=== PATIENT | male | born 1965 | race Hispanic/Latino ===

== ENCOUNTER 2023-06-24 08:46 | Emergency (ER) | payer SELFPAY ==
--- OUTSIDE RECORDS SUMMARY | 2023-06-24 08:59 | XMS REPORT | Continuity of Care Document ---
Author Name Unknown Address [address] [facility] [address] [place] [address] [facility] thconnect Address [address] [facility] [address] [place] [address] Care Team Providers Care Tissue Coordinator Name Role Phone ROMEDEANDRE Primary Care Physician Unavailab SAMUEL Singh Attending Clinician Unavailable Samuel Donato MD Attending Clinician [phone] Vanesa MOY Attending Clinician Unavailable Vanesa Thornton Attending Clinician [phone] JEZ LINN Attending Clinician Unavailable Jez Linn PA-C Attending Clinician Payers Payer Name Policy Type Policy Number Effective Date Expirati on Date Source MEDICAID [place] PENDING PENDING 2023 00:00:00 Allergies, Adverse Reactions, Alerts Allergy Name Allergy Type Status Severity Reaction(s) Onset Date Inactive Date Treating Clinician Comments Source NO KNOWN ALLERGIE S Drug Class Active [facility] Social History Social Habit Start Date Stop Date Quantity Comments Source Sexual orientation U [facility] Sex Assigned At 1965 00:00:00 1965 00:00:00 [facility] Smoking Status Start Date Stop Date Source Tobacco smoking consumption unknown [facility] Medications Ordered Medication Name Filled Medication Name Start Date Stop Date Current Medication? Ordering Clinician Indication Dosage Frequency Signature (SIG) Comments Components Source pantoprazol e (PROTONIX) 40 mg EC tablet 06-03 00:00: 00 Yes [id number] 40mg Take 1 tablet by mouth daily. [facility] pantoprazol e 40 mg EC tablet 0 224 00:00: 00 06-20 04:59 :00 Yes [id number] 40mg Take 1 tablet by mouth daily for [address] [facility] pantoprazol e 40 mg EC tablet 224 00:00: 00 06-20 04:59 :00 Yes [id number] 40mg Take 1 tablet by mouth daily for [address] [facility] pantoprazol e 40 mg EC tablet 24 00:00: 00 06-20 04:59 :00 Yes [id number] 40mg Take 1 tablet by mouth daily for [address] [facility] amlodipine 10 mg tablet 2021-0 18 00:00: 00 No 1mg metformin 500 mg tablet 0 18 00:00: 00 No 1mg atorvastati n 10 mg tablet 2021-0 18 00:00: 00 No 1mg Dose Unknown 2021-0 18 00:00: 00 No Dose Unknown 2021-0 18 00:00: 00 No Dose Unknown 2021-0 18 00:00: 00 No Dose Unknown 2021-0 18 00:00: 00 No Dose Unknown 2021-0 18 00:00: 00 No amlodipine 10 mg tablet 2021-0 18 00:00: 00 No 1mg metformin 500 mg tablet 2021-0 18 00:00: 00 No 1mg atorvastati n 10 mg tablet 2021-0 18 00:00: 00 No 1mg Dose Unknown 2021-0 18 00:00: 00 No Dose Unknown 2021-0 18 00:00: 00 No Dose Unknown 2021-0 18 00:00: 00 No Dose Unknown 2021-0 18 00:00: 00 No Dose Unknown 2021-0 18 00:00: 00 No lisinopril 2.5 mg tablet 2021-0 2-23 00:00: 00 No 1mg lisinopril 2.5 mg tablet 2021-0 2-23 00:00: 00 No 1mg Dose Unknown 04-19 00:00: 00 No amlodipine 10 mg tablet 2020-03 00:00: 00 No 1mg metformin 500 mg tablet 2020-03 00:00: 00 No 1mg atorvastati n 10 mg tablet 2020-03 00:00: 00 No 1mg hydrochloro thiazide 12.5 mg tablet 2020-03 00:00: 00 No 1mg amlodipine 10 mg tablet 2020-03 00:00: 00 No 1mg metformin 500 mg tablet 2020-03 00:00: 00 No 1mg atorvastati n 10 mg tablet 2020-03 00:00: 00 No 1mg metformin 500 mg tablet 11-20 00:00: 00 No 1mg metformin 500 mg tablet 11-20 00:00: 00 No 1mg terbinafine HCl 250 mg tablet 07-30 00:00: 00 No 1mg Dose Unknown 07-30 00:00: 00 No hydrochloro thiazide 12.5 mg tablet 07-30 00:00: 00 No 1mg amlodipine 10 mg tablet 07-30 00:00: 00 No 1mg metformin 500 mg tablet 07-30 00:00: 00 No 1mg atorvastati n 10 mg tablet 07-30 00:00: 00 No 1mg terbinafine HCl 250 mg tablet 07-30 00:00: 00 No 1mg lisinopril 2.5 mg tablet 07-30 00:00: 00 No 1mg hydrochloro thiazide 12.5 mg tablet 5 00:00: 00 No 1mg amlodipine 10 mg tablet 07-30 00:00: 00 No 1mg metformin 500 mg tablet 5 00:00: 00 No 1mg atorvastati n 10 mg tablet 5-05 00:00: 00 No 1mg rosuvastati n 20 mg tablet 2- 00:00: 00 No 1mg Dose Unknown 2-08 00:00: 00 No rosuvastati n 20 mg tablet 2-08 00:00: 00 No 1mg lisinopril 2.5 mg tablet 0 2-08 00:00: 00 No 1mg metformin 500 mg tablet 2-03 00:00: 00 No 1mg Dose Unknown 2-03 00:00: 00 No amlodipine 10 mg tablet 2- 00:00: 00 No 1mg metformin 500 mg tablet 2- 00:00: 00 No 1mg hydrochloro thiazide 12.5 mg tablet 2- 00:00: 00 No 1mg amlodipine 10 mg tablet 2 00:00: 00 No 1mg amlodipine 10 mg tablet 0 12-23 00:00: 00 No 1mg Dose Unknown 12-23 00:00: 00 No metformin 500 mg tablet 12-23 00:00: 00 No 1mg amlodipine 10 mg tablet 0 12-23 00:00: 00 No 1mg hydrochloro thiazide 12.5 mg tablet 0 12-23 00:00: 00 No 1mg metformin 500 mg tablet 0 12-23 00:00: 00 No 1mg amlodipine 10 mg tablet 0 09-11 00:00: 00 No 1mg hydrochloro thiazide 12.5 mg tablet 0 09-11 00:00: 00 No 1mg metformin 500 mg tablet 0 09-11 00:00: 00 No 1mg loratadine 10 mg tablet 0 09-11 00:00: 00 No 1mg amlodipine 10 mg tablet 0 09-11 00:00: 00 No 1mg hydrochloro thiazide 12.5 mg tablet 0 09-11 00:00: 00 No 1mg metformin 500 mg tablet 0 09-11 00:00: 00 No 1mg loratadine 10 mg tablet 0 09-11 00:00: 00 No 1mg amlodipine 10 mg tablet 0 07-12 00:00: 00 No 1mg hydrochloro thiazide 12.5 mg tablet 0 07-12 00:00: 00 No 1mg amlodipine 10 mg tablet 0 07-12 00:00: 00 No 1mg hydrochloro thiazide 12.5 mg tablet 2020-0 4-17 00:00: 00 No 1mg amlodipine 10 mg tablet 0 4- 00:00: 00 No 1mg hydrochloro thiazide 12.5 mg tablet 0 4- 00:00: 00 No 1mg amlodipine 10 mg tablet 0 4 00:00: 00 No 1mg hydrochloro thiazide 12.5 mg tablet 0 4 00:00: 00 No 1mg metformin 500 mg tablet 0 3-06 00:00: 00 No 1mg metformin 500 mg tablet 0 3 00:00: 00 No 1mg amlodipine 10 mg tablet 0 3-05 00:00: 00 No 1mg amlodipine 10 mg tablet 0 3-05 00:00: 00 No 1mg hydrochloro thiazide 12.5 mg tablet 0 3-05 00:00: 00 No 1mg hydrochloro thiazide 12.5 mg tablet 0 3-05 00:00: 00 No 1mg lisinopril 20 mg-hydrochl orothiazide 12.5 mg tablet 2018-03 2-02 00:00: 00 No 1mg lisinopril 20 mg-hydrochl orothiazide 12.5 mg tablet 2018-03 2-02 00:00: 00 No 1mg lisinopril 20 mg-hydrochl orothiazide 12.5 mg tablet 0 8-20 00:00: 00 No 1mg lisinopril 20 mg-hydrochl orothiazide 12.5 mg tablet 0 8-20 00:00: 00 No 1mg lisinopril 40 mg tablet 0 2-05 00:00: 00 No 1mg hydrochloro thiazide 12.5 mg tablet 0 2-05 00:00: 00 No 1mg lisinopril 40 mg tablet 0 2-05 00:00: 00 No 1mg hydrochloro thiazide 12.5 mg tablet 0 2-05 00:00: 00 No 1mg lisinopril 20 mg-hydrochl orothiazide 12.5 mg tablet 0 8-07 00:00: 00 No 1mg lisinopril 20 mg-hydrochl orothiazide 12.5 mg tablet 0 8-07 00:00: 00 No 1mg benzonatate 100 mg capsule 0 3-29 00:00: 00 No 1mg promethazin e-DM 6.25 mg-15 mg/5 mL syrup 06-23 00:00: 00 No 5mg/5 mL benzonatate 100 mg capsule 06-23 00:00: 00 No 1mg promethazin e-DM 6.25 mg-15 mg/5 mL syrup 06-23 00:00: 00 No 5mg/5 mL lisinopril 20 mg-hydrochl orothiazide 12.5 mg tablet 04-18 00:00: 00 No 1mg lisinopril 20 mg-hydrochl orothiazide 12.5 mg tablet 04-18 00:00: 00 No 1mg lisinopril 20 mg-hydrochl orothiazide 12.5 mg tablet 1 00:00: 00 No 1mg lisinopril 20 mg-hydrochl orothiazide 12.5 mg tablet 04-07 00:00: 00 No 1mg lisinopril 20 mg-hydrochl orothiazide 12.5 mg tablet 09-08 00:00: 00 No 1mg lisinopril 20 mg-hydrochl orothiazide 12.5 mg tablet 09-08 00:00: 00 No 1mg lisinopril 20 mg-hydrochl orothiazide 12.5 mg tablet 06-18 00:00: 00 No 1mg lisinopril 20 mg-hydrochl orothiazide 12.5 mg tablet 06-18 00:00: 00 No 1mg metformin 500 mg tablet 04-29 00:00: 00 No 1mg metformin 500 mg tablet 04-29 00:00: 00 No 1mg lisinopril 20 mg-hydrochl orothiazide 12.5 mg tablet 04-28 00:00: 00 No 1mg metformin 500 mg tablet 04-28 00:00: 00 No 1mg lisinopril 20 mg-hydrochl orothiazide 12.5 mg tablet 04-28 00:00: 00 No 1mg metformin 500 mg tablet 04-28 00:00: 00 No 1mg lisinopril 20 mg-hydrochl orothiazide 12.5 mg tablet 04-28 00:00: 00 No 1mg metformin 500 mg tablet 04-28 00:00: 00 No 1mg lisinopril 20 mg-hydrochl orothiazide 12.5 mg tablet 04-28 00:00: 00 No 1mg metformin 500 mg tablet 04-28 00:00: 00 No 1mg Ciprodex 0.3 %-0.1 % ear drops,suspe nsion 12-01 00:00: 00 No 4% Ciprodex 0.3 %-0.1 % ear drops,suspe nsion 12-01 00:00: 00 No 4% metformin 500 mg tablet 2014-03 00:00: 00 No 1mg lisinopril 20 mg-hydrochl orothiazide 12.5 mg tablet 2014-03 00:00: 00 No 1mg metformin 500 mg tablet 2014-03 00:00: 00 No 1mg lisinopril 20 mg-hydrochl orothiazide 12.5 mg tablet 2014-03 00:00: 00 No 1mg metformin 500 mg tablet 09-18 00:00: 00 No 1mg lisinopril 20 mg-hydrochl orothiazide 12.5 mg tablet 09-18 00:00: 00 No 1mg metformin 500 mg tablet 09-18 00:00: 00 No 1mg lisinopril 20 mg-hydrochl orothiazide 12.5 mg tablet 09-18 00:00: 00 No 1mg lisinopril 20 mg-hydrochl orothiazide 12.5 mg tablet 08-06 00:00: 00 No 2mg metformin 500 mg tablet 08-06 00:00: 00 No 1mg lisinopril 20 mg-hydrochl orothiazide 12.5 mg tablet 08-06 00:00: 00 No 2mg metformin 500 mg tablet 08-06 00:00: 00 No 1mg lisinopril 20 mg-hydrochl orothiazide 12.5 mg tablet 05-07 00:00: 00 No 2mg lisinopril 20 mg-hydrochl orothiazide 12.5 mg tablet 05-07 00:00: 00 No 2mg metformin 500 mg tablet 05-07 00:00: 00 No 1mg metformin 500 mg tablet 05-07 00:00: 00 No 1mg lisinopril 20 mg-hydrochl orothiazide 12.5 mg tablet 05-07 00:00: 00 No 2mg lisinopril 20 mg-hydrochl orothiazide 12.5 mg tablet 05-07 00:00: 00 No 2mg metformin 500 mg tablet 05-07 00:00: 00 No 1mg metformin 500 mg tablet 05-07 00:00: 00 No 1mg Immunizations Ordered Immunization Name Filled Immunization Name Date Status Comments Source TD, NOS Unknown Completed [facility] SARS-COV-2 COVID-19 PFIZER VACCINE Unknown Completed [facility] SARS-COV-2 COVID-19 PFIZER VACCINE Unknown Completed [facility] TD, NOS Unknown Completed [facility] SARS-COV-2 COVID-19 PFIZER VACCINE Unknown Completed [facility] SARS-COV-2 COVID-19 PFIZER VACCINE Unknown Completed [facility] TD, NOS Unknown Completed [facility] SARS-COV-2 COVID-19 PFIZER VACCINE Unknown Completed [facility] SARS-COV-2 COVID-19 PFIZER VACCINE Unknown Completed [facility] Vital Signs Vital Name Observation Time Observation Value Comments S ource Systolic blood pressure 2023-06-04 07:24:00 157 mm[Hg] [facility] Diastolic blood pressure 2023-06-04 07:24:00 82 mm[Hg] [facility] Heart rate 2023-06-04 07:24:00 72 /min [facility] Body temperature 2023-06-04 07:24:00 36.89 Sherri [facility] Respiratory rate 2023-06-04 07:24:00 18 /min [facility] Oxygen saturation in Arterial blood by Pulse oximetry 2023-06-04 07:24:00 97 /min [facility] Body height 2023-06-04 04:37:00 167.6 cm [facility] Body weight 2023-06-04 04:37:00 73.074 kg [facility] BMI 2023-06-04 04:37:00 26.00 kg/m2 [facility] Systolic blood pressure 2023-05-31 23:23:00 190 mm[Hg] [facility] Diastolic blood pressure 2023-05-31 23:23:00 100 mm[Hg] [facility] Heart rate 2023-05-31 23:23:00 86 /min [facility] Body temperature 2023-05-31 23:23:00 36.61 Sherri [facility] Respiratory rate 2023-05-31 23:23:00 19 /min [facility] Body height 2023-05-31 23:23:00 167.6 cm [facility] Body weight 2023-05-31 23:23:00 69.854 kg [facility] BMI 2023-05-31 23:23:00 24.86 kg/m2 [facility] Oxygen saturation in Arterial blood by Pulse oximetry 2023-05-31 23:23:00 100 /min [facility] Systolic blood pressure 2023-05-21 16:35:00 175 mm[Hg] [facility] Diastolic blood pressure 2023-05-21 16:35:00 81 mm[Hg] [facility] Heart rate 2023-05-21 16:35:00 85 /min [facility] Body temperature 2023-05-21 16:35:00 36.61 Sherri [facility] Respiratory rate 2023-05-21 16:35:00 16 /min [facility] Body height 2023-05-21 16:35:00 167.6 cm [facility] Body weight 2023-05-21 16:35:00 70.761 kg [facility] BMI 2023-05-21 16:35:00 25.18 kg/m2 [facility] Oxygen saturation in Arterial blood by Pulse oximetry 2023-05-21 16:35:00 97 /min [facility] BP Systolic 2022-02-09 08:24:00 151 mm[Hg] BP Diastolic 2022-02-09 08:24:00 67 mm[Hg] Weight Measured 2022-02-09 08:24:00 153.40 pounds Height Measured 2022-02-09 08:24:00 65.00 inches Body Temperature 2022-02-09 08:24:00 97.50 degrees Heart Rate 2022-02-09 08:24:00 57.00 /min Respiratory Rate 2022-02-09 08:24:00 BP Systolic 2021-11-12 08:04:00 160 mm[Hg] BP Diastolic 2021-11-12 08:04:00 87 mm[Hg] Weight Measured 2021-11-12 08:04:00 153.40 pounds Height Measured 2021-11-12 08:04:00 65.00 inches Body Temperature 2021-11-12 08:04:00 97.50 degrees Heart Rate 2021-11-12 08:04:00 66.00 /min Respiratory Rate 2021-11-12 08:04:00 BP Systolic 2021-08-12 13:19:00 120 mm[Hg] BP Diastolic 2021-08-12 13:19:00 66 mm[Hg] Weight Measured 2021-08-12 13:19:00 152.40 pounds Height Measured 2021-08-12 13:19:00 65.00 inches Body Temperature 2021-08-12 13:19:00 98.00 degrees Heart Rate 2021-08-12 13:19:00 69.00 /min Respiratory Rate 2021-08-12 13:19:00 16.00 /min BP Systolic 2021-02-17 08:44:00 154 mm[Hg] BP Diastolic 2021-02-17 08:44:00 74 mm[Hg] Weight Measured 2021-02-17 08:44:00 150.80 pounds Height Measured 2021-02-17 08:44:00 65.00 inches Body Temperature 2021-02-17 08:44:00 97.60 degrees Heart Rate 2021-02-17 08:44:00 71.00 /min Respiratory Rate 2021-02-17 08:44:00 BP Systolic 2020-07-30 08:52:00 165 mm[Hg] BP Diastolic 2020-07-30 08:52:00 86 mm[Hg] Weight Measured 2020-07-30 08:52:00 154.60 pounds Height Measured 2020-07-30 08:52:00 65.00 inches Body Temperature 2020-07-30 08:52:00 97.80 degrees Heart Rate 2020-07-30 08:52:00 82.00 /min Respiratory Rate 2020-07-30 08:52:00 20.00 /min BP Systolic 2020-04-30 15:06:00 151 mm[Hg] BP Diastolic 2020-04-30 15:06:00 75 mm[Hg] Weight Measured 2020-04-30 15:06:00 159.00 pounds Height Measured 2020-04-30 15:06:00 65.00 inches Body Temperature 2020-04-30 15:06:00 97.90 degrees Heart Rate 2020-04-30 15:06:00 77.00 /min Respiratory Rate 2020-04-30 15:06:00 18.00 /min BP Systolic 2020-04-30 14:41:00 151 mm[Hg] BP Diastolic 2020-04-30 14:41:00 75 mm[Hg] Weight Measured 2020-04-30 14:41:00 159.00 pounds Height Measured 2020-04-30 14:41:00 65.00 inches Body Temperature 2020-04-30 14:41:00 97.90 degrees Heart Rate 2020-04-30 14:41:00 77.00 /min Respiratory Rate 2020-04-30 14:41:00 18.00 /min BP Systolic 2019-12-24 15:04:00 178 mm[Hg] BP Diastolic 2019-12-24 15:04:00 95 mm[Hg] Weight Measured 2019-12-24 15:04:00 154.20 pounds Height Measured 2019-12-24 15:04:00 65.00 inches Body Temperature 2019-12-24 15:04:00 98.10 degrees Heart Rate 2019-12-24 15:04:00 88.00 /min Respiratory Rate 2019-12-24 15:04:00 17.00 /min BP Systolic 2019-09-12 08:32:00 158 mm[Hg] BP Diastolic 2019-09-12 08:32:00 83 mm[Hg] Weight Measured 2019-09-12 08:32:00 151.40 pounds Height Measured 2019-09-12 08:32:00 65.00 inches Body Temperature 2019-09-12 08:32:00 98.40 degrees Heart Rate 2019-09-12 08:32:00 77.00 /min Respiratory Rate 2019-09-12 08:32:00 BP Systolic 2019-07-13 08:23:00 175 mm[Hg] BP Diastolic 2019-07-13 08:23:00 83 mm[Hg] Weight Measured 2019-07-13 08:23:00 154.00 pounds Height Measured 2019-07-13 08:23:00 65.00 inches Body Temperature 2019-07-13 08:23:00 97.70 degrees Heart Rate 2019-07-13 08:23:00 71.00 /min Respiratory Rate 2019-07-13 08:23:00 16.00 /min Procedures Procedure Date / Time Performed Performing Clinician Source ETHANOL 2023-06-04 05:13:00 Samuel Donato [facility] URINE DRUG (IMMUNOASSAY) - COMPREHENSIVE DRUG SCREEN 2023-06-04 05:13:00 Samuel Donato [facility] CBC WITH DIFF 2023-06-04 05:13:00 Samuel Donato [facility] COMP. METABOLIC PANEL (91220) 2023-06-04 05:13:00 Samuel Donato [facility] CONSENT/REFUSAL FOR DIAGNOSIS AND TREATMENT 2023-06-04 04:27:24 Doctor Unassigned, [place] [facility] ASSIGNMENT OF BENEFITS 2023-06-01 00:26:23 Docto r Unassigned, [place] [facility] CONSENT/REFUSAL FOR DIAGNOSIS AND TREATMENT 2023-05-31 23:10:49 Doctor Unassigned, [place] [facility] ASSIGNMENT OF BENEFITS 2023-05-21 17:01:51 Docto r Unassigned, [place] [facility] CONSENT/REFUSAL FOR DIAGNOSIS AND TREATMENT 2023-05-21 16:29:51 Doctor Unassigned, [place] [facility] [address] Ecg Routine Ecg W/least 12 Lds W/i r 2016-04-28 00:00:00 Plan of Care Planned Activity Planned Date Details Comments Source Goal Plan of Care Note [code = 83481-7] Goal Plan of Care Note [code = 90620-3] Goal Plan of Care Note [code = 27177-8] Goal Plan of Care Note [code = 98700-5] Goal Plan of Care Note [code = 69301-2] Goal Plan of Care Note [code = 92711-3] Goal Plan of Care Note [code = 72239-2] Goal Plan of Care Note [code = 67886-8] Goal Plan of Care Note [code = 67000-6] Goal Plan of Care Note [code = 12535-8] Goal Plan of Care Note [code = 52235-3] Goal Plan of Care Note [code = 85050-3] Goal Plan of Care Note [code = 67628-8] Goal Plan of Care Note [code = 62872-6] Goal Plan of Care Note [code = 62393-2] Goal Plan of Care Note [code = 79897-4] Goal Plan of Care Note [code = 29356-4] Goal Plan of Care Note [code = 44977-9] Goal Plan of Care Note [code = 52239-1] Goal Plan of Care Note [code = 36873-4] Goal Plan of Care Note [code = 27921-6] Goal Plan of Care Note [code = 89941-2] Goal Plan of Care Note [code = 73381-6] Goal Plan of Care Note [code = 51395-8] Goal Plan of Care Note [code = 12945-8] Goal Plan of Care Note [code = 53310-7] Goal Plan of Care Note [code = 08837-2] Goal Plan of Care Note [code = 08509-1] Goal Plan of Care Note [code = 86483-1] Goal Plan of Care Note [code = 36185-6] Goal Plan of Care Note [code = 62495-8] Goal Plan of Care Note [code = 62612-8] Goal Plan of Care Note [code = 55366-4] Goal Plan of Care Note [code = 25220-7] Goal Plan of Care Note [code = 28174-3] Goal Plan of Care Note [code = 32627-7] Goal Plan of Care Note [code = 54642-4] Goal Plan of Care Note [code = 40249-6] Goal Plan of Care Note [code = 99729-0] Goal Plan of Care Note [code = 48112-0] Goal Plan of Care Note [code = 61585-5] Goal Plan of Care Note [code = 19485-2] Goal Plan of Care Note [code = 57996-0] Goal Plan of Care Note [code = 61167-3] Encounters Start Date/Time End Date/Time Encounter Type Admission Type Attending [facility] Care Department Encounter ID Source 2023-06-14 16:16:59 2023-06-14 16:16:59 Outpatient [facility] [id number] Eyad Conrad 2023-06-09 10:33:48 2023-06-09 10:33:48 Outpatient [facility] [id number] Eyad Boss [place] 2023-06-07 08:58:09 2023-06-07 08:58:09 Outpatient [facility] [id number] Eyad Conrad 2023-06-03 22:44:00 2023-06-04 01:31:00 Emergency X SAMUEL DONATO [facility] [id number] [facility] 2023-06-03 22:44:00 2023-06-04 01:31:00 Emergency Samuel Donato [facility] [id number] [id number] [facility] 2023-05-31 17:24:00 2023-05-31 19:34:00 Emergency X Vanesa MOY [facility] [id number] [facility] 2023-05-31 17:24:00 2023-05-31 19:34:00 Emergency Vanesa Moy [facility] [id number] [id number] [facility] 2023-05-26 08:34:48 2023-05-26 08:34:48 Outpatient [facility] [id number] Eyad Conrad 2023-05-21 10:37:00 2023-05-21 11:12:00 Emergency X JEZ LINN [facility] ERT [id number] [facility] 2023-05-21 10:37:00 2023-05-21 11:12:00 Emergency Jez Linn [facility] [id number] [id number] 4.2.7.2.[id number] [facility] 2023-05-16 08:24:25 2023-05-16 08:24:25 Outpatient [facility] [id number] Eyad Boss [place] 2023-05-10 13:40:06 2023-05-10 13:40:06 Outpatient [facility] [id number] Eyad Boss [place] 2023-05-05 08:27:35 2023-05-05 08:27:35 Outpatient [facility] [id number] Eyad Boss [place] 2023-05-04 08:10:10 2023-05-04 08:10:10 Outpatient [facility] [id number] Eyad Boss [place] 2023-04-27 09:55:09 2023-04-27 09:55:09 Outpatient SFA [facility] [id number] Eyad Boss [place] 2023-04-19 14:10:10 2023-04-19 14:10:10 Outpatient SFA SFA [id number] Eyad Boss [place] 2022-12-13 08:54:24 2022-12-13 08:54:24 Outpatient SFA [facility] [id number] Eyad Boss [place] 2022-12-10 11:54:29 2022-12-10 11:54:29 Outpatient SFA SFA [id number] Eyad Boss [place] 2022-12-01 08:12:56 2022-12-01 08:12:56 Outpatient SFA SFA [id number] Eyad Boss [place] 2022-09-17 09:25:24 2022-09-17 09:25:24 Outpatient SFA [facility] [id number] Eyad Boss [place] 2022-06-10 09:17:18 2022-06-10 09:17:18 Outpatient SFA SFA [id number] Eyad Boss [place] 2022-02-16 08:35:46 2022-02-16 08:35:46 Outpatient SFA SFA [id number] Eyad Conrad 2022-02-12 10:32:05 2022-02-12 10:32:05 Outpatient [facility] [id number] Eyad Conrad 2022-02-09 08:23:36 2022-02-09 08:23:36 Outpatient SFA [facility] [id number] Eyad Conrad 2022-02-09 00:00:00 2022-02-09 00:00:00 Outpatient Visit [id number] 2021-11-12 00:00:00 2021-11-12 00:00:00 Outpatient Visit [id number] Results Test Description Test Time Test Comments Results Resul t Comments Source Ethanol 2023-06-04 06:06:20 ALCOHOL<10mg/dL0 06/04/2023 12:[facility] [id number] Toxic>100 Depression of [employer]>[address] [facility] with [id number] 05:41:45* Test Item Value Reference Range Interpretation Comme nts WBC (test code = 6690-2) 8.21 4.20-10.70 RBC (test code = 789-8) 4.39 4.26-5.52 HGB (test code = 718-7) 12.6 g/dL 12.2-16.4 HCT (test code = 4544-3) 37.3 % 38.4-49.3 L MCV (test code = 787-2) 85.0 fL 81.7-95.6 MCH (test code = 785-6) 28.7 pg 26.1-32.7 MCHC (test code = 786-4) 33.8 g/dL 31.2-35.0 RDW-SD (test code = 73481-4) 42.0 fL 38.5-51.6 RDW-CV (test code = 788-0) 13.3 % 12.1-15.4 PLT (test code = 777-3) 272 150-328 MPV (test code = 38174-0) 11.2 fL 9.8-13.0 NRBC/100 WBC (test code = 7941058000) 0.0 0.0-10.0 NRBC x10^3 (test code = 4351209193) See_Comment [Automated messa ge] The system which generated this result transmitted reference range: 10*3/?L. The reference range was not used to interpret this result as normal/abnormal. GRAN MAT (NEUT) % (test code = 770-8) 46.2 % IMM GRAN % (test code = [id number]) 0.20 % LYMPH % (test code = 736-9) 34.3 % MONO % (test code = 5905-5) 7.2 % EOS % (test code = 713-8) 10.6 % BASO % (test code = 706-2) 1.5 % GRAN MAT x10^3(ANC) (test code = [id number]) 3.79 10*3/uL 1.99-6.95 IMM GRAN x10^3 (test code = [id number]) 0.00-0.06 LYMPH x10^3 (test code = 731-0) 2.82 10*3/uL 1.09-3.23 MONO x10^3 (test code = 742-7) 0.59 10*3/uL 0.36-1.02 EOS x10^3 (test code = 711-2) 0.87 10*3/uL 0.06-0.53 H BASO x10^3 (test code = 704-7) 0.12 10*3/uL 0.01-0.09 H Lab Interpretation (test code = 17469-0) Abnormal [facility] W/AUTO DIFF WITH [id number] 14:03:44* Test Item Value Reference Range Interpretation Comme nts WBC (test code = 1001) 7.9 K/UL 3.5-11.0 RBC (test code = 1002) 4.63 M/UL 4.50-6.10 HEMOGLOBIN (test code = 1003) 13.1 G/DL 13.5-17.0 L HEMATOCRIT (test code = 1004) 39.7 % 40.0-51.0 L MCV (test code = 1005) 85.7 fL 80.0-99.0 MCH (test code = 1006) 28.3 PG 25.0-33.0 MCHC (test code = 1007) 33.0 G/DL 31.0-36.0 RDW (test code = 1038) 13.4 % 11.5-15.0 NEUTROPHILS (test code = 1008) 55.5 % LYMPHOCYTES (test code = 1010) 22.7 % MONOCYTES (test code = 1011) 5.9 % EOSINOPHILS (test code = 1012) 14.5 % BASOPHILS (test code = 1013) 1.3 % IMMATURE GRANULOCYTES (test code = 1036) 0.1 % NUCLEATED RBCS (test code = 1065) 0.0 /100 WBC'S See_Comment [Automated message] The system which generated this result transmitted reference range: 0.0. The reference range was not used to interpret this result as normal/abnormal. PLATELET COUNT (test code = 1015) 274 K/UL 130-400 ABSOLUTE NEUTROPHILS (test code = 1066) 4.36 K/UL 1.50-7.50 ABSOLUTE LYMPHOCYTES (test code = 1067) 1.78 K/UL 1.00-4.00 ABSOLUTE MONOCYTES (test code = 1068) 0.46 K/UL 0.20-1.00 ABSOLUTE EOSINOPHILS (test code = 1040) 1.14 K/UL 0.00-0.50 H ABSOLUTE BASOPHILS (test code = 1069) 0.10 K/UL 0.00-0.20 ABS IMMATURE GRANULOCYTES (test code = 1020) 0.01 K/UL 0.00-0.10 ABS NUCLEATED RBCS (test code = 63606) 0.00 K/UL 0.00-0.11 UNLESS OTHER RAMOS INDICATED, ALL TESTING PERFORMED AT [facility] [address] [place] [id number] [employer]: SIVA MCCRARY M.D. CLIA NUMBER [id number] [facility] [place]. [id number] VITAMIN [id number] 05:26:13* Test Item Value Reference Range Interpretation Comme nts VITAMIN B-12 (test code = 2840) 511 PG/ML 200-950 UNLESS OTHERWISE INDICATED, ALL TESTING PERFORMED AT [facility] [address] [place] [address] [employer] D[employer]: SIVA MCCRARY M.D. CLIA NUMBER [id number] [facility] [place]. [id number] LIPID [id number] 04:46:42* Test Item Value Reference Range Interpretation Comme nts CHOLESTEROL (test code = 2210) 151 MG/DL <200 TRIGLYCERIDES (test code = 2232) 69 MG/DL <150 HDL CHOLESTEROL (test code = 2220) 52 MG/DL >39 CALC LDL CHOL (test code = 2237) 84 MG/DL <100 NOTE: CALCULATED LDL IS BASED ON MAMADOU-RAMOS METHOD WHICHINCLUDES ADJUSTABLE TRIGLYCERIDE:VLDL CHOLESTEROL RATIO.THIS FACTOR VARIES BY MEASURED TRIGLYCERIDE AND NON-HDLCHOLESTEROL CONCENTRATIONS WITH INCREASED CALCULATED LDL SEENIN HIGHER TRIGLYCERIDE OR LOWER NON-HDL SPECIMENS. FOR MOREINFORMATION, SEE CLIENT ANNOUNCEMENT AT [email or web address] /CalcLDL-C RISK RATIO LDL/HDL (test code = 2238) 1.62 RATIO <3.55 COMPREHENSIVE METABOLIC [id number] 04:46:42* Test Item Value Reference Range Interpretation Comme nts GLUCOSE (test code = 2217) 136 MG/DL 70-99 H BUN (test code = 220) 12 MG/DL 6-20 CREATININE (test code = 2214) 0.85 MG/DL 0.80-1.40 eGFR (2020 CKD-EPI) (test code = 94942) 100 ML/MIN/1.73 >60 CALC BUN/CREAT (test code = 2235) 14 RATIO 6-28 SODIUM (test code = 223) 137 MEQ/L 133-146 POTASSIUM (test code = 2228) 4.3 MEQ/L 3.5-5.4 CHLORIDE (test code = 2215) 102 MEQ/L 95-107 CARBON DIOXIDE (test code = 2206) 23 MEQ/L 19-31 CALCIUM (test code = 2209) 9.2 MG/DL 8.5-10.5 PROTEIN, TOTAL (test code = 2228) 7.6 G/DL 6.1-8.3 ALBUMIN (test code = 2200) 4.6 G/DL 3.5-5.2 CALC GLOBULIN (test code = 2240) 3.0 G/DL 1.9-3.7 CALC A/G RATIO (test code = 2234) 1.5 RATIO 1.0-2.6 BILIRUBIN, TOTAL (test code = 2207) 0.4 MG/DL <=1.2 ALKALINE PHOSPHATASE (test code = 2204) 74 U/L 40-123 AST (test code = 2218) 16 U/L 9-50 ALT (test code = 2219) 15 U/L 5-50 HEMOGLOBIN [id number] 02:47:17* Test Item Value Reference Range Interpretation Comme [facility] HEMOGLOBIN A1c (test code = 05541) 6.8 % 4.2-5.6 H [employer] GUIDELINES FOR HGB A1C: PREDIABETES/INCREASED RISK . . . . . . . 5.7-6.4% DIAGNOSIS OF DIABETES . . . . . . . . . >=6.5% WITH CONFIRMATION OR APPROPRIATE SYMPTOMS NOTE: ASSAY MAY BE AFFECTED BY HEMOGLOBINOPATHIES (SICKLE CELL ANEMIA, S-C DISEASE, OTHERS) OR ARTIFICIALLY LOWERED BY DECREASED RED CELL SURVIVAL (HEMOLYTIC ANEMIAS, BLOOD LOSS, ETC.). CONSIDER ALTERNATE TESTING OR LABORATORY CONSULTATION. HERPES SIMPLEX AB, [id number] 13:50:57* Test Item Value Reference Range Interpretation Comme [facility] HERPES SIMPLEX AB, IgM (test code = 05907) 0.34 INDEX SEE BELOW INTERPRETATION U NITS RANGE ----- ----- NEGATIVE INDEX <=0.89 EQUIVOCAL INDEX 0.90-1.09 POSITIVE INDEX >=1.10 HERPES SIMPLEX 1/2 AB, IgG [id number] 06:48:26* Test Item Value Reference Range Interpretation Comme [facility] HERPES SIMPLEX 1 AB, IgG (test code = 81828) 101.000 INDEX SEE BELOW H INTERPRETATION U NITS RANGE ----- ----- NON-REACTIVE INDEX <1.000 REACTIVE INDEX >=1.000 HERPES SIMPLEX 2 AB, IgG (test code = 03356) 0.074 INDEX SEE BELOW INTERPRETATION U NITS RANGE ----- ----- NON-REACTIVE INDEX <1.000 REACTIVE INDEX >=1.000 UNLESS OTHERWISE INDICATED, ALL TESTING PERFORMED AT [facility] [address] [place] [address] [employer] DIVER: SIVA MCCRARY M.D. CLIA NUMBER [id number] [place]. [id number] PSA, [id number] 09:46:33* Test Item Value Reference Range Interpretation Comme nts PSA, TOTAL (test code = 2606) 1.54 NG/ML See_Comment NOTE: Methodolog y is Dorita Ella Electrochemiluminescence Immunoassay traceable to WHO reference standard 96/760. UNLESS OTHERWISE INDICATED, ALL TESTING PERFORMED AT [facility] [address] [place] [address] [employer] DIVER: Luis BENÍTEZIA NUMBER [id number] [place]. [id number] [Automated message] The system which generated this result transmitted reference range: <=4.00. The reference range was not used to interpret this result as normal/abnormal. COMPREHENSIVE METABOLIC [id number] 06:14:06* Test Item Value Reference Range Interpretation Comme nts GLUCOSE (test code = 2217) 127 MG/DL 70-99 H BUN (test code = 2207) 22 MG/DL 6-20 H CREATININE (test code = 2214) 1.12 MG/DL 0.80-1.40 eGFR (2020 CKD-EPI) (test code = 13694) 76 ML/MIN/1.73 >60 CALC BUN/CREAT (test code = 223) 20 RATIO 6-28 SODIUM (test code = 223) 141 MEQ/L 133-146 POTASSIUM (test code = 2228) 4.8 MEQ/L 3.5-5.4 CHLORIDE (test code = 2215) 104 MEQ/L 95-107 CARBON DIOXIDE (test code = 2206) 26 MEQ/L 19-31 CALCIUM (test code = 2209) 10.1 MG/DL 8.5-10.5 PROTEIN, TOTAL (test code = 222) 8.0 G/DL 6.1-8.3 ALBUMIN (test code = 220) 4.8 G/DL 3.5-5.2 CALC GLOBULIN (test code = 2240) 3.2 G/DL 1.9-3.7 CALC A/G RATIO (test code = 2234) 1.5 RATIO 1.0-2.6 BILIRUBIN, TOTAL (test code = 2207) 0.5 MG/DL See_Comment [Automated me ssage] The system which generated this result transmitted reference range: <=1.2. The reference range was not used to interpret this result as normal/abnormal. ALKALINE PHOSPHATASE (test code = 2204) 74 U/L 40-123 AST (test code = 2218) 17 U/L 9-50 ALT (test code = 2219) 22 U/L 5-50 LIPID [id number] 06:14:06* Test Item Value Reference Range Interpretation Comme nts CHOLESTEROL (test code = 2210) 176 MG/DL <200 TRIGLYCERIDES (test code = 2232) 79 MG/DL <150 HDL CHOLESTEROL (test code = 0) 61 MG/DL >39 CALC LDL CHOL (test code = 2237) 98 MG/DL <100 NOTE: CALCULATED LDL IS BASED ON MAMADOU-RAMOS METHOD WHICHINCLUDES ADJUSTABLE TRIGLYCERIDE:VLDL CHOLESTEROL RATIO.THIS FACTOR VARIES BY MEASURED TRIGLYCERIDE AND NON-HDLCHOLESTEROL CONCENTRATIONS WITH INCREASED CALCULATED LDL SEENIN HIGHER TRIGLYCERIDE OR LOWER NON-HDL SPECIMENS. FOR MOREINFORMATION, SEE CLIENT ANNOUNCEMENT AT [email or web address] /CalcLDL-C RISK RATIO LDL/HDL (test code = 2238) 1.61 RATIO <3.55 HEMOGLOBIN [id number] 02:39:27* Test Item Value Reference Range Interpretation Comme nts HEMOGLOBIN A1c (test code = 20213) 6.2 % 4.2-5.6 H [employer]ATION GUIDELINES FOR HGB A1C: PREDIABETES/INCREASED RISK . . . . . . . 5.7-6.4% DIAGNOSIS OF DIABETES . . . . . . . . . >=6.5% WITH CONFIRMATION OR APPROPRIATE SYMPTOMS NOTE: ASSAY MAY BE AFFECTED BY HEMOGLOBINOPATHIES (SICKLE CELL ANEMIA, S-C DISEASE, OTHERS) OR ARTIFICIALLY LOWERED BY DECREASED RED CELL SURVIVAL (HEMOLYTIC ANEMIAS, BLOOD LOSS, ETC.). CONSIDER ALTERNATE TESTING OR LABORATORY CONSULTATION. COMPREHENSIVE METABOLIC [id number] 05:48:28* Test Item Value Reference Range Interpretation Comme nts GLUCOSE (test code = 2217) 120 MG/DL 70-99 H BUN (test code = 220) 18 MG/DL 6-20 CREATININE (test code = 2213) 0.94 MG/DL 0.80-1.40 eGFR (2020 CKD-EPI) (test code = ) 94 ML/MIN/1.73 >60 CALC BUN/CREAT (test code = 2234) 19 RATIO 6-28 SODIUM (test code = 2230) 138 MEQ/L 133-146 POTASSIUM (test code = 2227) 4.8 MEQ/L 3.5-5.4 CHLORIDE (test code = 2214) 102 MEQ/L 95-107 CARBON DIOXIDE (test code = 2205) 22 MEQ/L 19-31 CALCIUM (test code = 2208) 9.3 MG/DL 8.5-10.5 PROTEIN, TOTAL (test code = 2228) 7.7 G/DL 6.1-8.3 ALBUMIN (test code = 2200) 4.6 G/DL 3.5-5.2 CALC GLOBULIN (test code = 2239) 3.1 G/DL 1.9-3.7 CALC A/G RATIO (test code = 2233) 1.5 RATIO 1.0-2.6 BILIRUBIN, TOTAL (test code = 2206) 0.2 MG/DL See_Comment [Automated me ssage] The system which generated this result transmitted reference range: <=1.2. The reference range was not used to interpret this result as normal/abnormal. ALKALINE PHOSPHATASE (test code = 2203) 64 U/L 40-123 AST (test code = 2217) 18 U/L 9-50 ALT (test code = 2218) 19 U/L 5-50 LIPID [id number] 05:48:28* Test Item Value Reference Range Interpretation Comme nts CHOLESTEROL (test code = 221) 169 MG/DL <200 TRIGLYCERIDES (test code = 2232) 56 MG/DL <150 HDL CHOLESTEROL (test code = 222) 53 MG/DL >39 CALC LDL CHOL (test code = 2236) 102 MG/DL <100 H NOTE: CALCULATED LDL IS BASED ON MAMADOU-RAMOS METHOD WHICHINCLUDES ADJUSTABLE TRIGLYCERIDE:VLDL CHOLESTEROL RATIO.THIS FACTOR VARIES BY MEASURED TRIGLYCERIDE AND NON-HDLCHOLESTEROL CONCENTRATIONS WITH INCREASED CALCULATED LDL SEENIN HIGHER TRIGLYCERIDE OR LOWER NON-HDL SPECIMENS. FOR MOREINFORMATION, SEE CLIENT ANNOUNCEMENT AT [email or web address] /CalcLDL-C RISK RATIO LDL/HDL (test code = 2238) 1.92 RATIO <3.55 HEMOGLOBIN [id number] 04:51:08* Test Item Value Reference Range Interpretation Comme nts HEMOGLOBIN A1c (test code = 08493) 6.5 % 4.2-5.6 H [employer]ATION GUIDELINES FOR HGB A1C: PREDIABETES/INCREASED RISK . . . . . . . 5.7-6.4% DIAGNOSIS OF DIABETES . . . . . . . . . >=6.5% WITH CONFIRMATION OR APPROPRIATE SYMPTOMS NOTE: ASSAY MAY BE AFFECTED BY HEMOGLOBINOPATHIES (SICKLE CELL ANEMIA, S-C DISEASE, OTHERS) OR ARTIFICIALLY LOWERED BY DECREASED RED CELL SURVIVAL (HEMOLYTIC ANEMIAS, BLOOD LOSS, ETC.). CONSIDER ALTERNATE TESTING OR LABORATORY CONSULTATION. [facility] has important pathology staff changes effective 05/26/2022. New pathology staff will provide uninterrupted, excellent patient care and clinical consultation. See URL: [email or web address]. UNLESS OTHERWISE INDICATED, ALL TESTING PERFORMED AT [facility] [address] [place] [address] [employer] DIVER: SIVA MCCRARY M.D. CLIA NUMBER [id number] [place]. [id number] HEMOGLOBIN [id number] 03:54:42* Test Item Value Reference Range Interpretation Comme [facility] HEMOGLOBIN A1c (test code = 65404) 6.5 % 4.2-5.6 H [employer]IATION GUIDELINES FOR HGB A1C: PREDIABETES/INCREASED RISK . . . . . . . 5.7-6.4% DIAGNOSIS OF DIABETES . . . . . . . . . >=6.5% WITH CONFIRMATION OR APPROPRIATE SYMPTOMS NOTE: ASSAY MAY BE AFFECTED BY HEMOGLOBINOPATHIES (SICKLE CELL ANEMIA, S-C DISEASE, OTHERS) OR ARTIFICIALLY LOWERED BY DECREASED RED CELL SURVIVAL (HEMOLYTIC ANEMIAS, BLOOD LOSS, ETC.). CONSIDER ALTERNATE TESTING OR LABORATORY CONSULTATION. UNLESS OTHERWISE INDICATED, ALL TESTING PERFORMED [facility] [address] [place] [address] [employer] DIVER: DENY MCKEON M.D. CLIA NUMBER [id number] [place]. [id number] COMPREHENSIVE METABOLIC [id number] 03:41:22* Test Item Value Reference Range Interpretation Comme nts GLUCOSE (test code = 2216) 109 MG/DL 70-99 H BUN (test code = 2207) 20 MG/DL 6-20 CREATININE (test code = 2213) 1.15 MG/DL 0.80-1.40 eGFR (2020 CKD-EPI) (test code = ) 74 ML/MIN/1.73 >60 CALC BUN/CREAT (test code = 2234) 17 RATIO 6-28 SODIUM (test code = 2230) 143 MEQ/L 133-146 POTASSIUM (test code = 2227) 4.2 MEQ/L 3.5-5.4 CHLORIDE (test code = 2214) 103 MEQ/L 95-107 CARBON DIOXIDE (test code = 2205) 27 MEQ/L 19-31 CALCIUM (test code = 2208) 9.7 MG/DL 8.5-10.5 PROTEIN, TOTAL (test code = 2228) 8.0 G/DL 6.1-8.3 ALBUMIN (test code = 2200) 4.7 G/DL 3.5-5.2 CALC GLOBULIN (test code = 2239) 3.3 G/DL 1.9-3.7 CALC A/G RATIO (test code = 2233) 1.4 RATIO 1.0-2.6 BILIRUBIN, TOTAL (test code = 2206) 0.3 MG/DL See_Comment [Automated me ssage] The system which generated this result transmitted reference range: <=1.2. The reference range was not used to interpret this result as normal/abnormal. ALKALINE PHOSPHATASE (test code = 2203) 87 U/L 40-123 AST (test code = 2217) 15 U/L 9-50 ALT (test code = 2218) 24 U/L 5-50 LIPID [id number] 03:41:22* Test Item Value Reference Range Interpretation Comme nts CHOLESTEROL (test code = 2209) 135 MG/DL <200 TRIGLYCERIDES (test code = 2231) 55 MG/DL <150 HDL CHOLESTEROL (test code = 2219) 53 MG/DL >39 CALC LDL CHOL (test code = 2236) 68 MG/DL <100 NOTE: CALCULATED LDL IS BASED ON MAMADOU-RAMOS METHOD WHICHINCLUDES ADJUSTABLE TRIGLYCERIDE:VLDL CHOLESTEROL RATIO.THIS FACTOR VARIES BY MEASURED TRIGLYCERIDE AND NON-HDLCHOLESTEROL CONCENTRATIONS WITH INCREASED CALCULATED LDL SEENIN HIGHER TRIGLYCERIDE OR LOWER NON-HDL SPECIMENS. FOR MOREINFORMATION, SEE CLIENT ANNOUNCEMENT AT [email or web address] /[email or web address] RISK RATIO LDL/HDL (test code = 2238) 1.28 RATIO <3.55 LIPID [id number] 00:00:00* Test Item Value Reference Range Interpretation Comme nts CHOLESTEROL (test code = 2210) 135 MG/DL TRIGLYCERIDES (test code = 2232) 55 MG/DL HDL CHOLESTEROL (test code = 2220) 53 MG/DL CALC LDL CHOL (test code = 2237) 68 MG/DL RISK RATIO LDL/HDL (test cod e = 2238) 1.28 RATIO LIPID [id number] 00:00:00* Test Item Value Reference Range Interpretation Comme nts CHOLESTEROL (test code = 2210) 135 MG/DL TRIGLYCERIDES (test code = 2232) 55 MG/DL HDL CHOLESTEROL (test code = 2220) 53 MG/DL CALC LDL CHOL (test code = 2237) 68 MG/DL RISK RATIO LDL/HDL (test cod e = 2238) 1.28 RATIO HEMOGLOBIN [id number] 00:00:00* Test Item Value Reference Range Interpretation Comme nts HEMOGLOBIN A1c (test code = 88397) 6.5 % HEMOGLOBIN [id number] 00:00:00* Test Item Value Reference Range Interpretation Comme nts HEMOGLOBIN A1c (test code = 59595) 6.5 % HEMOGLOBIN [id number] 00:00:00* Test Item Value Reference Range Interpretation Comme nts HEMOGLOBIN A1c (test code = 39632) 6.5 % COMPREHENSIVE METABOLIC [id number] 00:00:00* Test Item Value Reference Range Interpretation Comme nts GLUCOSE (test code = 2217) 109 MG/DL BUN (test code = 2208) 20 MG/DL CREATININE (test code = 2214) 1.15 MG/DL eGFR (2020 CKD-EPI) (test co de = 86141) 74 ML/MIN/1.73 CALC BUN/CREAT (test code = 2235) 17 RATIO SODIUM (test code = 2231) 143 MEQ/L POTASSIUM (test code = 2228) 4.2 MEQ/L CHLORIDE (test code = 2215) 103 MEQ/L CARBON DIOXIDE (test code = 2206) 27 MEQ/L CALCIUM (test code = 2209) 9.7 MG/DL PROTEIN, TOTAL (test code = 2229) 8.0 G/DL ALBUMIN (test code = 2201) 4.7 G/DL CALC GLOBULIN (test code = 2240) 3.3 G/DL CALC A/G RATIO (test code = 2234) 1.4 RATIO BILIRUBIN, TOTAL (test code = 2207) 0.3 MG/DL ALKALINE PHOSPHATASE (test code = 2204) 87 U/L AST (test code = 2218) 15 U/L ALT (test code = 2219) 24 U/L COMPREHENSIVE METABOLIC [id number] 00:00:00* Test Item Value Reference Range Interpretation Comme nts GLUCOSE (test code = 2217) 109 MG/DL BUN (test code = 2208) 20 MG/DL CREATININE (test code = 2214) 1.15 MG/DL eGFR (2020 CKD-EPI) (test co de = 28401) 74 ML/MIN/1.73 CALC BUN/CREAT (test code = 2235) 17 RATIO SODIUM (test code = 2231) 143 MEQ/L POTASSIUM (test code = 2228) 4.2 MEQ/L CHLORIDE (test code = 2215) 103 MEQ/L CARBON DIOXIDE (test code = 2206) 27 MEQ/L CALCIUM (test code = 2209) 9.7 MG/DL PROTEIN, TOTAL (test code = 2229) 8.0 G/DL ALBUMIN (test code = 2201) 4.7 G/DL CALC GLOBULIN (test code = 2240) 3.3 G/DL CALC A/G RATIO (test code = 2234) 1.4 RATIO BILIRUBIN, TOTAL (test code = 2207) 0.3 MG/DL ALKALINE PHOSPHATASE (test code = 2204) 87 U/L AST (test code = 2218) 15 U/L ALT (test code = 2219) 24 U/L LIPID [id number] 00:00:00* Test Item Value Reference Range Interpretation Comme nts CHOLESTEROL (test code = 2210) 135 MG/DL TRIGLYCERIDES (test code = 2232) 55 MG/DL HDL CHOLESTEROL (test code = 2220) 53 MG/DL CALC LDL CHOL (test code = 2237) 68 MG/DL RISK RATIO LDL/HDL (test cod e = 2238) 1.28 RATIO LIPID [id number] 00:00:00* Test Item Value Reference Range Interpretation Comme nts CHOLESTEROL (test code = 2210) 135 MG/DL TRIGLYCERIDES (test code = 2232) 55 MG/DL HDL CHOLESTEROL (test code = 2220) 53 MG/DL CALC LDL CHOL (test code = 2237) 68 MG/DL RISK RATIO LDL/HDL (test cod e = 2238) 1.28 RATIO HEMOGLOBIN [id number] 00:00:00* Test Item Value Reference Range Interpretation Comme nts HEMOGLOBIN A1c (test code = 29921) 6.5 % HEMOGLOBIN [id number] 00:00:00* Test Item Value Reference Range Interpretation Comme nts HEMOGLOBIN A1c (test code = 66010) 6.5 % HEMOGLOBIN [id number] 00:00:00* Test Item Value Reference Range Interpretation Comme nts HEMOGLOBIN A1c (test code = 11894) 6.5 % COMPREHENSIVE METABOLIC [id number] 00:00:00* Test Item Value Reference Range Interpretation Comme nts GLUCOSE (test code = 2216) 109 MG/DL BUN (test code = 2208) 20 MG/DL CREATININE (test code = 2214) 1.15 MG/DL eGFR (2020 CKD-EPI) (test co de = 80866) 74 ML/MIN/1.73 CALC BUN/CREAT (test code = 2235) 17 RATIO SODIUM (test code = 2231) 143 MEQ/L POTASSIUM (test code = 2228) 4.2 MEQ/L CHLORIDE (test code = 2215) 103 MEQ/L CARBON DIOXIDE (test code = 2206) 27 MEQ/L CALCIUM (test code = 2209) 9.7 MG/DL PROTEIN, TOTAL (test code = 2229) 8.0 G/DL ALBUMIN (test code = 2201) 4.7 G/DL CALC GLOBULIN (test code = 2240) 3.3 G/DL CALC A/G RATIO (test code = 2234) 1.4 RATIO BILIRUBIN, TOTAL (test code = 2207) 0.3 MG/DL ALKALINE PHOSPHATASE (test code = 2204) 87 U/L AST (test code = 2218) 15 U/L ALT (test code = 2219) 24 U/L COMPREHENSIVE METABOLIC [id number] 00:00:00* Test Item Value Reference Range Interpretation Comme nts GLUCOSE (test code = 2217) 109 MG/DL BUN (test code = 2208) 20 MG/DL CREATININE (test code = 2214) 1.15 MG/DL eGFR (2020 CKD-EPI) (test co de = 79780) 74 ML/MIN/1.73 CALC BUN/CREAT (test code = 2235) 17 RATIO SODIUM (test code = 2231) 143 MEQ/L POTASSIUM (test code = 2228) 4.2 MEQ/L CHLORIDE (test code = 2215) 103 MEQ/L CARBON DIOXIDE (test code = 2206) 27 MEQ/L CALCIUM (test code = 2209) 9.7 MG/DL PROTEIN, TOTAL (test code = 2229) 8.0 G/DL ALBUMIN (test code = 2201) 4.7 G/DL CALC GLOBULIN (test code = 2240) 3.3 G/DL CALC A/G RATIO (test code = 2234) 1.4 RATIO BILIRUBIN, TOTAL (test code = 2207) 0.3 MG/DL ALKALINE PHOSPHATASE (test code = 2204) 87 U/L AST (test code = 2218) 15 U/L ALT (test code = 2219) 24 U/L LIPID [id number] 00:00:00* Test Item Value Reference Range Interpretation Comme nts CHOLESTEROL (test code = 2210) 207 MG/DL TRIGLYCERIDES (test code = 2232) 59 MG/DL HDL CHOLESTEROL (test code = 2220) 70 MG/DL CALC LDL CHOL (test code = 2237) 122 MG/DL RISK RATIO LDL/HDL (test cod e = 2238) 1.74 RATIO LIPID [id number] 00:00:00* Test Item Value Reference Range Interpretation Comme nts CHOLESTEROL (test code = 2210) 207 MG/DL TRIGLYCERIDES (test code = 2232) 59 MG/DL HDL CHOLESTEROL (test code = 2220) 70 MG/DL CALC LDL CHOL (test code = 2237) 122 MG/DL RISK RATIO LDL/HDL (test cod e = 2238) 1.74 RATIO HEMOGLOBIN A1c [ADDED]2021-02-18 00:00:00* Test Item Value Reference Range Interpretation Comme nts HEMOGLOBIN A1c (test code = 32033) 6.2 % HEMOGLOBIN A1c [ADDED]2021-02-18 00:00:00* Test Item Value Reference Range Interpretation Comme nts HEMOGLOBIN A1c (test code = 05403) 6.2 % HEMOGLOBIN A1c [ADDED]2021-02-18 00:00:00* Test Item Value Reference Range Interpretation Comme nts HEMOGLOBIN A1c (test code = 56805) 6.2 % COMPREHENSIVE METABOLIC [id number] 00:00:00* Test Item Value Reference Range Interpretation Comme nts GLUCOSE (test code = 2217) 121 MG/DL BUN (test code = 2208) 12 MG/DL CREATININE (test code = 2214) 1.05 MG/DL eGFR AMER. (test cod e = 00380) 91 ML/MIN/1.73 eGFR NON- AMER. (test code = 00719) 78 ML/MIN/1.73 CALC BUN/CREAT (test code = 2235) 11 RATIO SODIUM (test code = 2231) 142 MEQ/L POTASSIUM (test code = 2228) 4.2 MEQ/L CHLORIDE (test code = 2215) 102 MEQ/L CARBON DIOXIDE (test code = 2206) 27 MEQ/L CALCIUM (test code = 2209) 9.6 MG/DL PROTEIN, TOTAL (test code = 2229) 8.3 G/DL ALBUMIN (test code = 2201) 4.6 G/DL CALC GLOBULIN (test code = 2240) 3.7 G/DL CALC A/G RATIO (test code = 2234) 1.2 RATIO BILIRUBIN, TOTAL (test code = 2207) 0.4 MG/DL ALKALINE PHOSPHATASE (test code = 2204) 92 U/L AST (test code = 2218) 18 U/L ALT (test code = 2219) 23 U/L COMPREHENSIVE METABOLIC [id number] 00:00:00* Test Item Value Reference Range Interpretation Comme nts GLUCOSE (test code = 2217) 121 MG/DL BUN (test code = 2208) 12 MG/DL CREATININE (test code = 2214) 1.05 MG/DL eGFR AMER. (test cod e = 01403) 91 ML/MIN/1.73 eGFR NON- AMER. (test code = 00549) 78 ML/MIN/1.73 CALC BUN/CREAT (test code = 2235) 11 RATIO SODIUM (test code = 2231) 142 MEQ/L POTASSIUM (test code = 2228) 4.2 MEQ/L CHLORIDE (test code = 2215) 102 MEQ/L CARBON DIOXIDE (test code = 2206) 27 MEQ/L CALCIUM (test code = 2209) 9.6 MG/DL PROTEIN, TOTAL (test code = 2229) 8.3 G/DL ALBUMIN (test code = 2201) 4.6 G/DL CALC GLOBULIN (test code = 2240) 3.7 G/DL CALC A/G RATIO (test code = 2234) 1.2 RATIO BILIRUBIN, TOTAL (test code = 2207) 0.4 MG/DL ALKALINE PHOSPHATASE (test code = 2204) 92 U/L AST (test code = 2218) 18 U/L ALT (test code = 2219) 23 U/L LIPID [id number] 00:00:00* Test Item Value Reference Range Interpretation Comme nts CHOLESTEROL (test code = 2210) 207 MG/DL TRIGLYCERIDES (test code = 2232) 59 MG/DL HDL CHOLESTEROL (test code = 2220) 70 MG/DL CALC LDL CHOL (test code = 2237) 122 MG/DL RISK RATIO LDL/HDL (test cod e = 2238) 1.74 RATIO LIPID [id number] 00:00:00* Test Item Value Reference Range Interpretation Comme nts CHOLESTEROL (test code = 2210) 207 MG/DL TRIGLYCERIDES (test code = 2232) 59 MG/DL HDL CHOLESTEROL (test code = 2220) 70 MG/DL CALC LDL CHOL (test code = 2237) 122 MG/DL RISK RATIO LDL/HDL (test cod e = 2238) 1.74 RATIO HEMOGLOBIN A1c [ADDED]2021-02-18 00:00:00* Test Item Value Reference Range Interpretation Comme nts HEMOGLOBIN A1c (test code = 64851) 6.2 % HEMOGLOBIN A1c [ADDED]2021-02-18 00:00:00* Test Item Value Reference Range Interpretation Comme nts HEMOGLOBIN A1c (test code = 39466) 6.2 % HEMOGLOBIN A1c [ADDED]2021-02-18 00:00:00* Test Item Value Reference Range Interpretation Comme nts HEMOGLOBIN A1c (test code = 20763) 6.2 % COMPREHENSIVE METABOLIC [id number] 00:00:00* Test Item Value Reference Range Interpretation Comme nts GLUCOSE (test code = 7) 121 MG/DL BUN (test code = 2208) 12 MG/DL CREATININE (test code = 2214) 1.05 MG/DL eGFR AMER. (test cod e = 72645) 91 ML/MIN/1.73 eGFR NON- AMER. (test code = 16640) 78 ML/MIN/1.73 CALC BUN/CREAT (test code = 2235) 11 RATIO SODIUM (test code = 2231) 142 MEQ/L POTASSIUM (test code = 2228) 4.2 MEQ/L CHLORIDE (test code = 2215) 102 MEQ/L CARBON DIOXIDE (test code = 2206) 27 MEQ/L CALCIUM (test code = 2209) 9.6 MG/DL PROTEIN, TOTAL (test code = 2229) 8.3 G/DL ALBUMIN (test code = 2201) 4.6 G/DL CALC GLOBULIN (test code = 2240) 3.7 G/DL CALC A/G RATIO (test code = 2234) 1.2 RATIO BILIRUBIN, TOTAL (test code = 2207) 0.4 MG/DL ALKALINE PHOSPHATASE (test code = 2204) 92 U/L AST (test code = 2218) 18 U/L ALT (test code = 2219) 23 U/L COMPREHENSIVE METABOLIC [id number] 00:00:00* Test Item Value Reference Range Interpretation Comme nts GLUCOSE (test code = 2217) 121 MG/DL BUN (test code = 2208) 12 MG/DL CREATININE (test code = 2214) 1.05 MG/DL eGFR AMER. (test cod e = 52950) 91 ML/MIN/1.73 eGFR NON- AMER. (test code = 71673) 78 ML/MIN/1.73 CALC BUN/CREAT (test code = 2235) 11 RATIO SODIUM (test code = 2231) 142 MEQ/L POTASSIUM (test code = 2228) 4.2 MEQ/L CHLORIDE (test code = 2215) 102 MEQ/L CARBON DIOXIDE (test code = 2206) 27 MEQ/L CALCIUM (test code = 2209) 9.6 MG/DL PROTEIN, TOTAL (test code = 2229) 8.3 G/DL ALBUMIN (test code = 2201) 4.6 G/DL CALC GLOBULIN (test code = 2240) 3.7 G/DL CALC A/G RATIO (test code = 2234) 1.2 RATIO BILIRUBIN, TOTAL (test code = 2207) 0.4 MG/DL ALKALINE PHOSPHATASE (test code = 2204) 92 U/L AST (test code = 2218) 18 U/L ALT (test code = 2219) 23 U/L HEMOGLOBIN [id number] 00:00:00* Test Item Value Reference Range Interpretation Comme nts HEMOGLOBIN A1c (test code = 33702) 6.2 % LIPID [id number] 00:00:00* Test Item Value Reference Range Interpretation Comme nts CHOLESTEROL (test code = 2210) 139 MG/DL TRIGLYCERIDES (test code = 2232) 62 MG/DL HDL CHOLESTEROL (test code = 2220) 59 MG/DL CALC LDL CHOL (test code = 2237) 66 MG/DL RISK RATIO LDL/HDL (test cod e = 2238) 1.12 RATIO LIPID [id number] 00:00:00* Test Item Value Reference Range Interpretation Comme nts CHOLESTEROL (test code = 2210) 139 MG/DL TRIGLYCERIDES (test code = 2232) 62 MG/DL HDL CHOLESTEROL (test code = 2220) 59 MG/DL CALC LDL CHOL (test code = 2237) 66 MG/DL RISK RATIO LDL/HDL (test cod e = 2238) 1.12 RATIO COMPREHENSIVE METABOLIC [id number] 00:00:00* Test Item Value Reference Range Interpretation Comme nts GLUCOSE (test code = 2217) 115 MG/DL BUN (test code = 8) 10 MG/DL CREATININE (test code = 2214) 0.81 MG/DL eGFR AMER. (test cod e = 27314) 115 ML/MIN/1.73 eGFR NON- AMER. (test code = 02876) 99 ML/MIN/1.73 CALC BUN/CREAT (test code = 2235) 12 RATIO SODIUM (test code = 2231) 139 MEQ/L POTASSIUM (test code = 2228) 3.9 MEQ/L CHLORIDE (test code = 2215) 100 MEQ/L CARBON DIOXIDE (test code = 2206) 27 MEQ/L CALCIUM (test code = 2209) 9.3 MG/DL PROTEIN, TOTAL (test code = 2229) 7.6 G/DL ALBUMIN (test code = 2201) 4.6 G/DL CALC GLOBULIN (test code = 2240) 3.0 G/DL CALC A/G RATIO (test code = 2234) 1.5 RATIO BILIRUBIN, TOTAL (test code = 2207) 0.3 MG/DL ALKALINE PHOSPHATASE (test code = 2204) 85 U/L AST (test code = 2218) 20 U/L ALT (test code = 2219) 15 U/L COMPREHENSIVE METABOLIC [id number] 00:00:00* Test Item Value Reference Range Interpretation Comme nts GLUCOSE (test code = 2217) 115 MG/DL BUN (test code = 2208) 10 MG/DL CREATININE (test code = 2214) 0.81 MG/DL eGFR AMER. (test cod e = 37683) 115 ML/MIN/1.73 eGFR NON- AMER. (test code = 76148) 99 ML/MIN/1.73 CALC BUN/CREAT (test code = 2235) 12 RATIO SODIUM (test code = 2231) 139 MEQ/L POTASSIUM (test code = 2228) 3.9 MEQ/L CHLORIDE (test code = 2215) 100 MEQ/L CARBON DIOXIDE (test code = 2206) 27 MEQ/L CALCIUM (test code = 2209) 9.3 MG/DL PROTEIN, TOTAL (test code = 2229) 7.6 G/DL ALBUMIN (test code = 2201) 4.6 G/DL CALC GLOBULIN (test code = 2240) 3.0 G/DL CALC A/G RATIO (test code = 2234) 1.5 RATIO BILIRUBIN, TOTAL (test code = 2207) 0.3 MG/DL ALKALINE PHOSPHATASE (test code = 2204) 85 U/L AST (test code = 2218) 20 U/L ALT (test code = 2219) 15 U/L HEMOGLOBIN [id number] 00:00:00* Test Item Value Reference Range Interpretation Comme nts HEMOGLOBIN A1c (test code = 21047) 6.2 % HEMOGLOBIN [id number] 00:00:00* Test Item Value Reference Range Interpretation Comme nts HEMOGLOBIN A1c (test code = 34353) 6.2 % HEMOGLOBIN [id number] 00:00:00* Test Item Value Reference Range Interpretation Comme nts HEMOGLOBIN A1c (test code = 86058) 6.2 % LIPID [id number] 00:00:00* Test Item Value Reference Range Interpretation Comme nts CHOLESTEROL (test code = 2210) 139 MG/DL TRIGLYCERIDES (test code = 2232) 62 MG/DL HDL CHOLESTEROL (test code = 2220) 59 MG/DL CALC LDL CHOL (test code = 2237) 66 MG/DL RISK RATIO LDL/HDL (test cod e = 2238) 1.12 RATIO LIPID [id number] 00:00:00* Test Item Value Reference Range Interpretation Comme nts CHOLESTEROL (test code = 2210) 139 MG/DL TRIGLYCERIDES (test code = 2232) 62 MG/DL HDL CHOLESTEROL (test code = 2220) 59 MG/DL CALC LDL CHOL (test code = 2237) 66 MG/DL RISK RATIO LDL/HDL (test cod e = 2238) 1.12 RATIO COMPREHENSIVE METABOLIC [id number] 00:00:00* Test Item Value Reference Range Interpretation Comme nts GLUCOSE (test code = 2217) 115 MG/DL BUN (test code = 2208) 10 MG/DL CREATININE (test code = 2214) 0.81 MG/DL eGFR AMER. (test cod e = 13269) 115 ML/MIN/1.73 eGFR NON- AMER. (test code = 77648) 99 ML/MIN/1.73 CALC BUN/CREAT (test code = 2235) 12 RATIO SODIUM (test code = 2231) 139 MEQ/L POTASSIUM (test code = 2228) 3.9 MEQ/L CHLORIDE (test code = 2215) 100 MEQ/L CARBON DIOXIDE (test code = 2206) 27 MEQ/L CALCIUM (test code = 2209) 9.3 MG/DL PROTEIN, TOTAL (test code = 2229) 7.6 G/DL ALBUMIN (test code = 2201) 4.6 G/DL CALC GLOBULIN (test code = 2240) 3.0 G/DL CALC A/G RATIO (test code = 2234) 1.5 RATIO BILIRUBIN, TOTAL (test code = 2207) 0.3 MG/DL ALKALINE PHOSPHATASE (test code = 2204) 85 U/L AST (test code = 2218) 20 U/L ALT (test code = 2219) 15 U/L COMPREHENSIVE METABOLIC [id number] 00:00:00* Test Item Value Reference Range Interpretation Comme nts GLUCOSE (test code = 2217) 115 MG/DL BUN (test code = 2208) 10 MG/DL CREATININE (test code = 2214) 0.81 MG/DL eGFR AMER. (test cod e = 41360) 115 ML/MIN/1.73 eGFR NON- AMER. (test code = 98227) 99 ML/MIN/1.73 CALC BUN/CREAT (test code = 2235) 12 RATIO SODIUM (test code = 2231) 139 MEQ/L POTASSIUM (test code = 2228) 3.9 MEQ/L CHLORIDE (test code = 2215) 100 MEQ/L CARBON DIOXIDE (test code = 2206) 27 MEQ/L CALCIUM (test code = 2209) 9.3 MG/DL PROTEIN, TOTAL (test code = 2229) 7.6 G/DL ALBUMIN (test code = 2201) 4.6 G/DL CALC GLOBULIN (test code = 2240) 3.0 G/DL CALC A/G RATIO (test code = 2234) 1.5 RATIO BILIRUBIN, TOTAL (test code = 2207) 0.3 MG/DL ALKALINE PHOSPHATASE (test code = 2204) 85 U/L AST (test code = 2218) 20 U/L ALT (test code = 2219) 15 U/L HEMOGLOBIN [id number] 00:00:00* Test Item Value Reference Range Interpretation Comme nts HEMOGLOBIN A1c (test code = 47751) 6.2 % HEMOGLOBIN [id number] 00:00:00* Test Item Value Reference Range Interpretation Comme nts HEMOGLOBIN A1c (test code = 55502) 6.2 % LIPID [id number] 00:00:00* Test Item Value Reference Range Interpretation Comme nts CHOLESTEROL (test code = 2210) 181 MG/DL TRIGLYCERIDES (test code = 2232) 101 MG/DL HDL CHOLESTEROL (test code = 2220) 57 MG/DL CALC LDL CHOL (test code = 2237) 105 MG/DL RISK RATIO LDL/HDL (test cod e = 2238) 1.84 RATIO LIPID [id number] 00:00:00* Test Item Value Reference Range Interpretation Comme nts CHOLESTEROL (test code = 2210) 181 MG/DL TRIGLYCERIDES (test code = 2232) 101 MG/DL HDL CHOLESTEROL (test code = 2220) 57 MG/DL CALC LDL CHOL (test code = 2237) 105 MG/DL RISK RATIO LDL/HDL (test cod e = 2238) 1.84 RATIO COMPREHENSIVE METABOLIC [id number] 00:00:00* Test Item Value Reference Range Interpretation Comme nts GLUCOSE (test code = 2217) 132 MG/DL BUN (test code = 2208) 16 MG/DL CREATININE (test code = 2214) 1.14 MG/DL eGFR AMER. (test cod e = 44111) 83 ML/MIN/1.73 eGFR NON- AMER. (test code = 26286) 71 ML/MIN/1.73 CALC BUN/CREAT (test code = 2235) 14 RATIO SODIUM (test code = 2231) 138 MEQ/L POTASSIUM (test code = 2228) 4.0 MEQ/L CHLORIDE (test code = 2215) 100 MEQ/L CARBON DIOXIDE (test code = 2206) 27 MEQ/L CALCIUM (test code = 2209) 9.5 MG/DL PROTEIN, TOTAL (test code = 2229) 8.1 G/DL ALBUMIN (test code = 2201) 4.7 G/DL CALC GLOBULIN (test code = 2240) 3.4 G/DL CALC A/G RATIO (test code = 2234) 1.4 RATIO BILIRUBIN, TOTAL (test code = 2207) 0.2 MG/DL ALKALINE PHOSPHATASE (test code = 2204) 83 U/L AST (test code = 2218) 14 U/L ALT (test code = 2219) 13 U/L COMPREHENSIVE METABOLIC [id number] 00:00:00* Test Item Value Reference Range Interpretation Comme nts GLUCOSE (test code = 2217) 132 MG/DL BUN (test code = 2208) 16 MG/DL CREATININE (test code = 2214) 1.14 MG/DL eGFR AMER. (test cod e = 48554) 83 ML/MIN/1.73 eGFR NON- AMER. (test code = 10472) 71 ML/MIN/1.73 CALC BUN/CREAT (test code = 2235) 14 RATIO SODIUM (test code = 2231) 138 MEQ/L POTASSIUM (test code = 2228) 4.0 MEQ/L CHLORIDE (test code = 2215) 100 MEQ/L CARBON DIOXIDE (test code = 2206) 27 MEQ/L CALCIUM (test code = 2209) 9.5 MG/DL PROTEIN, TOTAL (test code = 2229) 8.1 G/DL ALBUMIN (test code = 2201) 4.7 G/DL CALC GLOBULIN (test code = 2240) 3.4 G/DL CALC A/G RATIO (test code = 2234) 1.4 RATIO BILIRUBIN, TOTAL (test code = 2207) 0.2 MG/DL ALKALINE PHOSPHATASE (test code = 2204) 83 U/L AST (test code = 2218) 14 U/L ALT (test code = 2219) 13 U/L MICROALBUMIN/CREATININE, RANDOM AND [id number] 00:00:00* Test Item Value Reference Range Interpretation Comme nts CREATININE, URINE, CONC. (te st code = 207) 217.6 MG/DL ALBUMIN, URINE, RANDOM (test code = 17322) 23.6 MG/DL CALC ALBUMIN/CREAT, RND (camron t code = 30786) 108 MG/G MICROALBUMIN/CREATININE, RANDOM AND [id number] 00:00:00* Test Item Value Reference Range Interpretation Comme nts CREATININE, URINE, CONC. (te st code = 207) 217.6 MG/DL ALBUMIN, URINE, RANDOM (test code = 58263) 23.6 MG/DL CALC ALBUMIN/CREAT, RND (camron t code = 93180) 108 MG/G HEMOGLOBIN [id number] 00:00:00* Test Item Value Reference Range Interpretation Comme nts HEMOGLOBIN A1c (test code = 66076) 7.0 % HEMOGLOBIN [id number] 00:00:00* Test Item Value Reference Range Interpretation Comme nts HEMOGLOBIN A1c (test code = 61626) 7.0 % HEMOGLOBIN [id number] 00:00:00* Test Item Value Reference Range Interpretation Comme nts HEMOGLOBIN A1c (test code = 41261) 7.0 % LIPID [id number] 00:00:00* Test Item Value Reference Range Interpretation Comme nts CHOLESTEROL (test code = 2210) 181 MG/DL TRIGLYCERIDES (test code = 2232) 101 MG/DL HDL CHOLESTEROL (test code = 2220) 57 MG/DL CALC LDL CHOL (test code = 2237) 105 MG/DL RISK RATIO LDL/HDL (test cod e = 2238) 1.84 RATIO LIPID [id number] 00:00:00* Test Item Value Reference Range Interpretation Comme nts CHOLESTEROL (test code = 2210) 181 MG/DL TRIGLYCERIDES (test code = 2232) 101 MG/DL HDL CHOLESTEROL (test code = 2220) 57 MG/DL CALC LDL CHOL (test code = 2237) 105 MG/DL RISK RATIO LDL/HDL (test cod e = 2238) 1.84 RATIO COMPREHENSIVE METABOLIC [id number] 00:00:00* Test Item Value Reference Range Interpretation Comme nts GLUCOSE (test code = 2217) 132 MG/DL BUN (test code = 2208) 16 MG/DL CREATININE (test code = 2214) 1.14 MG/DL eGFR AMER. (test cod e = 04650) 83 ML/MIN/1.73 eGFR NON- AMER. (test code = 78814) 71 ML/MIN/1.73 CALC BUN/CREAT (test code = 2235) 14 RATIO SODIUM (test code = 2231) 138 MEQ/L POTASSIUM (test code = 2228) 4.0 MEQ/L CHLORIDE (test code = 2215) 100 MEQ/L CARBON DIOXIDE (test code = 2206) 27 MEQ/L CALCIUM (test code = 2209) 9.5 MG/DL PROTEIN, TOTAL (test code = 2229) 8.1 G/DL ALBUMIN (test code = 2201) 4.7 G/DL CALC GLOBULIN (test code = 2240) 3.4 G/DL CALC A/G RATIO (test code = 2234) 1.4 RATIO BILIRUBIN, TOTAL (test code = 2207) 0.2 MG/DL ALKALINE PHOSPHATASE (test code = 2204) 83 U/L AST (test code = 2218) 14 U/L ALT (test code = 2219) 13 U/L COMPREHENSIVE METABOLIC [id number] 00:00:00* Test Item Value Reference Range Interpretation Comme nts GLUCOSE (test code = 2217) 132 MG/DL BUN (test code = 2208) 16 MG/DL CREATININE (test code = 2214) 1.14 MG/DL eGFR AMER. (test cod e = 23701) 83 ML/MIN/1.73 eGFR NON- AMER. (test code = 88434) 71 ML/MIN/1.73 CALC BUN/CREAT (test code = 2235) 14 RATIO SODIUM (test code = 2231) 138 MEQ/L POTASSIUM (test code = 2228) 4.0 MEQ/L CHLORIDE (test code = 2215) 100 MEQ/L CARBON DIOXIDE (test code = 2206) 27 MEQ/L CALCIUM (test code = 2209) 9.5 MG/DL PROTEIN, TOTAL (test code = 2229) 8.1 G/DL ALBUMIN (test code = 2201) 4.7 G/DL CALC GLOBULIN (test code = 2240) 3.4 G/DL CALC A/G RATIO (test code = 2234) 1.4 RATIO BILIRUBIN, TOTAL (test code = 2207) 0.2 MG/DL ALKALINE PHOSPHATASE (test code = 2204) 83 U/L AST (test code = 2218) 14 U/L ALT (test code = 2219) 13 U/L MICROALBUMIN/CREATININE, RANDOM AND [id number] 00:00:00* Test Item Value Reference Range Interpretation Comme nts CREATININE, URINE, CONC. (te st code = 2072) 217.6 MG/DL ALBUMIN, URINE, RANDOM (test code = 22416) 23.6 MG/DL CALC ALBUMIN/CREAT, RND (camron t code = 93827) 108 MG/G MICROALBUMIN/CREATININE, RANDOM AND [id number] 00:00:00* Test Item Value Reference Range Interpretation Comme nts CREATININE, URINE, CONC. (te st code = 207) 217.6 MG/DL ALBUMIN, URINE, RANDOM (test code = 93670) 23.6 MG/DL CALC ALBUMIN/CREAT, RND (camron t code = 37864) 108 MG/G HEMOGLOBIN [id number] 00:00:00* Test Item Value Reference Range Interpretation Comme nts HEMOGLOBIN A1c (test code = 40781) 7.0 % HEMOGLOBIN [id number] 00:00:00* Test Item Value Reference Range Interpretation Comme nts HEMOGLOBIN A1c (test code = 74703) 7.0 % HEMOGLOBIN [id number] 00:00:00* Test Item Value Reference Range Interpretation Comme nts HEMOGLOBIN A1c (test code = 89066) 7.0 % COMPREHENSIVE METABOLIC [id number] 00:00:00* Test Item Value Reference Range Interpretation Comme nts GLUCOSE (test code = 7) 133 MG/DL BUN (test code = 8) 9 MG/DL CREATININE (test code = 2214) 0.93 MG/DL eGFR AMER. (test cod e = 98422) 107 ML/MIN/1.73 eGFR NON- AMER. (test code = 83254) 92 ML/MIN/1.73 CALC BUN/CREAT (test code = 2235) 10 RATIO SODIUM (test code = 2231) 141 MEQ/L POTASSIUM (test code = 2228) 4.0 MEQ/L CHLORIDE (test code = 2215) 101 MEQ/L CARBON DIOXIDE (test code = 2206) 29 MEQ/L CALCIUM (test code = 2209) 9.5 MG/DL PROTEIN, TOTAL (test code = 2229) 7.7 G/DL ALBUMIN (test code = 2201) 4.3 G/DL CALC GLOBULIN (test code = 2240) 3.4 G/DL CALC A/G RATIO (test code = 2234) 1.3 RATIO BILIRUBIN, TOTAL (test code = 2207) 0.6 MG/DL ALKALINE PHOSPHATASE (test code = 2204) 93 U/L AST (test code = 2218) 19 U/L ALT (test code = 2219) 22 U/L LIPID [id number] 00:00:00* Test Item Value Reference Range Interpretation Comme nts CHOLESTEROL (test code = 2210) 193 MG/DL TRIGLYCERIDES (test code = 2232) 102 MG/DL HDL CHOLESTEROL (test code = 2220) 60 MG/DL CALC LDL CHOL (test code = 2237) 113 MG/DL RISK RATIO LDL/HDL (test cod e = 2238) 1.88 RATIO LIPID [id number] 00:00:00* Test Item Value Reference Range Interpretation Comme nts CHOLESTEROL (test code = 2210) 193 MG/DL TRIGLYCERIDES (test code = 2232) 102 MG/DL HDL CHOLESTEROL (test code = 2220) 60 MG/DL CALC LDL CHOL (test code = 2237) 113 MG/DL RISK RATIO LDL/HDL (test cod e = 2238) 1.88 RATIO HEMOGLOBIN [id number] 00:00:00* Test Item Value Reference Range Interpretation Comme nts HEMOGLOBIN A1c (test code = 74648) 6.3 % HEMOGLOBIN [id number] 00:00:00* Test Item Value Reference Range Interpretation Comme nts HEMOGLOBIN A1c (test code = 82902) 6.3 % HEMOGLOBIN [id number] 00:00:00* Test Item Value Reference Range Interpretation Comme nts HEMOGLOBIN A1c (test code = 47451) 6.3 % COMPREHENSIVE METABOLIC [id number] 00:00:00* Test Item Value Reference Range Interpretation Comme nts GLUCOSE (test code = 2217) 133 MG/DL BUN (test code = 2208) 9 MG/DL CREATININE (test code = 2214) 0.93 MG/DL eGFR AMER. (test cod e = 71995) 107 ML/MIN/1.73 eGFR NON- AMER. (test code = 60629) 92 ML/MIN/1.73 CALC BUN/CREAT (test code = 2235) 10 RATIO SODIUM (test code = 2231) 141 MEQ/L POTASSIUM (test code = 2228) 4.0 MEQ/L CHLORIDE (test code = 2215) 101 MEQ/L CARBON DIOXIDE (test code = 2206) 29 MEQ/L CALCIUM (test code = 2209) 9.5 MG/DL PROTEIN, TOTAL (test code = 2229) 7.7 G/DL ALBUMIN (test code = 2201) 4.3 G/DL CALC GLOBULIN (test code = 2240) 3.4 G/DL CALC A/G RATIO (test code = 2234) 1.3 RATIO BILIRUBIN, TOTAL (test code = 2207) 0.6 MG/DL ALKALINE PHOSPHATASE (test code = 2204) 93 U/L AST (test code = 2218) 19 U/L ALT (test code = 2219) 22 U/L COMPREHENSIVE METABOLIC [id number] 00:00:00* Test Item Value Reference Range Interpretation Comme nts GLUCOSE (test code = 2217) 133 MG/DL BUN (test code = 2208) 9 MG/DL CREATININE (test code = 2214) 0.93 MG/DL eGFR AMER. (test cod e = 11879) 107 ML/MIN/1.73 eGFR NON- AMER. (test code = 43604) 92 ML/MIN/1.73 CALC BUN/CREAT (test code = 2235) 10 RATIO SODIUM (test code = 2231) 141 MEQ/L POTASSIUM (test code = 2228) 4.0 MEQ/L CHLORIDE (test code = 2215) 101 MEQ/L CARBON DIOXIDE (test code = 2206) 29 MEQ/L CALCIUM (test code = 2209) 9.5 MG/DL PROTEIN, TOTAL (test code = 2229) 7.7 G/DL ALBUMIN (test code = 2201) 4.3 G/DL CALC GLOBULIN (test code = 2240) 3.4 G/DL CALC A/G RATIO (test code = 2234) 1.3 RATIO BILIRUBIN, TOTAL (test code = 2207) 0.6 MG/DL ALKALINE PHOSPHATASE (test code = 2204) 93 U/L AST (test code = 2218) 19 U/L ALT (test code = 2219) 22 U/L LIPID [id number] 00:00:00* Test Item Value Reference Range Interpretation Comme nts CHOLESTEROL (test code = 2210) 193 MG/DL TRIGLYCERIDES (test code = 2232) 102 MG/DL HDL CHOLESTEROL (test code = 2220) 60 MG/DL CALC LDL CHOL (test code = 2237) 113 MG/DL RISK RATIO LDL/HDL (test cod e = 2238) 1.88 RATIO LIPID [id number] 00:00:00* Test Item Value Reference Range Interpretation Comme nts CHOLESTEROL (test code = 2210) 193 MG/DL TRIGLYCERIDES (test code = 2232) 102 MG/DL HDL CHOLESTEROL (test code = 2220) 60 MG/DL CALC LDL CHOL (test code = 2237) 113 MG/DL RISK RATIO LDL/HDL (test cod e = 2238) 1.88 RATIO HEMOGLOBIN [id number] 00:00:00* Test Item Value Reference Range Interpretation Comme nts HEMOGLOBIN A1c (test code = 42390) 6.3 % HEMOGLOBIN [id number] 00:00:00* Test Item Value Reference Range Interpretation Comme nts HEMOGLOBIN A1c (test code = 79629) 6.3 % HEMOGLOBIN [id number] 00:00:00* Test Item Value Reference Range Interpretation Comme nts HEMOGLOBIN A1c (test code = 91035) 6.3 % COMPREHENSIVE METABOLIC [id number] 00:00:00* Test Item Value Reference Range Interpretation Comme nts GLUCOSE (test code = 2217) 133 MG/DL BUN (test code = 2208) 9 MG/DL CREATININE (test code = 2214) 0.93 MG/DL eGFR AMER. (test cod e = 43616) 107 ML/MIN/1.73 eGFR NON- AMER. (test code = 69731) 92 ML/MIN/1.73 CALC BUN/CREAT (test code = 2235) 10 RATIO SODIUM (test code = 2231) 141 MEQ/L POTASSIUM (test code = 2228) 4.0 MEQ/L CHLORIDE (test code = 2215) 101 MEQ/L CARBON DIOXIDE (test code = 2206) 29 MEQ/L CALCIUM (test code = 2209) 9.5 MG/DL PROTEIN, TOTAL (test code = 2229) 7.7 G/DL ALBUMIN (test code = 2201) 4.3 G/DL CALC GLOBULIN (test code = 2240) 3.4 G/DL CALC A/G RATIO (test code = 2234) 1.3 RATIO BILIRUBIN, TOTAL (test code = 2207) 0.6 MG/DL ALKALINE PHOSPHATASE (test code = 2204) 93 U/L AST (test code = 2218) 19 U/L ALT (test code = 2219) 22 U/L HEMOGLOBIN [id number] 00:00:00* Test Item Value Reference Range Interpretation Comme nts HEMOGLOBIN A1c (test code = 77596) 5.6 % CBC W/AUTO [id number] 00:00:00* Test Item Value Reference Range Interpretation Comme nts WBC (test code = 1001) 6.5 K/UL RBC (test code = 1002) 4.34 M/UL HEMOGLOBIN (test code = 1003) 13.2 G/DL HEMATOCRIT (test code = 1004) 36.9 % MCV (test code = 1005) 85.0 fL MCH (test code = 1006) 30.4 PG MCHC (test code = 1007) 35.8 G/DL RDW (test code = 1038) 12.9 % NEUTROPHILS (test code = 1008) 44.4 % LYMPHOCYTES (test code = 1010) 28.7 % MONOCYTES (test code = 1011) 7.3 % EOSINOPHILS (test code = 1012) 18.4 % BASOPHILS (test code = 1013) 1.2 % PLATELET COUNT (test code = 1015) 221 K/UL CBC W/AUTO [id number] 00:00:00* Test Item Value Reference Range Interpretation Comme nts WBC (test code = 1001) 6.5 K/UL RBC (test code = 1002) 4.34 M/UL HEMOGLOBIN (test code = 1003) 13.2 G/DL HEMATOCRIT (test code = 1004) 36.9 % MCV (test code = 1005) 85.0 fL MCH (test code = 1006) 30.4 PG MCHC (test code = 1007) 35.8 G/DL RDW (test code = 1038) 12.9 % NEUTROPHILS (test code = 1008) 44.4 % LYMPHOCYTES (test code = 1010) 28.7 % MONOCYTES (test code = 1011) 7.3 % EOSINOPHILS (test code = 1012) 18.4 % BASOPHILS (test code = 1013) 1.2 % PLATELET COUNT (test code = 1015) 221 K/UL CBC W/AUTO [id number] 00:00:00* Test Item Value Reference Range Interpretation Comme nts WBC (test code = 1001) 6.5 K/UL RBC (test code = 1002) 4.34 M/UL HEMOGLOBIN (test code = 1003) 13.2 G/DL HEMATOCRIT (test code = 1004) 36.9 % MCV (test code = 1005) 85.0 fL MCH (test code = 1006) 30.4 PG MCHC (test code = 1007) 35.8 G/DL RDW (test code = 1038) 12.9 % NEUTROPHILS (test code = 1008) 44.4 % LYMPHOCYTES (test code = 1010) 28.7 % MONOCYTES (test code = 1011) 7.3 % EOSINOPHILS (test code = 1012) 18.4 % BASOPHILS (test code = 1013) 1.2 % PLATELET COUNT (test code = 1015) 221 K/UL LIPID [id number] 00:00:00* Test Item Value Reference Range Interpretation Comme nts CHOLESTEROL (test code = 2210) 173 MG/DL TRIGLYCERIDES (test code = 2232) 88 MG/DL HDL CHOLESTEROL (test code = 2220) 58 MG/DL CALC LDL CHOL (test code = 2237) 97 MG/DL RISK RATIO LDL/HDL (test cod e = 2238) 1.67 RATIO LIPID [id number] 00:00:00* Test Item Value Reference Range Interpretation Comme nts CHOLESTEROL (test code = 2210) 173 MG/DL TRIGLYCERIDES (test code = 2232) 88 MG/DL HDL CHOLESTEROL (test code = 2220) 58 MG/DL CALC LDL CHOL (test code = 2237) 97 MG/DL RISK RATIO LDL/HDL (test cod e = 2238) 1.67 RATIO HEMOGLOBIN [id number] 00:00:00* Test Item Value Reference Range Interpretation Comme nts HEMOGLOBIN A1c (test code = 92662) 5.6 % HEMOGLOBIN [id number] 00:00:00* Test Item Value Reference Range Interpretation Comme nts HEMOGLOBIN A1c (test code = 03858) 5.6 % HEMOGLOBIN [id number] 00:00:00* Test Item Value Reference Range Interpretation Comme nts HEMOGLOBIN A1c (test code = 16600) 5.6 % CBC W/AUTO [id number] 00:00:00* Test Item Value Reference Range Interpretation Comme nts WBC (test code = 1001) 6.5 K/UL RBC (test code = 1002) 4.34 M/UL HEMOGLOBIN (test code = 1003) 13.2 G/DL HEMATOCRIT (test code = 1004) 36.9 % MCV (test code = 1005) 85.0 fL MCH (test code = 1006) 30.4 PG MCHC (test code = 1007) 35.8 G/DL RDW (test code = 1038) 12.9 % NEUTROPHILS (test code = 1008) 44.4 % LYMPHOCYTES (test code = 1010) 28.7 % MONOCYTES (test code = 1011) 7.3 % EOSINOPHILS (test code = 1012) 18.4 % BASOPHILS (test code = 1013) 1.2 % PLATELET COUNT (test code = 1015) 221 K/UL CBC W/AUTO [id number] 00:00:00* Test Item Value Reference Range Interpretation Comme nts WBC (test code = 1001) 6.5 K/UL RBC (test code = 1002) 4.34 M/UL HEMOGLOBIN (test code = 1003) 13.2 G/DL HEMATOCRIT (test code = 1004) 36.9 % MCV (test code = 1005) 85.0 fL MCH (test code = 1006) 30.4 PG MCHC (test code = 1007) 35.8 G/DL RDW (test code = 1038) 12.9 % NEUTROPHILS (test code = 1008) 44.4 % LYMPHOCYTES (test code = 1010) 28.7 % MONOCYTES (test code = 1011) 7.3 % EOSINOPHILS (test code = 1012) 18.4 % BASOPHILS (test code = 1013) 1.2 % PLATELET COUNT (test code = 1015) 221 K/UL CBC W/AUTO [id number] 00:00:00* Test Item Value Reference Range Interpretation Comme nts WBC (test code = 1001) 6.5 K/UL RBC (test code = 1002) 4.34 M/UL HEMOGLOBIN (test code = 1003) 13.2 G/DL HEMATOCRIT (test code = 1004) 36.9 % MCV (test code = 1005) 85.0 fL MCH (test code = 1006) 30.4 PG MCHC (test code = 1007) 35.8 G/DL RDW (test code = 1038) 12.9 % NEUTROPHILS (test code = 1008) 44.4 % LYMPHOCYTES (test code = 1010) 28.7 % MONOCYTES (test code = 1011) 7.3 % EOSINOPHILS (test code = 1012) 18.4 % BASOPHILS (test code = 1013) 1.2 % PLATELET COUNT (test code = 1015) 221 K/UL LIPID [id number] 00:00:00* Test Item Value Reference Range Interpretation Comme nts CHOLESTEROL (test code = 2210) 173 MG/DL TRIGLYCERIDES (test code = 2232) 88 MG/DL HDL CHOLESTEROL (test code = 2220) 58 MG/DL CALC LDL CHOL (test code = 2237) 97 MG/DL RISK RATIO LDL/HDL (test cod e = 2238) 1.67 RATIO LIPID [id number] 00:00:00* Test Item Value Reference Range Interpretation Comme nts CHOLESTEROL (test code = 2210) 173 MG/DL TRIGLYCERIDES (test code = 2232) 88 MG/DL HDL CHOLESTEROL (test code = 2220) 58 MG/DL CALC LDL CHOL (test code = 2237) 97 MG/DL RISK RATIO LDL/HDL (test cod e = 2238) 1.67 RATIO HEMOGLOBIN [id number] 00:00:00* Test Item Value Reference Range Interpretation Comme nts HEMOGLOBIN A1c (test code = 66093) 5.6 % HEMOGLOBIN [id number] 00:00:00* Test Item Value Reference Range Interpretation Comme nts HEMOGLOBIN A1c (test code = 26642) 5.6 % HEMOGLOBIN [id number] 00:00:00* Test Item Value Reference Range Interpretation Comme nts HEMOGLOBIN A1c (test code = 09973) 6.0 % HEMOGLOBIN [id number] 00:00:00* Test Item Value Reference Range Interpretation Comme nts HEMOGLOBIN A1c (test code = 33698) 6.0 % HEMOGLOBIN [id number] 00:00:00* Test Item Value Reference Range Interpretation Comme nts HEMOGLOBIN A1c (test code = 96519) 6.0 % HEMOGLOBIN [id number] 00:00:00* Test Item Value Reference Range Interpretation Comme nts HEMOGLOBIN A1c (test code = 87858) 6.0 % HEMOGLOBIN [id number] 00:00:00* Test Item Value Reference Range Interpretation Comme nts HEMOGLOBIN A1c (test code = 13881) 6.0 % HEMOGLOBIN [id number] 00:00:00* Test Item Value Reference Range Interpretation Comme nts HEMOGLOBIN A1c (test code = 35136) 6.0 % LIPID [id number] 00:00:00* Test Item Value Reference Range Interpretation Comme nts CHOLESTEROL (test code = 2210) 157 MG/DL TRIGLYCERIDES (test code = 2232) 44 MG/DL HDL CHOLESTEROL (test code = 2220) 55 MG/DL CALC LDL CHOL (test code = 2237) 93 MG/DL RISK RATIO LDL/HDL (test cod e = 2238) 1.69 RATIO COMPREHENSIVE METABOLIC [id number] 00:00:00* Test Item Value Reference Range Interpretation Comme nts GLUCOSE (test code = 2217) 110 MG/DL BUN (test code = 2208) 16 MG/DL CREATININE (test code = 2214) 0.89 MG/DL eGFR AMER. (test cod e = 87209) 112 ML/MIN/1.73 eGFR NON- AMER. (test code = 25626) 96 ML/MIN/1.73 CALC BUN/CREAT (test code = 2235) 18 RATIO SODIUM (test code = 2231) 142 MEQ/L POTASSIUM (test code = 2228) 5.0 MEQ/L CHLORIDE (test code = 2215) 106 MEQ/L CARBON DIOXIDE (test code = 2206) 24 MEQ/L CALCIUM (test code = 2209) 9.3 MG/DL PROTEIN, TOTAL (test code = 2229) 7.6 G/DL ALBUMIN (test code = 2201) 4.4 G/DL CALC GLOBULIN (test code = 2240) 3.2 G/DL CALC A/G RATIO (test code = 2234) 1.4 RATIO BILIRUBIN, TOTAL (test code = 2207) 0.3 MG/DL ALKALINE PHOSPHATASE (test code = 2204) 67 U/L AST (test code = 2218) 18 U/L ALT (test code = 2219) 20 U/L COMPREHENSIVE METABOLIC [id number] 00:00:00* Test Item Value Reference Range Interpretation Comme nts GLUCOSE (test code = 2217) 110 MG/DL BUN (test code = 2208) 16 MG/DL CREATININE (test code = 2214) 0.89 MG/DL eGFR AMER. (test cod e = 00722) 112 ML/MIN/1.73 eGFR NON- AMER. (test code = 89864) 96 ML/MIN/1.73 CALC BUN/CREAT (test code = 2235) 18 RATIO SODIUM (test code = 2231) 142 MEQ/L POTASSIUM (test code = 2228) 5.0 MEQ/L CHLORIDE (test code = 2215) 106 MEQ/L CARBON DIOXIDE (test code = 2206) 24 MEQ/L CALCIUM (test code = 2209) 9.3 MG/DL PROTEIN, TOTAL (test code = 2229) 7.6 G/DL ALBUMIN (test code = 2201) 4.4 G/DL CALC GLOBULIN (test code = 2240) 3.2 G/DL CALC A/G RATIO (test code = 2234) 1.4 RATIO BILIRUBIN, TOTAL (test code = 2207) 0.3 MG/DL ALKALINE PHOSPHATASE (test code = 2204) 67 U/L AST (test code = 2218) 18 U/L ALT (test code = 2219) 20 U/L LIPID [id number] 00:00:00* Test Item Value Reference Range Interpretation Comme nts CHOLESTEROL (test code = 2210) 157 MG/DL TRIGLYCERIDES (test code = 2232) 44 MG/DL HDL CHOLESTEROL (test code = 2220) 55 MG/DL CALC LDL CHOL (test code = 2237) 93 MG/DL RISK RATIO LDL/HDL (test cod e = 2238) 1.69 RATIO LIPID [id number] 00:00:00* Test Item Value Reference Range Interpretation Comme nts CHOLESTEROL (test code = 2210) 157 MG/DL TRIGLYCERIDES (test code = 2232) 44 MG/DL HDL CHOLESTEROL (test code = 2220) 55 MG/DL CALC LDL CHOL (test code = 2237) 93 MG/DL RISK RATIO LDL/HDL (test cod e = 2238) 1.69 RATIO COMPREHENSIVE METABOLIC [id number] 00:00:00* Test Item Value Reference Range Interpretation Comme nts GLUCOSE (test code = 2217) 110 MG/DL BUN (test code = 2208) 16 MG/DL CREATININE (test code = 2214) 0.89 MG/DL eGFR AMER. (test cod e = 02514) 112 ML/MIN/1.73 eGFR NON- AMER. (test code = 33800) 96 ML/MIN/1.73 CALC BUN/CREAT (test code = 2235) 18 RATIO SODIUM (test code = 2231) 142 MEQ/L POTASSIUM (test code = 2228) 5.0 MEQ/L CHLORIDE (test code = 2215) 106 MEQ/L CARBON DIOXIDE (test code = 2206) 24 MEQ/L CALCIUM (test code = 2209) 9.3 MG/DL PROTEIN, TOTAL (test code = 2229) 7.6 G/DL ALBUMIN (test code = 2201) 4.4 G/DL CALC GLOBULIN (test code = 2240) 3.2 G/DL CALC A/G RATIO (test code = 2234) 1.4 RATIO BILIRUBIN, TOTAL (test code = 2207) 0.3 MG/DL ALKALINE PHOSPHATASE (test code = 2204) 67 U/L AST (test code = 2218) 18 U/L ALT (test code = 2219) 20 U/L COMPREHENSIVE METABOLIC [id number] 00:00:00* Test Item Value Reference Range Interpretation Comme nts GLUCOSE (test code = 2217) 110 MG/DL BUN (test code = 2208) 16 MG/DL CREATININE (test code = 2214) 0.89 MG/DL eGFR AMER. (test cod e = 20092) 112 ML/MIN/1.73 eGFR NON- AMER. (test code = 17372) 96 ML/MIN/1.73 CALC BUN/CREAT (test code = 2235) 18 RATIO SODIUM (test code = 2231) 142 MEQ/L POTASSIUM (test code = 2228) 5.0 MEQ/L CHLORIDE (test code = 2215) 106 MEQ/L CARBON DIOXIDE (test code = 2206) 24 MEQ/L CALCIUM (test code = 2209) 9.3 MG/DL PROTEIN, TOTAL (test code = 2229) 7.6 G/DL ALBUMIN (test code = 2201) 4.4 G/DL CALC GLOBULIN (test code = 2240) 3.2 G/DL CALC A/G RATIO (test code = 2234) 1.4 RATIO BILIRUBIN, TOTAL (test code = 2207) 0.3 MG/DL ALKALINE PHOSPHATASE (test code = 2204) 67 U/L AST (test code = 2218) 18 U/L ALT (test code = 2219) 20 U/L LIPID [id number] 00:00:00* Test Item Value Reference Range Interpretation Comme nts CHOLESTEROL (test code = 2210) 157 MG/DL TRIGLYCERIDES (test code = 2232) 44 MG/DL HDL CHOLESTEROL (test code = 2220) 55 MG/DL CALC LDL CHOL (test code = 2237) 93 MG/DL RISK RATIO LDL/HDL (test cod e = 2238) 1.69 RATIO HIV AB/AG COMBO RFLX [id number] 00:00:00* Test Item Value Reference Range Interpretation Comme nts HIV 1/2 4TH GEN, RFLX CONF ( test code = 3514) NON-REACTIVE HEPATITIS C REFLEX [id number] 00:00:00* Test Item Value Reference Range Interpretation Comme nts HEPATITIS C ANTIBODY (test c ode = 4675) NON-REACTIVE HEPATITIS C REFLEX [id number] 00:00:00* Test Item Value Reference Range Interpretation Comme nts HEPATITIS C ANTIBODY (test c ode = 4675) NON-REACTIVE PSA, [id number] 00:00:00* Test Item Value Reference Range Interpretation Comme nts PSA, TOTAL (test code = 2606) 0.99 NG/ML PSA, [id number] 00:00:00* Test Item Value Reference Range Interpretation Comme nts PSA, TOTAL (test code = 2606) 0.99 NG/ML PSA, [id number] 00:00:00* Test Item Value Reference Range Interpretation Comme nts PSA, TOTAL (test code = 2606) 0.99 NG/ML [id number] 00:00:00* Test Item Value Reference Range Interpretation Comme nts TESTOSTERONE (test code = 2830) 444 NG/DL [id number] 00:00:00* Test Item Value Reference Range Interpretation Comme nts TESTOSTERONE (test code = 2830) 444 NG/DL HIV AB/AG COMBO RFLX [id number] 00:00:00* Test Item Value Reference Range Interpretation Comme nts HIV 1/2 4TH GEN, RFLX CONF ( test code = 3514) NON-REACTIVE HIV AB/AG COMBO RFLX [id number] 00:00:00* Test Item Value Reference Range Interpretation Comme nts HIV 1/2 4TH GEN, RFLX CONF ( test code = 3514) NON-REACTIVE HEPATITIS C REFLEX [id number] 00:00:00* Test Item Value Reference Range Interpretation Comme nts HEPATITIS C ANTIBODY (test c ode = 4675) NON-REACTIVE HEPATITIS C REFLEX [id number] 00:00:00* Test Item Value Reference Range Interpretation Comme nts HEPATITIS C ANTIBODY (test c ode = 4675) NON-REACTIVE PSA, [id number] 00:00:00* Test Item Value Reference Range Interpretation Comme nts PSA, TOTAL (test code = 2606) 0.99 NG/ML PSA, [id number] 00:00:00* Test Item Value Reference Range Interpretation Comme nts PSA, TOTAL (test code = 2606) 0.99 NG/ML PSA, [id number] 00:00:00* Test Item Value Reference Range Interpretation Comme nts PSA, TOTAL (test code = 2606) 0.99 NG/ML [id number] 00:00:00* Test Item Value Reference Range Interpretation Comme nts TESTOSTERONE (test code = 2830) 444 NG/DL [id number] 00:00:00* Test Item Value Reference Range Interpretation Comme nts TESTOSTERONE (test code = 2830) 444 NG/DL HIV AB/AG COMBO RFLX [id number] 00:00:00* Test Item Value Reference Range Interpretation Comme nts HIV 1/2 4TH GEN, RFLX CONF ( test code = 3514) NON-REACTIVE CBC W/AUTO [id number] 00:00:00* Test Item Value Reference Range Interpretation Comme nts WBC (test code = 1001) 8.8 K/UL RBC (test code = 1002) 4.09 M/UL HEMOGLOBIN (test code = 1003) 12.0 G/DL HEMATOCRIT (test code = 1004) 35.3 % MCV (test code = 1005) 86.3 fL MCH (test code = 1006) 29.3 PG MCHC (test code = 1007) 34.0 G/DL RDW (test code = 1038) 12.5 % NEUTROPHILS (test code = 1008) 51.2 % LYMPHOCYTES (test code = 1010) 28.0 % MONOCYTES (test code = 1011) 6.2 % EOSINOPHILS (test code = 1012) 13.6 % BASOPHILS (test code = 1013) 1.0 % PLATELET COUNT (test code = 1015) 241 K/UL CBC W/AUTO [id number] 00:00:00* Test Item Value Reference Range Interpretation Comme nts WBC (test code = 1001) 8.8 K/UL RBC (test code = 1002) 4.09 M/UL HEMOGLOBIN (test code = 1003) 12.0 G/DL HEMATOCRIT (test code = 1004) 35.3 % MCV (test code = 1005) 86.3 fL MCH (test code = 1006) 29.3 PG MCHC (test code = 1007) 34.0 G/DL RDW (test code = 1038) 12.5 % NEUTROPHILS (test code = 1008) 51.2 % LYMPHOCYTES (test code = 1010) 28.0 % MONOCYTES (test code = 1011) 6.2 % EOSINOPHILS (test code = 1012) 13.6 % BASOPHILS (test code = 1013) 1.0 % PLATELET COUNT (test code = 1015) 241 K/UL HEMOGLOBIN [id number] 00:00:00* Test Item Value Reference Range Interpretation Comme [facility] HEMOGLOBIN A1c (test code = 55255) 5.5 % HEMOGLOBIN [id number] 00:00:00* Test Item Value Reference Range Interpretation Comme [facility] HEMOGLOBIN A1c (test code = 10565) 5.5 % HEMOGLOBIN [id number] 00:00:00* Test Item Value Reference Range Interpretation Comme nts HEMOGLOBIN A1c (test code = 54208) 5.5 % CBC W/AUTO [id number] 00:00:00* Test Item Value Reference Range Interpretation Comme nts WBC (test code = 1001) 8.8 K/UL RBC (test code = 1002) 4.09 M/UL HEMOGLOBIN (test code = 1003) 12.0 G/DL HEMATOCRIT (test code = 1004) 35.3 % MCV (test code = 1005) 86.3 fL MCH (test code = 1006) 29.3 PG MCHC (test code = 1007) 34.0 G/DL RDW (test code = 1038) 12.5 % NEUTROPHILS (test code = 1008) 51.2 % LYMPHOCYTES (test code = 1010) 28.0 % MONOCYTES (test code = 1011) 6.2 % EOSINOPHILS (test code = 1012) 13.6 % BASOPHILS (test code = 1013) 1.0 % PLATELET COUNT (test code = 1015) 241 K/UL CBC W/AUTO [id number] 00:00:00* Test Item Value Reference Range Interpretation Comme nts WBC (test code = 1001) 8.8 K/UL RBC (test code = 1002) 4.09 M/UL HEMOGLOBIN (test code = 1003) 12.0 G/DL HEMATOCRIT (test code = 1004) 35.3 % MCV (test code = 1005) 86.3 fL MCH (test code = 1006) 29.3 PG MCHC (test code = 1007) 34.0 G/DL RDW (test code = 1038) 12.5 % NEUTROPHILS (test code = 1008) 51.2 % LYMPHOCYTES (test code = 1010) 28.0 % MONOCYTES (test code = 1011) 6.2 % EOSINOPHILS (test code = 1012) 13.6 % BASOPHILS (test code = 1013) 1.0 % PLATELET COUNT (test code = 1015) 241 K/UL CBC W/AUTO [id number] 00:00:00* Test Item Value Reference Range Interpretation Comme nts WBC (test code = 1001) 8.8 K/UL RBC (test code = 1002) 4.09 M/UL HEMOGLOBIN (test code = 1003) 12.0 G/DL HEMATOCRIT (test code = 1004) 35.3 % MCV (test code = 1005) 86.3 fL MCH (test code = 1006) 29.3 PG MCHC (test code = 1007) 34.0 G/DL RDW (test code = 1038) 12.5 % NEUTROPHILS (test code = 1008) 51.2 % LYMPHOCYTES (test code = 1010) 28.0 % MONOCYTES (test code = 1011) 6.2 % EOSINOPHILS (test code = 1012) 13.6 % BASOPHILS (test code = 1013) 1.0 % PLATELET COUNT (test code = 1015) 241 K/UL HEMOGLOBIN [id number] 00:00:00* Test Item Value Reference Range Interpretation Comme nts HEMOGLOBIN A1c (test code = 49277) 5.5 % HEMOGLOBIN [id number] 00:00:00* Test Item Value Reference Range Interpretation Comme nts HEMOGLOBIN A1c (test code = 43422) 5.5 % HEMOGLOBIN [id number] 00:00:00* Test Item Value Reference Range Interpretation Comme nts HEMOGLOBIN A1c (test code = 10530) 5.5 % CBC W/AUTO [id number] 00:00:00* Test Item Value Reference Range Interpretation Comme nts WBC (test code = 1001) 8.8 K/UL RBC (test code = 1002) 4.09 M/UL HEMOGLOBIN (test code = 1003) 12.0 G/DL HEMATOCRIT (test code = 1004) 35.3 % MCV (test code = 1005) 86.3 fL MCH (test code = 1006) 29.3 PG MCHC (test code = 1007) 34.0 G/DL RDW (test code = 1038) 12.5 % NEUTROPHILS (test code = 1008) 51.2 % LYMPHOCYTES (test code = 1010) 28.0 % MONOCYTES (test code = 1011) 6.2 % EOSINOPHILS (test code = 1012) 13.6 % BASOPHILS (test code = 1013) 1.0 % PLATELET COUNT (test code = 1015) 241 K/UL CBC W/AUTO [id number] 00:00:00* Test Item Value Reference Range Interpretation Comme nts WBC (test code = 1001) TEST NOT PERFORME D K/UL RBC (test code = 1002) TEST NOT PERFORME D M/UL HEMOGLOBIN (test code = 1003) TEST NOT PERFORMED G/DL HEMATOCRIT (test code = 1004) TEST NOT PERFORMED % MCV (test code = 1005) TEST NOT PERFORMED fL MCH (test code = 1006) TEST NOT PERFORMED PG MCHC (test code = 1007) TEST NOT PERFORM ED G/DL RDW (test code = 1038) TEST NOT PERFORMED % NEUTROPHILS (test code = 1008) TEST NOT PERFORMED % LYMPHOCYTES (test code = 1010) TEST NOT PERFORMED % MONOCYTES (test code = 1011) TEST NOT PERFORMED % EOSINOPHILS (test code = 1012) TEST NOT PERFORMED % BASOPHILS (test code = 1013) TEST NOT PERFORMED % PLATELET COUNT (test code = 1015) TEST NOT PERFORMED K/UL CBC W/AUTO [id number] 00:00:00* Test Item Value Reference Range Interpretation Comme nts WBC (test code = 1001) TEST NOT PERFORME D K/UL RBC (test code = 1002) TEST NOT PERFORME D M/UL HEMOGLOBIN (test code = 1003) TEST NOT PERFORMED G/DL HEMATOCRIT (test code = 1004) TEST NOT PERFORMED % MCV (test code = 1005) TEST NOT PERFORMED fL MCH (test code = 1006) TEST NOT PERFORMED PG MCHC (test code = 1007) TEST NOT PERFORM ED G/DL RDW (test code = 1038) TEST NOT PERFORMED % NEUTROPHILS (test code = 1008) TEST NOT PERFORMED % LYMPHOCYTES (test code = 1010) TEST NOT PERFORMED % MONOCYTES (test code = 1011) TEST NOT PERFORMED % EOSINOPHILS (test code = 1012) TEST NOT PERFORMED % BASOPHILS (test code = 1013) TEST NOT PERFORMED % PLATELET COUNT (test code = 1015) TEST NOT PERFORMED K/UL CBC W/AUTO [id number] 00:00:00* Test Item Value Reference Range Interpretation Comme nts WBC (test code = 1001) TEST NOT PERFORME D K/UL RBC (test code = 1002) TEST NOT PERFORME D M/UL HEMOGLOBIN (test code = 1003) TEST NOT PERFORMED G/DL HEMATOCRIT (test code = 1004) TEST NOT PERFORMED % MCV (test code = 1005) TEST NOT PERFORMED fL MCH (test code = 1006) TEST NOT PERFORMED PG MCHC (test code = 1007) TEST NOT PERFORM ED G/DL RDW (test code = 1038) TEST NOT PERFORMED % NEUTROPHILS (test code = 1008) TEST NOT PERFORMED % LYMPHOCYTES (test code = 1010) TEST NOT PERFORMED % MONOCYTES (test code = 1011) TEST NOT PERFORMED % EOSINOPHILS (test code = 1012) TEST NOT PERFORMED % BASOPHILS (test code = 1013) TEST NOT PERFORMED % PLATELET COUNT (test code = 1015) TEST NOT PERFORMED K/UL HEMOGLOBIN [id number] 00:00:00* Test Item Value Reference Range Interpretation Comme nts HEMOGLOBIN A1c (test code = 46424) TEST NOT PERFORMED % HEMOGLOBIN [id number] 00:00:00* Test Item Value Reference Range Interpretation Comme nts HEMOGLOBIN A1c (test code = 13250) TEST NOT PERFORMED % HEMOGLOBIN [id number] 00:00:00* Test Item Value Reference Range Interpretation Comme nts HEMOGLOBIN A1c (test code = 58229) TEST NOT PERFORMED % CBC W/AUTO [id number] 00:00:00* Test Item Value Reference Range Interpretation Comme nts WBC (test code = 1001) TEST NOT PERFORME D K/UL RBC (test code = 1002) TEST NOT PERFORME D M/UL HEMOGLOBIN (test code = 1003) TEST NOT PERFORMED G/DL HEMATOCRIT (test code = 1004) TEST NOT PERFORMED % MCV (test code = 1005) TEST NOT PERFORMED fL MCH (test code = 1006) TEST NOT PERFORMED PG MCHC (test code = 1007) TEST NOT PERFORM ED G/DL RDW (test code = 1038) TEST NOT PERFORMED % NEUTROPHILS (test code = 1008) TEST NOT PERFORMED % LYMPHOCYTES (test code = 1010) TEST NOT PERFORMED % MONOCYTES (test code = 1011) TEST NOT PERFORMED % EOSINOPHILS (test code = 1012) TEST NOT PERFORMED % BASOPHILS (test code = 1013) TEST NOT PERFORMED % PLATELET COUNT (test code = 1015) TEST NOT PERFORMED K/UL CBC W/AUTO [id number] 00:00:00* Test Item Value Reference Range Interpretation Comme nts WBC (test code = 1001) TEST NOT PERFORME D K/UL RBC (test code = 1002) TEST NOT PERFORME D M/UL HEMOGLOBIN (test code = 1003) TEST NOT PERFORMED G/DL HEMATOCRIT (test code = 1004) TEST NOT PERFORMED % MCV (test code = 1005) TEST NOT PERFORMED fL MCH (test code = 1006) TEST NOT PERFORMED PG MCHC (test code = 1007) TEST NOT PERFORM ED G/DL RDW (test code = 1038) TEST NOT PERFORMED % NEUTROPHILS (test code = 1008) TEST NOT PERFORMED % LYMPHOCYTES (test code = 1010) TEST NOT PERFORMED % MONOCYTES (test code = 1011) TEST NOT PERFORMED % EOSINOPHILS (test code = 1012) TEST NOT PERFORMED % BASOPHILS (test code = 1013) TEST NOT PERFORMED % PLATELET COUNT (test code = 1015) TEST NOT PERFORMED K/UL CBC W/AUTO [id number] 00:00:00* Test Item Value Reference Range Interpretation Comme nts WBC (test code = 1001) TEST NOT PERFORME D K/UL RBC (test code = 1002) TEST NOT PERFORME D M/UL HEMOGLOBIN (test code = 1003) TEST NOT PERFORMED G/DL HEMATOCRIT (test code = 1004) TEST NOT PERFORMED % MCV (test code = 1005) TEST NOT PERFORMED fL MCH (test code = 1006) TEST NOT PERFORMED PG MCHC (test code = 1007) TEST NOT PERFORM ED G/DL RDW (test code = 1038) TEST NOT PERFORMED % NEUTROPHILS (test code = 1008) TEST NOT PERFORMED % LYMPHOCYTES (test code = 1010) TEST NOT PERFORMED % MONOCYTES (test code = 1011) TEST NOT PERFORMED % EOSINOPHILS (test code = 1012) TEST NOT PERFORMED % BASOPHILS (test code = 1013) TEST NOT PERFORMED % PLATELET COUNT (test code = 1015) TEST NOT PERFORMED K/UL HEMOGLOBIN [id number] 00:00:00* Test Item Value Reference Range Interpretation Comme nts HEMOGLOBIN A1c (test code = 06729) TEST NOT PERFORMED % HEMOGLOBIN [id number] 00:00:00* Test Item Value Reference Range Interpretation Comme nts HEMOGLOBIN A1c (test code = 47587) TEST NOT PERFORMED % HEMOGLOBIN [id number] 00:00:00* Test Item Value Reference Range Interpretation Comme nts HEMOGLOBIN A1c (test code = 02773) TEST NOT PERFORMED % COMPREHENSIVE METABOLIC [id number] 00:00:00* Test Item Value Reference Range Interpretation Comme nts GLUCOSE (test code = 2217) 129 MG/DL BUN (test code = 2208) 21 MG/DL CREATININE (test code = 2214) 0.96 MG/DL eGFR AMER. (test cod e = 92791) 104 ML/MIN/1.73 eGFR NON- AMER. (test code = 52644) 90 ML/MIN/1.73 CALC BUN/CREAT (test code = 2235) 22 RATIO SODIUM (test code = 2231) 139 MEQ/L POTASSIUM (test code = 2228) 4.7 MEQ/L CHLORIDE (test code = 2215) 100 MEQ/L CARBON DIOXIDE (test code = 2206) 26 MEQ/L CALCIUM (test code = 2209) 9.3 MG/DL PROTEIN, TOTAL (test code = 2229) 7.6 G/DL ALBUMIN (test code = 2201) 4.6 G/DL CALC GLOBULIN (test code = 2240) 3.0 G/DL CALC A/G RATIO (test code = 2234) 1.5 RATIO BILIRUBIN, TOTAL (test code = 2207) 0.2 MG/DL ALKALINE PHOSPHATASE (test code = 2204) 67 U/L AST (test code = 2218) 21 U/L ALT (test code = 2219) 21 U/L LIPID [id number] 00:00:00* Test Item Value Reference Range Interpretation Comme nts CHOLESTEROL (test code = 2210) 158 MG/DL TRIGLYCERIDES (test code = 2232) 96 MG/DL HDL CHOLESTEROL (test code = 2220) 43 MG/DL CALC LDL CHOL (test code = 2237) 96 MG/DL RISK RATIO LDL/HDL (test cod e = 2238) 2.23 RATIO LIPID [id number] 00:00:00* Test Item Value Reference Range Interpretation Comme nts CHOLESTEROL (test code = 2210) 158 MG/DL TRIGLYCERIDES (test code = 2232) 96 MG/DL HDL CHOLESTEROL (test code = 2220) 43 MG/DL CALC LDL CHOL (test code = 2237) 96 MG/DL RISK RATIO LDL/HDL (test cod e = 2238) 2.23 RATIO [id number] 00:00:00* Test Item Value Reference Range Interpretation Comme nts TSH (test code = 2821) 1.210 UIU/ML [id number] 00:00:00* Test Item Value Reference Range Interpretation Comme nts TSH (test code = 2821) 1.210 UIU/ML [id number] 00:00:00* Test Item Value Reference Range Interpretation Comme nts TSH (test code = 2821) 1.210 UIU/ML COMPREHENSIVE METABOLIC [id number] 00:00:00* Test Item Value Reference Range Interpretation Comme nts GLUCOSE (test code = 2217) 129 MG/DL BUN (test code = 2208) 21 MG/DL CREATININE (test code = 2214) 0.96 MG/DL eGFR AMER. (test cod e = 20825) 104 ML/MIN/1.73 eGFR NON- AMER. (test code = 77581) 90 ML/MIN/1.73 CALC BUN/CREAT (test code = 2235) 22 RATIO SODIUM (test code = 2231) 139 MEQ/L POTASSIUM (test code = 2228) 4.7 MEQ/L CHLORIDE (test code = 2215) 100 MEQ/L CARBON DIOXIDE (test code = 2206) 26 MEQ/L CALCIUM (test code = 2209) 9.3 MG/DL PROTEIN, TOTAL (test code = 2229) 7.6 G/DL ALBUMIN (test code = 2201) 4.6 G/DL CALC GLOBULIN (test code = 2240) 3.0 G/DL CALC A/G RATIO (test code = 2234) 1.5 RATIO BILIRUBIN, TOTAL (test code = 2207) 0.2 MG/DL ALKALINE PHOSPHATASE (test code = 2204) 67 U/L AST (test code = 2218) 21 U/L ALT (test code = 2219) 21 U/L COMPREHENSIVE METABOLIC [id number] 00:00:00* Test Item Value Reference Range Interpretation Comme nts GLUCOSE (test code = 2217) 129 MG/DL BUN (test code = 2208) 21 MG/DL CREATININE (test code = 2214) 0.96 MG/DL eGFR AMER. (test cod e = 99989) 104 ML/MIN/1.73 eGFR NON- AMER. (test code = 84232) 90 ML/MIN/1.73 CALC BUN/CREAT (test code = 2235) 22 RATIO SODIUM (test code = 2231) 139 MEQ/L POTASSIUM (test code = 2228) 4.7 MEQ/L CHLORIDE (test code = 2215) 100 MEQ/L CARBON DIOXIDE (test code = 2206) 26 MEQ/L CALCIUM (test code = 2209) 9.3 MG/DL PROTEIN, TOTAL (test code = 2229) 7.6 G/DL ALBUMIN (test code = 2201) 4.6 G/DL CALC GLOBULIN (test code = 2240) 3.0 G/DL CALC A/G RATIO (test code = 2234) 1.5 RATIO BILIRUBIN, TOTAL (test code = 2207) 0.2 MG/DL ALKALINE PHOSPHATASE (test code = 2204) 67 U/L AST (test code = 2218) 21 U/L ALT (test code = 2219) 21 U/L LIPID [id number] 00:00:00* Test Item Value Reference Range Interpretation Comme nts CHOLESTEROL (test code = 2210) 158 MG/DL TRIGLYCERIDES (test code = 2232) 96 MG/DL HDL CHOLESTEROL (test code = 2220) 43 MG/DL CALC LDL CHOL (test code = 2237) 96 MG/DL RISK RATIO LDL/HDL (test cod e = 2238) 2.23 RATIO LIPID [id number] 00:00:00* Test Item Value Reference Range Interpretation Comme nts CHOLESTEROL (test code = 2210) 158 MG/DL TRIGLYCERIDES (test code = 2232) 96 MG/DL HDL CHOLESTEROL (test code = 2220) 43 MG/DL CALC LDL CHOL (test code = 2237) 96 MG/DL RISK RATIO LDL/HDL (test cod e = 2238) 2.23 RATIO [id number] 00:00:00* Test Item Value Reference Range Interpretation Comme nts TSH (test code = 2821) 1.210 UIU/ML [id number] 00:00:00* Test Item Value Reference Range Interpretation Comme nts TSH (test code = 2821) 1.210 UIU/ML [id number] 00:00:00* Test Item Value Reference Range Interpretation Comme nts TSH (test code = 2821) 1.210 UIU/ML COMPREHENSIVE METABOLIC [id number] 00:00:00* Test Item Value Reference Range Interpretation Comme nts GLUCOSE (test code = 2217) 129 MG/DL BUN (test code = 2208) 21 MG/DL CREATININE (test code = 2214) 0.96 MG/DL eGFR AMER. (test cod e = 31476) 104 ML/MIN/1.73 eGFR NON- AMER. (test code = 17628) 90 ML/MIN/1.73 CALC BUN/CREAT (test code = 2235) 22 RATIO SODIUM (test code = 2231) 139 MEQ/L POTASSIUM (test code = 2228) 4.7 MEQ/L CHLORIDE (test code = 2215) 100 MEQ/L CARBON DIOXIDE (test code = 2206) 26 MEQ/L CALCIUM (test code = 2209) 9.3 MG/DL PROTEIN, TOTAL (test code = 2229) 7.6 G/DL ALBUMIN (test code = 2201) 4.6 G/DL CALC GLOBULIN (test code = 2240) 3.0 G/DL CALC A/G RATIO (test code = 2234) 1.5 RATIO BILIRUBIN, TOTAL (test code = 2207) 0.2 MG/DL ALKALINE PHOSPHATASE (test code = 2204) 67 U/L AST (test code = 2218) 21 U/L ALT (test code = 2219) 21 U/L COMPREHENSIVE METABOLIC [id number] 00:00:00* Test Item Value Reference Range Interpretation Comme nts GLUCOSE (test code = 2217) 119 MG/DL BUN (test code = 2208) 42 MG/DL CREATININE (test code = 2214) 1.24 MG/DL eGFR AMER. (test cod e = 82245) 76 ML/MIN/1.73 eGFR NON- AMER. (test code = 08413) 66 ML/MIN/1.73 CALC BUN/CREAT (test code = 2235) 34 RATIO SODIUM (test code = 2231) 140 MEQ/L POTASSIUM (test code = 2228) 4.7 MEQ/L CHLORIDE (test code = 2215) 99 MEQ/L CARBON DIOXIDE (test code = 2206) 28 MEQ/L CALCIUM (test code = 2209) 9.2 MG/DL PROTEIN, TOTAL (test code = 2229) 7.5 G/DL ALBUMIN (test code = 2201) 4.3 G/DL CALC GLOBULIN (test code = 2240) 3.2 G/DL CALC A/G RATIO (test code = 2234) 1.3 RATIO BILIRUBIN, TOTAL (test code = 2207) 0.3 MG/DL ALKALINE PHOSPHATASE (test code = 2204) 78 U/L AST (test code = 2218) 22 U/L ALT (test code = 2219) 29 U/L LIPID [id number] 00:00:00* Test Item Value Reference Range Interpretation Comme nts CHOLESTEROL (test code = 2210) 186 MG/DL TRIGLYCERIDES (test code = 2232) 90 MG/DL HDL CHOLESTEROL (test code = 2220) 50 MG/DL CALC LDL CHOL (test code = 2237) 118 MG/DL RISK RATIO LDL/HDL (test cod e = 2238) 2.36 RATIO LIPID [id number] 00:00:00* Test Item Value Reference Range Interpretation Comme nts CHOLESTEROL (test code = 2210) 186 MG/DL TRIGLYCERIDES (test code = 2232) 90 MG/DL HDL CHOLESTEROL (test code = 2220) 50 MG/DL CALC LDL CHOL (test code = 2237) 118 MG/DL RISK RATIO LDL/HDL (test cod e = 2238) 2.36 RATIO COMPREHENSIVE METABOLIC [id number] 00:00:00* Test Item Value Reference Range Interpretation Comme nts GLUCOSE (test code = 2217) 119 MG/DL BUN (test code = 2208) 42 MG/DL CREATININE (test code = 2214) 1.24 MG/DL eGFR AMER. (test cod e = 33224) 76 ML/MIN/1.73 eGFR NON- AMER. (test code = 38896) 66 ML/MIN/1.73 CALC BUN/CREAT (test code = 2235) 34 RATIO SODIUM (test code = 2231) 140 MEQ/L POTASSIUM (test code = 2228) 4.7 MEQ/L CHLORIDE (test code = 2215) 99 MEQ/L CARBON DIOXIDE (test code = 2206) 28 MEQ/L CALCIUM (test code = 2209) 9.2 MG/DL PROTEIN, TOTAL (test code = 2229) 7.5 G/DL ALBUMIN (test code = 2201) 4.3 G/DL CALC GLOBULIN (test code = 2240) 3.2 G/DL CALC A/G RATIO (test code = 2234) 1.3 RATIO BILIRUBIN, TOTAL (test code = 2207) 0.3 MG/DL ALKALINE PHOSPHATASE (test code = 2204) 78 U/L AST (test code = 2218) 22 U/L ALT (test code = 2219) 29 U/L COMPREHENSIVE METABOLIC [id number] 00:00:00* Test Item Value Reference Range Interpretation Comme nts GLUCOSE (test code = 2217) 119 MG/DL BUN (test code = 2208) 42 MG/DL CREATININE (test code = 2214) 1.24 MG/DL eGFR AMER. (test cod e = 03252) 76 ML/MIN/1.73 eGFR NON- AMER. (test code = 21870) 66 ML/MIN/1.73 CALC BUN/CREAT (test code = 2235) 34 RATIO SODIUM (test code = 2231) 140 MEQ/L POTASSIUM (test code = 2228) 4.7 MEQ/L CHLORIDE (test code = 2215) 99 MEQ/L CARBON DIOXIDE (test code = 2206) 28 MEQ/L CALCIUM (test code = 2209) 9.2 MG/DL PROTEIN, TOTAL (test code = 2229) 7.5 G/DL ALBUMIN (test code = 2201) 4.3 G/DL CALC GLOBULIN (test code = 2240) 3.2 G/DL CALC A/G RATIO (test code = 2234) 1.3 RATIO BILIRUBIN, TOTAL (test code = 2207) 0.3 MG/DL ALKALINE PHOSPHATASE (test code = 2204) 78 U/L AST (test code = 2218) 22 U/L ALT (test code = 2219) 29 U/L LIPID [id number] 00:00:00* Test Item Value Reference Range Interpretation Comme nts CHOLESTEROL (test code = 2210) 186 MG/DL TRIGLYCERIDES (test code = 2232) 90 MG/DL HDL CHOLESTEROL (test code = 2220) 50 MG/DL CALC LDL CHOL (test code = 2237) 118 MG/DL RISK RATIO LDL/HDL (test cod e = 2238) 2.36 RATIO LIPID [id number] 00:00:00* Test Item Value Reference Range Interpretation Comme nts CHOLESTEROL (test code = 2210) 186 MG/DL TRIGLYCERIDES (test code = 2232) 90 MG/DL HDL CHOLESTEROL (test code = 2220) 50 MG/DL CALC LDL CHOL (test code = 2237) 118 MG/DL RISK RATIO LDL/HDL (test cod e = 2238) 2.36 RATIO COMPREHENSIVE METABOLIC [id number] 00:00:00* Test Item Value Reference Range Interpretation Comme nts GLUCOSE (test code = 2217) 119 MG/DL BUN (test code = 2208) 42 MG/DL CREATININE (test code = 2214) 1.24 MG/DL eGFR AMER. (test cod e = 66226) 76 ML/MIN/1.73 eGFR NON- AMER. (test code = 46719) 66 ML/MIN/1.73 CALC BUN/CREAT (test code = 2235) 34 RATIO SODIUM (test code = 2231) 140 MEQ/L POTASSIUM (test code = 2228) 4.7 MEQ/L CHLORIDE (test code = 2215) 99 MEQ/L CARBON DIOXIDE (test code = 2206) 28 MEQ/L CALCIUM (test code = 2209) 9.2 MG/DL PROTEIN, TOTAL (test code = 222) 7.5 G/DL ALBUMIN (test code = 220) 4.3 G/DL CALC GLOBULIN (test code = 2240) 3.2 G/DL CALC A/G RATIO (test code = 2234) 1.3 RATIO BILIRUBIN, TOTAL (test code = 2206) 0.3 MG/DL ALKALINE PHOSPHATASE (test code = 2203) 78 U/L AST (test code = 2218) 22 U/L ALT (test code = 2219) 29 U/L VITAMIN B 12 AND FOLIC [id number] 00:00:00* Test Item Value Reference Range Interpretation Comme nts VITAMIN B-12 (test code = 2840) 1049 PG/ML FOLIC ACID (test code = 2695) 7.2 UG/L [id number] 00:00:00* Test Item Value Reference Range Interpretation Comme nts FERRITIN (test code = 2074) 65 NG/ML [id number] 00:00:00* Test Item Value Reference Range Interpretation Comme nts FERRITIN (test code = 2074) 65 NG/ML IRON BINDING CAPACITY AND IRON AND % [id number] 00:00:00* Test Item Value Reference Range Interpretation Comme nts IRON, SERUM (test code = 2221) 126 UG/DL UNSATURATED IBC (test code = ) 193 UG/DL CALC TOTAL IBC (test code = 2076) 319 UG/DL CALC % IRON SAT (test code = 2078) 39 % IRON BINDING CAPACITY AND IRON AND % [id number] 00:00:00* Test Item Value Reference Range Interpretation Comme nts IRON, SERUM (test code = 2221) 126 UG/DL UNSATURATED IBC (test code = 99477) 193 UG/DL CALC TOTAL IBC (test code = 2076) 319 UG/DL CALC % IRON SAT (test code = 2078) 39 % RETICULOCYTE [id number] 00:00:00* Test Item Value Reference Range Interpretation Comme nts RETICULOCYTE COUNT (test code = 1018) 1.2 % RETICULOCYTE [id number] 00:00:00* Test Item Value Reference Range Interpretation Comme nts RETICULOCYTE COUNT (test code = 1018) 1.2 % VITAMIN B 12 AND FOLIC [id number] 00:00:00* Test Item Value Reference Range Interpretation Comme nts VITAMIN B-12 (test code = 2840) 1049 PG/ML FOLIC ACID (test code = 2695) 7.2 UG/L VITAMIN B 12 AND FOLIC [id number] 00:00:00* Test Item Value Reference Range Interpretation Comme nts VITAMIN B-12 (test code = 2840) 1049 PG/ML FOLIC ACID (test code = 2695) 7.2 UG/L [id number] 00:00:00* Test Item Value Reference Range Interpretation Comme nts FERRITIN (test code = 5) 65 NG/ML [id number] 00:00:00* Test Item Value Reference Range Interpretation Comme nts FERRITIN (test code = 5) 65 NG/ML IRON BINDING CAPACITY AND IRON AND % [id number] 00:00:00* Test Item Value Reference Range Interpretation Comme nts IRON, SERUM (test code = 2221) 126 UG/DL UNSATURATED IBC (test code = ) 193 UG/DL CALC TOTAL IBC (test code = 2076) 319 UG/DL CALC % IRON SAT (test code = 2078) 39 % IRON BINDING CAPACITY AND IRON AND % [id number] 00:00:00* Test Item Value Reference Range Interpretation Comme nts IRON, SERUM (test code = 2221) 126 UG/DL UNSATURATED IBC (test code = 17373) 193 UG/DL CALC TOTAL IBC (test code = 2076) 319 UG/DL CALC % IRON SAT (test code = 2078) 39 % RETICULOCYTE [id number] 00:00:00* Test Item Value Reference Range Interpretation Comme nts RETICULOCYTE COUNT (test code = 1018) 1.2 % RETICULOCYTE [id number] 00:00:00* Test Item Value Reference Range Interpretation Comme nts RETICULOCYTE COUNT (test code = 1018) 1.2 % VITAMIN B 12 AND FOLIC [id number] 00:00:00* Test Item Value Reference Range Interpretation Comme nts VITAMIN B-12 (test code = 2840) 1049 PG/ML FOLIC ACID (test code = 2695) 7.2 UG/L THYROID II PROFILE (T3U, T4, T7, TSH)[id number] 00:00:00* Test Item Value Reference Range Interpretation Comme nts T3 UPTAKE (test code = 2817) 33.4 % T4 (THYROXINE) (test code = 2819) 6.1 UG/DL CALCULATED T7 (FTI) (test co de = 2820) 2.04 TSH (test code = 2821) 0.747 UIU/ML THYROID II PROFILE (T3U, T4, T7, TSH)2016-10-09 00:00:00* Test Item Value Reference Range Interpretation Comme nts T3 UPTAKE (test code = 2817) 33.4 % T4 (THYROXINE) (test code = 2819) 6.1 UG/DL CALCULATED T7 (FTI) (test co de = 2820) 2.04 TSH (test code = 2821) 0.747 UIU/ML THYROID II PROFILE (T3U, T4, T7, TSH)2016-10-09 00:00:00* Test Item Value Reference Range Interpretation Comme nts T3 UPTAKE (test code = 2817) 33.4 % T4 (THYROXINE) (test code = 2819) 6.1 UG/DL CALCULATED T7 (FTI) (test co de = 2820) 2.04 TSH (test code = 2821) 0.747 UIU/ML THYROID II PROFILE (T3U, T4, T7, TSH)2016-10-09 00:00:00* Test Item Value Reference Range Interpretation Comme nts T3 UPTAKE (test code = 2817) 33.4 % T4 (THYROXINE) (test code = 2819) 6.1 UG/DL CALCULATED T7 (FTI) (test co de = 2820) 2.04 TSH (test code = 2821) 0.747 UIU/ML CBC W/AUTO [id number] 00:00:00* Test Item Value Reference Range Interpretation Comme nts WBC (test code = 1001) 7.1 K/UL RBC (test code = 1002) 3.84 M/UL HEMOGLOBIN (test code = 1003) 11.9 G/DL HEMATOCRIT (test code = 1004) 34.3 % MCV (test code = 1005) 89.3 fL MCH (test code = 1006) 31.0 PG MCHC (test code = 1007) 34.7 G/DL RDW (test code = 1038) 12.7 % NEUTROPHILS (test code = 1008) 52.3 % LYMPHOCYTES (test code = 1010) 26.2 % MONOCYTES (test code = 1011) 5.3 % EOSINOPHILS (test code = 1012) 14.9 % BASOPHILS (test code = 1013) 1.3 % PLATELET COUNT (test code = 1015) 228 K/UL CBC W/AUTO [id number] 00:00:00* Test Item Value Reference Range Interpretation Comme nts WBC (test code = 1001) 7.1 K/UL RBC (test code = 1002) 3.84 M/UL HEMOGLOBIN (test code = 1003) 11.9 G/DL HEMATOCRIT (test code = 1004) 34.3 % MCV (test code = 1005) 89.3 fL MCH (test code = 1006) 31.0 PG MCHC (test code = 1007) 34.7 G/DL RDW (test code = 1038) 12.7 % NEUTROPHILS (test code = 1008) 52.3 % LYMPHOCYTES (test code = 1010) 26.2 % MONOCYTES (test code = 1011) 5.3 % EOSINOPHILS (test code = 1012) 14.9 % BASOPHILS (test code = 1013) 1.3 % PLATELET COUNT (test code = 1015) 228 K/UL CBC W/AUTO [id number] 00:00:00* Test Item Value Reference Range Interpretation Comme nts WBC (test code = 1001) 7.1 K/UL RBC (test code = 1002) 3.84 M/UL HEMOGLOBIN (test code = 1003) 11.9 G/DL HEMATOCRIT (test code = 1004) 34.3 % MCV (test code = 1005) 89.3 fL MCH (test code = 1006) 31.0 PG MCHC (test code = 1007) 34.7 G/DL RDW (test code = 1038) 12.7 % NEUTROPHILS (test code = 1008) 52.3 % LYMPHOCYTES (test code = 1010) 26.2 % MONOCYTES (test code = 1011) 5.3 % EOSINOPHILS (test code = 1012) 14.9 % BASOPHILS (test code = 1013) 1.3 % PLATELET COUNT (test code = 1015) 228 K/UL CBC W/AUTO [id number] 00:00:00* Test Item Value Reference Range Interpretation Comme nts WBC (test code = 1001) 7.1 K/UL RBC (test code = 1002) 3.84 M/UL HEMOGLOBIN (test code = 1003) 11.9 G/DL HEMATOCRIT (test code = 1004) 34.3 % MCV (test code = 1005) 89.3 fL MCH (test code = 1006) 31.0 PG MCHC (test code = 1007) 34.7 G/DL RDW (test code = 1038) 12.7 % NEUTROPHILS (test code = 1008) 52.3 % LYMPHOCYTES (test code = 1010) 26.2 % MONOCYTES (test code = 1011) 5.3 % EOSINOPHILS (test code = 1012) 14.9 % BASOPHILS (test code = 1013) 1.3 % PLATELET COUNT (test code = 1015) 228 K/UL CBC W/AUTO [id number] 00:00:00* Test Item Value Reference Range Interpretation Comme nts WBC (test code = 1001) 7.1 K/UL RBC (test code = 1002) 3.84 M/UL HEMOGLOBIN (test code = 1003) 11.9 G/DL HEMATOCRIT (test code = 1004) 34.3 % MCV (test code = 1005) 89.3 fL MCH (test code = 1006) 31.0 PG MCHC (test code = 1007) 34.7 G/DL RDW (test code = 1038) 12.7 % NEUTROPHILS (test code = 1008) 52.3 % LYMPHOCYTES (test code = 1010) 26.2 % MONOCYTES (test code = 1011) 5.3 % EOSINOPHILS (test code = 1012) 14.9 % BASOPHILS (test code = 1013) 1.3 % PLATELET COUNT (test code = 1015) 228 K/UL CBC W/AUTO [id number] 00:00:00* Test Item Value Reference Range Interpretation Comme nts WBC (test code = 1001) 7.1 K/UL RBC (test code = 1002) 3.84 M/UL HEMOGLOBIN (test code = 1003) 11.9 G/DL HEMATOCRIT (test code = 1004) 34.3 % MCV (test code = 1005) 89.3 fL MCH (test code = 1006) 31.0 PG MCHC (test code = 1007) 34.7 G/DL RDW (test code = 1038) 12.7 % NEUTROPHILS (test code = 1008) 52.3 % LYMPHOCYTES (test code = 1010) 26.2 % MONOCYTES (test code = 1011) 5.3 % EOSINOPHILS (test code = 1012) 14.9 % BASOPHILS (test code = 1013) 1.3 % PLATELET COUNT (test code = 1015) 228 K/UL HEMOGLOBIN [id number] 00:00:00* Test Item Value Reference Range Interpretation Comme nts HEMOGLOBIN A1c (test code = 97799) 5.7 % COMPREHENSIVE METABOLIC [id number] 00:00:00* Test Item Value Reference Range Interpretation Comme nts GLUCOSE (test code = 2217) 103 MG/DL BUN (test code = 2208) 9 MG/DL CREATININE (test code = 2214) 0.88 MG/DL eGFR AMER. (test cod e = 98056) 114 ML/MIN/1.73 eGFR NON- AMER. (test code = 07883) 99 ML/MIN/1.73 CALC BUN/CREAT (test code = 2235) 10 RATIO SODIUM (test code = 2231) 140 MEQ/L POTASSIUM (test code = 2228) 4.7 MEQ/L CHLORIDE (test code = 2215) 104 MEQ/L CARBON DIOXIDE (test code = 2206) 27 MEQ/L CALCIUM (test code = 2209) 9.1 MG/DL PROTEIN, TOTAL (test code = 2229) 7.1 G/DL ALBUMIN (test code = 2201) 4.4 G/DL CALC GLOBULIN (test code = 2240) 2.7 G/DL CALC A/G RATIO (test code = 2234) 1.6 RATIO BILIRUBIN, TOTAL (test code = 2207) 0.2 MG/DL ALKALINE PHOSPHATASE (test code = 2204) 64 U/L AST (test code = 2218) 25 U/L ALT (test code = 2219) 28 U/L COMPREHENSIVE METABOLIC [id number] 00:00:00* Test Item Value Reference Range Interpretation Comme nts GLUCOSE (test code = 2217) 103 MG/DL BUN (test code = 2208) 9 MG/DL CREATININE (test code = 2214) 0.88 MG/DL eGFR AMER. (test cod e = 23730) 114 ML/MIN/1.73 eGFR NON- AMER. (test code = 23556) 99 ML/MIN/1.73 CALC BUN/CREAT (test code = 2235) 10 RATIO SODIUM (test code = 2231) 140 MEQ/L POTASSIUM (test code = 2228) 4.7 MEQ/L CHLORIDE (test code = 2215) 104 MEQ/L CARBON DIOXIDE (test code = 2206) 27 MEQ/L CALCIUM (test code = 2209) 9.1 MG/DL PROTEIN, TOTAL (test code = 2229) 7.1 G/DL ALBUMIN (test code = 2201) 4.4 G/DL CALC GLOBULIN (test code = 2240) 2.7 G/DL CALC A/G RATIO (test code = 2234) 1.6 RATIO BILIRUBIN, TOTAL (test code = 2207) 0.2 MG/DL ALKALINE PHOSPHATASE (test code = 2204) 64 U/L AST (test code = 2218) 25 U/L ALT (test code = 2219) 28 U/L HEMOGLOBIN [id number] 00:00:00* Test Item Value Reference Range Interpretation Comme nts HEMOGLOBIN A1c (test code = 55205) 5.7 % HEMOGLOBIN [id number] 00:00:00* Test Item Value Reference Range Interpretation Comme nts HEMOGLOBIN A1c (test code = 15666) 5.7 % HEMOGLOBIN [id number] 00:00:00* Test Item Value Reference Range Interpretation Comme nts HEMOGLOBIN A1c (test code = 38903) 5.7 % COMPREHENSIVE METABOLIC [id number] 00:00:00* Test Item Value Reference Range Interpretation Comme nts GLUCOSE (test code = 2217) 103 MG/DL BUN (test code = 2208) 9 MG/DL CREATININE (test code = 2214) 0.88 MG/DL eGFR AMER. (test cod e = 18436) 114 ML/MIN/1.73 eGFR NON- AMER. (test code = 59216) 99 ML/MIN/1.73 CALC BUN/CREAT (test code = 2235) 10 RATIO SODIUM (test code = 2231) 140 MEQ/L POTASSIUM (test code = 2228) 4.7 MEQ/L CHLORIDE (test code = 2215) 104 MEQ/L CARBON DIOXIDE (test code = 2206) 27 MEQ/L CALCIUM (test code = 2209) 9.1 MG/DL PROTEIN, TOTAL (test code = 2229) 7.1 G/DL ALBUMIN (test code = 2201) 4.4 G/DL CALC GLOBULIN (test code = 2240) 2.7 G/DL CALC A/G RATIO (test code = 2234) 1.6 RATIO BILIRUBIN, TOTAL (test code = 2207) 0.2 MG/DL ALKALINE PHOSPHATASE (test code = 2204) 64 U/L AST (test code = 2218) 25 U/L ALT (test code = 2219) 28 U/L COMPREHENSIVE METABOLIC [id number] 00:00:00* Test Item Value Reference Range Interpretation Comme nts GLUCOSE (test code = 2217) 103 MG/DL BUN (test code = 2208) 9 MG/DL CREATININE (test code = 2214) 0.88 MG/DL eGFR AMER. (test cod e = 92160) 114 ML/MIN/1.73 eGFR NON- AMER. (test code = 22280) 99 ML/MIN/1.73 CALC BUN/CREAT (test code = 2235) 10 RATIO SODIUM (test code = 2231) 140 MEQ/L POTASSIUM (test code = 2228) 4.7 MEQ/L CHLORIDE (test code = 2215) 104 MEQ/L CARBON DIOXIDE (test code = 2206) 27 MEQ/L CALCIUM (test code = 2209) 9.1 MG/DL PROTEIN, TOTAL (test code = 2229) 7.1 G/DL ALBUMIN (test code = 2201) 4.4 G/DL CALC GLOBULIN (test code = 2240) 2.7 G/DL CALC A/G RATIO (test code = 2234) 1.6 RATIO BILIRUBIN, TOTAL (test code = 2207) 0.2 MG/DL ALKALINE PHOSPHATASE (test code = 2204) 64 U/L AST (test code = 2218) 25 U/L ALT (test code = 2219) 28 U/L HEMOGLOBIN [id number] 00:00:00* Test Item Value Reference Range Interpretation Comme nts HEMOGLOBIN A1c (test code = 61639) 5.7 % HEMOGLOBIN [id number] 00:00:00* Test Item Value Reference Range Interpretation Comme nts HEMOGLOBIN A1c (test code = 57051) 5.7 % COMPREHENSIVE METABOLIC [id number] 00:00:00* Test Item Value Reference Range Interpretation Comme nts GLUCOSE (test code = 2217) 100 MG/DL BUN (test code = 2208) 12 MG/DL CREATININE (test code = 2214) 0.91 MG/DL eGFR AMER. (test cod e = 64146) 112 ML/MIN/1.73 eGFR NON- AMER. (test code = 84594) 97 ML/MIN/1.73 CALC BUN/CREAT (test code = 2235) 13 RATIO SODIUM (test code = 2231) 140 MEQ/L POTASSIUM (test code = 2228) 5.0 MEQ/L CHLORIDE (test code = 2215) 100 MEQ/L CARBON DIOXIDE (test code = 2206) 26 MEQ/L CALCIUM (test code = 2209) 9.4 MG/DL PROTEIN, TOTAL (test code = 2229) 7.9 G/DL ALBUMIN (test code = 2201) 4.7 G/DL CALC GLOBULIN (test code = 2240) 3.2 G/DL CALC A/G RATIO (test code = 2234) 1.5 RATIO BILIRUBIN, TOTAL (test code = 2207) 0.4 MG/DL ALKALINE PHOSPHATASE (test code = 2204) 101 U/L AST (test code = 2218) 22 U/L ALT (test code = 2219) 30 U/L COMPREHENSIVE METABOLIC [id number] 00:00:00* Test Item Value Reference Range Interpretation Comme nts GLUCOSE (test code = 2217) 100 MG/DL BUN (test code = 2208) 12 MG/DL CREATININE (test code = 2214) 0.91 MG/DL eGFR AMER. (test cod e = 36262) 112 ML/MIN/1.73 eGFR NON- AMER. (test code = 45197) 97 ML/MIN/1.73 CALC BUN/CREAT (test code = 2235) 13 RATIO SODIUM (test code = 2231) 140 MEQ/L POTASSIUM (test code = 2228) 5.0 MEQ/L CHLORIDE (test code = 2215) 100 MEQ/L CARBON DIOXIDE (test code = 2206) 26 MEQ/L CALCIUM (test code = 2209) 9.4 MG/DL PROTEIN, TOTAL (test code = 2229) 7.9 G/DL ALBUMIN (test code = 2201) 4.7 G/DL CALC GLOBULIN (test code = 2240) 3.2 G/DL CALC A/G RATIO (test code = 2234) 1.5 RATIO BILIRUBIN, TOTAL (test code = 2207) 0.4 MG/DL ALKALINE PHOSPHATASE (test code = 2204) 101 U/L AST (test code = 2218) 22 U/L ALT (test code = 2219) 30 U/L HEMOGLOBIN [id number] 00:00:00* Test Item Value Reference Range Interpretation Comme nts HEMOGLOBIN A1c (test code = 29827) 6.1 % HEMOGLOBIN [id number] 00:00:00* Test Item Value Reference Range Interpretation Comme nts HEMOGLOBIN A1c (test code = 08972) 6.1 % HEMOGLOBIN [id number] 00:00:00* Test Item Value Reference Range Interpretation Comme nts HEMOGLOBIN A1c (test code = 40303) 6.1 % COMPREHENSIVE METABOLIC [id number] 00:00:00* Test Item Value Reference Range Interpretation Comme nts GLUCOSE (test code = 2217) 100 MG/DL BUN (test code = 2208) 12 MG/DL CREATININE (test code = 2214) 0.91 MG/DL eGFR AMER. (test cod e = 65909) 112 ML/MIN/1.73 eGFR NON- AMER. (test code = 82701) 97 ML/MIN/1.73 CALC BUN/CREAT (test code = 2235) 13 RATIO SODIUM (test code = 2231) 140 MEQ/L POTASSIUM (test code = 2228) 5.0 MEQ/L CHLORIDE (test code = 2215) 100 MEQ/L CARBON DIOXIDE (test code = 2206) 26 MEQ/L CALCIUM (test code = 2209) 9.4 MG/DL PROTEIN, TOTAL (test code = 2229) 7.9 G/DL ALBUMIN (test code = 2201) 4.7 G/DL CALC GLOBULIN (test code = 2240) 3.2 G/DL CALC A/G RATIO (test code = 2234) 1.5 RATIO BILIRUBIN, TOTAL (test code = 2207) 0.4 MG/DL ALKALINE PHOSPHATASE (test code = 2204) 101 U/L AST (test code = 2218) 22 U/L ALT (test code = 2219) 30 U/L COMPREHENSIVE METABOLIC [id number] 00:00:00* Test Item Value Reference Range Interpretation Comme nts GLUCOSE (test code = 2217) 100 MG/DL BUN (test code = 2208) 12 MG/DL CREATININE (test code = 2214) 0.91 MG/DL eGFR AMER. (test cod e = 14666) 112 ML/MIN/1.73 eGFR NON- AMER. (test code = 82810) 97 ML/MIN/1.73 CALC BUN/CREAT (test code = 2235) 13 RATIO SODIUM (test code = 2231) 140 MEQ/L POTASSIUM (test code = 2228) 5.0 MEQ/L CHLORIDE (test code = 2215) 100 MEQ/L CARBON DIOXIDE (test code = 2206) 26 MEQ/L CALCIUM (test code = 2209) 9.4 MG/DL PROTEIN, TOTAL (test code = 2229) 7.9 G/DL ALBUMIN (test code = 2201) 4.7 G/DL CALC GLOBULIN (test code = 2240) 3.2 G/DL CALC A/G RATIO (test code = 2234) 1.5 RATIO BILIRUBIN, TOTAL (test code = 2207) 0.4 MG/DL ALKALINE PHOSPHATASE (test code = 2204) 101 U/L AST (test code = 2218) 22 U/L ALT (test code = 2219) 30 U/L HEMOGLOBIN [id number] 00:00:00* Test Item Value Reference Range Interpretation Comme nts HEMOGLOBIN A1c (test code = 75970) 6.1 % HEMOGLOBIN [id number] 00:00:00* Test Item Value Reference Range Interpretation Comme nts HEMOGLOBIN A1c (test code = 32568) 6.1 % HEMOGLOBIN [id number] 00:00:00* Test Item Value Reference Range Interpretation Comme nts HEMOGLOBIN A1c (test code = 05418) 6.1 % HEMOGLOBIN [id number] 00:00:00* Test Item Value Reference Range Interpretation Comme nts HEMOGLOBIN A1c (test code = 09093) 6.1 % COMPREHENSIVE METABOLIC [id number] 00:00:00* Test Item Value Reference Range Interpretation Comme nts GLUCOSE (test code = 2217) 94 MG/DL BUN (test code = 2208) 21 MG/DL CREATININE (test code = 2214) 1.0 MG/DL eGFR AMER. (test cod e = 92135) 95 ML/MIN/1.73 eGFR NON- AMER. (test code = 26424) 79 ML/MIN/1.73 CALCULATED BUN/CREAT (test code = 2235) 21 RATIO SODIUM (test code = 2231) 139 MEQ/L POTASSIUM (test code = 2228) 5.0 MEQ/L CHLORIDE (test code = 2215) 104 MEQ/L CARBON DIOXIDE (test code = 2206) 26 MEQ/L CALCIUM (test code = 2209) 9.1 MG/DL PROTEIN, TOTAL (test code = 2229) 7.0 G/DL ALBUMIN (test code = 2201) 3.7 G/DL CALCULATED GLOBULIN (test co de = 2240) 3.3 G/DL CALCULATED A/G RATIO (test code = 2234) 1.1 RATIO BILIRUBIN, TOTAL (test code = 2207) 0.2 MG/DL ALKALINE PHOSPHATASE (test code = 2204) 93 U/L SGOT (AST) (test code = 2218) 16 U/L SGPT (ALT) (test code = 2219) 16 U/L COMPREHENSIVE METABOLIC [id number] 00:00:00* Test Item Value Reference Range Interpretation Comme nts GLUCOSE (test code = 2217) 94 MG/DL BUN (test code = 2208) 21 MG/DL CREATININE (test code = 2214) 1.0 MG/DL eGFR AMER. (test cod e = 96392) 95 ML/MIN/1.73 eGFR NON- AMER. (test code = 68165) 79 ML/MIN/1.73 CALCULATED BUN/CREAT (test code = 2235) 21 RATIO SODIUM (test code = 2231) 139 MEQ/L POTASSIUM (test code = 2228) 5.0 MEQ/L CHLORIDE (test code = 2215) 104 MEQ/L CARBON DIOXIDE (test code = 2206) 26 MEQ/L CALCIUM (test code = 2209) 9.1 MG/DL PROTEIN, TOTAL (test code = 2229) 7.0 G/DL ALBUMIN (test code = 2201) 3.7 G/DL CALCULATED GLOBULIN (test co de = 2240) 3.3 G/DL CALCULATED A/G RATIO (test code = 2234) 1.1 RATIO BILIRUBIN, TOTAL (test code = 2207) 0.2 MG/DL ALKALINE PHOSPHATASE (test code = 2204) 93 U/L SGOT (AST) (test code = 2218) 16 U/L SGPT (ALT) (test code = 2219) 16 U/L HEMOGLOBIN [id number] 00:00:00* Test Item Value Reference Range Interpretation Comme nts HEMOGLOBIN A1c (test code = 03275) 6.1 % HEMOGLOBIN [id number] 00:00:00* Test Item Value Reference Range Interpretation Comme nts HEMOGLOBIN A1c (test code = 60677) 6.1 % HEMOGLOBIN [id number] 00:00:00* Test Item Value Reference Range Interpretation Comme nts HEMOGLOBIN A1c (test code = 84904) 6.1 % COMPREHENSIVE METABOLIC [id number] 00:00:00* Test Item Value Reference Range Interpretation Comme nts GLUCOSE (test code = 2217) 94 MG/DL BUN (test code = 2208) 21 MG/DL CREATININE (test code = 2214) 1.0 MG/DL eGFR AMER. (test cod e = 71115) 95 ML/MIN/1.73 eGFR NON- AMER. (test code = 64406) 79 ML/MIN/1.73 CALCULATED BUN/CREAT (test code = 2235) 21 RATIO SODIUM (test code = 2231) 139 MEQ/L POTASSIUM (test code = 2228) 5.0 MEQ/L CHLORIDE (test code = 2215) 104 MEQ/L CARBON DIOXIDE (test code = 2206) 26 MEQ/L CALCIUM (test code = 2209) 9.1 MG/DL PROTEIN, TOTAL (test code = 2229) 7.0 G/DL ALBUMIN (test code = 2201) 3.7 G/DL CALCULATED GLOBULIN (test co de = 2240) 3.3 G/DL CALCULATED A/G RATIO (test code = 2234) 1.1 RATIO BILIRUBIN, TOTAL (test code = 2207) 0.2 MG/DL ALKALINE PHOSPHATASE (test code = 2204) 93 U/L SGOT (AST) (test code = 2218) 16 U/L SGPT (ALT) (test code = 2219) 16 U/L COMPREHENSIVE METABOLIC [id number] 00:00:00* Test Item Value Reference Range Interpretation Comme nts GLUCOSE (test code = 2217) 94 MG/DL BUN (test code = 2208) 21 MG/DL CREATININE (test code = 2214) 1.0 MG/DL eGFR AMER. (test cod e = 30760) 95 ML/MIN/1.73 eGFR NON- AMER. (test code = 53475) 79 ML/MIN/1.73 CALCULATED BUN/CREAT (test code = 2235) 21 RATIO SODIUM (test code = 2231) 139 MEQ/L POTASSIUM (test code = 2228) 5.0 MEQ/L CHLORIDE (test code = 2215) 104 MEQ/L CARBON DIOXIDE (test code = 2206) 26 MEQ/L CALCIUM (test code = 2209) 9.1 MG/DL PROTEIN, TOTAL (test code = 2229) 7.0 G/DL ALBUMIN (test code = 2201) 3.7 G/DL CALCULATED GLOBULIN (test co de = 2240) 3.3 G/DL CALCULATED A/G RATIO (test code = 2234) 1.1 RATIO BILIRUBIN, TOTAL (test code = 2207) 0.2 MG/DL ALKALINE PHOSPHATASE (test code = 2204) 93 U/L SGOT (AST) (test code = 2218) 16 U/L SGPT (ALT) (test code = 2219) 16 U/L HEMOGLOBIN [id number] 00:00:00* Test Item Value Reference Range Interpretation Comme nts HEMOGLOBIN A1c (test code = 26783) 6.1 % HEMOGLOBIN [id number] 00:00:00* Test Item Value Reference Range Interpretation Comme nts HEMOGLOBIN A1c (test code = 64523) 6.1 % HEMOGLOBIN [id number] 00:00:00* Test Item Value Reference Range Interpretation Comme nts HEMOGLOBIN A1c (test code = 10270) 6.0 % THYROID II PROFILE (T3U, T4, T7, TSH)2014-09-19 00:00:00* Test Item Value Reference Range Interpretation Comme nts T3 UPTAKE (test code = 2817) 28.0 % T4 (THYROXINE) (test code = 2819) 6.8 UG/DL CALCULATED T7 (FTI) (test co de = 2820) 1.90 TSH (test code = 2821) 1.6 UIU/ML THYROID II PROFILE (T3U, T4, T7, TSH)2014-09-19 00:00:00* Test Item Value Reference Range Interpretation Comme nts T3 UPTAKE (test code = 2817) 28.0 % T4 (THYROXINE) (test code = 2819) 6.8 UG/DL CALCULATED T7 (FTI) (test co de = 2820) 1.90 TSH (test code = 2821) 1.6 UIU/ML COMPREHENSIVE METABOLIC [id number] 00:00:00* Test Item Value Reference Range Interpretation Comme nts GLUCOSE (test code = 2217) 97 MG/DL BUN (test code = 2208) 28 MG/DL CREATININE (test code = 2214) 1.1 MG/DL eGFR AMER. (test cod e = 44833) 86 ML/MIN/1.73 eGFR NON- AMER. (test code = 56676) 71 ML/MIN/1.73 CALCULATED BUN/CREAT (test code = 2235) 25 RATIO SODIUM (test code = 2231) 140 MEQ/L POTASSIUM (test code = 2228) 5.1 MEQ/L CHLORIDE (test code = 2215) 103 MEQ/L CARBON DIOXIDE (test code = 2206) 24 MEQ/L CALCIUM (test code = 2209) 9.3 MG/DL PROTEIN, TOTAL (test code = 2229) 7.6 G/DL ALBUMIN (test code = 2201) 4.7 G/DL CALCULATED GLOBULIN (test co de = 2240) 2.9 G/DL CALCULATED A/G RATIO (test code = 2234) 1.6 RATIO BILIRUBIN, TOTAL (test code = 2207) 0.4 MG/DL ALKALINE PHOSPHATASE (test code = 2204) 52 U/L SGOT (AST) (test code = 2218) 14 U/L SGPT (ALT) (test code = 2219) 18 U/L COMPREHENSIVE METABOLIC [id number] 00:00:00* Test Item Value Reference Range Interpretation Comme nts GLUCOSE (test code = 2217) 97 MG/DL BUN (test code = 2208) 28 MG/DL CREATININE (test code = 2214) 1.1 MG/DL eGFR AMER. (test cod e = 20913) 86 ML/MIN/1.73 eGFR NON- AMER. (test code = 92083) 71 ML/MIN/1.73 CALCULATED BUN/CREAT (test code = 2235) 25 RATIO SODIUM (test code = 2231) 140 MEQ/L POTASSIUM (test code = 2228) 5.1 MEQ/L CHLORIDE (test code = 2215) 103 MEQ/L CARBON DIOXIDE (test code = 2206) 24 MEQ/L CALCIUM (test code = 2209) 9.3 MG/DL PROTEIN, TOTAL (test code = 2229) 7.6 G/DL ALBUMIN (test code = 2201) 4.7 G/DL CALCULATED GLOBULIN (test co de = 2240) 2.9 G/DL CALCULATED A/G RATIO (test code = 2234) 1.6 RATIO BILIRUBIN, TOTAL (test code = 2207) 0.4 MG/DL ALKALINE PHOSPHATASE (test code = 2204) 52 U/L SGOT (AST) (test code = 2218) 14 U/L SGPT (ALT) (test code = 2219) 18 U/L CBC W/AUTO [id number] 00:00:00* Test Item Value Reference Range Interpretation Comme nts WBC (test code = 1001) 9.2 K/UL RBC (test code = 1002) 4.61 M/UL HEMOGLOBIN (test code = 1003) 13.1 G/DL HEMATOCRIT (test code = 1004) 41.0 % MCV (test code = 1005) 88.9 fL MCH (test code = 1006) 28.4 PG MCHC (test code = 1007) 32.0 G/DL RDW (test code = 1038) 13.7 % NEUTROPHILS (test code = 1008) 56 % LYMPHOCYTES (test code = 1010) 28 % MONOCYTES (test code = 1011) 5 % EOSINOPHILS (test code = 1012) 11 % BASOPHILS (test code = 1013) 1 % PLATELET COUNT (test code = 1015) 293 K/UL CBC W/AUTO [id number] 00:00:00* Test Item Value Reference Range Interpretation Comme nts WBC (test code = 1001) 9.2 K/UL RBC (test code = 1002) 4.61 M/UL HEMOGLOBIN (test code = 1003) 13.1 G/DL HEMATOCRIT (test code = 1004) 41.0 % MCV (test code = 1005) 88.9 fL MCH (test code = 1006) 28.4 PG MCHC (test code = 1007) 32.0 G/DL RDW (test code = 1038) 13.7 % NEUTROPHILS (test code = 1008) 56 % LYMPHOCYTES (test code = 1010) 28 % MONOCYTES (test code = 1011) 5 % EOSINOPHILS (test code = 1012) 11 % BASOPHILS (test code = 1013) 1 % PLATELET COUNT (test code = 1015) 293 K/UL CBC W/AUTO [id number] 00:00:00* Test Item Value Reference Range Interpretation Comme nts WBC (test code = 1001) 9.2 K/UL RBC (test code = 1002) 4.61 M/UL HEMOGLOBIN (test code = 1003) 13.1 G/DL HEMATOCRIT (test code = 1004) 41.0 % MCV (test code = 1005) 88.9 fL MCH (test code = 1006) 28.4 PG MCHC (test code = 1007) 32.0 G/DL RDW (test code = 1038) 13.7 % NEUTROPHILS (test code = 1008) 56 % LYMPHOCYTES (test code = 1010) 28 % MONOCYTES (test code = 1011) 5 % EOSINOPHILS (test code = 1012) 11 % BASOPHILS (test code = 1013) 1 % PLATELET COUNT (test code = 1015) 293 K/UL LIPID [id number] 00:00:00* Test Item Value Reference Range Interpretation Comme nts CHOLESTEROL (test code = 2210) 173 MG/DL TRIGLYCERIDES (test code = 2232) 56 MG/DL HDL CHOLESTEROL (test code = 2220) 58 MG/DL CALCULATED LDL CHOL (test co de = 2237) 104 MG/DL RISK RATIO LDL/HDL (test cod e = 2238) 1.79 RATIO LIPID [id number] 00:00:00* Test Item Value Reference Range Interpretation Comme nts CHOLESTEROL (test code = 2210) 173 MG/DL TRIGLYCERIDES (test code = 2232) 56 MG/DL HDL CHOLESTEROL (test code = 2220) 58 MG/DL CALCULATED LDL CHOL (test co de = 2237) 104 MG/DL RISK RATIO LDL/HDL (test cod e = 2238) 1.79 RATIO HEMOGLOBIN [id number] 00:00:00* Test Item Value Reference Range Interpretation Comme nts HEMOGLOBIN A1c (test code = 03186) 6.0 % HEMOGLOBIN [id number] 00:00:00* Test Item Value Reference Range Interpretation Comme nts HEMOGLOBIN A1c (test code = 92610) 6.0 % HEMOGLOBIN [id number] 00:00:00* Test Item Value Reference Range Interpretation Comme nts HEMOGLOBIN A1c (test code = 22949) 6.0 % THYROID II PROFILE (T3U, T4, T7, TSH)2014-09-19 00:00:00* Test Item Value Reference Range Interpretation Comme nts T3 UPTAKE (test code = 2817) 28.0 % T4 (THYROXINE) (test code = 2819) 6.8 UG/DL CALCULATED T7 (FTI) (test co de = 2820) 1.90 TSH (test code = 2821) 1.6 UIU/ML THYROID II PROFILE (T3U, T4, T7, TSH)2014-09-19 00:00:00* Test Item Value Reference Range Interpretation Comme nts T3 UPTAKE (test code = 2817) 28.0 % T4 (THYROXINE) (test code = 2819) 6.8 UG/DL CALCULATED T7 (FTI) (test co de = 2820) 1.90 TSH (test code = 2821) 1.6 UIU/ML COMPREHENSIVE METABOLIC [id number] 00:00:00* Test Item Value Reference Range Interpretation Comme nts GLUCOSE (test code = 2217) 97 MG/DL BUN (test code = 2208) 28 MG/DL CREATININE (test code = 2214) 1.1 MG/DL eGFR AMER. (test cod e = 94647) 86 ML/MIN/1.73 eGFR NON- AMER. (test code = 82375) 71 ML/MIN/1.73 CALCULATED BUN/CREAT (test code = 2235) 25 RATIO SODIUM (test code = 2231) 140 MEQ/L POTASSIUM (test code = 2228) 5.1 MEQ/L CHLORIDE (test code = 2215) 103 MEQ/L CARBON DIOXIDE (test code = 2206) 24 MEQ/L CALCIUM (test code = 2209) 9.3 MG/DL PROTEIN, TOTAL (test code = 2229) 7.6 G/DL ALBUMIN (test code = 2201) 4.7 G/DL CALCULATED GLOBULIN (test co de = 2240) 2.9 G/DL CALCULATED A/G RATIO (test code = 2234) 1.6 RATIO BILIRUBIN, TOTAL (test code = 2207) 0.4 MG/DL ALKALINE PHOSPHATASE (test code = 2204) 52 U/L SGOT (AST) (test code = 2218) 14 U/L SGPT (ALT) (test code = 2219) 18 U/L COMPREHENSIVE METABOLIC [id number] 00:00:00* Test Item Value Reference Range Interpretation Comme nts GLUCOSE (test code = 2217) 97 MG/DL BUN (test code = 2208) 28 MG/DL CREATININE (test code = 2214) 1.1 MG/DL eGFR AMER. (test cod e = 55876) 86 ML/MIN/1.73 eGFR NON- AMER. (test code = 92822) 71 ML/MIN/1.73 CALCULATED BUN/CREAT (test code = 2235) 25 RATIO SODIUM (test code = 2231) 140 MEQ/L POTASSIUM (test code = 2228) 5.1 MEQ/L CHLORIDE (test code = 2215) 103 MEQ/L CARBON DIOXIDE (test code = 2206) 24 MEQ/L CALCIUM (test code = 2209) 9.3 MG/DL PROTEIN, TOTAL (test code = 2229) 7.6 G/DL ALBUMIN (test code = 2201) 4.7 G/DL CALCULATED GLOBULIN (test co de = 2240) 2.9 G/DL CALCULATED A/G RATIO (test code = 2234) 1.6 RATIO BILIRUBIN, TOTAL (test code = 2207) 0.4 MG/DL ALKALINE PHOSPHATASE (test code = 2204) 52 U/L SGOT (AST) (test code = 2218) 14 U/L SGPT (ALT) (test code = 2219) 18 U/L CBC W/AUTO [id number] 00:00:00* Test Item Value Reference Range Interpretation Comme nts WBC (test code = 1001) 9.2 K/UL RBC (test code = 1002) 4.61 M/UL HEMOGLOBIN (test code = 1003) 13.1 G/DL HEMATOCRIT (test code = 1004) 41.0 % MCV (test code = 1005) 88.9 fL MCH (test code = 1006) 28.4 PG MCHC (test code = 1007) 32.0 G/DL RDW (test code = 1038) 13.7 % NEUTROPHILS (test code = 1008) 56 % LYMPHOCYTES (test code = 1010) 28 % MONOCYTES (test code = 1011) 5 % EOSINOPHILS (test code = 1012) 11 % BASOPHILS (test code = 1013) 1 % PLATELET COUNT (test code = 1015) 293 K/UL CBC W/AUTO [id number] 00:00:00* Test Item Value Reference Range Interpretation Comme nts WBC (test code = 1001) 9.2 K/UL RBC (test code = 1002) 4.61 M/UL HEMOGLOBIN (test code = 1003) 13.1 G/DL HEMATOCRIT (test code = 1004) 41.0 % MCV (test code = 1005) 88.9 fL MCH (test code = 1006) 28.4 PG MCHC (test code = 1007) 32.0 G/DL RDW (test code = 1038) 13.7 % NEUTROPHILS (test code = 1008) 56 % LYMPHOCYTES (test code = 1010) 28 % MONOCYTES (test code = 1011) 5 % EOSINOPHILS (test code = 1012) 11 % BASOPHILS (test code = 1013) 1 % PLATELET COUNT (test code = 1015) 293 K/UL CBC W/AUTO [id number] 00:00:00* Test Item Value Reference Range Interpretation Comme nts WBC (test code = 1001) 9.2 K/UL RBC (test code = 1002) 4.61 M/UL HEMOGLOBIN (test code = 1003) 13.1 G/DL HEMATOCRIT (test code = 1004) 41.0 % MCV (test code = 1005) 88.9 fL MCH (test code = 1006) 28.4 PG MCHC (test code = 1007) 32.0 G/DL RDW (test code = 1038) 13.7 % NEUTROPHILS (test code = 1008) 56 % LYMPHOCYTES (test code = 1010) 28 % MONOCYTES (test code = 1011) 5 % EOSINOPHILS (test code = 1012) 11 % BASOPHILS (test code = 1013) 1 % PLATELET COUNT (test code = 1015) 293 K/UL LIPID [id number] 00:00:00* Test Item Value Reference Range Interpretation Comme nts CHOLESTEROL (test code = 2210) 173 MG/DL TRIGLYCERIDES (test code = 2232) 56 MG/DL HDL CHOLESTEROL (test code = 2220) 58 MG/DL CALCULATED LDL CHOL (test co de = 2237) 104 MG/DL RISK RATIO LDL/HDL (test cod e = 2238) 1.79 RATIO LIPID [id number] 00:00:00* Test Item Value Reference Range Interpretation Comme nts CHOLESTEROL (test code = 2210) 173 MG/DL TRIGLYCERIDES (test code = 2232) 56 MG/DL HDL CHOLESTEROL (test code = 2220) 58 MG/DL CALCULATED LDL CHOL (test co de = 2237) 104 MG/DL RISK RATIO LDL/HDL (test cod e = 2238) 1.79 RATIO HEMOGLOBIN [id number] 00:00:00* Test Item Value Reference Range Interpretation Comme nts HEMOGLOBIN A1c (test code = 64502) 6.0 % HEMOGLOBIN [id number] 00:00:00* Test Item Value Reference Range Interpretation Comme nts HEMOGLOBIN A1c (test code = 18264) 6.0 % Notes Date/Time Note Provider Source 2023-06-04 01:29:16 6bLb+Lo9AAciSPx0R1gV 3e+tgDdTi1BCfX ODZRUekcMs+nuUTQr7EqarjFMa+C/98575 T01:29:16 Pt given printed and verbal discharge instructions regarding abd pain/burning mouth syndrome, encouraged hydration,Prescription provided- protonixDiscussed ibuprofen and to take with food to avoid GI distress, alternate with Tylenol to help with pain and/or feverPt verbalized understanding of instructions,pt encouraged to follow up with pcp and or GIAdvised to seek medical attention for new/prolonged/worsening of symptoms,No adverse reaction to meds given in ER noted upon dischargePIV d'cd, dressing to site, catheter in tact.Awake, alert oriented, resp reg unlabored, skin w/d, pt leaving in no apparent distress, 86977-9Arerpydyx department KqrgSL1602-11-52P37:30:36[facility] NoteTXT1.2.840.874571.1.13.104.2.7 .2.250385|[id number] for patient uugm96160-7IqfkCZJVATENWDDRdoxugsu d C-CDA narrative [id number] R Shehadeh RN[id number] 07QVWBMZFUAYXYTBJZSMLYTP7204-46-66 T01:30:361.2.840.022282.1.72.3.15| 1.2.840.325585.1.13.104.2.7.2.7278 [id number] Pippa Parra RN [facility] 2023-06-03 22:33:49 P/e80q77p3yOj7AFkU3r icWijnJH4/xMCP W9tYZckBRQdQ/Gd1/SRb3VBs8nhXWx0550 -03-08T22:33:49 Patient ambulatory to ED c/o abd and mouth pain. Patient states the abd pain is not present right now but his lips are "hot" and "tongue is red." Patient is taking new medication but doesn't know the name of it. This is his third time here. 38094-0Wrzkrdrqg department Triage hfivMP2969-61-74G46:40:10[facility] Triage noteTXT1.2.840.990126.1.13.104.2.7 .2.892572|[id number] for patient dzao95524-4Jqfjmiszw department NoteLNNARRATIVEFormatted C-CDA narrative [id number]-Rgfsg Prasanna RN[address] Km[id number] 59XKDXVCIJYZEDXWFMANBWBI4085-66-77 T22:40:101.2.840.307199.1.72.3.15| 1.2.840.242110.1.13.104.2.7.2.7278 [id number] Yan Prasanna RN [facility] 2023-06-03 22:27:00 eRxGGsUucKF2Rd932l7G 1BdQ+/2KnqkNb4 JhfTSEeNdy5uYU2Fz7wO2xHanQ92j20034 -03-08T22:27:00 [facility] Emergency Department NotePatient Name: Zeke Leigh of : 1965 58 year old maleTreatment Room: [facility] Record Number: [id number] Care Physician: DEANDRE JonesPatient Escorted by: Family [5]Mode of Arrival: Personal means [1]EMS Treatment Prior to ED Arrival:GLASSBLOWER treatment: NoneTravel and Exposure Screening:SymptomsDoes patient have any of these symptoms?: (not recorded)Exposure ScreeningHas patient had contact with someone with a communicable disease in the last month?: (not recorded)Diseases exposed to:: (not recorded)Is Patient ?: (not recorded)Exposure Date: (not recorded)Chief Complaint:Chief ComplaintPatient presents with Abdominal PainHistory of Present Illness:58 y.o. male with c/o "hot burning tongue and lips x 2-3 weeks."Past Medical History/Immunizations:Past Medical History:Diagnosis Date Hyperlipemia HypertensionTetanus received in last 5 years: UnknownAllergies:No Known AllergiesPast Social History:Substance & Sexual ActivityNo substance use or sexual activity history on file.Past Surgical History:No past surgical history on file.Review of Systems:Review of SystemsConstitutional: Negative. Negative for chills and fever.HENT: Negative for congestion, dental problem, drooling, ear discharge, ear pain, facial swelling, hearing loss, mouth sores, nosebleeds, postnasal drip, rhinorrhea, sinus pressure, sneezing, sore throat, tinnitus, trouble swallowing and voice change.Eyes: Negative.Respiratory: Negative.Breasts: Negative.Cardiovascular: Negative.Gastrointestinal: Negative.Genitourinary: Negative.Musculoskeletal: Negative. Negative for neck pain and neck stiffness.Skin: Negative.Neurological: Negative.Psychiatric/Behavioral: Negative.Endocrine: Endocrine negativePhysical Exam:ED Triage Vitals [06/03/237]Weight 73.1 kg (161 lb 1.6 oz)Actual or estimated ActualHeight 1.676 m (5' 6")BP (!) 155/80Pulse 72Resp 18Temp 36.6 ?C (97.9 ?F)Temp source OralSpO2 98 %Measured on Room airPhysical ExamVitals and nursing note reviewed.Constitutional:General: He is not in acute distress.Appearance: Normal appearance. He is not ill-appearing, toxic-appearing or diaphoretic.HENT:Head: Normocephalic.Right Ear: Tympanic membrane, ear canal and external ear normal.Left Ear: Tympanic membrane, ear canal and external ear normal.Nose: Nose normal. No congestion or rhinorrhea.Mouth/Throat:Mouth: Mucous membranes are moist.Pharynx: No oropharyngeal exudate or posterior oropharyngeal erythema.Cardiovascular:Rate and Rhythm: Normal rate.Pulses: Normal pulses.Heart sounds: Normal heart sounds.Pulmonary:Effort: Pulmonary effort is normal. No respiratory distress.Breath sounds: Normal breath sounds.Abdominal:Palpations: Abdomen is soft.Musculoskeletal:General: Normal range of motion.Cervical back: No rigidity.Skin:General: Skin is warm.Capillary Refill: Capillary refill takes less than 2 seconds.Neurological:General: No focal deficit present.Mental Status: He is alert and oriented to person, place, and time.Psychiatric:Mood and Affect: Mood normal.Behavior: Behavior normal.Radiology:No orders to displayLab Results:Lab ResultsCBC WITH DIFF - AbnormalResult Value Ref RangeWBC 8.21 4.20 - 10.70 10*3/?LRBC 4.39 4.26 - 5.52 10*6/?LHGB 12.6 12.2 - 16.4 g/dLHCT 37.3 (*) 38.4 - 49.3 %MCV 85.0 81.7 - 95.6 fLMCH 28.7 26.1 - 32.7 pgMCHC 33.8 31.2 - 35.0 g/dLRDW-SD 42.0 38.5 - 51.6 fLRDW-CV 13.3 12.1 - 15.4 %PLT 272 150 - 328 10*3/?LMPV 11.2 9.8 - 13.0 fLNRBC/100 WBC 0.0 0.0 - 10.0 /100 WBCsNRBC x10^3 <0.01 10*3/?LGRAN MAT (NEUT) % 46.2 %IMM GRAN % 0.20 %LYMPH % 34.3 %MONO % 7.2 %EOS % 10.6 %BASO % 1.5 %GRAN MAT x10^3(ANC) 3.79 1.99 - 6.95 10*3/uLIMM GRAN x10^3 <0.03 0.00 - 0.06 10*3/uLLYMPH x10^3 2.82 1.09 - 3.23 10*3/uLMONO x10^3 0.59 0.36 - 1.02 10*3/uLEOS x10^3 0.87 (*) 0.06 - 0.53 10*3/uLBASO x10^3 0.12 (*) 0.01 - 0.09 10*3/uLCOMP. METABOLIC PANEL (67714) - AbnormalNA 138 135 - 145 mmol/LK 3.6 3.5 - 5.0 mmol/LCL 102 98 - 108 mmol/LCO2 TOTAL 30 23 - 31 mmol/LAGAP 6 2 - 16BUN 20 7 - 23 mg/dLGLUCOSE 121 (*) 70 - 110 mg/dLCREATININE 0.95 0.60 - 1.25 mg/dLTOTAL BILI 0.5 0.1 - 1.1 mg/dLCALCIUM 8.8 8.6 - 10.6 mg/Riley PROTEIN 8.4 (*) 6.3 - 8.2 g/dLALBUMIN 4.5 3.5 - 5.0 g/dLALK PHOS 85 34 - 122 U/LALTv 40 5 - 50 U/LAST(SGOT) 45 (*) 13 - 40 U/LeGFR 92.2 mL/min/1.00g2GBKGB DRUG (IMMUNOASSAY) - COMPREHENSIVE DRUG SCREEN - NormalAMPHET Negative NegativeBARB U Negative NegativeBENZO U Negative NegativeCocaine Metabolite Negative NegativeMETHADONE Negative NegativeOPIATES Negative NegativePCP Negative NegativeTHC Negative NegativeETHANOLALCOHOL <10 mg/dLTHYROID STIMULATING HORMONEEKG:If EKG completed, see Procedure Note.Orders and Treatments:Orders Placed This EncounterProcedures Cbc with Diff Comp. Metabolic Panel (86621) Urine Drug (Immunoassay) - Comprehensive Drug Screen Ethanol Thyroid Stimulating HormoneNo orders of the defined types were placed in this encounter.First Provider Eval:ED EventsNoneED COURSEDiagnosis/Impression as of 06/04/23 0111Abdominal pain, unspecified abdominal locationBurning mouth syndromeProcedures:ProceduresMDM:M edical Decision MakingAmount and/or Complexity of Data ReviewedLabs: ordered.A) Burning Mouth SyndromeDisposition/Condition: Home, Multivitamin with Vit. B6 and Vit B12 supplementation, ER warnings, f/u PCP in 1 week, Pepcid bidED DispositionNoneDischarge Medications:Patient's MedicationsSTART taking these medicationsNo medications on fileCONTINUE taking these medications which have NOT CHANGEDPANTOPRAZOLE 40 MG EC TABLET Take 1 tablet by mouth daily for 30 days.START taking Modified Medications as PrescribedNo medications on fileSTOP taking these medicationsNo medications on fileFollow-up: PCPElectronically signed by:Samuel Donato MD06/04/23 0106 83515-5Ruhsoqdmn Emergency department KyedSO3086-18-31A53:06:46Physician Emergency department NoteTXT1.2.840.152392.1.13.104.2.7 .2.691217|[id number] for patient xxrr72225-9Fknemmyqp department NoteLNNARRATIVEFormatted C-CDA narrative textUT[address] Xy[id number] 67ASHMNVTOXFFXDAGCIATJEF4347-37-80 T01:06:461.2.840.278030.1.72.3.15| 1.2.840.282912.1.13.104.2.7.2.7278 [id number] [facility] 2023-05-31 19:33:39 45IROxJiyA/AuAWc5FMJ 34NH3sMMLS56On H7CAUj1TTDfAkxtptPwVbheeNoxNnx8357 -03-05T19:33:39 Pt discharged with diagnosis of mouth pain. Printed and verbal instructions reviewed with and given to pt. Prescriptions given x 0. Pt verbalized understanding of teaching and recommended follow-up. Denies questions or concerns at this time. Pt ambulatory at discharge. Appears in no apparent distress. No ataxia noted. 81788-2Qbvifxubj department EkmgLB5167-11-77A69:34:02[facility] department NoteTXT1.2.840.124174.1.13.104.2.7 .2.610932|[id number] for patient ndcx70220-1TdziHWDIMJZHJCROamvsmmu d C-CDA narrative [id number] Al RN[address] Gr[id number] 45NTSUKYBIGGLRKBZIGEYJCF5723-54-65 T19:34:021.2.840.464518.1.72.3.15| 1.2.840.833750.1.13.104.2.7.2.7278 [id number] Aniya Al RN [facility] 2023-05-31 17:21:16 TkYkcpXhZg0vn8LA1Pet Ebo9xinIYwqdev AbdMfltrtGfUpSO1dQ92DgIc3jMPGE1725 -03-05T17:21:16 Patient states: "I feel fire on my mouth since 1 month now. I was seen already for the same thing a week ago, prescribed with antibiotics but it's not helping." 72208-1Vmxjhnnhs department Triage dhcnJC8016-67-45R37:23:12[facility] Triage noteTXT1.2.840.483118.1.13.104.2.7 .2.595703|[id number] for patient setf58465-7Hbaynwuwy department NoteLNNARRATIVEFormatted C-CDA narrative [id number] C Heredia [id number] 46WJENOJUUCYKOIWVXKRJUUT6752-13-49 T17:23:121.2.840.113098.1.72.3.15| 1.2.840.792887.1.13.104.2.7.2.7278 [id number] Anabella Laguerre RN [facility] 2023-05-21 11:01:55 sTnH19DuVPwlPnmrhgIi +A3mESm4uMO GLbFXC/xhXVAh2D+J4O3l2Dm/Ke+RX50412023T11:01:55 Pt given discharge instructions on heartburn. Given prescription X 1 for protonix. Pt advised to follow up with pcp. Pt left ER ambulatory with steady gait. No signs of distress. 00751-6Pfcvdceww department BojtFS7274-68-87U86:02:33[facility] department NoteTXT1.2.840.522562.1.13.104.2.7 .2.668425|[id number] for patient dwhs46875-1PvztNJLGQTFKBMKTeeoobvb d C-CDA narrative text[id number] 76AXPOYYPCEVZKUHFLAHRRSG7560-89-41 T11:02:331.2.840.897188.1.72.3.15| 1.2.840.734425.1.13.104.2.7.2.7278 [id number] [facility] 2023-05-21 10:32:14 yMuD6+ODLQju4MsFbtFX tp9q7NNl+tm1K+ c60aNDnrbzXycDI3l7qEkG4sI6DsRh8907 -02-24T10:32:14 Patient states: "My tongue is very hot and my lips are hot. My stomach hurts. [place] and she gave me a lot of papers but she didn't find anything"Reports symptoms for 10 days. Worse today. 89031-3Wzgrudjgh department Triage hcxpYO4876-49-85Q51:34:28[facility] Triage noteTXT1.2.840.580819.1.13.104.2.7 .2.485235|[id number] for patient bigd21449-1Dugjnmfwj department NoteLNNARRATIVEFormatted C-CDA narrative [id number] M Cruz RNUTMB96 [id number] 72SJSLQCAIXVJYOTRXAPFBDE2800-68-86 T10:34:281.2.840.450411.1.72.3.15| 1.2.840.688278.1.13.104.2.7.2.7278 [id number] Morena Ibanez RN [facility]
[2023-06-24] MEDS ORDERED: FAMOTIDINE 20 MG/2 ML VIAL IV ONE (09:21)
[2023-06-24] MEDS ORDERED: MAGNES/ALUMIN/SIMET 30ML UCUP ONE (09:21)
[2023-06-24] MEDS ORDERED: ONDANSETRON 4 MG/2 ML VIAL ONE (09:21)
[2023-06-24 09:31] LABS: Absolute Basophils 0.1 K/uL (0-0.5); Absolute Lymphocytes (CBC) 2.5 K/uL (0.7-4.9); Absolute Monocytes 0.5 K/uL (0.1-1.3); Absolute Neutrophil 3.4 K/uL (1.8-8.0); Basophils % 0.8 % (0-1.3); Eosinophils % 13.3 % (0-4.4); Hematocrit 37.2 % (39.6-49.0); Hemoglobin 12.9 g/dL (13.6-17.9); Lymphocytes % 33.6 % (15.3-44.8); MCH 28.7 pg (27.0-35.0); MCHC 34.7 g/dL (32.0-36.0); MCV 82.6 fL (80-100); MPV 8.9 fL (7.6-11.3); Neutrophils % 45.3 % (41.7-73.7); Nucleated Red Blood Cells % 0.1 % (0-0); Platelets 242 thou/uL (152-406); RBC Red Blood Cell Count 4.51 M/uL (4.33-5.43); Red Cell Distribution Width 13.8 % (12.1-15.2)
[2023-06-24 09:55] LABS: Albumin 3.8 g/dL (3.4-5.0); Albumin/Globulin Ratio 0.8 (1.1-1.8); Anion Gap 7.5 mEq/L (5.0-15.0); Bilirubin Total 0.4 mg/dL (0.2-1.0); Globulin 4.5 g/dL (2.3-3.5); Potassium 3.5 mEq/L (3.5-5.1); Protein, Total 8.3 g/dL (6.4-8.2)
--- NOTE | 2023-06-24 10:08 | EDPHYS ---
Physician Documentation [facility] Name: Zeke Weinstein Age: 58 yrs Sex: Male : 1965 Arrival Date: 06/24/2023 Time: 08:46 Bed 16 Private MD: ED Physician Isac Acevedo HPI: 06/23 09:41 This 58 yrs old Male presents to ER via Ambulatory with complaints of ms3 Abdominal Pain. 09:41 58-year-old male with past medical history of diabetes, hypertension presents to the [facility] emergency department for epigastric pain that began 1 month prior to arrival. Patient states the pain is a 9/10. Patient endorses nausea and vomiting. Patient denies any alleviating or inciting factors. Historical: - Allergies: 09:17 No Known Allergies; ap3 - PMHx: 09:17 Diabetes mellitus; Hypertensive disorder; ap3 - Immunization history:: Client reports having NOT received the Covid vaccine. Flu vaccine is not up to date. - Social history:: Smoking status: Patient denies any tobacco usage or history of. ROS: 09:41 Constitutional: Negative for fever, and chills. Neck: Negative for injury, pain, and ms3 swelling, Cardiovascular: Negative for chest pain, and palpitations. Respiratory: Negative for shortness of breath, cough, wheezing, and pleuritic chest pain, 09:41 MS/Extremity: Negative for injury and deformity, Skin: Negative for injury, rash, and discoloration, 09:41 Abdomen/GI: Positive for abdominal pain, Exam: 09:41 Constitutional: This is a well developed, well nourished patient who is awake, alert, ms3 and in no acute distress. Head/Face: Normocephalic, atraumatic. Chest/axilla: Normal chest wall appearance and motion. Nontender with no deformity. Cardiovascular: Regular rate and rhythm with a normal S1 and S2. No gallops, murmurs, or rubs. Normal PMI, no JVD. No pulse deficits. Respiratory: Lungs have equal breath sounds bilaterally, clear to auscultation and percussion. No rales, rhonchi or wheezes noted. No increased work of breathing, no retractions or nasal flaring. Abdomen/GI: Soft, non-tender, with normal bowel sounds. No distension or tympany. No guarding or rebound. No evidence of tenderness throughout. Skin: Warm, dry with normal turgor. Normal color with no rashes, no lesions, and no evidence of cellulitis. MS/ Extremity: Pulses equal, no cyanosis. Neurovascular intact. Full, normal range of motion. 10:25 ECG was reviewed by the Attending Physician. ms3 Vital Signs: 09:15 BP 181 / 82; Pulse 88; Resp 17; Temp 98.7; Pulse Ox 99% ; Weight 70.76 kg; Height 5 ft. ap3 6 in. ; 10:09 BP 152 / 77; Pulse 65; Resp 18; Pulse Ox 99% on R/A; rs5 10:21 BP 155 / 80; Pulse 68; Resp 18; Pulse Ox 99% on R/A; rs5 09:15 Body Mass Index 25.18 (70.76 kg, 167.64 cm) ap3 MDM: 09:41 Patient medically screened. ms3 09:41 Differential diagnosis: gastritis, non-specific abd pain, pancreatitis. ms3 10:08 Data reviewed: vital signs, nurses notes, lab test result(s), and as a result, I will ms3 discharge patient. I considered the following discharge prescriptions or medication management in the emergency department Medications were administered in the Emergency Department. See MAR. Care significantly affected by the following chronic conditions: Diabetes, Hypertension. Counseling: I had a detailed discussion with the patient and/or guardian regarding the historical points, exam findings, and any diagnostic results supporting the discharge/admit diagnosis, lab results, the need for outpatient follow up, to return to the emergency department if symptoms worsen or persist or if there are any questions or concerns that arise at home. Special discussion: I discussed with the patient/guardian in detail that at this point there is no indication for admission to the hospital. It is understood, however, that if the symptoms persist or worsen the patient needs to return immediately for re-evaluation. 10:25 Independent interpretation of the following test(s) in the Emergency Department EKG: ms3 See my EKG interpretation above. 06/23 09:16 Order name: CBC with Diff; Complete Time: 09:57 ms3 06/23 09:16 Order name: CMP; Complete Time: 09:57 ms3 06/23 09:16 Order name: Lipase; Complete Time: 09:57 ms3 06/23 10:08 Order name: EKG; Complete Time: 10:09 ms3 06/23 09:16 Order name: IV Saline Lock; Complete Time: 09:25 ms3 06/23 09:16 Order name: Labs collected and sent; Complete Time: 09:25 ms3 06/23 10:08 Order name: EKG - Nurse/Tech; Complete Time: 10:20 ms3 EC:25 Rate is 66 beats/min. Rhythm is regular. QRS [place] is Normal. [place] interval is normal. QRS ms3 interval is normal. QT interval is normal. Clinical impression: Normal ECG. Interpreted by me. Reviewed by me. Administered Medications: 09:20 Drug: Famotidine IVP 20 mg IVP once; dilute with 10 mL 0.9% NaCl; give over 2 minutes rs5 Route: IVP; Site: left antecubital; 09:40 Follow up: Response: No adverse reaction rs5 09:20 Drug: Ondansetron IVP 4 mg IVP once; over 2 minutes Route: IVP; Site: left antecubital; rs5 09:40 Follow up: Response: No adverse reaction rs5 09:20 Drug: GI Cocktail without - (Maalox PO 30 ml, Lidocaine Mucous Membrane 2 % 15 rs5 ml) PO once Route: PO; 09:40 Follow up: Response: No adverse reaction rs5 Disposition Summary: 06/24/23 10:25 Discharge Ordered Notes: Location: Home(06/24/23 10:25) ms3 Condition: Stable(06/24/23 10:25) ms3 Diagnosis - Upper abdominal pain, unspecified ms3 Followup: ms3 - With: Dawood Allen MD - When: 2 - 3 days - Reason: Recheck today's complaints Discharge Instructions: - Discharge Summary Sheet ms3 - Abdominal Pain, Adult ms3 Forms: - Medication Reconciliation Form ms3 - Thank You Letter ms3 - Antibiotic Education ms3 - Prescription Opioid Use ms3 - Patient Portal Instructions ms3 - Leadership Thank You Letter ms3 Prescriptions: - Pepcid 20 mg Oral Tablet - take 1 tablet ORAL route every 12 hours for 5 days; 10 tablet; Refills: 0, ms3 Product Selection Permitted Signatures: Dispatcher [employer] Pippa Beltran RN RN ap3 Isac Acevedo, DO DO ms3 Adam Valdez, RN RN rs5 Corrections: (The following items were deleted from the chart) : 10:08 Home ms3 ms3 10: 10:08 Stable ms3 ms3 10: 10:08 Abdominal pain, Generalized ms3 ms3
--- NOTE | 2023-06-24 10:08 | ER ---
Nurse's Notes [facility] Name: Zeke Weinstein Age: 58 yrs Sex: Male : 1965 Arrival Date: 06/24/2023 Time: 08:46 Bed 16 Private MD: Diagnosis: Upper abdominal pain, unspecified Presentation: 06/23 09:15 Chief complaint: Patient states: he has been having mid upper abdominal pain for approx ap3 one month along with a burning sensation in his mouth and on his tongue. Coronavirus screen: At this time, the client does not indicate any symptoms associated with coronavirus-19. Ebola Screen: No symptoms or risks identified at this time. Initial Sepsis Screen: Does the patient meet any 2 criteria? No. Patient's initial sepsis screen is negative. Does the patient have a suspected source of infection? No. Patient's initial sepsis screen is negative. Risk Assessment: Do you want to hurt yourself or someone else? Patient reports no desire to harm self or others. Onset of symptoms was April 2023. 09:15 Method Of Arrival: Ambulatory ap3 09:15 Acuity: CHARISSA 3 ap3 Triage Assessment: 09:17 General: Appears in no apparent distress. Behavior is calm, cooperative, appropriate ap3 for age. Pain: Complains of pain in epigastric area Pain began a month ago. Neuro: Level of Consciousness is awake, alert, obeys commands, Oriented to person, place, time, situation. Cardiovascular: Patient's skin is warm and dry. Respiratory: Airway is patent Respiratory effort is even, unlabored, Respiratory pattern is regular, symmetrical. GI: Reports upper abdominal pain. Historical: - Allergies: 09:17 No Known Allergies; ap3 - PMHx: 09:17 Diabetes mellitus; Hypertensive disorder; ap3 - Immunization history:: Client reports having NOT received the Covid vaccine. Flu vaccine is not up to date. - Social history:: Smoking status: Patient denies any tobacco usage or history of. Screenin:10 [facility] ED Fall Risk Assessment (Adult) History of falling in the last 3 months, rs5 including since admission No falls in past 3 months (0 pts) Confusion or Disorientation No (0 pts) Intoxicated or Sedated No (0 pts) Impaired Gait No (0 pts) Mobility Assist Device Used No (0 pt) Altered Elimination No (0 pt) Score/Fall Risk Level 0 - 2 = Low Risk Oriented to surroundings, Maintained a safe environment. 09:18 Abuse screen: Denies threats or abuse. Nutritional screening: No deficits noted. ap3 Tuberculosis screening: No symptoms or risk factors identified. Assessment: 09:10 General: Appears in no apparent distress. uncomfortable, Behavior is cooperative. Pain: rs5 Complains of pain in abdomen Pain currently is 8 out of 10 on a pain scale. Quality of pain is described as aching, Is continuous. 09:10 Neuro: Level of Consciousness is awake, alert, obeys commands, Oriented to person, rs5 place, time, situation. Cardiovascular: Patient's skin is warm and dry. Rhythm is regular. Respiratory: Airway is patent Respiratory effort is even, unlabored, Respiratory pattern is regular, symmetrical. GI: Abdomen is round non-distended, Bowel sounds present X 4 quads. Abd is soft and non tender X 4 quads. : No signs and/or symptoms were reported regarding the genitourinary system. EENT: No signs and/or symptoms were reported regarding the EENT system. Derm: Skin is intact, Skin is pink, warm \T\ dry. Musculoskeletal: Circulation, motion, and sensation intact. Range of motion: intact in all extremities. 09:50 Reassessment: Patient and/or family updated on plan of care and expected duration. Pain rs5 level reassessed. Patient is alert, oriented x 3, equal unlabored respirations, skin warm/dry/pink. Patient denies pain at this time. Patient states feeling better. Patient states symptoms have improved. 10:20 Reassessment: No changes from previously documented assessment. rs5 Vital Signs: 09:15 BP 181 / 82; Pulse 88; Resp 17; Temp 98.7; Pulse Ox 99% ; Weight 70.76 kg; Height 5 ft. ap3 6 in. ; 10:09 BP 152 / 77; Pulse 65; Resp 18; Pulse Ox 99% on R/A; rs5 10:21 BP 155 / 80; Pulse 68; Resp 18; Pulse Ox 99% on R/A; rs5 09:15 Body Mass Index 25.18 (70.76 kg, 167.64 cm) ap3 ED Course: 08:49 Patient arrived in ED. mr 08:54 Isac Acevedo DO is Attending Physician. ms3 09:17 Triage completed. ap3 09:18 Arm band placed on right wrist. ap3 09:18 Patient has correct armband on for positive identification. Bed in low position. Call ap3 light in reach. Pulse ox on. NIBP on. 09:19 Adam Valdez, RN is Primary Nurse. rs5 09:25 CBC with Diff Sent. bc6 09:25 CMP Sent. bc6 09:25 Lipase Sent. bc6 09:25 Initial lab(s) drawn, by nc, sent to lab. Inserted saline lock: 20 gauge in left bc6 antecubital area, using aseptic technique. Blood collected. 09:50 No provider procedures requiring assistance completed. rs5 10:07 Dawood Allen MD is Referral Physician. ms3 10:24 Dawood Allen MD is Referral Physician. ms3 10:35 IV discontinued, intact, bleeding controlled, No redness/swelling at site. Pressure rs5 dressing applied. Administered Medications: 09:20 Drug: Famotidine IVP 20 mg IVP once; dilute with 10 mL 0.9% NaCl; give over 2 minutes rs5 Route: IVP; Site: left antecubital; 09:40 Follow up: Response: No adverse reaction rs5 09:20 Drug: Ondansetron IVP 4 mg IVP once; over 2 minutes Route: IVP; Site: left antecubital; rs5 09:40 Follow up: Response: No adverse reaction rs5 09:20 Drug: GI Cocktail without - (Maalox PO 30 ml, Lidocaine Mucous Membrane 2 % 15 rs5 ml) PO once Route: PO; 09:40 Follow up: Response: No adverse reaction rs5 Medication: 09:51 VIS not applicable for this client. rs5 Outcome: 10:08 Discharge ordered by . ms3 10:25 Discharge ordered by MD. ms3 10:30 Discharged to home ambulatory, rs5 10:30 Condition: stable rs5 10:30 Discharge instructions given to patient, family, Instructed on discharge instructions, follow up and referral plans. medication usage, Demonstrated understanding of instructions, follow-up care, medications, Prescriptions given X 1, 10:42 Patient left the ED. rs5 Signatures: Zahra Browning, Cecilio Hernandes mr Pippa Ryan RN RN ap3 Isac Acevedo DO DO ms3 Adam Valdez, RN RN rs5 Sakshi Silva bc6
[2023-06-24 10:56] VITALS: TEMP 98.5; O2SAT 100
[2023-06-24 11:20] VITALS: BP 117/74
--- NOTE | 2023-06-25 09:40 | EKG ---
Test Date: 2023-06-24 Test Time: 09:15:58 Assistant Press Operator: GENNA MEASUREMENT RESULTS: Intervals: Rate: 66 CO: 174 QRSD: 88 QT: 396 QTc: 415 [place]: P: 40 CO: 174 QRS: 49 T: 3 INTERPRETIVE STATEMENTS: Normal sinus rhythm Normal ECG Compared to ECG 07/23/2013 20:30:41 No significant changes Electronically Signed On 06-25-23 09:38:23 CDT by Josué Tobar
== END 2023-06-24 10:42 | disposition home or self-care (01) ==
LOC: ER 08:46
DX: R10.13 Epigastric pain (principal)
CPT/HCPCS: 36415; 80053; 83690; 85025; 93005; 96374; 96375; 99284; J2405

== ENCOUNTER 2023-08-08 11:08 | Emergency (ER) | payer SELFPAY ==
--- OUTSIDE RECORDS SUMMARY | 2023-08-08 11:16 | XMS REPORT | Continuity of Care Document ---
Author Name Unknown Address [address] [facility] [address] [place] [address] [facility] thconnect Address [address] 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 Role Phone ROMEDEANDRE Primary Care Physician Unavailab SAMUEL Singh Attending Clinician Unavailable Samuel Donato MD Attending Clinician [phone] Vanesa MOY Attending Clinician Unavailable Vanesa Thornton Attending Clinician [phone] JEZ LINN Attending Clinician Unavailable Jez Linn PA-C Attending Clinician [phone] Payers Payer Name Policy Type Policy Number Effective Date Expirati on Date Source MEDICAID [place] PENDING PENDING 2023 00:00:00 Allergies, Adverse Reactions, Alerts Allergy Name Allergy Type Status Severity Reaction(s) Onset Date Inactive Date Treating Clinician Comments Source NO KNOWN ALLERGIE S Drug Class Active [facility] Social History Social Habit Start Date Stop Date Quantity Comments Source Sexual orientation U [facility] Sex Assigned At 1965 00:00:00 1965 00:00:00 [facility] Smoking Status Start Date Stop Date Source Tobacco smoking consumption unknown [facility] Medications Ordered Medication Name Filled Medication Name Start Date Stop Date Current Medication? Ordering Clinician Indication Dosage Frequency Signature (SIG) Comments Components Source acetaminoph en 500 mg tablet - 00:00: 00 Yes 1mg Eyad F [place] Oravig 50 mg buccal tablet 07-27 00:00: 00 Yes 1mg Eyad Conrad TAKE 1 TABLET BY MOUTH EVERY 12 HOURS FOR 5 DAYS -29 00:00: 00 Yes Eyad Cnorad TAKE 1 TABLET BY MOUTH EVERY 8 HOURS NEEDED FOR PAIN -21 00:00: 00 Yes Eyad Conrad TAKE 2 CAPSULES BY MOUTH NOW THEN ONE CAPSULE EVERY 8 HOURS FOR 7 DAYS -18 00:00: 00 Yes Eyad Conrad pantoprazol e 40 mg tablet,sarah beth yed release -12 00:00: 00 Yes 1mg Eyad Conrad famotidine 40 mg tablet -12 00:00: 00 Yes 1mg Eyad Conrad gabapentin 100 mg capsule 06-06 00:00: 00 Yes 1mg Eyad Conrad pantoprazol e (PROTONIX) 40 mg EC tablet - 00:00: 00 Yes [id number] 40mg Take 1 tablet by mouth daily. [facility] TAKE 1 TABLET BY MOUTH ONCE DAILY FOR 30 DAYS 05-21 00:00: 00 Yes Eyad Conrad pantoprazol e 40 mg EC tablet 05-21 00:00: 00 06-20 04:59 :00 Yes [id number] 40mg Take 1 tablet by mouth daily for 30 days. [facility] TAKE 1 TABLET DAILY. 05-16 00:00: 00 07-27 00:00 :00 No 10 Eyad Conrad TAKE 1 TABLET DAILY. 05-04 00:00: 00 Yes 500 Eyad Conrad TAKE 1 TABLET DAILY. 05-04 00:00: 00 Yes 10 Eyad Conrad TAKE 1 TABLET DAILY. 05-04 00:00: 00 07-27 00:00 :00 No 100 Eyad Conrad TAKE 1 TABLET DAILY DIRECTED. - 00:00: 00 07-27 00:00 :00 No 20 Eyad Conrad 5 ML SWISH AND SWALLOW FOUR TIMES DAILY 05-04 00:00: 00 07-27 00:00 :00 No [id number] Eyad Conrad TAKE 1 TABLET DAILY. 2-07 00:00: 00 07-27 00:00 :00 No 125 Eyadke Conrad TAKE 1 TABLET DAILY. 2-07 00:00: 00 07-27 00:00 :00 No 200 Eyadke Conrad TAKE 1 TABLET DAILY. 2-07 00:00: 00 07-27 00:00 :00 No 25 Eyadke Conrad TAKE 1 TABLET TWICE DAILY. 1-24 00:00: 00 07-27 00:00 :00 No 500 Eyad Conrad RINSE MOUTH WITH 15ML (1 CAPFUL) FOR 30 SECONDS AM AND PM AFTER TOOTHBRUSHI NG. EXPECTORATE AFTER RINSING, DO NOT SWALLOW 1-23 00:00: 00 07-27 00:00 :00 No 12 Eyadke Conrad TAKE 1 TABLET DAILY. 18 00:00: 00 Yes 25 Eyad Conrad TAKE 1 TABLET DAILY. 18 00:00: 00 Yes 125 Eyad Conrad TAKE 1 TABLET DAILY. 9-06 00:00: 00 07-27 00:00 :00 No 500 Eyad Conrad TAKE 1 TABLET DAILY. 9-06 00:00: 00 07-27 00:00 :00 No 125 Eyad Conrad TAKE 1 TABLET DAILY. 9-06 00:00: 00 07-27 00:00 :00 No 25 Eyad Conrad INSTILL 1 DROP INTO BOTH EYES TWICE DAILY NEEDED AT 6-8 HOUR INTERVALS. 9-06 00:00: 00 07-27 00:00 :00 No 1 Eyad Conrad TAKE 1 TABLET DAILY. 3-16 00:00: 00 07-27 00:00 :00 No 500 Eyad Conrad TAKE 1 TABLET DAILY. 3-16 00:00: 00 07-27 00:00 :00 No 10 Eyadke Conrad TAKE 1 TABLET DAILY. 3-16 00:00: 00 07-27 00:00 :00 No [id number] Eyadke Conrad TAKE 1 TABLET DAILY. 0 3-16 00:00: 00 07-27 00:00 :00 No 10 Eyad Conrad TAKE 1 TABLET DAILY. 2021-03 2-06 00:00: 00 07-27 00:00 :00 No [id number] Eyad Conrad amlodipine 10 mg tablet 0 5-18 00:00: 00 Yes 1mg Eyad Conrad metformin 500 mg tablet 0 -18 00:00: 00 Yes 1mg Eyad Conrad atorvastati n 10 mg tablet 0 18 00:00: 00 Yes 1mg Eyad Conrad Dose Unknown 0 -18 00:00: 00 Yes Eyad Conrad Dose Unknown 0 18 00:00: 00 Yes Eyad Conrad Dose Unknown 0 18 00:00: 00 Yes Eyad Conrad amlodipine 10 mg tablet 0 -18 00:00: 00 No 1mg metformin 500 mg tablet 0 18 00:00: 00 No 1mg atorvastati n 10 mg tablet 0 18 00:00: 00 No 1mg Dose Unknown 0 -18 00:00: 00 No Dose Unknown 0 -18 00:00: 00 No Dose Unknown 0 18 00:00: 00 No amlodipine 10 mg tablet 0 18 00:00: 00 No 1mg metformin 500 mg tablet 0 -18 00:00: 00 No 1mg atorvastati n 10 mg tablet 0 -18 00:00: 00 No 1mg Dose Unknown 0 -18 00:00: 00 No Dose Unknown 0 -18 00:00: 00 No Dose Unknown 0 -18 00:00: 00 No lisinopril 2.5 mg tablet 2021-0 2-23 00:00: 00 Yes 1mg Eyad Conrad lisinopril 2.5 mg tablet 0 2-23 00:00: 00 No 1mg lisinopril 2.5 mg tablet 2021-0 2- 00:00: 00 No 1mg Dose Unknown 2020-03- 00:00: 00 Yes Eyad Conrad amlodipine 10 mg tablet 2020-03 00:00: 00 Yes 1mg Eyad Conrad metformin 500 mg tablet 2020-03 00:00: 00 Yes 1mg Eyad Conrad atorvastati n 10 mg tablet 2020-03 00:00: 00 Yes 1mg Eyad Conrad Dose Unknown 2020-03 00:00: 00 No amlodipine 10 mg tablet [...] metformin 500 mg tablet 11-20 00:00: 00 Yes 1mg Eyad Conrad metformin 500 mg tablet 11-20 00:00: 00 No 1mg metformin 500 mg tablet 11-20 00:00: 00 No 1mg terbinafine HCl 250 mg tablet 07-30 00:00: 00 Yes 1mg Eyad Conrad Dose Unknown 07-30 00:00: 00 Yes Eyad Conrad hydrochloro thiazide 12.5 mg tablet 07-30 00:00: 00 Yes 1mg Eyad Conrad amlodipine 10 mg tablet 07-30 00:00: 00 Yes 1mg Eyad Conrad metformin 500 mg tablet 07-30 00:00: 00 Yes 1mg Eyad Conrad atorvastati n 10 mg tablet 07-30 00:00: 00 Yes 1mg Eyad Conrad terbinafine HCl 250 mg tablet 07-30 00:00: [...] No 1mg hydrochloro thiazide 12.5 mg tablet 07-30 00:00: 00 No 1mg amlodipine 10 mg tablet 07-30 00:00: 00 No 1mg metformin 500 mg tablet 07-30 00:00: 00 No 1mg atorvastati n 10 mg tablet 07-30 00:00: 00 No 1mg rosuvastati n 20 mg tablet 05-05 00:00: 00 Yes 1mg Eyad Conrad Dose Unknown 2- 00:00: 00 Yes Eyad Boss [place] rosuvastati n 20 mg tablet 2 00:00: 00 No 1mg Dose Unknown 05-05 00:00: 00 No rosuvastati n 20 mg tablet 05-05 00:00: 00 No 1mg lisinopril 2.5 mg tablet 2- 00:00: 00 No 1mg metformin 500 mg tablet 2- 00:00: 00 Yes 1mg Eyad Conrad Dose Unknown 2- 00:00: 00 Yes Eyad Boss [place] amlodipine 10 mg tablet 2- 00:00: 00 Yes 1mg Eyad Boss [place] metformin 500 mg tablet 2- 00:00: 00 No 1mg Dose Unknown 2- 00:00: 00 No amlodipine 10 mg tablet 2- 00:00: 00 No 1mg metformin 500 mg tablet 2- 00:00: 00 No 1mg hydrochloro thiazide 12.5 mg tablet 2 00:00: 00 No 1mg amlodipine 10 mg tablet 04-30 00:00: 00 No 1mg amlodipine 10 mg tablet 12-23 00:00: 00 Yes 1mg Eyad Conrad Dose Unknown 12-23 00:00: 00 Yes Eyad Conrad metformin 500 mg tablet 12-23 00:00: 00 Yes 1mg Eyad Conrad amlodipine 10 mg tablet 12-23 00:00: 00 No 1mg Dose Unknown 12-23 00:00: 00 No metformin 500 mg tablet 12-23 00:00: 00 No 1mg amlodipine 10 mg tablet 12-23 00:00: 00 No 1mg hydrochloro thiazide 12.5 mg tablet 12-23 00:00: 00 No 1mg metformin 500 mg tablet 12-23 00:00: 00 No 1mg amlodipine 10 mg tablet 09-11 00:00: 00 Yes 1mg Eyad Conrad hydrochloro thiazide 12.5 mg tablet 09-11 00:00: 00 Yes 1mg Eyad Conrad metformin 500 mg tablet 09-11 00:00: 00 Yes 1mg Eyad Conrad loratadine 10 mg tablet 09-11 00:00: 00 Yes 1mg Eyad Conrad amlodipine 10 mg tablet 09-11 00:00: 00 No 1mg hydrochloro thiazide 12.5 mg tablet 09-11 00:00: 00 No 1mg metformin 500 mg tablet 09-11 00:00: 00 No 1mg loratadine 10 mg tablet 09-11 00:00: 00 No 1mg amlodipine 10 mg tablet 09-11 00:00: 00 No 1mg hydrochloro thiazide 12.5 mg tablet 09-11 00:00: 00 No 1mg metformin 500 mg tablet 09-11 00:00: 00 No 1mg loratadine 10 mg tablet 09-11 00:00: 00 No 1mg amlodipine 10 mg tablet 07-12 00:00: 00 Yes 1mg Eyad Conrad hydrochloro thiazide 12.5 mg tablet 07-12 00:00: 00 Yes 1mg Eyad Conrad amlodipine 10 mg tablet 0 4-17 00:00: 00 No 1mg hydrochloro thiazide 12.5 mg tablet 0 4-17 00:00: 00 No 1mg amlodipine 10 mg tablet 0 4-17 00:00: 00 No 1mg hydrochloro thiazide 12.5 mg tablet 0 4-17 00:00: 00 No 1mg amlodipine 10 mg tablet 0 4-03 00:00: 00 Yes 1mg Eyad Conrad hydrochloro thiazide 12.5 mg tablet 0 4-03 00:00: 00 Yes 1mg Eyad Conrad amlodipine 10 mg tablet 0 4- 00:00: 00 No 1mg hydrochloro thiazide 12.5 mg tablet 0 4- 00:00: 00 No 1mg amlodipine 10 mg tablet 0 4- 00:00: 00 No 1mg hydrochloro thiazide 12.5 mg tablet 0 4- 00:00: 00 No 1mg metformin 500 mg tablet 0 3-06 00:00: 00 Yes 1mg Eyad Conrad metformin 500 mg tablet 0 3-06 00:00: 00 No 1mg metformin 500 mg tablet 0 3-06 00:00: 00 No 1mg amlodipine 10 mg tablet 0 3-05 00:00: 00 Yes 1mg Eyad Conrad hydrochloro thiazide 12.5 mg tablet 0 3-05 00:00: 00 Yes 1mg Eyad Conrad amlodipine 10 mg tablet 0 3-05 00:00: 00 No 1mg amlodipine 10 mg tablet 0 3-05 00:00: 00 No 1mg hydrochloro thiazide 12.5 mg tablet 0 3-05 00:00: 00 No 1mg hydrochloro thiazide 12.5 mg tablet 0 3-05 00:00: 00 No 1mg lisinopril 20 mg-hydrochl orothiazide 12.5 mg tablet 2018-03 2- 00:00: 00 Yes 1mg Eyad Conrad lisinopril 20 mg-hydrochl orothiazide 12.5 mg tablet 2018-03 2- 00:00: 00 No 1mg lisinopril 20 mg-hydrochl orothiazide 12.5 mg tablet 2018-03 00:00: 00 No 1mg lisinopril 20 mg-hydrochl orothiazide 12.5 mg tablet 11-14 00:00: 00 Yes 1mg Eyad Conrad lisinopril 20 mg-hydrochl orothiazide 12.5 mg tablet 11-14 00:00: 00 No 1mg lisinopril 20 mg-hydrochl orothiazide 12.5 mg tablet 11-14 00:00: 00 No 1mg lisinopril 40 mg tablet 2 00:00: 00 Yes 1mg Eyad Conrad hydrochloro thiazide 12.5 mg tablet 2 00:00: 00 Yes 1mg Eyad Conrad lisinopril 40 mg tablet 05-02 00:00: 00 No 1mg hydrochloro thiazide 12.5 mg tablet 2 00:00: 00 No 1mg lisinopril 40 mg tablet 2 00:00: 00 No 1mg hydrochloro thiazide 12.5 mg tablet 2 00:00: 00 No 1mg lisinopril 20 mg-hydrochl orothiazide 12.5 mg tablet 11-01 00:00: 00 Yes 1mg Eyad Conrad lisinopril 20 mg-hydrochl orothiazide 12.5 mg tablet 11-01 00:00: 00 No 1mg lisinopril 20 mg-hydrochl orothiazide 12.5 mg tablet 11-01 00:00: 00 No 1mg benzonatate 100 mg capsule 06-23 00:00: 00 Yes 1mg Eyad Conrad promethazin e-DM 6.25 mg-15 mg/5 mL syrup 06-23 00:00: 00 Yes 5mg/5 mL Eyad Conrad benzonatate 100 mg capsule 06-23 00:00: 00 No 1mg promethazin e-DM 6.25 mg-15 mg/5 mL syrup 06-23 00:00: 00 No 5mg/5 mL benzonatate 100 mg capsule 06-23 00:00: 00 No 1mg promethazin e-DM 6.25 mg-15 mg/5 mL syrup 06-23 00:00: 00 No 5mg/5 mL lisinopril 20 mg-hydrochl orothiazide 12.5 mg tablet 04-18 00:00: 00 Yes 1mg Eyad Conrad lisinopril 20 mg-hydrochl orothiazide 12.5 mg tablet 04-18 00:00: 00 No 1mg lisinopril 20 mg-hydrochl orothiazide 12.5 mg tablet 04-18 00:00: 00 No 1mg lisinopril 20 mg-hydrochl orothiazide 12.5 mg tablet 04-07 00:00: 00 Yes 1mg Eyad Conrad lisinopril 20 mg-hydrochl orothiazide 12.5 mg tablet 04-07 00:00: 00 No 1mg lisinopril 20 mg-hydrochl orothiazide 12.5 mg tablet 04-07 00:00: 00 No 1mg lisinopril 20 mg-hydrochl orothiazide 12.5 mg tablet 09-08 00:00: 00 Yes 1mg Eyad Conrad lisinopril 20 mg-hydrochl orothiazide 12.5 mg tablet 09-08 00:00: 00 No 1mg lisinopril 20 mg-hydrochl orothiazide 12.5 mg tablet 09-08 00:00: 00 No 1mg lisinopril 20 mg-hydrochl orothiazide 12.5 mg tablet 06-18 00:00: 00 Yes 1mg Eyad Conrad lisinopril 20 mg-hydrochl orothiazide 12.5 mg tablet 06-18 00:00: 00 No 1mg lisinopril 20 mg-hydrochl orothiazide 12.5 mg tablet 06-18 00:00: 00 No 1mg metformin 500 mg tablet 04-29 00:00: 00 Yes 1mg Eyad Conrad metformin 500 mg tablet 04-29 00:00: 00 No 1mg metformin 500 mg tablet 04-29 00:00: 00 No 1mg lisinopril 20 mg-hydrochl orothiazide 12.5 mg tablet 04-28 00:00: 00 Yes 1mg Eyad Conrad metformin 500 mg tablet 04-28 00:00: 00 Yes 1mg Eyad Conrad lisinopril 20 mg-hydrochl orothiazide 12.5 mg tablet 04-28 00:00: 00 No 1mg metformin 500 mg tablet 04-28 00:00: 00 No 1mg lisinopril 20 mg-hydrochl orothiazide 12.5 mg tablet 04-28 00:00: 00 No 1mg metformin 500 mg tablet 04-28 00:00: 00 No 1mg Ciprodex 0.3 %-0.1 % ear drops,suspe nsion 12-01 00:00: 00 Yes 4% Eyad Conrad Ciprodex 0.3 %-0.1 % ear drops,suspe nsion 12-01 00:00: 00 No 4% Ciprodex 0.3 %-0.1 % ear drops,suspe nsion 12-01 00:00: 00 No 4% metformin 500 mg tablet 2014-03 00:00: 00 Yes 1mg Eyad Conrad lisinopril 20 mg-hydrochl orothiazide 12.5 mg tablet 2014-03 00:00: 00 Yes 1mg Eyad Conrad metformin 500 mg tablet 2014-03 00:00: 00 No 1mg lisinopril 20 mg-hydrochl orothiazide 12.5 mg tablet 2014-03 00:00: 00 No 1mg metformin 500 mg tablet 2014-03 00:00: 00 No 1mg lisinopril 20 mg-hydrochl orothiazide 12.5 mg tablet 2014-03 00:00: 00 No 1mg lisinopril 20 mg-hydrochl orothiazide 12.5 mg tablet 09-18 00:00: 00 Yes 1mg Eyad Conrad metformin 500 mg tablet 09-18 00:00: 00 Yes 1mg Eyad Conrad metformin 500 mg tablet 09-18 00:00: 00 No 1mg lisinopril 20 mg-hydrochl orothiazide 12.5 mg tablet 09-18 00:00: 00 No 1mg metformin 500 mg tablet 09-18 00:00: 00 No 1mg lisinopril 20 mg-hydrochl orothiazide 12.5 mg tablet 24 00:00: 00 No 1mg lisinopril 20 mg-hydrochl orothiazide 12.5 mg tablet 08-06 00:00: 00 Yes 2mg Eyad Conrad metformin 500 mg tablet 08-06 00:00: 00 Yes 1mg Eyad Conrad lisinopril 20 mg-hydrochl orothiazide 12.5 mg tablet 08-06 00:00: 00 No 2mg metformin 500 mg tablet 08-06 00:00: 00 No 1mg lisinopril 20 mg-hydrochl orothiazide 12.5 mg tablet 08-06 00:00: 00 No 2mg metformin 500 mg tablet 08-06 00:00: 00 No 1mg lisinopril 20 mg-hydrochl orothiazide 12.5 mg tablet 05-07 00:00: 00 Yes 2mg Eyad Conrad metformin 500 mg tablet 05-07 00:00: 00 Yes 1mg Eyad Conrad lisinopril 20 mg-hydrochl orothiazide 12.5 mg tablet 05-07 00:00: 00 No 2mg metformin 500 mg tablet 05-07 00:00: 00 No 1mg lisinopril 20 mg-hydrochl orothiazide 12.5 mg tablet 05-07 00:00: 00 No 2mg metformin 500 mg tablet 05-07 00:00: 00 No 1mg Immunizations Ordered Immunization Name Filled Immunization Name Date Status Comments Source Influenza, injectable, Madin [place] Canine Kidney, preservative-free, quadrivalent Influenza, injectable, Madin [place] Canine Kidney, preservative-free, quadrivalent 2022-12-10 00:00:00 Completed Eyad Conrad SARS-COV-2 COVID-19 PFIZER VACCINE Unknown Completed [facility] SARS-COV-2 COVID-19 PFIZER VACCINE Unknown Completed [facility] TD, NOS Unknown Completed [facility] SARS-COV-2 COVID-19 PFIZER VACCINE Unknown Completed [facility] SARS-COV-2 COVID-19 PFIZER VACCINE Unknown Completed [facility] TD, NOS Unknown Completed [facility] SARS-COV-2 COVID-19 PFIZER VACCINE Unknown Completed [facility] SARS-COV-2 COVID-19 PFIZER VACCINE Unknown Completed [facility] TD, NOS Unknown Completed [facility] Vital Signs Vital Name Observation Time Observation Value Comments S manolo Systolic blood pressure 2023-06-04 07:24:00 157 mm[Hg] [facility] Diastolic blood pressure 2023-06-04 07:24:00 82 mm[Hg] [facility] Heart rate 2023-06-04 07:24:00 72 /min [facility] Body temperature 2023-06-04 07:24:00 36.89 Sherri [facility] Respiratory rate 2023-06-04 07:24:00 18 /min [facility] Oxygen saturation in Arterial blood by Pulse oximetry 2023-06-04 07:24:00 97 /min [facility] Body height 2023-06-04 04:37:00 167.6 cm [facility] Body weight 2023-06-04 04:37:00 73.074 kg [facility] BMI 2023-06-04 04:37:00 26.00 kg/m2 Univ [facility] Systolic blood pressure 2023-05-31 23:23:00 190 mm[Hg] [facility] Diastolic blood pressure 2023-05-31 23:23:00 100 mm[Hg] [facility] Heart rate 2023-05-31 23:23:00 86 /min [facility] Body temperature 2023-05-31 23:23:00 36.61 Sherri [facility] Respiratory rate 2023-05-31 23:23:00 19 /min [facility] Body height 2023-05-31 23:23:00 167.6 cm [facility] Body weight 2023-05-31 23:23:00 69.854 kg [facility] BMI 2023-05-31 23:23:00 24.86 kg/m2 [facility] Oxygen saturation in Arterial blood by Pulse oximetry 2023-05-31 23:23:00 100 /min [facility] Systolic blood pressure 2023-05-21 16:35:00 175 mm[Hg] [facility] Diastolic blood pressure 2023-05-21 16:35:00 81 mm[Hg] [facility] Heart rate 2023-05-21 16:35:00 85 /min [facility] 2023-05-21 16:35:00 36.61 Sherri [facility] Respiratory rate 2023-05-21 16:35:00 16 /min [facility] Body height 2023-05-21 16:35:00 167.6 cm [facility] Body weight 2023-05-21 16:35:00 70.761 kg [facility] BMI 2023-05-21 16:35:00 25.18 kg/m2 [facility] Oxygen saturation in Arterial blood by Pulse oximetry 2023-05-21 16:35:00 97 /min [facility] BP Systolic 2023-07-28 09:06:00 161 mm[Hg] Step hen Karyn [place] BP Diastolic 2023-07-28 09:06:00 80 mm[Hg] Devin phen Karyn Conrad Weight Measured 2023-07-28 09:06:00 154.80 pounds Eyad Conrad Height Measured 2023-07-28 09:06:00 65.00 inches Eyad Boss [place] Body Temperature 2023-07-28 09:06:00 97.30 degrees Eyad Boss [place] Heart Rate 2023-07-28 09:06:00 63.00 /min Merari en F [place] Respiratory Rate 2023-07-28 09:06:00 18.00 /min Eyadke Conrad BP Systolic 2023-06-07 09:07:00 172 mm[Hg] Step hen Karyn Conrad BP Diastolic 2023-06-07 09:07:00 87 mm[Hg] Devin phen Karyn Conrad Weight Measured 2023-06-07 09:07:00 155.20 pounds Eyad Conrad Height Measured 2023-06-07 09:07:00 65.00 inches Eyad Conrad Body Temperature 2023-06-07 09:07:00 98.80 degrees Eyad Cnorad Heart Rate 2023-06-07 09:07:00 79.00 /min Merari en F [place] Respiratory Rate 2023-06-07 09:07:00 18.00 /min Eyad F [place] BP Systolic 2023-05-16 08:35:00 174 mm[Hg] Step hen F [place] BP Diastolic 2023-05-16 08:35:00 83 mm[Hg] Devin phen F [place] Weight Measured 2023-05-16 08:35:00 156.60 pounds Eyad F [place] Height Measured 2023-05-16 08:35:00 65.00 inches Eyad F [place] Body Temperature 2023-05-16 08:35:00 97.90 degrees Eyad F [place] Heart Rate 2023-05-16 08:35:00 63.00 /min Merari en [facility] [place] Respiratory Rate 2023-05-16 08:35:00 18.00 /min Eyad F [place] BP Systolic 2023-05-10 11:52:00 167 mm[Hg] Step hen F [place] BP Diastolic 2023-05-10 11:52:00 84 mm[Hg] Devin phen F [place] Weight Measured 2023-05-10 11:52:00 154.60 pounds Eyad F [place] Height Measured 2023-05-10 11:52:00 65.00 inches Eyad F [place] Body Temperature 2023-05-10 11:52:00 97.80 degrees Eyad F [place] Heart Rate 2023-05-10 11:52:00 77.00 /min Merari en F [place] Respiratory Rate 2023-05-10 11:52:00 18.00 /min Eyad F [place] BP Systolic 2023-05-04 08:17:00 164 mm[Hg] Step hen F [place] BP Diastolic 2023-05-04 08:17:00 85 mm[Hg] Devin phen F [place] Weight Measured 2023-05-04 08:17:00 154.80 pounds Eyad F [place] Height Measured 2023-05-04 08:17:00 65.00 inches Eyad F [place] Body Temperature 2023-05-04 08:17:00 98.10 degrees Eyad F [place] Heart Rate 2023-05-04 08:17:00 74.00 /min Merari en [facility] [place] Respiratory Rate 2023-05-04 08:17:00 18.00 /min Eyad F [place] BP Systolic 2023-04-19 14:10:00 162 mm[Hg] Step hen F [place] BP Diastolic 2023-04-19 14:10:00 78 mm[Hg] Devin phen F [place] Weight Measured 2023-04-19 14:10:00 159.20 pounds Eyad F [place] Height Measured 2023-04-19 14:10:00 65.00 inches Eyad F [place] Body Temperature 2023-04-19 14:10:00 98.80 degrees Eyad F [place] Heart Rate 2023-04-19 14:10:00 74.00 /min Merari en F [place] Respiratory Rate 2023-04-19 14:10:00 Eyad F [place] BP Systolic 2022-12-01 08:14:00 171 mm[Hg] Step hen F [place] BP Diastolic 2022-12-01 08:14:00 79 mm[Hg] Devin phen F [place] Weight Measured 2022-12-01 08:14:00 149.80 pounds Eyad F [place] Height Measured 2022-12-01 08:14:00 65.00 inches Eyad F [place] Body Temperature 2022-12-01 08:14:00 97.40 degrees Eyad F [place] Heart Rate 2022-12-01 08:14:00 70.00 /min Merari en [facility] [place] Respiratory Rate 2022-12-01 08:14:00 Eyad F [place] BP Systolic 2022-06-10 09:21:00 170 mm[Hg] Step hen F [place] BP Diastolic 2022-06-10 09:21:00 76 mm[Hg] Devin phen F [place] Weight Measured 2022-06-10 09:21:00 155.80 pounds Eyad F [place] Height Measured 2022-06-10 09:21:00 65.00 inches Eyad F [place] Body Temperature 2022-06-10 09:21:00 97.80 degrees Eyad F [place] Heart Rate 2022-06-10 09:21:00 64.00 /min Merari en F [place] Respiratory Rate 2022-06-10 09:21:00 Eyad F [place] BP Systolic 2022-03-02 08:22:00 129 mm[Hg] Step hen F [place] BP Diastolic 2022-03-02 08:22:00 63 mm[Hg] Devin phen F [place] Weight Measured 2022-03-02 08:22:00 150.80 pounds Eyad Karyn Conrad Height Measured 2022-03-02 08:22:00 65.00 inches Eyad F [place] Body Temperature 2022-03-02 08:22:00 97.80 degrees Eyad F [place] Heart Rate 2022-03-02 08:22:00 67.00 /min Merari en [facility] [place] Respiratory Rate 2022-03-02 08:22:00 24.00 /min Eyad F [place] BP Systolic 2022-02-16 08:41:00 171 mm[Hg] Step hen F [place] BP Diastolic 2022-02-16 08:41:00 75 mm[Hg] Devin phen F [place] Weight Measured 2022-02-16 08:41:00 154.20 pounds Eyad Conrad Height Measured 2022-02-16 08:41:00 65.00 inches Eyad F [place] Body Temperature 2022-02-16 08:41:00 97.60 degrees Eyad F [place] Heart Rate 2022-02-16 08:41:00 63.00 /min Merari en F [place] Respiratory Rate 2022-02-16 08:41:00 25.00 /min Eyad Conrad BP Systolic 2022-02-09 08:24:00 151 mm[Hg] BP [...] Date / Time Performed Performing Clinician Source [id number] Ultrasound, Abdominal, Real Time With Image Documentation; Complete 2023-06-09 00:00:00 Eyad Conrad COMP. METABOLIC PANEL (20822) 2023-06-04 05:13:00 Samuel Donato [facility] ETHANOL 2023-06-04 05:13:00 Samuel Donato [facility] URINE DRUG (IMMUNOASSAY) - COMPREHENSIVE DRUG SCREEN 2023-06-04 05:13:00 Samuel Donato [facility] CBC WITH DIFF 2023-06-04 05:13:00 Samuel Donato [facility] CONSENT/REFUSAL FOR DIAGNOSIS AND TREATMENT 2023-06-04 04:27:24 Doctor Unassigned, [place] [facility] ASSIGNMENT OF BENEFITS 2023-06-01 00:26:23 Docto r Unassigned, [place] [facility] CONSENT/REFUSAL FOR DIAGNOSIS AND TREATMENT 2023-05-31 23:10:49 Doctor Unassigned, [place] [facility] ASSIGNMENT OF BENEFITS 2023-05-21 17:01:51 Docto r Unassigned, [place] [facility] CONSENT/REFUSAL FOR DIAGNOSIS AND TREATMENT 2023-05-21 16:29:51 Doctor Unassigned, [place] [facility] [address] Ecg Routine Ecg W/least 12 Lds W/i r 2016-04-28 00:00:00 Eyad Conrad Plan of Care Planned Activity Planned Date Details Comments Source Goal Plan of Care Note [code = 30953-0] Goal Plan of Care Note [code = 42250-2] Goal Plan of Care Note [code = 82446-3] Goal Plan of Care Note [code = 53890-7] Goal Plan of Care Note [code = 34944-7] Goal Plan of Care Note [code = 49085-5] Goal Plan of Care Note [code = 86682-2] Goal Plan of Care Note [code = 31487-9] Goal Plan of Care Note [code = 00469-3] Goal Plan of Care Note [code = 09924-6] Goal Plan of Care Note [code = 04629-9] Goal Plan of Care Note [code = 75085-3] Goal Plan of Care Note [code = 17297-8] Goal Plan of Care Note [code = 37556-6] Goal Plan of Care Note [code = 56204-4] Goal Plan of Care Note [code = 26128-4] Goal Plan of Care Note [code = 18611-1] Goal Plan of Care Note [code = 84722-1] Goal Plan of Care Note [code = 19360-8] Goal Plan of Care Note [code = 92637-7] Goal Plan of Care Note [code = 63182-3] Goal Plan of Care Note [code = 15971-3] Goal Plan of Care Note [code = 18810-5] Goal Plan of Care Note [code = 12910-5] Goal Plan of Care Note [code = 40531-3] Goal Plan of Care Note [code = 89260-1] Goal Plan of Care Note [code = 51863-5] Goal Plan of Care Note [code = 10433-0] Goal Plan of Care Note [code = 17597-2] Goal Plan of Care Note [code = 76783-7] Goal Plan of Care Note [code = 24137-1] Goal Plan of Care Note [code = 06480-2] Goal Plan of Care Note [code = 61573-8] Goal Plan of Care Note [code = 19903-4] Goal Plan of Care Note [code = 21066-6] Goal Plan of Care Note [code = 42747-0] Goal Plan of Care Note [code = 37605-6] Goal Plan of Care Note [code = 33496-8] Goal Plan of Care Note [code = 21930-4] Goal Plan of Care Note [code = 39469-7] Goal Plan of Care Note [code = 05098-0] Goal Plan of Care Note [code = 59346-9] Goal Plan of Care Note [code = 11883-4] Goal Plan of Care Note [code = 66170-8] Encounters Start Date/Time End Date/Time Encounter Type Admission Type Attending [facility] Care Facility Care Department Encounter ID Source 2023-07-28 09:03:39 2023-07-28 09:03:39 Outpatient [facility] [id number] Eyad Conrad 2023-07-28 00:00:00 2023-07-28 00:00:00 Outpatient Visit [facility] [id number] Eyad Conrad 2023-06-14 16:16:59 2023-06-14 16:16:59 Outpatient [facility] [id number] Eyad Conrad 2023-06-09 10:33:48 2023-06-09 10:33:48 Outpatient [facility] [id number] Eyad Conrad 2023-06-07 08:58:09 2023-06-07 08:58:09 Outpatient [facility] [id number] Eyad Conrad 2023-06-03 22:44:00 2023-06-04 01:31:00 Emergency X JOSH SAMUEL [facility] [id number] [facility] 2023-06-03 22:44:00 2023-06-04 01:31:00 Emergency Lata Donatont Aldo [facility] [id number] [id number] [id number] [facility] 2023-05-31 17:24:00 2023-05-31 19:34:00 Emergency X Vanesa MOY [facility] [id number] [facility] 2023-05-31 17:24:00 2023-05-31 19:34:00 Emergency Vanesa Moy Zuleyka [facility] [id number] 350.1.13.10 4.2.7.2.686 [id number] [facility] 2023-05-26 08:34:48 2023-05-26 08:34:48 Outpatient [facility] [id number] Eyad Cornad 2023-05-21 10:37:00 2023-05-21 11:12:00 Emergency X JEZ LINN [facility] [id number] [facility] 2023-05-21 10:37:00 2023-05-21 11:12:00 Emergency Jez Linn [facility] [id number] 350.1.13.10 4.2.7.2.686 [id number] [facility] 2023-05-16 08:24:25 2023-05-16 08:24:25 Outpatient [facility] [id number] Eyad Conrad 2023-05-10 13:40:06 2023-05-10 13:40:06 Outpatient [facility] [id number] Eyad Conrad 2023-05-05 08:27:35 2023-05-05 08:27:35 Outpatient [facility] [id number] Eyad Conrad 2023-05-04 08:10:10 2023-05-04 08:10:10 Outpatient [facility] [id number] Eyad Conrad 2023-04-27 09:55:09 2023-04-27 09:55:09 Outpatient [facility] [id number] Eyad Conrad 2023-04-19 14:10:10 2023-04-19 14:10:10 Outpatient [facility] [id number] Eyad Conrad 2022-12-13 08:54:24 2022-12-13 08:54:24 Outpatient [facility] [id number] Eyad Conrad 2022-12-10 11:54:29 2022-12-10 11:54:29 Outpatient [facility] [id number] Eyad Conrad 2022-12-01 08:12:56 2022-12-01 08:12:56 Outpatient [facility] [id number] Eyad Conrad 2022-09-17 09:25:24 2022-09-17 09:25:24 Outpatient [facility] [id number] Eyad Conrad 2022-06-10 09:17:18 2022-06-10 09:17:18 Outpatient [facility] [id number] Eyad Conrad 2022-02-16 08:35:46 2022-02-16 08:35:46 Outpatient [facility] [id number] Eyad Conrad 2022-02-12 10:32:05 2022-02-12 10:32:05 Outpatient [facility]FA [facility] [id number] Eyad Conrad 2022-02-09 08:23:36 2022-02-09 08:23:36 Outpatient [facility]FA [facility] [id number] Eyad Conrad 2022-02-09 00:00:00 2022-02-09 00:00:00 Outpatient Visit [id number] 2021-11-12 00:00:00 2021-11-12 00:00:00 Outpatient Visit [id number] Results Test Description Test Time Test Comments Results Resul t Comments Source Ethanol 2023-06-04 06:06:20 ALCOHOL<10mg/dL0 06/04/2023 12:[facility] Yuoktdou38-298 Toxic>100 Depression of TOUR NARRATOR>400 [facility] [id number] 05:41:45* Test Item Value Reference Range Interpretation [...] 33.8 g/dL 31.2-35.0 RDW-SD (test code = 93776-9) 42.0 fL 38.5-51.6 RDW-CV (test code = 788-0) 13.3 % 12.1-15.4 PLT (test code = 777-3) 272 150-328 MPV (test code = 19192-4) 11.2 fL 9.8-13.0 NRBC/100 WBC (test code = 2143852359) 0.0 0.0-10.0 NRBC x10^3 (test code = 1253573663) See_Comment [Automated messa ge] The system which generated this result transmitted reference range: 10*3/?L. The reference range was not used to interpret this result as normal/abnormal. GRAN MAT (NEUT) % (test code = 770-8) 46.2 % IMM GRAN % (test code = 7452486156) 0.20 % LYMPH % (test code = 736-9) 34.3 % MONO % (test code = 5905-5) 7.2 % EOS % (test code = 713-8) 10.6 % BASO % (test code = 706-2) 1.5 % GRAN MAT x10^3(ANC) (test code = 6304707147) 3.79 10*3/uL 1.99-6.95 IMM GRAN x10^3 (test code = 2420712280) 0.00-0.06 LYMPH x10^3 (test code = 731-0) 2.82 10*3/uL 1.09-3.23 MONO x10^3 (test code = 742-7) 0.59 10*3/uL 0.36-1.02 EOS x10^3 (test code = 711-2) 0.87 10*3/uL 0.06-0.53 H BASO x10^3 (test code = 704-7) 0.12 10*3/uL 0.01-0.09 H Lab Interpretation (test code = 09683-4) [facility]normal [facility], Fecal, [id number] 00:00:00* Test Item Value Reference Range Interpretation Comme nts Occult Blood, Fecal, IA (camron t code = 48015-8) Negative Eyad ConardCBC W/AUTO DIFF WITH [id number] 14:03:44* Test Item Value Reference Range Interpretation [...] 0.00-0.10 ABS NUCLEATED RBCS (test code = 63818) 0.00 K/UL 0.00-0.11 UNLESS OTHER RAMOS INDICATED, ALL TESTING PERFORMED AT [facility] [address] [place] [address] WINDOWS SERVER ADMINISTRATOR: SIVA MCCRARY M.D. CLIA NUMBER [id number] [facility] [place]. [id number] CBC W/AUTO [id number] 00:00:00* Test Item Value Reference Range Interpretation Comme nts WBC (test code = 1001) 7.9 K/UL RBC (test code = 1002) 4.63 M/UL HEMOGLOBIN (test code = 1003) 13.1 G/DL HEMATOCRIT (test code = 1004) 39.7 % MCV (test code = 1005) 85.7 fL MCH (test code = 1006) 28.3 PG MCHC (test code = 1007) 33.0 G/DL RDW (test code = 1038) 13.4 % NEUTROPHILS (test code = 1008) 55.5 % LYMPHOCYTES (test code = 1010) 22.7 % MONOCYTES (test code = 1011) 5.9 % EOSINOPHILS (test code = 1012) 14.5 % BASOPHILS (test code = 1013) 1.3 % IMMATURE GRANULOCYTES (test code = 1036) 0.1 % NUCLEATED RBCS (test code = 1065) 0.0 /100WBC'S PLATELET COUNT (test code = 1015) 274 K/UL ABSOLUTE NEUTROPHILS (test c ode = 1066) 4.36 K/UL ABSOLUTE LYMPHOCYTES (test c ode = 1067) 1.78 K/UL ABSOLUTE MONOCYTES (test cod e = 1068) 0.46 K/UL ABSOLUTE EOSINOPHILS (test c ode = 1040) 1.14 K/UL ABSOLUTE BASOPHILS (test cod e = 1069) 0.10 K/UL ABS IMMATURE GRANULOCYTES (t est code = 1020) 0.01 K/UL ABS NUCLEATED RBCS (test cod e = 58712) 0.00 K/UL [id number] 05:26:13* Test Item Value Reference Range Interpretation Comme nts VITAMIN B-12 (test code = 2840) 511 PG/ML 200-950 UNLESS OTHERWISE INDICATED, ALL TESTING PERFORMED AT [facility] [address] [place] [address] WINDOWS SERVER ADMINISTRATOR: SIVA MCCRARY M.D. CLIA NUMBER [id number] [facility] [place]. [id number] LIPID [id number] 04:46:42* Test Item Value Reference Range Interpretation [...] SPECIMENS. FOR MOREINFORMATION, SEE CLIENT ANNOUNCEMENT AT [email or web address] RISK RATIO LDL/HDL (test code = 8) 1.62 RATIO <3.55 COMPREHENSIVE METABOLIC [id number] 04:46:42* Test Item Value Reference Range Interpretation Comme nts GLUCOSE (test code = 2216) 136 MG/DL 70-99 H BUN (test code = 2207) 12 MG/DL 6-20 CREATININE (test code = 2213) 0.85 MG/DL 0.80-1.40 eGFR (2020 CKD-EPI) (test code = 22265) 100 ML/MIN/1.73 >60 CALC BUN/CREAT (test code = 2234) 14 RATIO 6-28 SODIUM (test code = 2230) 137 MEQ/L 133-146 POTASSIUM (test code = 2227) 4.3 MEQ/L 3.5-5.4 CHLORIDE (test code = 2214) 102 MEQ/L 95-107 CARBON DIOXIDE (test code = 2205) 23 MEQ/L 19-31 CALCIUM (test code = 2208) 9.2 MG/DL 8.5-10.5 PROTEIN, TOTAL (test code = 2228) 7.6 G/DL 6.1-8.3 ALBUMIN (test code = 2200) 4.6 G/DL 3.5-5.2 CALC GLOBULIN (test code = 0) 3.0 G/DL 1.9-3.7 CALC A/G RATIO (test code = 2233) 1.5 RATIO 1.0-2.6 BILIRUBIN, TOTAL (test code = 2206) 0.4 MG/DL <=1.2 ALKALINE PHOSPHATASE (test code = 2203) 74 U/L 40-123 AST (test code = 2217) 16 U/L 9-50 ALT (test code = 2218) 15 U/L 5-50 HEMOGLOBIN [id number] 02:47:17* Test Item Value Reference Range Interpretation Comme nts HEMOGLOBIN A1c (test code = 56316) 6.8 % 4.2-5.6 H [employer] GUIDELINES FOR HGB A1C: [...] ETC.). CONSIDER ALTERNATE TESTING OR LABORATORY CONSULTATION. HEMOGLOBIN [id number] 00:00:00* Test Item Value Reference Range Interpretation Comme [facility] HEMOGLOBIN A1c (test code = 72617) 6.8 % Eyad Boss AustinLIPID [id number] 00:00:00* Test Item Value Reference Range Interpretation Comme nts CHOLESTEROL (test code = 2210) 151 MG/DL TRIGLYCERIDES (test code = 2232) 69 MG/DL HDL CHOLESTEROL (test code = 2220) 52 MG/DL CALC LDL CHOL (test code = 2237) 84 MG/DL RISK RATIO LDL/HDL (test cod e = 2238) 1.62 RATIO Eyad ConradCOMPREHENSIVE METABOLIC [id number] 00:00:00* Test Item Value Reference Range Interpretation Comme nts GLUCOSE (test code = 2217) 136 MG/DL BUN (test code = 2208) 12 MG/DL CREATININE (test code = 2214) 0.85 MG/DL eGFR (2020 CKD-EPI) (test code = 14369) 100 ML/MIN/1.73 CALC BUN/CREAT (test code = 2235) 14 RATIO SODIUM (test code = 2231) 137 MEQ/L POTASSIUM (test code = 2228) 4.3 MEQ/L CHLORIDE (test code = 2215) 102 MEQ/L CARBON DIOXIDE (test code = 2206) 23 MEQ/L CALCIUM (test code = 2209) 9.2 MG/DL PROTEIN, TOTAL (test code = 2229) 7.6 G/DL ALBUMIN (test code = 2201) 4.6 G/DL CALC GLOBULIN (test code = 2240) 3.0 G/DL CALC A/G RATIO (test code = 2234) 1.5 RATIO BILIRUBIN, TOTAL (test code = 2207) 0.4 MG/DL ALKALINE PHOSPHATASE (test code = 2204) 74 U/L AST (test code = 2218) 16 U/L ALT (test code = 2219) 15 U/L Eyad Stephens [id number] 00:00:00* Test Item Value Reference Range Interpretation Commjuan alberto dominguez VITAMIN B-12 (test code = 2840) 511 PG/ML Eyad CalderonPES SIMPLEX AB, [id number] 13:50:57* Test Item Value Reference Range Interpretation Comme nts HERPES SIMPLEX AB, IgM (test code = 47789) 0.34 INDEX SEE BELOW INTERPRETATION U NITS RANGE ----- ----- NEGATIVE INDEX <=0.89 EQUIVOCAL INDEX 0.90-1.09 POSITIVE INDEX >=1.10 HERPES SIMPLEX 1/2 AB, IgG [id number] 06:48:26* Test Item Value Reference Range Interpretation Comme nts HERPES SIMPLEX 1 AB, IgG (test code = 00338) 101.000 INDEX SEE BELOW H INTERPRETATION U NITS RANGE ----- ----- NON-REACTIVE INDEX <1.000 REACTIVE INDEX >=1.000 HERPES SIMPLEX 2 AB, IgG (test code = 90506) 0.074 INDEX SEE BELOW INTERPRETATION U NITS RANGE ----- ----- NON-REACTIVE INDEX <1.000 REACTIVE INDEX >=1.000 UNLESS OTHERWISE INDICATED, ALL TESTING PERFORMED AT [facility] [address] [place] [address] WINDOWS SERVER ADMINISTRATOR: SIVA MCCRARY M.D. CLIA NUMBER [id number] [facility] [place]. [id number] HERPES SIMPLEX [id number] 00:00:00* Test Item Value Reference Range Interpretation Comme nts HERPES SIMPLEX AB, IgM (test code = 23741) 0.34 INDEX Eyad ConradHERPES SIMPLEX 1/2 [id number] 00:00:00* Test Item Value Reference Range Interpretation Comme nts HERPES SIMPLEX 1 AB, IgG (te st code = 49925) 101.000 INDEX HERPES SIMPLEX 2 AB, IgG (te st code = 81465) 0.074 INDEX Eyad AcevesSilvano, [id number] 09:46:33* Test Item Value Reference Range Interpretation Comme nts PSA, TOTAL (test code = 2606) 1.54 NG/ML See_Comment NOTE: Methodolog y is Dorita Ella Electrochemiluminescence Immunoassay traceable to WHO reference standard 96/760. UNLESS OTHERWISE INDICATED, ALL TESTING PERFORMED AT [facility] [address] [place] [address] WINDOWS SERVER ADMINISTRATOR: SIVA MCCRARY M.D. [place] NUMBER [id number] [place]. [id number] [Automated message] The system which generated this result transmitted reference range: <=4.00. The reference range was not used to interpret this result as normal/abnormal. COMPREHENSIVE METABOLIC [id number] 06:14:06* Test Item Value Reference Range Interpretation Comme nts GLUCOSE (test code = 7) 127 MG/DL 70-99 H BUN (test code = 2207) 22 MG/DL 6-20 H CREATININE (test code = 2214) 1.12 MG/DL 0.80-1.40 eGFR (2020 CKD-EPI) (test code = 68388) 76 ML/MIN/1.73 >60 CALC BUN/CREAT (test code = 2235) 20 RATIO 6-28 SODIUM (test code = 2231) 141 MEQ/L 133-146 POTASSIUM (test code = 2228) 4.8 MEQ/L 3.5-5.4 CHLORIDE (test code = 2215) 104 MEQ/L 95-107 CARBON DIOXIDE (test code = 2206) 26 MEQ/L 19-31 CALCIUM (test code = 2209) 10.1 MG/DL 8.5-10.5 PROTEIN, TOTAL (test code = 222) 8.0 G/DL 6.1-8.3 ALBUMIN (test code = 2201) 4.8 G/DL 3.5-5.2 CALC GLOBULIN (test code [...] code = 2219) 22 U/L 5-50 LIPID [id number] 06:14:06* Test Item Value Reference Range Interpretation Comme nts CHOLESTEROL (test code = 2210) 176 MG/DL <200 TRIGLYCERIDES (test code = 2232) 79 MG/DL <150 HDL CHOLESTEROL (test code = 2220) 61 MG/DL >39 CALC LDL CHOL (test code = 2237) 98 MG/DL <100 NOTE: CALCULATED LDL IS BASED ON MAMADOU-RAMOS METHOD WHICHINCLUDES ADJUSTABLE TRIGLYCERIDE:VLDL CHOLESTEROL RATIO.THIS FACTOR VARIES BY MEASURED TRIGLYCERIDE AND NON-HDLCHOLESTEROL CONCENTRATIONS WITH INCREASED CALCULATED LDL SEENIN HIGHER TRIGLYCERIDE OR LOWER NON-HDL SPECIMENS. FOR MOREINFORMATION, SEE CLIENT ANNOUNCEMENT AT [email or web address] RISK RATIO LDL/HDL (test code = 2238) 1.61 RATIO <3.55 HEMOGLOBIN [id number] 02:39:27* Test Item Value Reference Range Interpretation Comme nts HEMOGLOBIN A1c (test code = 42022) 6.2 % 4.2-5.6 H [employer] GUIDELINES FOR HGB A1C: [...] ALTERNATE TESTING OR LABORATORY CONSULTATION. COMPREHENSIVE METABOLIC [id number] 00:00:00* Test Item Value Reference Range Interpretation Comme nts GLUCOSE (test code = 2217) 127 MG/DL BUN (test code = 2208) 22 MG/DL CREATININE (test code = 2214) 1.12 MG/DL eGFR (2020 CKD-EPI) (test co de = 54929) 76 ML/MIN/1.73 CALC BUN/CREAT (test code = 2235) 20 RATIO SODIUM (test code = 2231) 141 MEQ/L POTASSIUM (test code = 2228) 4.8 MEQ/L CHLORIDE (test code = 2215) 104 MEQ/L CARBON DIOXIDE (test code = 2206) 26 MEQ/L CALCIUM (test code = 2209) 10.1 MG/DL PROTEIN, TOTAL (test code = 2229) 8.0 G/DL ALBUMIN (test code = 2201) 4.8 G/DL CALC GLOBULIN (test code = 2240) 3.2 G/DL CALC A/G RATIO (test code = 2234) 1.5 RATIO BILIRUBIN, TOTAL (test code = 2207) 0.5 MG/DL ALKALINE PHOSPHATASE (test code = 2204) 74 U/L AST (test code = 2218) 17 U/L ALT (test code = 2219) 22 U/L Eyad ConradLIPID [id number] 00:00:00* Test Item Value Reference Range Interpretation Comme nts CHOLESTEROL (test code = 2210) 176 MG/DL TRIGLYCERIDES (test code = 2232) 79 MG/DL HDL CHOLESTEROL (test code = 2220) 61 MG/DL CALC LDL CHOL (test code = 2237) 98 MG/DL RISK RATIO LDL/HDL (test cod e = 2238) 1.61 RATIO Eyad ConradHEMOGLOBIN [id number] 00:00:00* Test Item Value Reference Range Interpretation Comme alberto HEMOGLOBIN A1c (test code = 06522) 6.2 % Eyad ConradPSA, [id number] 00:00:00* Test Item Value Reference Range Interpretation Comme alberto PSA, TOTAL (test code = 2606) 1.54 NG/ML Eyad ConradCOMPREHENSIVE METABOLIC [id number] 05:48:28* Test Item Value Reference Range Interpretation Comme nts GLUCOSE (test code = 2217) 120 MG/DL 70-99 H BUN (test code = 2208) 18 MG/DL 6-20 CREATININE (test code = 2214) 0.94 MG/DL 0.80-1.40 eGFR (2020 CKD-EPI) (test code = 34066) 94 ML/MIN/1.73 >60 CALC BUN/CREAT (test code = 2235) 19 RATIO 6-28 SODIUM (test code = 2231) 138 MEQ/L 133-146 POTASSIUM (test code = 2228) 4.8 MEQ/L 3.5-5.4 CHLORIDE (test code = 2215) 102 MEQ/L 95-107 CARBON DIOXIDE (test code = 6) 22 MEQ/L 19-31 CALCIUM (test code = 2208) 9.3 MG/DL 8.5-10.5 PROTEIN, TOTAL (test code = 2228) 7.7 G/DL 6.1-8.3 ALBUMIN (test code = 1) 4.6 G/DL 3.5-5.2 CALC GLOBULIN (test code = 0) 3.1 G/DL 1.9-3.7 CALC A/G RATIO (test [...] code = 2218) 19 U/L 5-50 LIPID [id number] 05:48:28* Test Item Value Reference Range Interpretation Comme nts CHOLESTEROL (test code = 0) 169 MG/DL <200 TRIGLYCERIDES (test code = 2) 56 MG/DL <150 HDL CHOLESTEROL (test code = 0) 53 MG/DL >39 CALC LDL CHOL (test code = 2236) 102 MG/DL <100 H NOTE: CALCULATED LDL IS BASED ON MAMADOU-RAMOS METHOD WHICHINCLUDES ADJUSTABLE TRIGLYCERIDE:VLDL CHOLESTEROL RATIO.THIS FACTOR VARIES BY MEASURED TRIGLYCERIDE AND NON-HDLCHOLESTEROL CONCENTRATIONS WITH INCREASED CALCULATED LDL SEENIN HIGHER TRIGLYCERIDE OR LOWER NON-HDL SPECIMENS. FOR MOREINFORMATION, SEE CLIENT ANNOUNCEMENT AT [email or web address] RISK RATIO LDL/HDL (test code = 8) 1.92 RATIO <3.55 HEMOGLOBIN [id number] 04:51:08* Test Item Value Reference Range Interpretation Comme nts HEMOGLOBIN A1c (test code = 26040) 6.5 % 4.2-5.6 H [employer] GUIDELINES FOR HGB A1C: [...] ETC.). CONSIDER ALTERNATE TESTING OR LABORATORY CONSULTATION. [facility] has important pathology staff changes effective 05/26/2022. New pathology staff will provide uninterrupted, excellent patient care and clinical consultation. See URL: [email or web address] UNLESS OTHERWISE INDICATED, ALL TESTING PERFORMED AT [facility] [address] [place] [address] WINDOWS SERVER ADMINISTRATOR: SIVA MCCRARY M.D. CLIA NUMBER [id number] [facility] [place]. [id number] COMPREHENSIVE METABOLIC [id number] 00:00:00* Test Item Value Reference Range Interpretation Comme nts GLUCOSE (test code = 2217) 120 MG/DL BUN (test code = 2208) 18 MG/DL CREATININE (test code = 2214) 0.94 MG/DL eGFR (2020 CKD-EPI) (test co de = 90948) 94 ML/MIN/1.73 CALC BUN/CREAT (test code = 2235) 19 RATIO SODIUM (test code = 2231) 138 MEQ/L POTASSIUM (test code = 2228) 4.8 MEQ/L CHLORIDE (test code = 2215) 102 MEQ/L CARBON DIOXIDE (test code = 2206) 22 MEQ/L CALCIUM (test code = 2209) 9.3 MG/DL PROTEIN, TOTAL (test code = 2229) 7.7 G/DL ALBUMIN (test code = 2201) 4.6 G/DL CALC GLOBULIN (test code = 2240) 3.1 G/DL CALC A/G RATIO (test code = 2234) 1.5 RATIO BILIRUBIN, TOTAL (test code = 2207) 0.2 MG/DL ALKALINE PHOSPHATASE (test code = 2204) 64 U/L AST (test code = 2218) 18 U/L ALT (test code = 2219) 19 U/L Eyad ConradLIPID [id number] 00:00:00* Test Item Value Reference Range Interpretation Comme nts CHOLESTEROL (test code = 2210) 169 MG/DL TRIGLYCERIDES (test code = 2232) 56 MG/DL HDL CHOLESTEROL (test code = 2220) 53 MG/DL CALC LDL CHOL (test code = 2237) 102 MG/DL RISK RATIO LDL/HDL (test cod e = 2238) 1.92 RATIO Eyad Boss AustinHEMOGLOBIN [id number] 00:00:00* Test Item Value Reference Range Interpretation Comme nts HEMOGLOBIN A1c (test code = 94642) 6.5 % Eyad Boss AustinLIPID [id number] 00:00:00* Test Item Value Reference Range Interpretation Comme nts CHOLESTEROL (test code = 2210) 150 MG/DL TRIGLYCERIDES (test code = 2232) 74 MG/DL HDL CHOLESTEROL (test code = 2220) 57 MG/DL CALC LDL CHOL (test code = 2237) 78 MG/DL RISK RATIO LDL/HDL (test cod e = 2238) 1.37 RATIO Eyad Boss AustinHEMOGLOBIN [id number] 00:00:00* Test Item Value Reference Range Interpretation Comme nts HEMOGLOBIN A1c (test code = 43641) 6.5 % Eyad Boss AustinHEMOGLOBIN [id number] 03:54:42* Test Item Value Reference Range Interpretation Comme nts HEMOGLOBIN A1c (test code = 79168) 6.5 % 4.2-5.6 H [employer] GUIDELINES FOR HGB A1C: [...] CONSULTATION. UNLESS OTHERWISE INDICATED, ALL TESTING PERFORMED [facility] [address] [place] [id number] [employer] ADMINISTRATOR: DENY MCKEON M.D. CLIA NUMBER [id number] [facility] [place]. [id number] COMPREHENSIVE METABOLIC [id number] 03:41:22* Test Item Value Reference Range Interpretation Comme nts GLUCOSE (test code = 2217) 109 MG/DL 70-99 H BUN (test code = 2208) 20 MG/DL 6-20 CREATININE (test code = 2214) 1.15 MG/DL 0.80-1.40 eGFR (2020 CKD-EPI) (test [...] code = 2218) 24 U/L 5-50 LIPID [id number] 03:41:22* Test Item Value Reference Range Interpretation [...] SPECIMENS. FOR MOREINFORMATION, SEE CLIENT ANNOUNCEMENT AT [email or web address] RISK RATIO LDL/HDL (test code = 2237) 1.28 RATIO <3.55 COMPREHENSIVE METABOLIC [id number] 00:00:00* Test Item Value Reference Range Interpretation Comme nts GLUCOSE (test code = 2217) 109 MG/DL BUN (test code = 2208) 20 MG/DL CREATININE (test code = 2214) 1.15 MG/DL eGFR (2020 CKD-EPI) (test co de = 82016) 74 ML/MIN/1.73 CALC BUN/CREAT (test code = [...] ALT (test code = 2219) 24 U/L Eyad Boss AustinLIPID [id number] 00:00:00* Test Item Value Reference Range Interpretation Comme nts CHOLESTEROL (test code = 2210) 135 MG/DL TRIGLYCERIDES (test code = 2232) 55 MG/DL HDL CHOLESTEROL (test code = 2220) 53 MG/DL CALC LDL CHOL (test code = 2237) 68 MG/DL RISK RATIO LDL/HDL (test cod e = 2238) 1.28 RATIO Eyad ConradHEMOGLOBIN [id number] 00:00:00* Test Item Value Reference Range Interpretation Comme nts HEMOGLOBIN A1c (test code = 82330) 6.5 % Eyad Boss AustinLIPID [id number] 00:00:00* Test Item Value Reference Range Interpretation Comme nts CHOLESTEROL (test code = 2210) 135 MG/DL TRIGLYCERIDES (test code = 2232) 55 MG/DL HDL CHOLESTEROL (test code = 2220) 53 MG/DL CALC LDL CHOL (test code = 2237) 68 MG/DL RISK RATIO LDL/HDL (test cod e = 2238) 1.28 RATIO LIPID [id number] 00:00:00* Test Item Value Reference Range Interpretation Comme nts CHOLESTEROL (test code = 2210) 135 MG/DL TRIGLYCERIDES (test code = 2232) 55 MG/DL HDL CHOLESTEROL (test code = 2220) 53 MG/DL CALC LDL CHOL (test code = 2237) 68 MG/DL RISK RATIO LDL/HDL (test cod e = 2238) 1.28 RATIO HEMOGLOBIN [id number] 00:00:00* Test Item Value Reference Range Interpretation Comme nts HEMOGLOBIN A1c (test code = 50578) 6.5 % HEMOGLOBIN [id number] 00:00:00* Test Item Value Reference Range Interpretation Comme nts HEMOGLOBIN A1c (test code = 40155) 6.5 % HEMOGLOBIN [id number] 00:00:00* Test Item Value Reference Range Interpretation Comme nts HEMOGLOBIN A1c (test code = 74803) 6.5 % COMPREHENSIVE METABOLIC [id number] 00:00:00* Test Item Value Reference Range Interpretation Comme nts GLUCOSE (test code = 2217) 109 MG/DL BUN (test code = 2208) 20 MG/DL CREATININE (test code = 2214) 1.15 MG/DL eGFR (2020 CKD-EPI) (test co de = 81554) 74 ML/MIN/1.73 CALC BUN/CREAT (test code = [...] code = 2219) 24 U/L COMPREHENSIVE METABOLIC [id number] 00:00:00* Test Item Value Reference Range Interpretation Comme nts GLUCOSE (test code = 2217) 109 MG/DL BUN (test code = 2208) 20 MG/DL CREATININE (test code = 2214) 1.15 MG/DL eGFR (2020 CKD-EPI) (test co de = 08494) 74 ML/MIN/1.73 CALC BUN/CREAT (test code = 2235) 17 RATIO SODIUM (test code = 223) 143 MEQ/L POTASSIUM (test code = 2228) 4.2 MEQ/L CHLORIDE (test code = 2215) 103 MEQ/L CARBON DIOXIDE (test code = 2206) 27 MEQ/L CALCIUM (test code = 2209) 9.7 MG/DL PROTEIN, TOTAL (test code = 222) 8.0 G/DL ALBUMIN (test code = 2201) 4.7 G/DL CALC GLOBULIN (test code = 2240) 3.3 G/DL CALC A/G RATIO (test code = 2234) 1.4 RATIO BILIRUBIN, TOTAL (test code = 2207) 0.3 MG/DL ALKALINE PHOSPHATASE (test code = 2204) 87 U/L AST (test code = 2218) 15 U/L ALT (test code = 2219) 24 U/L LIPID [id number] 00:00:00* Test Item Value Reference Range Interpretation Comme nts CHOLESTEROL (test code = 2210) 135 MG/DL TRIGLYCERIDES (test code = 2232) 55 MG/DL HDL CHOLESTEROL (test code = 2220) 53 MG/DL CALC LDL CHOL (test code = 2237) 68 MG/DL RISK RATIO LDL/HDL (test cod e = 2238) 1.28 RATIO LIPID [id number] 00:00:00* Test Item Value Reference Range Interpretation Comme nts CHOLESTEROL (test code = 2210) 135 MG/DL TRIGLYCERIDES (test code = 2232) 55 MG/DL HDL CHOLESTEROL (test code = 2220) 53 MG/DL CALC LDL CHOL (test code = 2237) 68 MG/DL RISK RATIO LDL/HDL (test cod e = 2238) 1.28 RATIO HEMOGLOBIN [id number] 00:00:00* Test Item Value Reference Range Interpretation Comme nts HEMOGLOBIN A1c (test code = 60861) 6.5 % HEMOGLOBIN [id number] 00:00:00* Test Item Value Reference Range Interpretation Comme nts HEMOGLOBIN A1c (test code = 52193) 6.5 % HEMOGLOBIN [id number] 00:00:00* Test Item Value Reference Range Interpretation Comme nts HEMOGLOBIN A1c (test code = 70257) 6.5 % COMPREHENSIVE METABOLIC [id number] 00:00:00* Test Item Value Reference Range Interpretation Comme nts GLUCOSE (test code = 2217) 109 MG/DL BUN (test code = 2208) 20 MG/DL CREATININE (test code = 2214) 1.15 MG/DL eGFR (2020 CKD-EPI) (test co de = 12213) 74 ML/MIN/1.73 CALC BUN/CREAT (test code = [...] code = 2219) 24 U/L COMPREHENSIVE METABOLIC [id number] 00:00:00* Test Item Value Reference Range Interpretation Comme nts GLUCOSE (test code = 2217) 109 MG/DL BUN (test code = 2208) 20 MG/DL CREATININE (test code = 2214) 1.15 MG/DL eGFR (2020 CKD-EPI) (test co de = 30159) 74 ML/MIN/1.73 CALC BUN/CREAT (test code = [...] code = 2219) 24 U/L COMPREHENSIVE METABOLIC [id number] 00:00:00* Test Item Value Reference Range Interpretation Comme nts GLUCOSE (test code = 2217) 121 MG/DL BUN (test code = 2208) 12 MG/DL CREATININE (test code = 2214) 1.05 MG/DL eGFR AMER. (test cod e = 22804) 91 ML/MIN/1.73 eGFR NON- AMER. (test code = 78699) 78 ML/MIN/1.73 CALC BUN/CREAT (test code = [...] ALT (test code = 2219) 23 U/L Eyad Boss AustinLIPID [id number] 00:00:00* Test Item Value Reference Range Interpretation Comme nts CHOLESTEROL (test code = 2210) 207 MG/DL TRIGLYCERIDES (test code = 2232) 59 MG/DL HDL CHOLESTEROL (test code = 2220) 70 MG/DL CALC LDL CHOL (test code = 2237) 122 MG/DL RISK RATIO LDL/HDL (test cod e = 2238) 1.74 RATIO Eyad ConradHEMOGLOBIN A1c [ADDED]2021-02-18 00:00:00* Test Item Value Reference Range Interpretation Comme nts HEMOGLOBIN A1c (test code = 22276) 6.2 % Eyad Boss AustinLIPID [id number] 00:00:00* Test Item Value Reference Range Interpretation Comme nts CHOLESTEROL (test code = 2210) 207 MG/DL TRIGLYCERIDES (test code = 2232) 59 MG/DL HDL CHOLESTEROL (test code = 2220) 70 MG/DL CALC LDL CHOL (test code = 2237) 122 MG/DL RISK RATIO LDL/HDL (test cod e = 2238) 1.74 RATIO LIPID [id number] 00:00:00* Test Item Value Reference Range Interpretation [...] Comme nts HEMOGLOBIN A1c (test code = 86385) 6.2 % HEMOGLOBIN A1c [ADDED]2021-02-18 00:00:00* Test Item Value Reference Range Interpretation Comme nts HEMOGLOBIN A1c (test code = 45800) 6.2 % HEMOGLOBIN A1c [ADDED]2021-02-18 00:00:00* Test Item Value Reference Range Interpretation Comme nts HEMOGLOBIN A1c (test code = 86763) 6.2 % COMPREHENSIVE METABOLIC [id number] 00:00:00* Test Item Value Reference Range Interpretation Comme nts GLUCOSE (test code = 2217) 121 MG/DL BUN (test code = 2208) 12 MG/DL CREATININE (test code = 2214) 1.05 MG/DL eGFR AMER. (test cod e = 57134) 91 ML/MIN/1.73 eGFR NON- AMER. (test code = 08879) 78 ML/MIN/1.73 CALC BUN/CREAT (test code = [...] code = 2219) 23 U/L COMPREHENSIVE METABOLIC [id number] 00:00:00* Test Item Value Reference Range Interpretation Comme nts GLUCOSE (test code = 2217) 121 MG/DL BUN (test code = 2208) 12 MG/DL CREATININE (test code = 2214) 1.05 MG/DL eGFR AMER. (test cod e = 39403) 91 ML/MIN/1.73 eGFR NON- AMER. (test code = 57100) 78 ML/MIN/1.73 CALC BUN/CREAT (test code = [...] (test code = 2219) 23 U/L LIPID [id number] 00:00:00* Test Item Value Reference Range Interpretation Comme nts CHOLESTEROL (test code = 2210) 207 MG/DL TRIGLYCERIDES (test code = 2232) 59 MG/DL HDL CHOLESTEROL (test code = 2220) 70 MG/DL CALC LDL CHOL (test code = 2237) 122 MG/DL RISK RATIO LDL/HDL (test cod e = 2238) 1.74 RATIO LIPID [id number] 00:00:00* Test Item Value Reference Range Interpretation [...] Comme nts HEMOGLOBIN A1c (test code = 96291) 6.2 % HEMOGLOBIN A1c [ADDED]2021-02-18 00:00:00* Test Item Value Reference Range Interpretation Comme nts HEMOGLOBIN A1c (test code = 11587) 6.2 % HEMOGLOBIN A1c [ADDED]2021-02-18 00:00:00* Test Item Value Reference Range Interpretation Comme nts HEMOGLOBIN A1c (test code = 26971) 6.2 % COMPREHENSIVE METABOLIC [id number] 00:00:00* Test Item Value Reference Range Interpretation Comme nts GLUCOSE (test code = 2217) 121 MG/DL BUN (test code = 2208) 12 MG/DL CREATININE (test code = 2214) 1.05 MG/DL eGFR AMER. (test cod e = 54344) 91 ML/MIN/1.73 eGFR NON- AMER. (test code = 65564) 78 ML/MIN/1.73 CALC BUN/CREAT (test code = [...] code = 2219) 23 U/L COMPREHENSIVE METABOLIC [id number] 00:00:00* Test Item Value Reference Range Interpretation Comme nts GLUCOSE (test code = 2217) 121 MG/DL BUN (test code = 2208) 12 MG/DL CREATININE (test code = 2214) 1.05 MG/DL eGFR AMER. (test cod e = 66846) 91 ML/MIN/1.73 eGFR NON- AMER. (test code = 49421) 78 ML/MIN/1.73 CALC BUN/CREAT (test code = [...] (test code = 2219) 23 U/L HEMOGLOBIN [id number] 00:00:00* Test Item Value Reference Range Interpretation Comme nts HEMOGLOBIN A1c (test code = 09060) 6.2 % Eyad Boss AustinLIPID [id number] 00:00:00* Test Item Value Reference Range Interpretation Comme nts CHOLESTEROL (test code = 2210) 139 MG/DL TRIGLYCERIDES (test code = 2232) 62 MG/DL HDL CHOLESTEROL (test code = 2220) 59 MG/DL CALC LDL CHOL (test code = 2237) 66 MG/DL RISK RATIO LDL/HDL (test cod e = 2238) 1.12 RATIO Eyad F HoustonCOMPREHENSIVE METABOLIC [id number] 00:00:00* Test Item Value Reference Range Interpretation Comme nts GLUCOSE (test code = 2217) 115 MG/DL BUN (test code = 2208) 10 MG/DL CREATININE (test code = 2214) 0.81 MG/DL eGFR AMER. (test cod e = 77037) 115 ML/MIN/1.73 eGFR NON- AMER. (test code = 00088) 99 ML/MIN/1.73 CALC BUN/CREAT (test code = [...] ALT (test code = 2219) 15 U/L Eyad Boss AustinHEMOGLOBIN [id number] 00:00:00* Test Item Value Reference Range Interpretation Comme nts HEMOGLOBIN A1c (test code = 37576) 6.2 % LIPID [id number] 00:00:00* Test Item Value Reference Range Interpretation Comme nts CHOLESTEROL (test code = 2210) 139 MG/DL TRIGLYCERIDES (test code = 2232) 62 MG/DL HDL CHOLESTEROL (test code = 2220) 59 MG/DL CALC LDL CHOL (test code = 2237) 66 MG/DL RISK RATIO LDL/HDL (test cod e = 2238) 1.12 RATIO LIPID [id number] 00:00:00* Test Item Value Reference Range Interpretation Comme nts CHOLESTEROL (test code = 2210) 139 MG/DL TRIGLYCERIDES (test code = 2232) 62 MG/DL HDL CHOLESTEROL (test code = 2220) 59 MG/DL CALC LDL CHOL (test code = 2237) 66 MG/DL RISK RATIO LDL/HDL (test cod e = 2238) 1.12 RATIO COMPREHENSIVE METABOLIC [id number] 00:00:00* Test Item Value Reference Range Interpretation Comme nts GLUCOSE (test code = 2217) 115 MG/DL BUN (test code = 2208) 10 MG/DL CREATININE (test code = 2214) 0.81 MG/DL eGFR AMER. (test cod e = 77542) 115 ML/MIN/1.73 eGFR NON- AMER. (test code = 64105) 99 ML/MIN/1.73 CALC BUN/CREAT (test code = [...] code = 2219) 15 U/L COMPREHENSIVE METABOLIC [id number] 00:00:00* Test Item Value Reference Range Interpretation Comme nts GLUCOSE (test code = 2217) 115 MG/DL BUN (test code = 2208) 10 MG/DL CREATININE (test code = 2214) 0.81 MG/DL eGFR AMER. (test cod e = 39759) 115 ML/MIN/1.73 eGFR NON- AMER. (test code = 63299) 99 ML/MIN/1.73 CALC BUN/CREAT (test code = [...] (test code = 2219) 15 U/L HEMOGLOBIN [id number] 00:00:00* Test Item Value Reference Range Interpretation Comme nts HEMOGLOBIN A1c (test code = 73944) 6.2 % HEMOGLOBIN [id number] 00:00:00* Test Item Value Reference Range Interpretation Comme nts HEMOGLOBIN A1c (test code = 10495) 6.2 % HEMOGLOBIN [id number] 00:00:00* Test Item Value Reference Range Interpretation Comme nts HEMOGLOBIN A1c (test code = 48435) 6.2 % LIPID [id number] 00:00:00* Test Item Value Reference Range Interpretation Comme nts CHOLESTEROL (test code = 2210) 139 MG/DL TRIGLYCERIDES (test code = 2232) 62 MG/DL HDL CHOLESTEROL (test code = 2220) 59 MG/DL CALC LDL CHOL (test code = 2237) 66 MG/DL RISK RATIO LDL/HDL (test cod e = 2238) 1.12 RATIO LIPID [id number] 00:00:00* Test Item Value Reference Range Interpretation Comme nts CHOLESTEROL (test code = 2210) 139 MG/DL TRIGLYCERIDES (test code = 2232) 62 MG/DL HDL CHOLESTEROL (test code = 2220) 59 MG/DL CALC LDL CHOL (test code = 2237) 66 MG/DL RISK RATIO LDL/HDL (test cod e = 2238) 1.12 RATIO COMPREHENSIVE METABOLIC [id number] 00:00:00* Test Item Value Reference Range Interpretation Comme nts GLUCOSE (test code = 2217) 115 MG/DL BUN (test code = 2208) 10 MG/DL CREATININE (test code = 2214) 0.81 MG/DL eGFR AMER. (test cod e = 17957) 115 ML/MIN/1.73 eGFR NON- AMER. (test code = 55800) 99 ML/MIN/1.73 CALC BUN/CREAT (test code = [...] code = 2219) 15 U/L COMPREHENSIVE METABOLIC [id number] 00:00:00* Test Item Value Reference Range Interpretation Comme nts GLUCOSE (test code = 2217) 115 MG/DL BUN (test code = 2208) 10 MG/DL CREATININE (test code = 2214) 0.81 MG/DL eGFR AMER. (test cod e = 78377) 115 ML/MIN/1.73 eGFR NON- AMER. (test code = 84718) 99 ML/MIN/1.73 CALC BUN/CREAT (test code = [...] (test code = 2219) 15 U/L HEMOGLOBIN [id number] 00:00:00* Test Item Value Reference Range Interpretation Comme nts HEMOGLOBIN A1c (test code = 04000) 6.2 % HEMOGLOBIN [id number] 00:00:00* Test Item Value Reference Range Interpretation Comme nts HEMOGLOBIN A1c (test code = 97498) 6.2 % LIPID [id number] 00:00:00* Test Item Value Reference Range Interpretation Comme nts CHOLESTEROL (test code = 2210) 181 MG/DL TRIGLYCERIDES (test code = 2232) 101 MG/DL HDL CHOLESTEROL (test code = 2220) 57 MG/DL CALC LDL CHOL (test code = 2237) 105 MG/DL RISK RATIO LDL/HDL (test cod e = 2238) 1.84 RATIO Eyad Boss HoustonCOMPREHENSIVE METABOLIC [id number] 00:00:00* Test Item Value Reference Range Interpretation Comme nts GLUCOSE (test code = 2217) 132 MG/DL BUN (test code = 2208) 16 MG/DL CREATININE (test code = 2214) 1.14 MG/DL eGFR AMER. (test cod e = 44246) 83 ML/MIN/1.73 eGFR NON- AMER. (test code = 57881) 71 ML/MIN/1.73 CALC BUN/CREAT (test code = [...] ALT (test code = 2219) 13 U/L Eyad F HoustonMICROALBUMIN/CREATININE, RANDOM AND [id number] 00:00:00* Test Item Value Reference Range Interpretation Comme nts CREATININE, URINE, CONC. (te st code = 2072) 217.6 MG/DL ALBUMIN, URINE, RANDOM (test code = 98084) 23.6 MG/DL CALC ALBUMIN/CREAT, RND (camron t code = 00082) 108 MG/G Eyad ConradHEMOGLOBIN [id number] 00:00:00* Test Item Value Reference Range Interpretation Comme nts HEMOGLOBIN A1c (test code = 00564) 7.0 % Eyad ConradLIPID [id number] 00:00:00* Test Item Value Reference Range Interpretation Comme nts CHOLESTEROL (test code = 2210) 181 MG/DL TRIGLYCERIDES (test code = 2232) 101 MG/DL HDL CHOLESTEROL (test code = 2220) 57 MG/DL CALC LDL CHOL (test code = 2237) 105 MG/DL RISK RATIO LDL/HDL (test cod e = 2238) 1.84 RATIO LIPID [id number] 00:00:00* Test Item Value Reference Range Interpretation Comme nts CHOLESTEROL (test code = 2210) 181 MG/DL TRIGLYCERIDES (test code = 2232) 101 MG/DL HDL CHOLESTEROL (test code = 2220) 57 MG/DL CALC LDL CHOL (test code = 2237) 105 MG/DL RISK RATIO LDL/HDL (test cod e = 2238) 1.84 RATIO COMPREHENSIVE METABOLIC [id number] 00:00:00* Test Item Value Reference Range Interpretation Comme nts GLUCOSE (test code = 2217) 132 MG/DL BUN (test code = 2208) 16 MG/DL CREATININE (test code = 2214) 1.14 MG/DL eGFR AMER. (test cod e = 50133) 83 ML/MIN/1.73 eGFR NON- AMER. (test code = 85315) 71 ML/MIN/1.73 CALC BUN/CREAT (test code = [...] code = 2219) 13 U/L COMPREHENSIVE METABOLIC [id number] 00:00:00* Test Item Value Reference Range Interpretation Comme nts GLUCOSE (test code = 2217) 132 MG/DL BUN (test code = 2208) 16 MG/DL CREATININE (test code = 2214) 1.14 MG/DL eGFR AMER. (test cod e = 62618) 83 ML/MIN/1.73 eGFR NON- AMER. (test code = 59606) 71 ML/MIN/1.73 CALC BUN/CREAT (test code = [...] = 2219) 13 U/L MICROALBUMIN/CREATININE, RANDOM AND [id number] 00:00:00* Test Item Value Reference Range Interpretation Comme nts CREATININE, URINE, CONC. (te st code = 2072) 217.6 MG/DL ALBUMIN, URINE, RANDOM (test code = 68728) 23.6 MG/DL CALC ALBUMIN/CREAT, RND (camron t code = 27747) 108 MG/G MICROALBUMIN/CREATININE, RANDOM AND [id number] 00:00:00* Test Item Value Reference Range Interpretation Comme nts CREATININE, URINE, CONC. (te st code = 2072) 217.6 MG/DL ALBUMIN, URINE, RANDOM (test code = 56934) 23.6 MG/DL CALC ALBUMIN/CREAT, RND (camron t code = 11872) 108 MG/G HEMOGLOBIN [id number] 00:00:00* Test Item Value Reference Range Interpretation Comme nts HEMOGLOBIN A1c (test code = 21747) 7.0 % HEMOGLOBIN [id number] 00:00:00* Test Item Value Reference Range Interpretation Comme nts HEMOGLOBIN A1c (test code = 11441) 7.0 % HEMOGLOBIN [id number] 00:00:00* Test Item Value Reference Range Interpretation Comme nts HEMOGLOBIN A1c (test code = 52085) 7.0 % LIPID [id number] 00:00:00* Test Item Value Reference Range Interpretation Comme nts CHOLESTEROL (test code = 2210) 181 MG/DL TRIGLYCERIDES (test code = 2232) 101 MG/DL HDL CHOLESTEROL (test code = 2220) 57 MG/DL CALC LDL CHOL (test code = 2237) 105 MG/DL RISK RATIO LDL/HDL (test cod e = 2238) 1.84 RATIO LIPID [id number] 00:00:00* Test Item Value Reference Range Interpretation Comme nts CHOLESTEROL (test code = 2210) 181 MG/DL TRIGLYCERIDES (test code = 2232) 101 MG/DL HDL CHOLESTEROL (test code = 2220) 57 MG/DL CALC LDL CHOL (test code = 2237) 105 MG/DL RISK RATIO LDL/HDL (test cod e = 2238) 1.84 RATIO COMPREHENSIVE METABOLIC [id number] 00:00:00* Test Item Value Reference Range Interpretation Comme nts GLUCOSE (test code = 2217) 132 MG/DL BUN (test code = 2208) 16 MG/DL CREATININE (test code = 2214) 1.14 MG/DL eGFR AMER. (test cod e = 32809) 83 ML/MIN/1.73 eGFR NON- AMER. (test code = 54494) 71 ML/MIN/1.73 CALC BUN/CREAT (test code = [...] code = 2219) 13 U/L COMPREHENSIVE METABOLIC [id number] 00:00:00* Test Item Value Reference Range Interpretation Comme nts GLUCOSE (test code = 2217) 132 MG/DL BUN (test code = 2208) 16 MG/DL CREATININE (test code = 2214) 1.14 MG/DL eGFR AMER. (test cod e = 35890) 83 ML/MIN/1.73 eGFR NON- AMER. (test code = 26472) 71 ML/MIN/1.73 CALC BUN/CREAT (test code = [...] = 2219) 13 U/L MICROALBUMIN/CREATININE, RANDOM AND [id number] 00:00:00* Test Item Value Reference Range Interpretation Comme nts CREATININE, URINE, CONC. (te st code = 207) 217.6 MG/DL ALBUMIN, URINE, RANDOM (test code = 51998) 23.6 MG/DL CALC ALBUMIN/CREAT, RND (camron t code = 99139) 108 MG/G MICROALBUMIN/CREATININE, RANDOM AND [id number] 00:00:00* Test Item Value Reference Range Interpretation Comme nts CREATININE, URINE, CONC. (te st code = 2072) 217.6 MG/DL ALBUMIN, URINE, RANDOM (test code = 12005) 23.6 MG/DL CALC ALBUMIN/CREAT, RND (camron t code = 41815) 108 MG/G HEMOGLOBIN [id number] 00:00:00* Test Item Value Reference Range Interpretation Comme nts HEMOGLOBIN A1c (test code = 07710) 7.0 % HEMOGLOBIN [id number] 00:00:00* Test Item Value Reference Range Interpretation Comme nts HEMOGLOBIN A1c (test code = 81507) 7.0 % HEMOGLOBIN [id number] 00:00:00* Test Item Value Reference Range Interpretation Comme nts HEMOGLOBIN A1c (test code = 22849) 7.0 % LIPID [id number] 00:00:00* Test Item Value Reference Range Interpretation Comme nts CHOLESTEROL (test code = 2210) 193 MG/DL TRIGLYCERIDES (test code = 2232) 102 MG/DL HDL CHOLESTEROL (test code = 2220) 60 MG/DL CALC LDL CHOL (test code = 2237) 113 MG/DL RISK RATIO LDL/HDL (test cod e = 2238) 1.88 RATIO Eyad Boss AustinHEMOGLOBIN [id number] 00:00:00* Test Item Value Reference Range Interpretation Comme nts HEMOGLOBIN A1c (test code = 17305) 6.3 % Eyad Boss AustinCOMPREHENSIVE METABOLIC [id number] 00:00:00* Test Item Value Reference Range Interpretation Comme nts GLUCOSE (test code = 2217) 133 MG/DL BUN (test code = 2208) 9 MG/DL CREATININE (test code = 2214) 0.93 MG/DL eGFR AMER. (test cod e = 40221) 107 ML/MIN/1.73 eGFR NON- AMER. (test code = 42036) 92 ML/MIN/1.73 CALC BUN/CREAT (test code = [...] ALT (test code = 2219) 22 U/L Eyad Boss [place]COMPREHENSIVE METABOLIC [id number] 00:00:00* Test Item Value Reference Range Interpretation Comme nts GLUCOSE (test code = 2217) 133 MG/DL BUN (test code = 2208) 9 MG/DL CREATININE (test code = 2214) 0.93 MG/DL eGFR AMER. (test cod e = 47348) 107 ML/MIN/1.73 eGFR NON- AMER. (test code = 42146) 92 ML/MIN/1.73 CALC BUN/CREAT (test code = [...] (test code = 2219) 22 U/L LIPID [id number] 00:00:00* Test Item Value Reference Range Interpretation Comme nts CHOLESTEROL (test code = 2210) 193 MG/DL TRIGLYCERIDES (test code = 2232) 102 MG/DL HDL CHOLESTEROL (test code = 2220) 60 MG/DL CALC LDL CHOL (test code = 2237) 113 MG/DL RISK RATIO LDL/HDL (test cod e = 2238) 1.88 RATIO LIPID [id number] 00:00:00* Test Item Value Reference Range Interpretation Comme nts CHOLESTEROL (test code = 2210) 193 MG/DL TRIGLYCERIDES (test code = 2232) 102 MG/DL HDL CHOLESTEROL (test code = 2220) 60 MG/DL CALC LDL CHOL (test code = 2237) 113 MG/DL RISK RATIO LDL/HDL (test cod e = 2238) 1.88 RATIO HEMOGLOBIN [id number] 00:00:00* Test Item Value Reference Range Interpretation Comme nts HEMOGLOBIN A1c (test code = 95427) 6.3 % HEMOGLOBIN [id number] 00:00:00* Test Item Value Reference Range Interpretation Comme nts HEMOGLOBIN A1c (test code = 70092) 6.3 % HEMOGLOBIN [id number] 00:00:00* Test Item Value Reference Range Interpretation Comme nts HEMOGLOBIN A1c (test code = 69457) 6.3 % COMPREHENSIVE METABOLIC [id number] 00:00:00* Test Item Value Reference Range Interpretation Comme nts GLUCOSE (test code = 2217) 133 MG/DL BUN (test code = 2208) 9 MG/DL CREATININE (test code = 2214) 0.93 MG/DL eGFR AMER. (test cod e = 55484) 107 ML/MIN/1.73 eGFR NON- AMER. (test code = 34722) 92 ML/MIN/1.73 CALC BUN/CREAT (test code = [...] code = 2219) 22 U/L COMPREHENSIVE METABOLIC [id number] 00:00:00* Test Item Value Reference Range Interpretation Comme nts GLUCOSE (test code = 2217) 133 MG/DL BUN (test code = 2208) 9 MG/DL CREATININE (test code = 2214) 0.93 MG/DL eGFR AMER. (test cod e = 48152) 107 ML/MIN/1.73 eGFR NON- AMER. (test code = 20233) 92 ML/MIN/1.73 CALC BUN/CREAT (test code = [...] (test code = 2219) 22 U/L LIPID [id number] 00:00:00* Test Item Value Reference Range Interpretation Comme nts CHOLESTEROL (test code = 2210) 193 MG/DL TRIGLYCERIDES (test code = 2232) 102 MG/DL HDL CHOLESTEROL (test code = 2220) 60 MG/DL CALC LDL CHOL (test code = 2237) 113 MG/DL RISK RATIO LDL/HDL (test cod e = 2238) 1.88 RATIO LIPID [id number] 00:00:00* Test Item Value Reference Range Interpretation Comme nts CHOLESTEROL (test code = 2210) 193 MG/DL TRIGLYCERIDES (test code = 2232) 102 MG/DL HDL CHOLESTEROL (test code = 2220) 60 MG/DL CALC LDL CHOL (test code = 2237) 113 MG/DL RISK RATIO LDL/HDL (test cod e = 2238) 1.88 RATIO HEMOGLOBIN [id number] 00:00:00* Test Item Value Reference Range Interpretation Comme nts HEMOGLOBIN A1c (test code = 62994) 6.3 % HEMOGLOBIN [id number] 00:00:00* Test Item Value Reference Range Interpretation Comme nts HEMOGLOBIN A1c (test code = 15679) 6.3 % HEMOGLOBIN [id number] 00:00:00* Test Item Value Reference Range Interpretation Comme nts HEMOGLOBIN A1c (test code = 90784) 6.3 % COMPREHENSIVE METABOLIC [id number] 00:00:00* Test Item Value Reference Range Interpretation Comme nts GLUCOSE (test code = 2217) 133 MG/DL BUN (test code = 2208) 9 MG/DL CREATININE (test code = 2214) 0.93 MG/DL eGFR AMER. (test cod e = 49848) 107 ML/MIN/1.73 eGFR NON- AMER. (test code = 37439) 92 ML/MIN/1.73 CALC BUN/CREAT (test code = [...] (test code = 2219) 22 U/L HEMOGLOBIN [id number] 00:00:00* Test Item Value Reference Range Interpretation Comme nts HEMOGLOBIN A1c (test code = 43555) 5.6 % Eyad Grissom W/AUTO [id number] 00:00:00* Test Item Value Reference Range Interpretation [...] COUNT (test code = 1015) 221 K/UL Eyad ConradLIPID [id number] 00:00:00* Test Item Value Reference Range Interpretation Comme nts CHOLESTEROL (test code = 2210) 173 MG/DL TRIGLYCERIDES (test code = 2232) 88 MG/DL HDL CHOLESTEROL (test code = 2220) 58 MG/DL CALC LDL CHOL (test code = 2237) 97 MG/DL RISK RATIO LDL/HDL (test cod e = 2238) 1.67 RATIO Eyad ConradHEMOGLOBIN [id number] 00:00:00* Test Item Value Reference Range Interpretation Comme nts HEMOGLOBIN A1c (test code = 84076) 5.6 % CBC W/AUTO [id number] 00:00:00* Test Item Value Reference Range Interpretation [...] code = 1015) 221 K/UL CBC W/AUTO [id number] 00:00:00* Test Item Value Reference Range Interpretation [...] code = 1015) 221 K/UL CBC W/AUTO [id number] 00:00:00* Test Item Value Reference Range Interpretation [...] (test code = 1015) 221 K/UL LIPID [id number] 00:00:00* Test Item Value Reference Range Interpretation Comme nts CHOLESTEROL (test code = 2210) 173 MG/DL TRIGLYCERIDES (test code = 2232) 88 MG/DL HDL CHOLESTEROL (test code = 2220) 58 MG/DL CALC LDL CHOL (test code = 2237) 97 MG/DL RISK RATIO LDL/HDL (test cod e = 2238) 1.67 RATIO LIPID [id number] 00:00:00* Test Item Value Reference Range Interpretation Comme nts CHOLESTEROL (test code = 2210) 173 MG/DL TRIGLYCERIDES (test code = 2232) 88 MG/DL HDL CHOLESTEROL (test code = 2220) 58 MG/DL CALC LDL CHOL (test code = 2237) 97 MG/DL RISK RATIO LDL/HDL (test cod e = 2238) 1.67 RATIO HEMOGLOBIN [id number] 00:00:00* Test Item Value Reference Range Interpretation Comme nts HEMOGLOBIN A1c (test code = 00017) 5.6 % HEMOGLOBIN [id number] 00:00:00* Test Item Value Reference Range Interpretation Comme nts HEMOGLOBIN A1c (test code = 35706) 5.6 % HEMOGLOBIN [id number] 00:00:00* Test Item Value Reference Range Interpretation Comme nts HEMOGLOBIN A1c (test code = 72956) 5.6 % CBC W/AUTO [id number] 00:00:00* Test Item Value Reference Range Interpretation [...] code = 1015) 221 K/UL CBC W/AUTO [id number] 00:00:00* Test Item Value Reference Range Interpretation [...] code = 1015) 221 K/UL CBC W/AUTO [id number] 00:00:00* Test Item Value Reference Range Interpretation [...] (test code = 1015) 221 K/UL LIPID [id number] 00:00:00* Test Item Value Reference Range Interpretation Comme nts CHOLESTEROL (test code = 2210) 173 MG/DL TRIGLYCERIDES (test code = 2232) 88 MG/DL HDL CHOLESTEROL (test code = 2220) 58 MG/DL CALC LDL CHOL (test code = 2237) 97 MG/DL RISK RATIO LDL/HDL (test cod e = 2238) 1.67 RATIO LIPID [id number] 00:00:00* Test Item Value Reference Range Interpretation Comme nts CHOLESTEROL (test code = 2210) 173 MG/DL TRIGLYCERIDES (test code = 2232) 88 MG/DL HDL CHOLESTEROL (test code = 2220) 58 MG/DL CALC LDL CHOL (test code = 2237) 97 MG/DL RISK RATIO LDL/HDL (test cod e = 2238) 1.67 RATIO HEMOGLOBIN [id number] 00:00:00* Test Item Value Reference Range Interpretation Comme nts HEMOGLOBIN A1c (test code = 19504) 5.6 % HEMOGLOBIN [id number] 00:00:00* Test Item Value Reference Range Interpretation Comme nts HEMOGLOBIN A1c (test code = 65475) 5.6 % HEMOGLOBIN [id number] 00:00:00* Test Item Value Reference Range Interpretation Comme nts HEMOGLOBIN A1c (test code = 86843) 6.0 % Eyad F AustinHEMOGLOBIN [id number] 00:00:00* Test Item Value Reference Range Interpretation Comme nts HEMOGLOBIN A1c (test code = 14219) 6.0 % HEMOGLOBIN [id number] 00:00:00* Test Item Value Reference Range Interpretation Comme nts HEMOGLOBIN A1c (test code = 56361) 6.0 % HEMOGLOBIN [id number] 00:00:00* Test Item Value Reference Range Interpretation Comme nts HEMOGLOBIN A1c (test code = 30588) 6.0 % HEMOGLOBIN [id number] 00:00:00* Test Item Value Reference Range Interpretation Comme nts HEMOGLOBIN A1c (test code = 38120) 6.0 % HEMOGLOBIN [id number] 00:00:00* Test Item Value Reference Range Interpretation Comme nts HEMOGLOBIN A1c (test code = 57681) 6.0 % HEMOGLOBIN [id number] 00:00:00* Test Item Value Reference Range Interpretation Comme nts HEMOGLOBIN A1c (test code = 57395) 6.0 % COMPREHENSIVE METABOLIC [id number] 00:00:00* Test Item Value Reference Range Interpretation Comme nts GLUCOSE (test code = 2217) 110 MG/DL BUN (test code = 2208) 16 MG/DL CREATININE (test code = 2214) 0.89 MG/DL eGFR AMER. (test cod e = 31423) 112 ML/MIN/1.73 eGFR NON- AMER. (test code = 37248) 96 ML/MIN/1.73 CALC BUN/CREAT (test code = [...] ALT (test code = 2219) 20 U/L Eyad Boss AustinLIPID [id number] 00:00:00* Test Item Value Reference Range Interpretation Comme nts CHOLESTEROL (test code = 2210) 157 MG/DL TRIGLYCERIDES (test code = 2232) 44 MG/DL HDL CHOLESTEROL (test code = 2220) 55 MG/DL CALC LDL CHOL (test code = 2237) 93 MG/DL RISK RATIO LDL/HDL (test cod e = 2238) 1.69 RATIO Eyad F AustinLIPID [id number] 00:00:00* Test Item Value Reference Range Interpretation Comme nts CHOLESTEROL (test code = 2210) 157 MG/DL TRIGLYCERIDES (test code = 2232) 44 MG/DL HDL CHOLESTEROL (test code = 2220) 55 MG/DL CALC LDL CHOL (test code = 2237) 93 MG/DL RISK RATIO LDL/HDL (test cod e = 2238) 1.69 RATIO COMPREHENSIVE METABOLIC [id number] 00:00:00* Test Item Value Reference Range Interpretation Comme nts GLUCOSE (test code = 2217) 110 MG/DL BUN (test code = 2208) 16 MG/DL CREATININE (test code = 2214) 0.89 MG/DL eGFR AMER. (test cod e = 87238) 112 ML/MIN/1.73 eGFR NON- AMER. (test code = 20909) 96 ML/MIN/1.73 CALC BUN/CREAT (test code = [...] code = 2219) 20 U/L COMPREHENSIVE METABOLIC [id number] 00:00:00* Test Item Value Reference Range Interpretation Comme nts GLUCOSE (test code = 2217) 110 MG/DL BUN (test code = 2208) 16 MG/DL CREATININE (test code = 2214) 0.89 MG/DL eGFR AMER. (test cod e = 45219) 112 ML/MIN/1.73 eGFR NON- AMER. (test code = 62055) 96 ML/MIN/1.73 CALC BUN/CREAT (test code = [...] (test code = 2219) 20 U/L LIPID [id number] 00:00:00* Test Item Value Reference Range Interpretation Comme nts CHOLESTEROL (test code = 2210) 157 MG/DL TRIGLYCERIDES (test code = 2232) 44 MG/DL HDL CHOLESTEROL (test code = 2220) 55 MG/DL CALC LDL CHOL (test code = 2237) 93 MG/DL RISK RATIO LDL/HDL (test cod e = 2238) 1.69 RATIO LIPID [id number] 00:00:00* Test Item Value Reference Range Interpretation Comme nts CHOLESTEROL (test code = 2210) 157 MG/DL TRIGLYCERIDES (test code = 2232) 44 MG/DL HDL CHOLESTEROL (test code = 2220) 55 MG/DL CALC LDL CHOL (test code = 2237) 93 MG/DL RISK RATIO LDL/HDL (test cod e = 2238) 1.69 RATIO COMPREHENSIVE METABOLIC [id number] 00:00:00* Test Item Value Reference Range Interpretation Comme nts GLUCOSE (test code = 2217) 110 MG/DL BUN (test code = 2208) 16 MG/DL CREATININE (test code = 2214) 0.89 MG/DL eGFR AMER. (test cod e = 24995) 112 ML/MIN/1.73 eGFR NON- AMER. (test code = 58456) 96 ML/MIN/1.73 CALC BUN/CREAT (test code = [...] code = 2219) 20 U/L COMPREHENSIVE METABOLIC [id number] 00:00:00* Test Item Value Reference Range Interpretation Comme nts GLUCOSE (test code = 2217) 110 MG/DL BUN (test code = 2208) 16 MG/DL CREATININE (test code = 2214) 0.89 MG/DL eGFR AMER. (test cod e = 69891) 112 ML/MIN/1.73 eGFR NON- AMER. (test code = 20952) 96 ML/MIN/1.73 CALC BUN/CREAT (test code = [...] (test code = 2219) 20 U/L LIPID [id number] 00:00:00* Test Item Value Reference Range Interpretation Comme nts CHOLESTEROL (test code = 2210) 157 MG/DL TRIGLYCERIDES (test code = 2232) 44 MG/DL HDL CHOLESTEROL (test code = 2220) 55 MG/DL CALC LDL CHOL (test code = 2237) 93 MG/DL RISK RATIO LDL/HDL (test cod e = 2238) 1.69 RATIO HEPATITIS C REFLEX [id number] 00:00:00* Test Item Value Reference Range Interpretation Comme nts HEPATITIS C ANTIBODY (test c ode = 4675) NON-REACTIVE Eyad ConradPSA, [id number] 00:00:00* Test Item Value Reference Range Interpretation Comme nts PSA, TOTAL (test code = 2606) 0.99 NG/ML Eyad [id number] 00:00:00* Test Item Value Reference Range Interpretation Comme nts TESTOSTERONE (test code = 2830) 444 NG/DL Eyad ConradHIV AB/AG COMBO RFLX [id number] 00:00:00* Test Item Value Reference Range Interpretation Comme nts HIV 1/2 4TH GEN, RFLX CONF ( test code = 3514) NON-REACTIVE Eyad ConradHIV AB/AG COMBO RFLX [id number] 00:00:00* Test Item Value Reference Range Interpretation Comme nts HIV 1/2 4TH GEN, RFLX CONF ( test code = 3514) NON-REACTIVE HEPATITIS C REFLEX [id number] 00:00:00* Test Item Value Reference Range Interpretation Comme nts HEPATITIS C ANTIBODY (test c ode = 4675) NON-REACTIVE HEPATITIS C REFLEX [id number] 00:00:00* Test Item Value Reference Range Interpretation Comme nts HEPATITIS C ANTIBODY (test c ode = 4675) NON-REACTIVE PSA, [id number] 00:00:00* Test Item Value Reference Range Interpretation Comme nts PSA, TOTAL (test code = 2606) 0.99 NG/ML PSA, [id number] 00:00:00* Test Item Value Reference Range Interpretation Comme nts PSA, TOTAL (test code = 2606) 0.99 NG/ML PSA, [id number] 00:00:00* Test Item Value Reference Range Interpretation Comme nts PSA, TOTAL (test code = 2606) 0.99 NG/ML [id number] 00:00:00* Test Item Value Reference Range Interpretation Comme nts TESTOSTERONE (test code = 2830) 444 NG/DL [id number] 00:00:00* Test Item Value Reference Range Interpretation Comme nts TESTOSTERONE (test code = 2830) 444 NG/DL HIV AB/AG COMBO RFLX [id number] 00:00:00* Test Item Value Reference Range Interpretation Comme nts HIV 1/2 4TH GEN, RFLX CONF ( test code = 3514) NON-REACTIVE HIV AB/AG COMBO RFLX [id number] 00:00:00* Test Item Value Reference Range Interpretation Comme nts HIV 1/2 4TH GEN, RFLX CONF ( test code = 3514) NON-REACTIVE HEPATITIS C REFLEX [id number] 00:00:00* Test Item Value Reference Range Interpretation Comme nts HEPATITIS C ANTIBODY (test c ode = 4675) NON-REACTIVE HEPATITIS C REFLEX [id number] 00:00:00* Test Item Value Reference Range Interpretation Comme nts HEPATITIS C ANTIBODY (test c ode = 4675) NON-REACTIVE PSA, [id number] 00:00:00* Test Item Value Reference Range Interpretation Comme nts PSA, TOTAL (test code = 2606) 0.99 NG/ML PSA, [id number] 00:00:00* Test Item Value Reference Range Interpretation Comme nts PSA, TOTAL (test code = 2606) 0.99 NG/ML PSA, [id number] 00:00:00* Test Item Value Reference Range Interpretation Comme nts PSA, TOTAL (test code = 2606) 0.99 NG/ML [id number] 00:00:00* Test Item Value Reference Range Interpretation Comme nts TESTOSTERONE (test code = 2830) 444 NG/DL [id number] 00:00:00* Test Item Value Reference Range Interpretation Comme nts TESTOSTERONE (test code = 2830) 444 NG/DL HIV AB/AG COMBO RFLX [id number] 00:00:00* Test Item Value Reference Range Interpretation Comme nts HIV 1/2 4TH GEN, RFLX CONF ( test code = 3514) NON-REACTIVE CBC W/AUTO [id number] 00:00:00* Test Item Value Reference Range Interpretation [...] COUNT (test code = 1015) 241 K/UL Eyad ConradHEMOGLOBIN [id number] 00:00:00* Test Item Value Reference Range Interpretation Comme nts HEMOGLOBIN A1c (test code = 82224) 5.5 % Eyad ConradCBC W/AUTO [id number] 00:00:00* Test Item Value Reference Range Interpretation [...] code = 1015) 241 K/UL CBC W/AUTO [id number] 00:00:00* Test Item Value Reference Range Interpretation [...] (test code = 1015) 241 K/UL HEMOGLOBIN [id number] 00:00:00* Test Item Value Reference Range Interpretation Comme nts HEMOGLOBIN A1c (test code = 01567) 5.5 % HEMOGLOBIN [id number] 00:00:00* Test Item Value Reference Range Interpretation Comme nts HEMOGLOBIN A1c (test code = 02697) 5.5 % HEMOGLOBIN [id number] 00:00:00* Test Item Value Reference Range Interpretation Comme nts HEMOGLOBIN A1c (test code = 37364) 5.5 % CBC W/AUTO [id number] 00:00:00* Test Item Value Reference Range Interpretation [...] code = 1015) 241 K/UL CBC W/AUTO [id number] 00:00:00* Test Item Value Reference Range Interpretation [...] code = 1015) 241 K/UL CBC W/AUTO [id number] 00:00:00* Test Item Value Reference Range Interpretation [...] (test code = 1015) 241 K/UL HEMOGLOBIN [id number] 00:00:00* Test Item Value Reference Range Interpretation Comme nts HEMOGLOBIN A1c (test code = 13309) 5.5 % HEMOGLOBIN [id number] 00:00:00* Test Item Value Reference Range Interpretation Comme nts HEMOGLOBIN A1c (test code = 39557) 5.5 % HEMOGLOBIN [id number] 00:00:00* Test Item Value Reference Range Interpretation Comme nts HEMOGLOBIN A1c (test code = 78018) 5.5 % CBC W/AUTO [id number] 00:00:00* Test Item Value Reference Range Interpretation [...] code = 1015) 241 K/UL CBC W/AUTO [id number] 00:00:00* Test Item Value Reference Range Interpretation [...] code = 1015) TEST NOT PERFORMED K/UL Eyad Boss AustinHEMOGLOBIN [id number] 00:00:00* Test Item Value Reference Range Interpretation Comme nts HEMOGLOBIN A1c (test code = 25790) TEST NOT PERFORMED % Eyad F AustinCBC W/AUTO [id number] 00:00:00* Test Item Value Reference Range Interpretation [...] 1015) TEST NOT PERFORMED K/UL CBC W/AUTO [id number] 00:00:00* Test Item Value Reference Range Interpretation [...] 1015) TEST NOT PERFORMED K/UL CBC W/AUTO [id number] 00:00:00* Test Item Value Reference Range Interpretation [...] = 1015) TEST NOT PERFORMED K/UL HEMOGLOBIN [id number] 00:00:00* Test Item Value Reference Range Interpretation Comme nts HEMOGLOBIN A1c (test code = 82284) TEST NOT PERFORMED % HEMOGLOBIN [id number] 00:00:00* Test Item Value Reference Range Interpretation Comme nts HEMOGLOBIN A1c (test code = 04410) TEST NOT PERFORMED % HEMOGLOBIN [id number] 00:00:00* Test Item Value Reference Range Interpretation Comme nts HEMOGLOBIN A1c (test code = 87670) TEST NOT PERFORMED % CBC W/AUTO [id number] 00:00:00* Test Item Value Reference Range Interpretation [...] 1015) TEST NOT PERFORMED K/UL CBC W/AUTO [id number] 00:00:00* Test Item Value Reference Range Interpretation [...] 1015) TEST NOT PERFORMED K/UL CBC W/AUTO [id number] 00:00:00* Test Item Value Reference Range Interpretation [...] = 1015) TEST NOT PERFORMED K/UL HEMOGLOBIN [id number] 00:00:00* Test Item Value Reference Range Interpretation Comme nts HEMOGLOBIN A1c (test code = 83614) TEST NOT PERFORMED % HEMOGLOBIN [id number] 00:00:00* Test Item Value Reference Range Interpretation Comme nts HEMOGLOBIN A1c (test code = 04622) TEST NOT PERFORMED % HEMOGLOBIN [id number] 00:00:00* Test Item Value Reference Range Interpretation Comme nts HEMOGLOBIN A1c (test code = 37623) TEST NOT PERFORMED % COMPREHENSIVE METABOLIC [id number] 00:00:00* Test Item Value Reference Range Interpretation Comme nts GLUCOSE (test code = 2217) 129 MG/DL BUN (test code = 2208) 21 MG/DL CREATININE (test code = 2214) 0.96 MG/DL eGFR AMER. (test cod e = 54076) 104 ML/MIN/1.73 eGFR NON- AMER. (test code = 39281) 90 ML/MIN/1.73 CALC BUN/CREAT (test code = [...] ALT (test code = 2219) 21 U/L Eyad Karyn AustinLIPID [id number] 00:00:00* Test Item Value Reference Range Interpretation Comme nts CHOLESTEROL (test code = 2210) 158 MG/DL TRIGLYCERIDES (test code = 2232) 96 MG/DL HDL CHOLESTEROL (test code = 2220) 43 MG/DL CALC LDL CHOL (test code = 2237) 96 MG/DL RISK RATIO LDL/HDL (test cod e = 2238) 2.23 RATIO Eyad [id number] 00:00:00* Test Item Value Reference Range Interpretation Comme nts TSH (test code = 2821) 1.210 UIU/ML Eyad ConradCOMPREHENSIVE METABOLIC [id number] 00:00:00* Test Item Value Reference Range Interpretation Comme nts GLUCOSE (test code = 2217) 129 MG/DL BUN (test code = 2208) 21 MG/DL CREATININE (test code = 2214) 0.96 MG/DL eGFR AMER. (test cod e = 68069) 104 ML/MIN/1.73 eGFR NON- AMER. (test code = 35168) 90 ML/MIN/1.73 CALC BUN/CREAT (test code = [...] (test code = 2219) 21 U/L LIPID [id number] 00:00:00* Test Item Value Reference Range Interpretation Comme nts CHOLESTEROL (test code = 2210) 158 MG/DL TRIGLYCERIDES (test code = 2232) 96 MG/DL HDL CHOLESTEROL (test code = 2220) 43 MG/DL CALC LDL CHOL (test code = 2237) 96 MG/DL RISK RATIO LDL/HDL (test cod e = 2238) 2.23 RATIO LIPID [id number] 00:00:00* Test Item Value Reference Range Interpretation Comme nts CHOLESTEROL (test code = 2210) 158 MG/DL TRIGLYCERIDES (test code = 2232) 96 MG/DL HDL CHOLESTEROL (test code = 2220) 43 MG/DL CALC LDL CHOL (test code = 2237) 96 MG/DL RISK RATIO LDL/HDL (test cod e = 2238) 2.23 RATIO [id number] 00:00:00* Test Item Value Reference Range Interpretation Comme nts TSH (test code = 2821) 1.210 UIU/ML [id number] 00:00:00* Test Item Value Reference Range Interpretation Comme nts TSH (test code = 2821) 1.210 UIU/ML [id number] 00:00:00* Test Item Value Reference Range Interpretation Comme nts TSH (test code = 2821) 1.210 UIU/ML COMPREHENSIVE METABOLIC [id number] 00:00:00* Test Item Value Reference Range Interpretation Comme nts GLUCOSE (test code = 2217) 129 MG/DL BUN (test code = 2208) 21 MG/DL CREATININE (test code = 2214) 0.96 MG/DL eGFR AMER. (test cod e = 41904) 104 ML/MIN/1.73 eGFR NON- AMER. (test code = 28111) 90 ML/MIN/1.73 CALC BUN/CREAT (test code = [...] code = 2219) 21 U/L COMPREHENSIVE METABOLIC [id number] 00:00:00* Test Item Value Reference Range Interpretation Comme nts GLUCOSE (test code = 2217) 129 MG/DL BUN (test code = 2208) 21 MG/DL CREATININE (test code = 2214) 0.96 MG/DL eGFR AMER. (test cod e = 40253) 104 ML/MIN/1.73 eGFR NON- AMER. (test code = 57069) 90 ML/MIN/1.73 CALC BUN/CREAT (test code = [...] (test code = 2219) 21 U/L LIPID [id number] 00:00:00* Test Item Value Reference Range Interpretation Comme nts CHOLESTEROL (test code = 2210) 158 MG/DL TRIGLYCERIDES (test code = 2232) 96 MG/DL HDL CHOLESTEROL (test code = 2220) 43 MG/DL CALC LDL CHOL (test code = 2237) 96 MG/DL RISK RATIO LDL/HDL (test cod e = 2238) 2.23 RATIO LIPID [id number] 00:00:00* Test Item Value Reference Range Interpretation Comme nts CHOLESTEROL (test code = 2210) 158 MG/DL TRIGLYCERIDES (test code = 2232) 96 MG/DL HDL CHOLESTEROL (test code = 2220) 43 MG/DL CALC LDL CHOL (test code = 2237) 96 MG/DL RISK RATIO LDL/HDL (test cod e = 2238) 2.23 RATIO [id number] 00:00:00* Test Item Value Reference Range Interpretation Comme nts TSH (test code = 2821) 1.210 UIU/ML [id number] 00:00:00* Test Item Value Reference Range Interpretation Comme nts TSH (test code = 2821) 1.210 UIU/ML [id number] 00:00:00* Test Item Value Reference Range Interpretation Comme nts TSH (test code = 2821) 1.210 UIU/ML COMPREHENSIVE METABOLIC [id number] 00:00:00* Test Item Value Reference Range Interpretation Comme nts GLUCOSE (test code = 2217) 129 MG/DL BUN (test code = 2208) 21 MG/DL CREATININE (test code = 2214) 0.96 MG/DL eGFR AMER. (test cod e = 18409) 104 ML/MIN/1.73 eGFR NON- AMER. (test code = 96984) 90 ML/MIN/1.73 CALC BUN/CREAT (test code = [...] code = 2219) 21 U/L COMPREHENSIVE METABOLIC [id number] 00:00:00* Test Item Value Reference Range Interpretation Comme nts GLUCOSE (test code = 2217) 119 MG/DL BUN (test code = 2208) 42 MG/DL CREATININE (test code = 2214) 1.24 MG/DL eGFR AMER. (test cod e = 25225) 76 ML/MIN/1.73 eGFR NON- AMER. (test code = 34182) 66 ML/MIN/1.73 CALC BUN/CREAT (test code = [...] 0.3 MG/DL ALKALINE PHOSPHATASE (test code = 220) 78 U/L AST (test code = 2218) 22 U/L ALT (test code = 2219) 29 U/L Eyad ConradLIPID [id number] 00:00:00* Test Item Value Reference Range Interpretation Comme nts CHOLESTEROL (test code = 2210) 186 MG/DL TRIGLYCERIDES (test code = 2232) 90 MG/DL HDL CHOLESTEROL (test code = 2220) 50 MG/DL CALC LDL CHOL (test code = 223) 118 MG/DL RISK RATIO LDL/HDL (test cod e = 2238) 2.36 RATIO Eyad ConradCOMPREHENSIVE METABOLIC [id number] 00:00:00* Test Item Value Reference Range Interpretation Comme nts GLUCOSE (test code = 2217) 119 MG/DL BUN (test code = 8) 42 MG/DL CREATININE (test code = 2214) 1.24 MG/DL eGFR AMER. (test cod e = 91306) 76 ML/MIN/1.73 eGFR NON- AMER. (test code = 13578) 66 ML/MIN/1.73 CALC BUN/CREAT (test code = 2235) 34 RATIO SODIUM (test code = 2231) 140 MEQ/L POTASSIUM (test code = 2228) 4.7 MEQ/L CHLORIDE (test code = 2215) 99 MEQ/L CARBON DIOXIDE (test code = 6) 28 MEQ/L CALCIUM (test code = 2209) [...] (test code = 2219) 29 U/L LIPID [id number] 00:00:00* Test Item Value Reference Range Interpretation Comme nts CHOLESTEROL (test code = 2210) 186 MG/DL TRIGLYCERIDES (test code = 2232) 90 MG/DL HDL CHOLESTEROL (test code = 2220) 50 MG/DL CALC LDL CHOL (test code = 2237) 118 MG/DL RISK RATIO LDL/HDL (test cod e = 2238) 2.36 RATIO LIPID [id number] 00:00:00* Test Item Value Reference Range Interpretation Comme nts CHOLESTEROL (test code = 2210) 186 MG/DL TRIGLYCERIDES (test code = 2232) 90 MG/DL HDL CHOLESTEROL (test code = 2220) 50 MG/DL CALC LDL CHOL (test code = 2237) 118 MG/DL RISK RATIO LDL/HDL (test cod e = 2238) 2.36 RATIO COMPREHENSIVE METABOLIC [id number] 00:00:00* Test Item Value Reference Range Interpretation Comme nts GLUCOSE (test code = 2217) 119 MG/DL BUN (test code = 2208) 42 MG/DL CREATININE (test code = 2214) 1.24 MG/DL eGFR AMER. (test cod e = 39123) 76 ML/MIN/1.73 eGFR NON- AMER. (test code = 30970) 66 ML/MIN/1.73 CALC BUN/CREAT (test code = [...] code = 2219) 29 U/L COMPREHENSIVE METABOLIC [id number] 00:00:00* Test Item Value Reference Range Interpretation Comme nts GLUCOSE (test code = 2217) 119 MG/DL BUN (test code = 2208) 42 MG/DL CREATININE (test code = 2214) 1.24 MG/DL eGFR AMER. (test cod e = 62306) 76 ML/MIN/1.73 eGFR NON- AMER. (test code = 46224) 66 ML/MIN/1.73 CALC BUN/CREAT (test code = [...] (test code = 2219) 29 U/L LIPID [id number] 00:00:00* Test Item Value Reference Range Interpretation Comme nts CHOLESTEROL (test code = 2210) 186 MG/DL TRIGLYCERIDES (test code = 2232) 90 MG/DL HDL CHOLESTEROL (test code = 2220) 50 MG/DL CALC LDL CHOL (test code = 2237) 118 MG/DL RISK RATIO LDL/HDL (test cod e = 2238) 2.36 RATIO LIPID [id number] 00:00:00* Test Item Value Reference Range Interpretation Comme nts CHOLESTEROL (test code = 2210) 186 MG/DL TRIGLYCERIDES (test code = 2232) 90 MG/DL HDL CHOLESTEROL (test code = 2220) 50 MG/DL CALC LDL CHOL (test code = 2237) 118 MG/DL RISK RATIO LDL/HDL (test cod e = 2238) 2.36 RATIO COMPREHENSIVE METABOLIC [id number] 00:00:00* Test Item Value Reference Range Interpretation Comme nts GLUCOSE (test code = 7) 119 MG/DL BUN (test code = 2207) 42 MG/DL CREATININE (test code = 2214) 1.24 MG/DL eGFR AMER. (test cod e = 77341) 76 ML/MIN/1.73 eGFR NON- AMER. (test code = 04467) 66 ML/MIN/1.73 CALC BUN/CREAT (test code = 2235) 34 RATIO SODIUM (test code = 223) 140 MEQ/L POTASSIUM (test code = 2228) 4.7 MEQ/L CHLORIDE (test code = 2215) 99 MEQ/L CARBON DIOXIDE (test code = 2206) 28 MEQ/L CALCIUM (test code = 2209) 9.2 MG/DL PROTEIN, TOTAL (test code = 2228) 7.5 G/DL ALBUMIN (test code = 2201) 4.3 G/DL CALC GLOBULIN (test code = 2240) 3.2 G/DL CALC A/G RATIO (test code = 2234) 1.3 RATIO BILIRUBIN, TOTAL (test code = 2207) 0.3 MG/DL ALKALINE PHOSPHATASE (test code = 2203) 78 U/L AST (test code = 2218) 22 U/L ALT (test code = 2219) 29 U/L VITAMIN B 12 AND FOLIC [id number] 00:00:00* Test Item Value Reference Range Interpretation Comme nts VITAMIN B-12 (test code = 2840) 1049 PG/ML FOLIC ACID (test code = 2695) 7.2 UG/L Eyad Boss [id number] 00:00:00* Test Item Value Reference Range Interpretation Comme nts FERRITIN (test code = 2074) 65 NG/ML Eyad F AustinIRON BINDING CAPACITY AND IRON AND % [id number] 00:00:00* Test Item Value Reference Range Interpretation Comme nts IRON, SERUM (test code = 2221) 126 UG/DL UNSATURATED IBC (test code = ) 193 UG/DL CALC TOTAL IBC (test code = 2076) 319 UG/DL CALC % IRON SAT (test code = 2078) 39 % Eyad ConradRETICULOCYTE [id number] 00:00:00* Test Item Value Reference Range Interpretation Comme nts RETICULOCYTE COUNT (test code = 1018) 1.2 % Eyad ConradVITAMIN B 12 AND FOLIC [id number] 00:00:00* Test Item Value Reference Range Interpretation Comme nts VITAMIN B-12 (test code = 2840) 1049 PG/ML FOLIC ACID (test code = 2695) 7.2 UG/L [id number] 00:00:00* Test Item Value Reference Range Interpretation Comme nts FERRITIN (test code = 5) 65 NG/ML [id number] 00:00:00* Test Item Value Reference Range Interpretation Comme nts FERRITIN (test code = 2074) 65 NG/ML IRON BINDING CAPACITY AND IRON AND % [id number] 00:00:00* Test Item Value Reference Range Interpretation Comme nts IRON, SERUM (test code = 2) 126 UG/DL UNSATURATED IBC (test code = 19160) 193 UG/DL CALC TOTAL IBC (test code = 7) 319 UG/DL CALC % IRON SAT (test code = 9) 39 % IRON BINDING CAPACITY AND IRON AND % [id number] 00:00:00* Test Item Value Reference Range Interpretation Comme nts IRON, SERUM (test code = 2) 126 UG/DL UNSATURATED IBC (test code = 43273) 193 UG/DL CALC TOTAL IBC (test code = 7) 319 UG/DL CALC % IRON SAT (test code = 9) 39 % RETICULOCYTE [id number] 00:00:00* Test Item Value Reference Range Interpretation Comme nts RETICULOCYTE COUNT (test code = 1018) 1.2 % RETICULOCYTE [id number] 00:00:00* Test Item Value Reference Range Interpretation Comme nts RETICULOCYTE COUNT (test code = 1018) 1.2 % VITAMIN B 12 AND FOLIC [id number] 00:00:00* Test Item Value Reference Range Interpretation Comme nts VITAMIN B-12 (test code = 2840) 1049 PG/ML FOLIC ACID (test code = 2695) 7.2 UG/L VITAMIN B 12 AND FOLIC [id number] 00:00:00* Test Item Value Reference Range Interpretation Comme nts VITAMIN B-12 (test code = 2840) 1049 PG/ML FOLIC ACID (test code = 2695) 7.2 UG/L [id number] 00:00:00* Test Item Value Reference Range Interpretation Comme nts FERRITIN (test code = 2074) 65 NG/ML [id number] 00:00:00* Test Item Value Reference Range Interpretation Comme nts FERRITIN (test code = 2074) 65 NG/ML IRON BINDING CAPACITY AND IRON AND % [id number] 00:00:00* Test Item Value Reference Range Interpretation Comme nts IRON, SERUM (test code = 2) 126 UG/DL UNSATURATED IBC (test code = 99021) 193 UG/DL CALC TOTAL IBC (test code = 7) 319 UG/DL CALC % IRON SAT (test code = 9) 39 % IRON BINDING CAPACITY AND IRON AND % [id number] 00:00:00* Test Item Value Reference Range Interpretation Comme nts IRON, SERUM (test code = 2221) 126 UG/DL UNSATURATED IBC (test code = 94524) 193 UG/DL CALC TOTAL IBC (test code = 7) 319 UG/DL CALC % IRON SAT (test code = 9) 39 % RETICULOCYTE [id number] 00:00:00* Test Item Value Reference Range Interpretation Comme nts RETICULOCYTE COUNT (test code = 1018) 1.2 % RETICULOCYTE [id number] 00:00:00* Test Item Value Reference Range Interpretation Comme nts RETICULOCYTE COUNT (test code = 1018) 1.2 % VITAMIN B 12 AND FOLIC [id number] 00:00:00* Test Item Value Reference Range Interpretation [...] TSH (test code = 2821) 0.747 UIU/ML Eyad F AustinTHYROID II PROFILE (T3U, T4, T7, TSH)2016-10-09 00:00:00* [...] code = 2821) 0.747 UIU/ML CBC W/AUTO [id number] 00:00:00* Test Item Value Reference Range Interpretation [...] COUNT (test code = 1015) 228 K/UL Eyad ConradC W/AUTO [id number] 00:00:00* Test Item Value Reference Range Interpretation [...] code = 1015) 228 K/UL CBC W/AUTO [id number] 00:00:00* Test Item Value Reference Range Interpretation [...] code = 1015) 228 K/UL CBC W/AUTO [id number] 00:00:00* Test Item Value Reference Range Interpretation [...] code = 1015) 228 K/UL CBC W/AUTO [id number] 00:00:00* Test Item Value Reference Range Interpretation [...] code = 1015) 228 K/UL CBC W/AUTO [id number] 00:00:00* Test Item Value Reference Range Interpretation [...] code = 1015) 228 K/UL CBC W/AUTO [id number] 00:00:00* Test Item Value Reference Range Interpretation [...] (test code = 1015) 228 K/UL HEMOGLOBIN [id number] 00:00:00* Test Item Value Reference Range Interpretation Comme nts HEMOGLOBIN A1c (test code = 15742) 5.7 % Eyad F HoustonCOMPREHENSIVE METABOLIC [id number] 00:00:00* Test Item Value Reference Range Interpretation Comme nts GLUCOSE (test code = 2217) 103 MG/DL BUN (test code = 2208) 9 MG/DL CREATININE (test code = 2214) 0.88 MG/DL eGFR AMER. (test cod e = 27252) 114 ML/MIN/1.73 eGFR NON- AMER. (test code = 17469) 99 ML/MIN/1.73 CALC BUN/CREAT (test code = [...] ALT (test code = 2219) 28 U/L Eyad Boss [place] [id number] 00:00:00* Test Item Value Reference Range Interpretation Comme nts HEMOGLOBIN A1c (test code = 31458) 5.7 % COMPREHENSIVE METABOLIC [id number] 00:00:00* Test Item Value Reference Range Interpretation Comme nts GLUCOSE (test code = 2217) 103 MG/DL BUN (test code = 2208) 9 MG/DL CREATININE (test code = 2214) 0.88 MG/DL eGFR AMER. (test cod e = 09414) 114 ML/MIN/1.73 eGFR NON- AMER. (test code = 40726) 99 ML/MIN/1.73 CALC BUN/CREAT (test code = [...] code = 2219) 28 U/L COMPREHENSIVE METABOLIC [id number] 00:00:00* Test Item Value Reference Range Interpretation Comme nts GLUCOSE (test code = 2217) 103 MG/DL BUN (test code = 2208) 9 MG/DL CREATININE (test code = 2214) 0.88 MG/DL eGFR AMER. (test cod e = 75655) 114 ML/MIN/1.73 eGFR NON- AMER. (test code = 81546) 99 ML/MIN/1.73 CALC BUN/CREAT (test code = [...] (test code = 2219) 28 U/L HEMOGLOBIN [id number] 00:00:00* Test Item Value Reference Range Interpretation Comme nts HEMOGLOBIN A1c (test code = 15648) 5.7 % HEMOGLOBIN [id number] 00:00:00* Test Item Value Reference Range Interpretation Comme nts HEMOGLOBIN A1c (test code = 70787) 5.7 % HEMOGLOBIN [id number] 00:00:00* Test Item Value Reference Range Interpretation Comme nts HEMOGLOBIN A1c (test code = 98431) 5.7 % COMPREHENSIVE METABOLIC [id number] 00:00:00* Test Item Value Reference Range Interpretation Comme nts GLUCOSE (test code = 2217) 103 MG/DL BUN (test code = 2208) 9 MG/DL CREATININE (test code = 2214) 0.88 MG/DL eGFR AMER. (test cod e = 99751) 114 ML/MIN/1.73 eGFR NON- AMER. (test code = 47893) 99 ML/MIN/1.73 CALC BUN/CREAT (test code = [...] code = 2219) 28 U/L COMPREHENSIVE METABOLIC [id number] 00:00:00* Test Item Value Reference Range Interpretation Comme nts GLUCOSE (test code = 2217) 103 MG/DL BUN (test code = 2208) 9 MG/DL CREATININE (test code = 2214) 0.88 MG/DL eGFR AMER. (test cod e = 04436) 114 ML/MIN/1.73 eGFR NON- AMER. (test code = 91078) 99 ML/MIN/1.73 CALC BUN/CREAT (test code = [...] (test code = 2219) 28 U/L HEMOGLOBIN [id number] 00:00:00* Test Item Value Reference Range Interpretation Comme nts HEMOGLOBIN A1c (test code = 36951) 5.7 % HEMOGLOBIN [id number] 00:00:00* Test Item Value Reference Range Interpretation Comme nts HEMOGLOBIN A1c (test code = 20151) 5.7 % COMPREHENSIVE METABOLIC [id number] 00:00:00* Test Item Value Reference Range Interpretation Comme nts GLUCOSE (test code = 2217) 100 MG/DL BUN (test code = 2208) 12 MG/DL CREATININE (test code = 2214) 0.91 MG/DL eGFR AMER. (test cod e = 87923) 112 ML/MIN/1.73 eGFR NON- AMER. (test code = 84058) 97 ML/MIN/1.73 CALC BUN/CREAT (test code = [...] ALT (test code = 2219) 30 U/L Eyad Boss [place] [id number] 00:00:00* Test Item Value Reference Range Interpretation Comme nts HEMOGLOBIN A1c (test code = 01257) 6.1 % Eyad F AustinCOMPREHENSIVE METABOLIC [id number] 00:00:00* Test Item Value Reference Range Interpretation Comme nts GLUCOSE (test code = 2217) 100 MG/DL BUN (test code = 2208) 12 MG/DL CREATININE (test code = 2214) 0.91 MG/DL eGFR AMER. (test cod e = 86640) 112 ML/MIN/1.73 eGFR NON- AMER. (test code = 76909) 97 ML/MIN/1.73 CALC BUN/CREAT (test code = [...] code = 2219) 30 U/L COMPREHENSIVE METABOLIC [id number] 00:00:00* Test Item Value Reference Range Interpretation Comme nts GLUCOSE (test code = 2217) 100 MG/DL BUN (test code = 2208) 12 MG/DL CREATININE (test code = 2214) 0.91 MG/DL eGFR AMER. (test cod e = 12916) 112 ML/MIN/1.73 eGFR NON- AMER. (test code = 36603) 97 ML/MIN/1.73 CALC BUN/CREAT (test code = [...] (test code = 2219) 30 U/L HEMOGLOBIN [id number] 00:00:00* Test Item Value Reference Range Interpretation Comme nts HEMOGLOBIN A1c (test code = 65129) 6.1 % HEMOGLOBIN [id number] 00:00:00* Test Item Value Reference Range Interpretation Comme nts HEMOGLOBIN A1c (test code = 08569) 6.1 % HEMOGLOBIN [id number] 00:00:00* Test Item Value Reference Range Interpretation Comme nts HEMOGLOBIN A1c (test code = 46680) 6.1 % COMPREHENSIVE METABOLIC [id number] 00:00:00* Test Item Value Reference Range Interpretation Comme nts GLUCOSE (test code = 2217) 100 MG/DL BUN (test code = 2208) 12 MG/DL CREATININE (test code = 2214) 0.91 MG/DL eGFR AMER. (test cod e = 67839) 112 ML/MIN/1.73 eGFR NON- AMER. (test code = 79288) 97 ML/MIN/1.73 CALC BUN/CREAT (test code = [...] code = 2219) 30 U/L COMPREHENSIVE METABOLIC [id number] 00:00:00* Test Item Value Reference Range Interpretation Comme nts GLUCOSE (test code = 2217) 100 MG/DL BUN (test code = 2208) 12 MG/DL CREATININE (test code = 2214) 0.91 MG/DL eGFR AMER. (test cod e = 99940) 112 ML/MIN/1.73 eGFR NON- AMER. (test code = 81197) 97 ML/MIN/1.73 CALC BUN/CREAT (test code = [...] (test code = 2219) 30 U/L HEMOGLOBIN [id number] 00:00:00* Test Item Value Reference Range Interpretation Comme nts HEMOGLOBIN A1c (test code = 77974) 6.1 % HEMOGLOBIN [id number] 00:00:00* Test Item Value Reference Range Interpretation Comme nts HEMOGLOBIN A1c (test code = 10121) 6.1 % HEMOGLOBIN [id number] 00:00:00* Test Item Value Reference Range Interpretation Comme nts HEMOGLOBIN A1c (test code = 49156) 6.1 % COMPREHENSIVE METABOLIC [id number] 00:00:00* Test Item Value Reference Range Interpretation Comme nts GLUCOSE (test code = 2217) 94 MG/DL BUN (test code = 2208) 21 MG/DL CREATININE (test code = 2214) 1.0 MG/DL eGFR AMER. (test cod e = 37876) 95 ML/MIN/1.73 eGFR NON- AMER. (test code = 99217) 79 ML/MIN/1.73 CALCULATED BUN/CREAT (test code = [...] (ALT) (test code = 2219) 16 U/L Eyad Boss [place]HEMOGLOBIN [id number] 00:00:00* Test Item Value Reference Range Interpretation Comme [facility] HEMOGLOBIN A1c (test code = 45339) 6.1 % Eyad Boss AustinHEMOGLOBIN [id number] 00:00:00* Test Item Value Reference Range Interpretation Comme [facility] HEMOGLOBIN A1c (test code = 98601) 6.1 % COMPREHENSIVE METABOLIC [id number] 00:00:00* Test Item Value Reference Range Interpretation Comme nts GLUCOSE (test code = 2217) 94 MG/DL BUN (test code = 2208) 21 MG/DL CREATININE (test code = 2214) 1.0 MG/DL eGFR AMER. (test cod e = 14780) 95 ML/MIN/1.73 eGFR NON- AMER. (test code = 87575) 79 ML/MIN/1.73 CALCULATED BUN/CREAT (test code = [...] code = 2219) 16 U/L COMPREHENSIVE METABOLIC [id number] 00:00:00* Test Item Value Reference Range Interpretation Comme nts GLUCOSE (test code = 2217) 94 MG/DL BUN (test code = 2208) 21 MG/DL CREATININE (test code = 2214) 1.0 MG/DL eGFR AMER. (test cod e = 43985) 95 ML/MIN/1.73 eGFR NON- AMER. (test code = 17819) 79 ML/MIN/1.73 CALCULATED BUN/CREAT (test code = [...] (test code = 2219) 16 U/L HEMOGLOBIN [id number] 00:00:00* Test Item Value Reference Range Interpretation Comme nts HEMOGLOBIN A1c (test code = 68846) 6.1 % HEMOGLOBIN [id number] 00:00:00* Test Item Value Reference Range Interpretation Comme nts HEMOGLOBIN A1c (test code = 89691) 6.1 % HEMOGLOBIN [id number] 00:00:00* Test Item Value Reference Range Interpretation Comme nts HEMOGLOBIN A1c (test code = 87767) 6.1 % COMPREHENSIVE METABOLIC [id number] 00:00:00* Test Item Value Reference Range Interpretation Comme nts GLUCOSE (test code = 2217) 94 MG/DL BUN (test code = 2208) 21 MG/DL CREATININE (test code = 2214) 1.0 MG/DL eGFR AMER. (test cod e = 12755) 95 ML/MIN/1.73 eGFR NON- AMER. (test code = 39724) 79 ML/MIN/1.73 CALCULATED BUN/CREAT (test code = [...] code = 2219) 16 U/L COMPREHENSIVE METABOLIC [id number] 00:00:00* Test Item Value Reference Range Interpretation Comme nts GLUCOSE (test code = 2217) 94 MG/DL BUN (test code = 2208) 21 MG/DL CREATININE (test code = 2214) 1.0 MG/DL eGFR AMER. (test cod e = 15721) 95 ML/MIN/1.73 eGFR NON- AMER. (test code = 18134) 79 ML/MIN/1.73 CALCULATED BUN/CREAT (test code = [...] (test code = 2219) 16 U/L HEMOGLOBIN [id number] 00:00:00* Test Item Value Reference Range Interpretation Comme nts HEMOGLOBIN A1c (test code = 33713) 6.1 % HEMOGLOBIN [id number] 00:00:00* Test Item Value Reference Range Interpretation Comme nts HEMOGLOBIN A1c (test code = 31863) 6.1 % HEMOGLOBIN [id number] 00:00:00* Test Item Value Reference Range Interpretation Comme nts HEMOGLOBIN A1c (test code = 54491) 6.0 % Eyad F HoustonTHYROID II PROFILE (T3U, T4, T7, TSH)2014-09-19 00:00:00* Test Item Value Reference Range Interpretation Comme [facility] T3 UPTAKE (test code = 2817) 28.0 % T4 (THYROXINE) (test code = 2819) 6.8 UG/DL CALCULATED T7 (FTI) (test co de = 2820) 1.90 TSH (test code = 2821) 1.6 UIU/ML Eyad Boss HoustonCOMPREHENSIVE METABOLIC [id number] 00:00:00* Test Item Value Reference Range Interpretation Comme nts GLUCOSE (test code = 2217) 97 MG/DL BUN (test code = 2208) 28 MG/DL CREATININE (test code = 2214) 1.1 MG/DL eGFR AMER. (test cod e = 37402) 86 ML/MIN/1.73 eGFR NON- AMER. (test code = 04579) 71 ML/MIN/1.73 CALCULATED BUN/CREAT (test code = [...] (ALT) (test code = 2219) 18 U/L Eyad ConradCBC W/AUTO [id number] 00:00:00* Test Item Value Reference Range Interpretation [...] COUNT (test code = 1015) 293 K/UL Eyad ConradLIPID [id number] 00:00:00* Test Item Value Reference Range Interpretation Comme nts CHOLESTEROL (test code = 2210) 173 MG/DL TRIGLYCERIDES (test code = 2232) 56 MG/DL HDL CHOLESTEROL (test code = 2220) 58 MG/DL CALCULATED LDL CHOL (test co de = 2237) 104 MG/DL RISK RATIO LDL/HDL (test cod e = 2238) 1.79 RATIO Eyad ConradHEMOGLOBIN [id number] 00:00:00* Test Item Value Reference Range Interpretation Comme nts HEMOGLOBIN A1c (test code = 28154) 6.0 % THYROID II PROFILE (T3U, T4, [...] code = 2821) 1.6 UIU/ML COMPREHENSIVE METABOLIC [id number] 00:00:00* Test Item Value Reference Range Interpretation Comme nts GLUCOSE (test code = 2217) 97 MG/DL BUN (test code = 2208) 28 MG/DL CREATININE (test code = 2214) 1.1 MG/DL eGFR AMER. (test cod e = 68583) 86 ML/MIN/1.73 eGFR NON- AMER. (test code = 07436) 71 ML/MIN/1.73 CALCULATED BUN/CREAT (test code = [...] code = 2219) 18 U/L COMPREHENSIVE METABOLIC [id number] 00:00:00* Test Item Value Reference Range Interpretation Comme nts GLUCOSE (test code = 2217) 97 MG/DL BUN (test code = 2208) 28 MG/DL CREATININE (test code = 2214) 1.1 MG/DL eGFR AMER. (test cod e = 27722) 86 ML/MIN/1.73 eGFR NON- AMER. (test code = 57480) 71 ML/MIN/1.73 CALCULATED BUN/CREAT (test code = [...] code = 2219) 18 U/L CBC W/AUTO [id number] 00:00:00* Test Item Value Reference Range Interpretation [...] code = 1015) 293 K/UL CBC W/AUTO [id number] 00:00:00* Test Item Value Reference Range Interpretation [...] code = 1015) 293 K/UL CBC W/AUTO [id number] 00:00:00* Test Item Value Reference Range Interpretation [...] (test code = 1015) 293 K/UL LIPID [id number] 00:00:00* Test Item Value Reference Range Interpretation Comme nts CHOLESTEROL (test code = 2210) 173 MG/DL TRIGLYCERIDES (test code = 2232) 56 MG/DL HDL CHOLESTEROL (test code = 2220) 58 MG/DL CALCULATED LDL CHOL (test co de = 2237) 104 MG/DL RISK RATIO LDL/HDL (test cod e = 2238) 1.79 RATIO LIPID [id number] 00:00:00* Test Item Value Reference Range Interpretation Comme nts CHOLESTEROL (test code = 2210) 173 MG/DL TRIGLYCERIDES (test code = 2232) 56 MG/DL HDL CHOLESTEROL (test code = 2220) 58 MG/DL CALCULATED LDL CHOL (test co de = 2237) 104 MG/DL RISK RATIO LDL/HDL (test cod e = 2238) 1.79 RATIO HEMOGLOBIN [id number] 00:00:00* Test Item Value Reference Range Interpretation Comme nts HEMOGLOBIN A1c (test code = 59522) 6.0 % HEMOGLOBIN [id number] 00:00:00* Test Item Value Reference Range Interpretation Comme nts HEMOGLOBIN A1c (test code = 58279) 6.0 % HEMOGLOBIN [id number] 00:00:00* Test Item Value Reference Range Interpretation Comme nts HEMOGLOBIN A1c (test code = 54135) 6.0 % THYROID II PROFILE (T3U, T4, [...] code = 2821) 1.6 UIU/ML COMPREHENSIVE METABOLIC [id number] 00:00:00* Test Item Value Reference Range Interpretation Comme nts GLUCOSE (test code = 2217) 97 MG/DL BUN (test code = 2208) 28 MG/DL CREATININE (test code = 2214) 1.1 MG/DL eGFR AMER. (test cod e = 09239) 86 ML/MIN/1.73 eGFR NON- AMER. (test code = 34387) 71 ML/MIN/1.73 CALCULATED BUN/CREAT (test code = [...] code = 2219) 18 U/L COMPREHENSIVE METABOLIC [id number] 00:00:00* Test Item Value Reference Range Interpretation Comme nts GLUCOSE (test code = 2217) 97 MG/DL BUN (test code = 2208) 28 MG/DL CREATININE (test code = 2214) 1.1 MG/DL eGFR AMER. (test cod e = 88694) 86 ML/MIN/1.73 eGFR NON- AMER. (test code = 51938) 71 ML/MIN/1.73 CALCULATED BUN/CREAT (test code = [...] code = 2219) 18 U/L CBC W/AUTO [id number] 00:00:00* Test Item Value Reference Range Interpretation [...] code = 1015) 293 K/UL CBC W/AUTO [id number] 00:00:00* Test Item Value Reference Range Interpretation [...] code = 1015) 293 K/UL CBC W/AUTO [id number] 00:00:00* Test Item Value Reference Range Interpretation [...] (test code = 1015) 293 K/UL LIPID [id number] 00:00:00* Test Item Value Reference Range Interpretation Comme nts CHOLESTEROL (test code = 2210) 173 MG/DL TRIGLYCERIDES (test code = 2232) 56 MG/DL HDL CHOLESTEROL (test code = 2220) 58 MG/DL CALCULATED LDL CHOL (test co de = 2237) 104 MG/DL RISK RATIO LDL/HDL (test cod e = 2238) 1.79 RATIO LIPID [id number] 00:00:00* Test Item Value Reference Range Interpretation Comme nts CHOLESTEROL (test code = 2210) 173 MG/DL TRIGLYCERIDES (test code = 2232) 56 MG/DL HDL CHOLESTEROL (test code = 2220) 58 MG/DL CALCULATED LDL CHOL (test co de = 2237) 104 MG/DL RISK RATIO LDL/HDL (test cod e = 2238) 1.79 RATIO HEMOGLOBIN [id number] 00:00:00* Test Item Value Reference Range Interpretation Comme nts HEMOGLOBIN A1c (test code = 85200) 6.0 % HEMOGLOBIN [id number] 00:00:00* Test Item Value Reference Range Interpretation Comme nts HEMOGLOBIN A1c (test code = 10936) 6.0 % Notes Date/Time Note Provider Source 2023-07-28 00:00:00 3cdC+Gvz7qEpaD5yew4QH/q5uduXA54s1wW h48B5HvaIAwBCUI02WIq0JhQ1/P6k7978-6 02T00:00:00+ +-------- ----+| Plan Activity | Plan Date |+ + +| hctz 12.5 mg to BID AND continue amlodipine 10 mg qd | 2015-01-22 || losartan ??? | || stop LISINOPRIL/HCTZ 10/12.5 MG QD | || | || Eat a low salt and low fat diet. | || Use DASH (Dietary Approach to Stopping Hypertension) eating plan. | || Eat vegetables, fruits, and whole grains. Include fat-free or low-fat dairy | || products, fish, poultry, beans, nuts, and vegetable oils. | || Limit foods that are high in saturated fat, such as fatty meats, full-fat dairy | || products, and tropical oils such as coconut, palm kernel, and palm oils. Limit | || sugar-sweetened beverages and sweets. Eat foods low in sodium. Avoid canned or | || processed food. | || Identify and manage outside sources of stress. | || Keep blood pressure log and bring to next office visit | || Get at least 30 minutes a day of aerobic exercise (brisk walking). | || Weight loss can help lower blood pressure. | || Smoking cessation - if you smoke, try to stop. | || Alcohol moderation - Have no more than 1 alcohol drink a day for women and 2 | || alcohol drinks a day for men. | || Log blood pressure at home and bring to next visit. | || Contact clinic if BP >160/90 or < 100/60 | |+ + +| Sutures removed. Wound care reviewed. Follow-up as needed. | 2015-05-05 |+ + +| cipro- HC 0.2-1 % 4 drops twice daily to the right ear x 7 days | 2015-12-02 || avoid prolonged ear exposure to warm humid climate . | || keep the ear clean and dry . | || use cotton wick to facilitate passage of medication to the ear canal | || RTC failure to improve symptoms or any worsening symptoms | |+ + +| Control portions , manage weight | 2015-12-02 || Increase Exercise to 3-5 times a week for at least 45 minutes | || High Fiber Low Calorie Diet Reduce Carbohydrates | || Increase Vegetables 5-6 small healthy meals a day | || Discussed the risks involved in increasing weight and insulin resistance | || Appended: 2016-04-28 | || Control portions , manage weight | || Increase Exercise to 3-5 times a week for at least 45 minutes | || Discussed the risks involved in increasing weight and insulin resistance | |+ + +| LIPID | 2016-09-08 |+ + +| Weight decreased by 7 lbs for the past 10 months | 2016-10-07 || CBC and Thyroid profile. results pending | || EKG - done in May 2016 - NSR | || avoid stress , stay hydrated , adequate sleep | || RTC as needed for any worsening or new symptoms | || Appended: 2017-08-09 | || Labs: CBC, CMP, TSH, Lipid panel, A1c | || | || Stress reduction techniques. | || Eat healthy diet with daily activity. | |+ + +| LIPID-fasting | 2017-04-15 || | || Continue atorvastatin 10 mg ( mod int statin for now) qd po | || s/e of meds discussed with tp | || | || | || | || | || | || Increase Exercise to 3-5 times a week for at least 45 minutes | || High Fiber Low Calorie Diet | || Reduce Carbohydrates | || Increase Vegetables | || 5-6 small healthy meals a day | || Plan pending diagnostic results. | |+ + +| control portions , manage weight | 2017-04-15 || discuss the risk involved in increasing weight and insulin resistance | |+ + +| Start Benzonatate and Promethazine. | 2017-06-23 || If no improvement, RTC. | |+ + +| TB screening via PPD testing. | 2017-11-01 || We can also test the TB quantiferon gold as he states that he was living with | || his hmofytm-mt-cbi who had TB. | || Advised patient to get the chest xray done, referral was made at the last visit | || due to his persistent cough, though the intensity has decreased. | || Screen for HIV & Hepatitis C. | |+ + +| FIT CARD | 2017-11-01 |+ + +| Check Testosterone level. | 2017-11-01 |+ + +| PSA | 2017-11-01 |+ + +| NFBS - 168 | 2019-02-28 || Labs: A1C - ordered per patient request | || A1C on 09/12/19 5.6 % | || Refilled Metformin 500mg daily | || Plan pending diagnostic results | |+ + +| Exercise counseling given to patient. | 2019-05-31 |+ + +| Nutritional counseling given to patient for healthy lifestyle. | 2019-05-31 |+ + +| Recommend smaller portion sizes. Avoid fast food. | 2020-07-30 |+ + +| terbinafine HCl 250 mg tablet qd po | 2020-07-30 || s/e of meds discussed with pt | || Will check LFT in 6 weeks. | || CMP | |+ + +| Shingrix #1 /Flu shot | 2021-02-17 || side effects to administration of vaccine explained. | || | || PT informed to RTC in 2-6 months for Shingrix #2 | |+ + +| A1C | 2021-02-17 || metformin 500 mg tablet qd po | || s/e of meds discussed with pt | |+ + +| Refer to audiology/ENT | 2021-11-12 |+ + +| Continue with loratidine take as directed | 2022-12-01 |+ + +| Pataday eye drops take as directed. | 2022-12-01 |+ + +| resolved | 2023-04-19 || acetaminophen take as directed | || paracetamol tablets 500mg and a cream called daktarin miconazol pt did blood | || work in [place] | || pt states that medication helps for the burning lips and tongue | |+ + +| resolved | 2023-04-19 || acetaminophen take as directed | || paracetamol tablets 500mg and a cream called daktarin miconazol pt did blood | || work in [place] | || pt states that medication helps for the burning lips and tongue | |+ + +| CBC | 2023-05-10 |+ + +| POST ER [facility] 06/03/2023 [facility] | 2023-06-07 || abd pain and burning mouth syndrome | |+ + +| STAT ABD US | 2023-06-07 || Pantoprazole 40 mg qd | || Famotidine 40 mg qd | || s/e of meds discussed | || refer to [facility] | |+ + +| Pantoprazole 40 mg qd | 2023-06-07 || Famotidine 40 mg qd | || s/e of meds discussed | || refer to [facility] | |+ + +[id number] Plan of TreatmentLNCARE PLANTXTSFA|[id number] [id number] for patient ijzvVzpdtyfLhhoyvpjlEWARy74 Section NarrativeNARRATIVEFormatted C-CDA narrative textSMesilla Valley Hospitalliliake Mccurdy [facility]2024-05-02T00:00:00 Eyad Mccurdy [facility] 2023-06-04 01:29:16 6bLb+Fm3NTycNLt7T0yR2o+wbHxBv4NVdKX DZRUekcMs+hgKXMq6KmcgmCBl+C/15370-9 06-03T01:29:16 Pt given printed and verbal discharge instructions [...] w/d, pt leaving in no apparent distress, 97077-9Wfdqiqqhp department UzehEM2888-49-68Y12:30:36[facility] NoteTXT1.2.840.785151.1.13.104.2.7. 2.658582|[id number] for patient ppeu23648-9ZsxhVBEQOFEBZOCIfjwjdiuy C-CDA narrative [id number] R Shehadeh RNUT[address] StreetVj[id number] 8HJNKQWEQXIJOJERUTFTCQB0934-94-54M8 1:30:361.2.840.557712.1.72.3.15|1.2 .840.203658.1.13.104.2.7.2.727879_2 [id number] Pippa Parra RN [facility] 2023-06-03 22:33:49 P/w21k67j5eBz9PFgP9fyuCizvTX9/xMCPM 0dQIrvPESdC/Gd1/LVf3LXi7uaJVi0441-1 06-02T22:33:49 Patient ambulatory to ED c/o abd and mouth pain. Patient states the abd pain is not present right now but his lips are "hot" and "tongue is red." Patient is taking new medication but doesn't know the name of it. This is his third time here. 75093-7Uicxaseyl department Triage clklMJ9316-23-28V51:40:10Emergency department Triage noteTXT1.2.840.216451.1.13.104.2.7. 2.561824|[id number] for patient nmei89275-8Zvmqbxdna department NoteLNNARRATIVEFormatted C-CDA narrative [id number]-Ppstw Prasanna RN[address] Iy[id number] 8OVLXGPNCUSTGWLSZEKUCUJ0058-82-57V6 2:40:101.2.840.985894.1.72.3.15|1.2 .840.711460.1.13.104.2.7.2.727879_2 [id number] Yan Mims RN [facility] 2023-06-03 22:27:00 yVvDAxUgbMX7Pf788q0N2KcI+/3ZwuvAm9S fdWIOgPcc9bIY0Ud9tE5yNhbD67o97827-0 2:27:00 [facility] Emergency Department NotePatient Name: Zeke Leigh of : 1965 58 year old maleTreatment Room: [facility] Record Number: [id number] Care Physician: DEANDRE JonesPatient Escorted by: Family [5]Mode of Arrival: Personal means [1]EMS Treatment Prior to ED Arrival:ALEMITE OPERATOR treatment: NoneTravel and Exposure Screening:SymptomsDoes patient have [...] (*) 0.01 - 0.09 10*3/uLCOMP. METABOLIC PANEL (17753) - AbnormalNA 138 135 - 145 mmol/LK [...] 45 (*) 13 - 40 U/LeGFR 92.2 mL/min/1.07i5LDPTN DRUG (IMMUNOASSAY) - COMPREHENSIVE DRUG SCREEN - NormalAMPHET Negative NegativeBARB U Negative NegativeBENZO U Negative NegativeCocaine Metabolite Negative NegativeMETHADONE Negative NegativeOPIATES Negative NegativePCP Negative NegativeTHC Negative NegativeETHANOLALCOHOL <10 mg/dLTHYROID STIMULATING HORMONEEKG:If EKG completed, see Procedure Note.Orders and Treatments:Orders Placed This EncounterProcedures Cbc with Diff Comp. Metabolic Panel (84124) Urine Drug (Immunoassay) - Comprehensive Drug Screen Ethanol Thyroid Stimulating HormoneNo orders of the defined types were placed in this encounter.First Provider Eval:ED EventsNoneED COURSEDiagnosis/Impression as of 06/04/23 0111Abdominal pain, unspecified abdominal locationBurning mouth syndromeProcedures:ProceduresMDM:Sc dical Decision MakingAmount and/or Complexity of Data ReviewedLabs: [...] fileFollow-up: PCPElectronically signed by:Samuel Donato MD06/04/23 0106 [id number] Emergency department [id number]:06:46Physician Emergency department [id number]. [id number] for patient [id number] [place] [address] NoteLNNARRATIVEFormatted C-CDA narrative text[address] [id number] 1:06:461.2.840.446588.1.72.3.15|1.2 .840.7[id number]_2 [id number] [facility] 2023-05-31 19:33:39 45IROxJiyA/[id number] 9RLLu2PYRlFqdvitHcZiysjUhnQmm8096-4 9:33:39 Pt discharged with diagnosis of mouth pain. Printed and verbal instructions reviewed with and given to pt. Prescriptions given x 0. Pt verbalized understanding of teaching and recommended follow-up. Denies questions or concerns at this time. Pt ambulatory at discharge. Appears in no apparent distress. No ataxia noted. [id number] [place] [address] WwuyVP5714-69-82I97:34:02[facility] NoteTXT1.2.840.838100.1.13.104.2.7. 2.228600|[id number] for patient ahny82435-2RpebLDYFWCHOQRFDtovjufkb C-CDA narrative [id number] R [place] RNMAC[id number] 0EQNIYXWVCMXEAKTWEDKZSW0380-50-83J9 9:34:021.2.840.537886.1.72.3.15|1.2 .840.123089.1.13.104.2.7.2.727879_2 [id number] Aniya Al RN [facility] 2023-05-31 17:21:16 HbMuapOsEe4mp8PX4SuiBgx1dqoTUuohruQ zfEaiuhgMmDjOY2oK67RpJj3mMQMX6022-6 7:21:16 Patient states: "I feel fire on my mouth since 1 month now. I was seen already for the same thing a week ago, prescribed with antibiotics but it's not helping." 56244-4Nobcecvvf department Triage vmznTB5572-38-74I49:23:12[facility] Triage noteTXT1.2.840.146628.1.13.104.2.7. 2.866657|[id number] for patient hsdn58029-6Keixkfhuj department NoteLNNARRATIVEFormatted C-CDA narrative [id number] C Heredia RN[address] Nz[id number] 5MQJSBBIWGEAWDHABJTYQLW5311-30-15W0 7:23:121.2.840.150318.1.72.3.15|1.2 .840.981507.1.13.104.2.7.2.727879_2 [id number] Anabella Laguerre RN [facility] 2023-05-21 11:01:55 sMvZ09LnAVauPlvtseVbmuM+E3aTSp1aYJQ LbFXC/lgLVMz9K+W5N8n6Fc/Ke+RP4618-4 1:01:55 Pt given discharge instructions on heartburn. Given prescription X 1 for protonix. Pt advised to follow up with pcp. Pt left ER ambulatory with steady gait. No signs of distress. 08811-6Scinlitpx department RsjoBA6256-59-99U07:02:33[facility] NoteTXT1.2.840.789517.1.13.104.2.7. 2.503083|[id number] for patient gldg33355-1BhfyPSRGPDUZVYIDpihyevvg C-CDA narrative textUT[id number] 2RQYXVEYYYGBUMQFUKLBJZY3982-99-06S6 1:02:331.2.840.082399.1.72.3.15|1.2 .840.633896.1.13.104.2.7.2.727879_2 [id number] [facility] 2023-05-21 10:32:14 yMuD6+PVOFzs3EgLyfRUfo4r5VFk+tm1K+i 82mPCezdrIvrGL3k5yDgP0bJ8PtDs0178-5 05-21T10:32:14 Patient states: "My tongue is very hot and my lips are hot. My stomach hurts. I went to my doctor in [place] and she gave me a lot of papers but she didn't find anything"Reports symptoms for 10 days. Worse today. 88831-2Vikkwncks department Triage stfkAO9298-26-41P25:34:28[facility] Triage noteTXT1.2.840.189903.1.13.104.2.7. 2.460154|[id number] for patient kbjb72397-9Juwrocobv department NoteLNNARRATIVEFormatted C-CDA narrative [id number] M Cruz RNUT[id number] 2LRTSEBVBTHXMUOLUJYPQWR8707-30-56I0 0:34:281.2.840.876860.1.72.3.15|1.2 .840.065050.1.13.104.2.7.2.727879_2 [id number] Morena Ibanez RN [facility]
--- NOTE | 2023-08-08 11:31 | ER ---
Nurse's Notes [facility] Name: Zeke Weinstein Age: 58 yrs Sex: Male : 1965 Arrival Date: 08/08/2023 Time: 11:08 Bed IW2 Private MD: Diagnosis: Trigeminal neuralgia Presentation: 08/07 11:21 Chief complaint: Patient states: LEFT FACE AND TONGUE NUMBNESS x 2 MONTHS. Coronavirus bp screen: At this time, the client does not indicate any symptoms associated with coronavirus-19. Ebola Screen: No symptoms or risks identified at this time. Initial Sepsis Screen: Does the patient meet any 2 criteria? No. Patient's initial sepsis screen is negative. Does the patient have a suspected source of infection? No. Patient's initial sepsis screen is negative. Risk Assessment: Do you want to hurt yourself or someone else? Patient reports no desire to harm self or others. Onset of symptoms is unknown. 11:21 Method Of Arrival: Ambulatory bp 11:21 Acuity: CHARISSA 3 bp Triage Assessment: :23 General: Appears in no apparent distress. Behavior is calm, cooperative, appropriate bp for age. Pain: Denies pain. Neuro: Reports numbness in left ear, left cheek and left jaw. GI: No signs and/or symptoms were reported involving the gastrointestinal system. Historical: - Allergies: : No Known Allergies; bp - PMHx: 11:23 diabetes mellitus; Hypertensive disorder; bp - Immunization history:: Adult Immunizations up to date. - Infectious Disease History:: Denies. - Social history:: Smoking status: Patient denies any tobacco usage or history of. Screenin: [facility] ED Fall Risk Assessment (Adult) History of falling in the last 3 months, bp including since admission No falls in past 3 months (0 pts). Abuse screen: Denies threats or abuse. Denies injuries from another. Nutritional screening: No deficits noted. Tuberculosis screening: No symptoms or risk factors identified. Assessment: : General: Appears in no apparent distress. uncomfortable, Behavior is calm, cooperative, bp appropriate for age. Vital Signs: 11: BP 183 / 97; Pulse 81; Resp 16; Temp 98; Pulse Ox 100% ; bp NIH Stroke Scale Scores: : NIHSS Score: 0 [facility] ED Course: 11:12 Patient arrived in ED. mr 11:15 Heide Rivera, JOCELYNE [facility] 7 11:15 Isac Acevedo DO is Attending Physician. jh7 11:23 Triage completed. bp 11:26 Arm band placed on. bp 11:26 Patient has correct armband on for positive identification. bp 11:29 No provider procedures requiring assistance completed. Patient did not have IV access bp during this emergency room visit. 11:37 Jose Angel Churchill, RN is Primary Nurse. bp Administered Medications: No medications were administered Medication: 11:38 VIS not applicable for this client. bp Outcome: 11:30 Discharge ordered by MD. jh7 11:37 Discharged to home ambulatory, bp 11:37 Condition: stable 11:37 Discharge instructions given to patient, Instructed on discharge instructions, follow up and referral plans. medication usage, Demonstrated understanding of instructions, follow-up care, medications, Prescriptions given X 1, 11:38 Patient left the ED. bp NIH Stroke Scale - NIH Stroke Score Date: 08/08/2023 Time: 11:21 Total Score = 0 10. Dysarthria (speech clarity - read or repeat words) - 0(Normal) 11. Extinction and Inattention (visual/tactile/auditory/spatial/personal) - 0(No abnormality) 1a. Level of Consciousness (LOC) - 0(Alert) 1b. Level of Consciousness (LOC) (Month \T\ Age) - 0(Both) 1c. LOC Commands (Open \T\ Closes Eyes/Occupational Therapy Technician) - 0(Both) 2. Best Gaze (Lateral Gaze Paresis) - 0(Normal) 3. Visual Field Loss - 0(No visual loss) 4. Facial Palsy - 0(Normal) 5a. Left Arm: Motor (10-second hold) - 0(No drift) 5b. Right Arm: Motor (10-second hold) - 0(No drift) 6a. Left Leg: Motor (5-second hold - always test supine) - 0(No drift) 6b. Right Leg: Motor (5-second hold - always test supine) - 0(No drift) 7. Limb Ataxia (finger/nose \T\ heel/jaime - test with eyes open) - 0(Absent) 8. Sensory Loss (pinprick arms/legs/face) - 0(Normal) 9. Best Language: Aphasia (description/naming/reading) - 0(No aphasia) Initials: 7 Signatures: Zahra Browning, Reg Reg Jose Angel Castillo, RN RN Heide Chino, FACING GRINDER FACING GRINDER jh7
--- NOTE | 2023-08-08 11:31 | EDPHYS ---
Physician Documentation [facility] Name: Zeke Weinstein Age: 58 yrs Sex: Male : 1965 Arrival Date: 08/08/2023 Time: 11:08 Bed IW2 Private MD: ED Physician Isac Acevedo HPI: 08/07 11:21 This 58 yrs old Male presents to ER via Ambulatory with complaints of Pain Of jh7 Face, Tongue numbness. 11:21 Onset: The symptoms/episode began/occurred 2 month(s) ago. 58-year-old male with a past [facility] medical history of diabetes and hypertension presents to the ER complaining of left-sided tongue numbness and left facial pain for the past 2 months. He reports that 2 months ago he was treated for herpes zoster with a medication in [place] and a cream. Reports that the pain shoots across his face to his ear and that hot/cold foods and teeth brushing worsen the pain. Denies chest pain, unilateral weakness, speech changes, shortness of breath, dizziness, headache, or any other symptoms.. Historical: - Allergies: 11:23 No Known Allergies; bp - PMHx: 11:23 diabetes mellitus; Hypertensive disorder; bp - Immunization history:: Adult Immunizations up to date. - Infectious Disease History:: Denies. - Social history:: Smoking status: Patient denies any tobacco usage or history of. ROS: 11:21 Constitutional: Per HPI jh7 Exam: 11:21 Constitutional: This is a well developed, well nourished patient who is awake, alert, jh7 and in no acute distress. Head/Face: Normocephalic, atraumatic. Neck: Trachea midline, no thyromegaly or masses palpated, and no cervical lymphadenopathy. Supple, full range of motion without nuchal rigidity, or vertebral point tenderness. No Meningismus. Cardiovascular: Regular rate and rhythm with a normal S1 and S2. No gallops, murmurs, or rubs. Normal PMI, no JVD. No pulse deficits. Respiratory: Lungs have equal breath sounds bilaterally, clear to auscultation and percussion. No rales, rhonchi or wheezes noted. No increased work of breathing, no retractions or nasal flaring. Abdomen/GI: Soft, non-tender, with normal bowel sounds. No distension or tympany. No guarding or rebound. No evidence of tenderness throughout. Back: No spinal tenderness. No costovertebral tenderness. Full range of motion. Skin: Warm, dry with normal turgor. Normal color with no rashes, no lesions, and no evidence of cellulitis. MS/ Extremity: Pulses equal, no cyanosis. Neurovascular intact. Full, normal range of motion. Neuro: Awake and alert, GCS 15, oriented to person, place, time, and situation. Cranial nerves II-XII grossly intact. Motor strength 5/5 in all extremities. Sensory grossly intact. Cerebellar exam normal. Normal gait. Vital Signs: 11:21 BP 183 / 97; Pulse 81; Resp 16; Temp 98; Pulse Ox 100% ; bp NIH Stroke Scale Scores: 11:21 NIHSS Score: 0 jh7 MDM: 11:15 Patient medically screened. [facility] 11:20 Differential diagnosis: viral Infection, Shingles, trigeminal neuralgia, Mckeon's palsy. [facility] Data reviewed: vital signs, nurses notes. Care significantly affected by the following chronic conditions: Diabetes, Hypertension. Counseling: I had a detailed discussion with the patient and/or guardian regarding the historical points, exam findings, and any diagnostic results supporting the discharge/admit diagnosis, to return to the emergency department if symptoms worsen or persist or if there are any questions or concerns that arise at home. Special discussion: Advised the patient to monitor blood sugar closely due to steroids causing hyperglycemia. Patient reports that his symptoms have not changed over the past 2 months and his neurological exam was normal. PCP follow-up advised.. Administered Medications: No medications were administered Disposition: 18:15 I was immediately available on-site in the Emergency Department for consultation in the ms3 care of the patient. Disposition Summary: 08/08/23 11:30 Discharge Ordered Notes: Location: Home [facility] Problem: an ongoing problem [facility] Symptoms: are unchanged [facility] Condition: Stable [facility] Diagnosis - Trigeminal neuralgia [facility] Followup: [facility] - With: Private Physician - When: 2 - 3 days - Reason: Recheck today's complaints Discharge Instructions: - Discharge Summary Sheet [facility] - Neuropathic Pain 7 - Trigeminal Neuralgia [facility] Forms: - Medication Reconciliation Form [facility] - Patient Portal Instructions [facility] - Leadership Thank You Letter [facility] Prescriptions: - Prednisone 20 mg Oral Tablet - take 2 tablets ORAL route once daily for 5 days; 10 tablet; Refills: 0, Product jh7 Selection Permitted NIH Stroke Scale - NIH Stroke Score Date: 08/08/2023 Time: 11:21 Total Score = 0 10. Dysarthria (speech clarity - read or repeat words) - 0(Normal) 11. Extinction and Inattention (visual/tactile/auditory/spatial/personal) - 0(No abnormality) 1a. Level of Consciousness (LOC) - 0(Alert) 1b. Level of Consciousness (LOC) (Month \T\ Age) - 0(Both) 1c. LOC Commands (Open \T\ Closes Eyes/Transportation Escort) - 0(Both) 2. Best Gaze (Lateral Gaze Paresis) - 0(Normal) 3. Visual Field Loss - 0(No visual loss) 4. Facial Palsy - 0(Normal) 5a. Left Arm: Motor (10-second hold) - 0(No drift) 5b. Right Arm: Motor (10-second hold) - 0(No drift) 6a. Left Leg: Motor (5-second hold - always test supine) - 0(No drift) 6b. Right Leg: Motor (5-second hold - always test supine) - 0(No drift) 7. Limb Ataxia (finger/nose \T\ heel/jaime - test with eyes open) - 0(Absent) 8. Sensory Loss (pinprick arms/legs/face) - 0(Normal) 9. Best Language: Aphasia (description/naming/reading) - 0(No aphasia) Initials: [facility] Signatures: Jose Angel Churchill, RN RN Isac Navarrete, DO FARAH ms3 Heide Rivera, TRAIN DIRECTOR TRAIN DIRECTOR [facility]
[2023-08-08 11:50] VITALS: BP 183/97; TEMP 98; O2SAT 100
== END 2023-08-08 11:38 | disposition home or self-care (01) ==
LOC: ER 11:08
DX: G50.0 Trigeminal neuralgia (principal)
CPT/HCPCS: 99283

== ENCOUNTER 2023-09-14 07:09 | Emergency (ER) | payer OTHER, SELFPAY ==
--- OUTSIDE RECORDS SUMMARY | 2023-09-14 07:19 | XMS REPORT | Continuity of Care Document ---
Author Name Unknown Address [address] [facility] [address] [place] [address] [facility] thconnect Address [address] [facility]. [address] [place] [address] Care Team Providers Care Varnisher Apprentice Name Role Phone ROMEDEANDRE Primary Care Physician Unavailab SAMUEL Singh Attending Clinician Unavailable Samuel Donato MD Attending Clinician [phone] Vanesa MOY Attending Clinician Unavailable Vanesa Thornton Attending Clinician [phone] JEZ LINN Attending Clinician Unavailable Jez Linn PA-C Attending Clinician [phone] Payers Payer Name Policy Type Policy Number Effective Date Expirati on Date Source MEDICAID ALIEN PENDING PENDING 2023 00:00:00 Allergies, Adverse Reactions, Alerts Allergy Name Allergy Type Status Severity Reaction(s) Onset Date Inactive Date Treating Clinician Comments Source NO KNOWN ALLERGIE S Drug Class Active [facility] Social History Social Habit Start Date Stop Date Quantity Comments Source Sexual orientation [facility] Sex Assigned At 1965 00:00:00 1965 00:00:00 [facility] Smoking Status Start Date Stop Date Source Tobacco smoking consumption unknown [facility] Medications Ordered Medication Name Filled Medication Name Start Date Stop Date Current Medication? Ordering Clinician Indication Dosage Frequency Signature (SIG) Comments Components Source acetaminoph en 500 mg tablet 07-27 00:00: 00 Yes 1mg Eyad F [place] Oravig 50 mg buccal tablet - 00:00: 00 Yes 1mg Eyad Conrad TAKE 1 TABLET BY MOUTH EVERY 12 HOURS FOR 5 DAYS 3-29 00:00: 00 Yes Eyad Conrad TAKE 1 TABLET BY MOUTH EVERY 8 HOURS NEEDED FOR PAIN 3-21 00:00: 00 Yes Eyad Conrad TAKE 2 CAPSULES BY MOUTH NOW THEN ONE CAPSULE EVERY 8 HOURS FOR 7 DAYS -18 00:00: 00 Yes Eyad Conrad pantoprazol e 40 mg tablet,sarah beth yed release -12 00:00: 00 Yes 1mg Eyad Conrad famotidine 40 mg tablet -12 00:00: 00 Yes 1mg Eyad Conrad gabapentin 100 mg capsule - 00:00: 00 Yes 1mg Eyad Conrad pantoprazol e (PROTONIX) 40 mg EC tablet -09 00:00: 00 Yes [id number] 40mg Take 1 tablet by mouth daily. [facility] TAKE 1 TABLET BY MOUTH ONCE DAILY FOR 30 DAYS - 00:00: 00 Yes Eyad Conrad pantoprazol e 40 mg EC tablet 24 00:00: 00 06-20 04:59 :00 No [id number] 40mg Take 1 tablet by mouth daily for 30 days. [facility] TAKE 1 TABLET DAILY. 05-16 00:00: [...] 05-04 00:00: 00 07-27 00:00 :00 No [id number] Eyad Conrad TAKE 1 TABLET DAILY. 2-07 [...] 25 Eyad Conrad TAKE 1 TABLET DAILY. 12-13 00:00: 00 Yes 125 Eyad Conrad TAKE 1 TABLET DAILY. 9-06 00:00: 00 07-27 00:00 :00 No 500 Eyad Conrad TAKE 1 TABLET DAILY. -06 00:00: 00 07-27 00:00 :00 No 125 Eyad Conrad TAKE 1 TABLET DAILY. 9 00:00: 00 07-27 00:00 :00 No 25 Eyad Conrad INSTILL 1 DROP INTO BOTH EYES TWICE DAILY NEEDED AT 6-8 HOUR INTERVALS. 9-06 00:00: 00 07-27 00:00 :00 No 1 Eyad Conrad TAKE 1 TABLET DAILY. 16 00:00: 00 07-27 00:00 :00 No 500 Eyad Conrad TAKE 1 TABLET DAILY. 3-16 00:00: 00 07-27 00:00 :00 No 10 Eyadke Conrad TAKE 1 TABLET DAILY. -16 00:00: 00 07-27 00:00 :00 No [id number] Eyadke Conrad TAKE 1 TABLET DAILY. 0 3-16 00:00: 00 07-27 00:00 :00 No 10 Eyad Conrad TAKE 1 TABLET DAILY. 2021-03 2-06 00:00: 00 07-27 00:00 :00 No [id number] Eyad Conrad amlodipine 10 mg tablet 0 5-18 00:00: 00 Yes 1mg Eyad Conrad metformin 500 mg tablet 0 5-18 00:00: 00 Yes 1mg Eyad Conrad atorvastati n 10 mg tablet 0 18 00:00: 00 Yes 1mg Eyad Conrad Dose Unknown 0 -18 00:00: 00 Yes Eyad Conrad Dose Unknown 0 18 00:00: 00 Yes Eyad Conrad Dose Unknown 0 18 00:00: 00 Yes Eyad Conrad amlodipine 10 mg tablet 0 -18 00:00: 00 No 1mg metformin 500 mg tablet 2021-0 -18 00:00: 00 No 1mg atorvastati n 10 mg tablet 0 18 00:00: 00 No 1mg Dose Unknown 0 -18 00:00: 00 No Dose Unknown 0 -18 00:00: 00 No Dose Unknown 0 -18 00:00: 00 No amlodipine 10 mg tablet 0 -18 00:00: 00 No 1mg metformin 500 mg tablet 2021-0 -18 00:00: 00 No 1mg atorvastati n [...] No 1mg Dose Unknown 04-19 00:00: 00 Yes Eyad Conrad amlodipine 10 [...] No 1mg rosuvastati n 20 mg tablet 2 00:00: 00 Yes 1mg Eyad Conrad Dose Unknown 2- 00:00: 00 Yes Eyad Boss [place] rosuvastati n 20 mg tablet 2- 00:00: 00 No 1mg Dose Unknown - 00:00: 00 No rosuvastati n 20 mg tablet 2- 00:00: 00 No 1mg lisinopril 2.5 mg tablet 2- 00:00: 00 No 1mg metformin 500 mg tablet 2- 00:00: 00 Yes 1mg Eyad Conrad Dose Unknown 2- 00:00: 00 Yes Eyad Karyn [place] amlodipine 10 mg tablet 2- 00:00: 00 Yes 1mg Eyad Karyn [place] metformin 500 mg tablet 2- 00:00: [...] Conrad hydrochloro thiazide 12.5 mg tablet 0 4- 00:00: 00 Yes 1mg Eyad Conrad amlodipine 10 mg tablet 0 4-03 00:00: 00 No 1mg hydrochloro thiazide 12.5 [...] tablet 04-28 00:00: 00 Yes 1mg Eyad Conrda lisinopril 20 mg-hydrochl orothiazide 12.5 mg tablet [...] Date Status Comments Source Influenza, injectable, Madin Blanche Canine Kidney, preservative-free, quadrivalent Influenza, injectable, Madin Blanche Canine Kidney, preservative-free, quadrivalent 2022-12-10 00:00:00 Completed Eyad Conrad TD, NOS Unknown Completed [facility] SARS-COV-2 COVID-19 PFIZER VACCINE Unknown Completed [facility] SARS-COV-2 COVID-19 PFIZER VACCINE Unknown Completed [facility] TD, NOS Unknown Completed [facility] SARS-COV-2 COVID-19 PFIZER VACCINE Unknown Completed [facility] SARS-COV-2 COVID-19 PFIZER VACCINE Unknown Completed [facility] TD, NOS Unknown Completed [facility] SARS-COV-2 COVID-19 PFIZER VACCINE Unknown Completed [facility] SARS-COV-2 COVID-19 PFIZER VACCINE Unknown Completed [facility] Vital Signs Vital Name Observation Time Observation Value Sonia french Systolic blood pressure 2023-06-04 07:24:00 157 mm[Hg] [facility] Diastolic blood pressure 2023-06-04 07:24:00 82 mm[Hg] [facility] Heart rate 2023-06-04 07:24:00 72 /min Unive [facility] Body temperature 2023-06-04 07:24:00 36.89 Sherri [facility] Respiratory rate 2023-06-04 07:24:00 18 /min [facility] Oxygen saturation in Arterial blood by Pulse oximetry 2023-06-04 07:24:00 97 /min [facility] Body height 2023-06-04 04:37:[address] [facility] Body weight 2023-06-04 04:37:[address] [facility] BMI 2023-06-04 04:37:00 26.00 kg/m2 [facility] Systolic blood pressure 2023-05-31 23:23:00 190 mm[Hg] [facility] Diastolic blood pressure 2023-05-31 23:23:00 100 mm[Hg] [facility] Heart rate 2023-05-31 23:23:00 86 /min Unive [facility] Body temperature 2023-05-31 23:23:00 36.61 Sherri [facility] Respiratory rate 2023-05-31 23:23:00 19 /min [facility] Body height 2023-05-31 23:23:[address] [facility] Body weight 2023-05-31 23:23:[address] [facility] BMI 2023-05-31 23:23:00 24.86 kg/m2 [facility] Oxygen saturation in Arterial blood by Pulse oximetry 2023-05-31 23:23:00 100 /min [facility] Systolic blood pressure 2023-05-21 16:35:00 175 mm[Hg] [facility] Diastolic blood pressure 2023-05-21 16:35:00 81 mm[Hg] [facility] Heart rate 2023-05-21 16:35:00 85 /min [facility] Body temperature 2023-05-21 16:35:00 36.61 Sherri [facility] Respiratory rate 2023-05-21 16:35:00 16 /min [facility] Body height 2023-05-21 16:35:[address] [facility] Body weight 2023-05-21 16:35:[address] [facility] BMI 2023-05-21 16:35:00 25.18 kg/m2 [facility] Oxygen saturation in Arterial blood by Pulse oximetry 2023-05-21 16:35:00 97 /min [facility] BP Systolic 2023-07-28 09:06:00 161 mm[Hg] Step hen F [facility] BP Diastolic 2023-07-28 09:06:00 80 mm[Hg] Devin phen Karyn Conrad Weight Measured 2023-07-28 09:06:00 154.80 pounds Eyad Conrad Height Measured 2023-07-28 09:06:00 65.00 inches Eyad Boss [place] Body Temperature 2023-07-28 09:06:00 97.30 degrees Eyad Conrad Heart Rate 2023-07-28 09:06:00 63.00 /min Merari en F [place] Respiratory Rate 2023-07-28 09:06:00 18.00 /min Eyad Karyn Conrad BP Systolic 2023-06-07 09:07:00 172 mm[Hg] Step hen Karyn Conrad BP Diastolic 2023-06-07 09:07:00 87 mm[Hg] Devin phen Karyn Conrad Weight Measured 2023-06-07 09:07:00 155.20 pounds Eyad Conrad Height Measured 2023-06-07 09:07:00 65.00 inches Eyad Conrad Body Temperature 2023-06-07 09:07:00 98.80 degrees Eyad F [place] Heart Rate 2023-06-07 09:07:00 79.00 /min Merari [...] 2023-04-19 14:10:00 74.00 /min Merari en F [place] Respiratory Rate 2023-04-19 14:10:00 Eyad F [place] [...] en F [place] Respiratory Rate 2022-06-10 09:21:00 Eayd F [place] BP Systolic 2022-03-02 08:22:00 129 mm[Hg] Step hen F [place] BP Diastolic 2022-03-02 08:22:00 63 mm[Hg] Devin phen F [place] Weight Measured 2022-03-02 08:22:00 150.80 pounds Eyad Conrad Height Measured 2022-03-02 08:22:00 65.00 inches Eyad Karyn Conrad Body Temperature 2022-03-02 08:22:00 97.80 degrees Eyad F [place] Heart Rate 2022-03-02 08:22:00 67.00 /min Merari en F [place] Respiratory Rate 2022-03-02 08:22:00 24.00 /min Eyad F [place] BP Systolic 2022-02-16 08:41:00 171 mm[Hg] Step hen F [place] BP Diastolic 2022-02-16 08:41:00 75 mm[Hg] Devin Conrad Weight Measured 2022-02-16 08:41:00 154.20 pounds Eyad Conrad Height Measured 2022-02-16 08:41:00 65.00 inches Eyad Conrad Body Temperature 2022-02-16 08:41:00 97.60 degrees Eyad Karyn Conrad Heart Rate 2022-02-16 08:41:00 63.00 /min Merari en F [place] Respiratory Rate 2022-02-16 08:41:00 25.00 /min Eyad [...] Date / Time Performed Performing Clinician Source [id number] Ultrasound, Abdominal, Real Time With Image Documentation; Complete 2023-06-09 00:00:00 Eyad Conrad COMP. METABOLIC PANEL (21639) 2023-06-04 05:13:00 Samuel Donato [facility] ETHANOL 2023-06-04 05:13:00 Samuel Donato [facility] URINE DRUG (IMMUNOASSAY) - COMPREHENSIVE DRUG SCREEN 2023-06-04 05:13:00 Samuel Donato [facility] CBC WITH DIFF 2023-06-04 05:13:00 Samuel Donato [facility] CONSENT/REFUSAL FOR DIAGNOSIS AND TREATMENT 2023-06-04 04:27:24 Doctor Unassigned, [place] [facility] ASSIGNMENT OF BENEFITS 2023-06-01 00:26:23 Docto r Unassigned, [place] [facility] CONSENT/REFUSAL FOR DIAGNOSIS AND TREATMENT 2023-05-31 23:10:49 Doctor Unassigned, [place] [facility] ASSIGNMENT OF BENEFITS 2023-05-21 17:01:51 Docto r Unassigned, [place] [facility] CONSENT/REFUSAL FOR DIAGNOSIS AND TREATMENT 2023-05-21 16:29:51 Doctor Unassigned, [place] [facility] [address] Ecg Routine Ecg W/least 12 Lds W/i r 2016-04-28 00:00:00 Eyad Conrad Plan of Care Planned Activity Planned Date Details Comments Source Goal Plan of Care Note [code = 88388-2] Goal Plan of Care Note [code = 20222-3] Goal Plan of Care Note [code = 90200-0] Goal Plan of Care Note [code = 89337-1] Goal Plan of Care Note [code = 63087-8] Goal Plan of Care Note [code = 33798-6] Goal Plan of Care Note [code = 53910-4] Goal Plan of Care Note [code = 35515-6] Goal Plan of Care Note [code = 83020-6] Goal Plan of Care Note [code = 54917-6] Goal Plan of Care Note [code = 25096-6] Goal Plan of Care Note [code = 78899-9] Goal Plan of Care Note [code = 17235-0] Goal Plan of Care Note [code = 00637-4] Goal Plan of Care Note [code = 15659-3] Goal Plan of Care Note [code = 21170-5] Goal Plan of Care Note [code = 99313-6] Goal Plan of Care Note [code = 64959-1] Goal Plan of Care Note [code = 48305-5] Goal Plan of Care Note [code = 22429-6] Goal Plan of Care Note [code = 60515-4] Goal Plan of Care Note [code = 96779-6] Goal Plan of Care Note [code = 85688-7] Goal Plan of Care Note [code = 82165-9] Goal Plan of Care Note [code = 42483-5] Goal Plan of Care Note [code = 31572-5] Goal Plan of Care Note [code = 01624-2] Goal Plan of Care Note [code = 08148-4] Goal Plan of Care Note [code = 54089-0] Goal Plan of Care Note [code = 50947-4] Goal Plan of Care Note [code = 16805-6] Goal Plan of Care Note [code = 59016-8] Goal Plan of Care Note [code = 93136-9] Goal Plan of Care Note [code = 96250-0] Goal Plan of Care Note [code = 72616-3] Goal Plan of Care Note [code = 28962-7] Goal Plan of Care Note [code = 56808-3] Goal Plan of Care Note [code = 47145-4] Goal Plan of Care Note [code = 71734-7] Goal Plan of Care Note [code = 43801-3] Goal Plan of Care Note [code = 64667-0] Goal Plan of Care Note [code = 75415-6] Goal Plan of Care Note [code = 64956-7] Goal Plan of Care Note [code = 84598-5] Encounters Start Date/Time End Date/Time Encounter Type Admission Type Attending [facility] Care Facility Care Department Encounter ID Source 2023-07-28 09:03:39 2023-07-28 09:03:39 Outpatient [facility] [id number] Eyad Conrad 2023-07-28 00:00:00 2023-07-28 00:00:00 Outpatient Visit [facility] [id number] Eyad Conrad 2023-06-14 16:16:59 2023-06-14 16:16:59 Outpatient [facility] [id number] Eyad Conrad 2023-06-09 10:33:48 2023-06-09 10:33:48 Outpatient [facility] [id number] Eyad Conrad 2023-06-07 08:58:09 2023-06-07 08:58:09 Outpatient [facility] [id number] Eyad Conrad 2023-06-03 22:44:00 2023-06-04 01:31:00 Emergency X SAMUEL DONATO [facility] ERT [id number] [facility] 2023-06-03 22:44:00 2023-06-04 01:31:00 Emergency Samuel Donato [facility] [id number] [facility] 2023-05-31 17:24:00 2023-05-31 19:34:00 Emergency X Vanesa MOY [facility] ERT [id number] [facility] 2023-05-31 17:24:00 2023-05-31 19:34:00 Emergency Vanesa Moy Zuleyka [facility] [id number] [id number] [facility] 2023-05-26 08:34:48 2023-05-26 08:34:48 Outpatient [facility] [id number] Eyad Conrad 2023-05-21 10:37:00 2023-05-21 11:12:00 Emergency X JEZ LINN [facility] ERT [id number] [facility] 2023-05-21 10:37:00 2023-05-21 11:12:00 Emergency Jez Linn [facility] [id number] [id number] [id number] [facility] 2023-05-16 08:24:25 2023-05-16 08:24:25 Outpatient [facility] [id number] Eyad Conrad 2023-05-10 13:40:06 2023-05-10 13:40:06 Outpatient [facility] [id number] Eyad Conrad 2023-05-05 08:27:35 2023-05-05 08:27:35 Outpatient [facility] [id number] Eyad Conrad 2023-05-04 08:10:10 2023-05-04 08:10:10 Outpatient [facility] [id number] Eyad Conrad 2023-04-27 09:55:09 2023-04-27 09:55:09 Outpatient [facility] [id number] Eyad Conrad 2023-04-19 14:10:10 2023-04-19 14:10:10 Outpatient [facility] [id number] Eyad Conrad 2022-12-13 08:54:24 2022-12-13 08:54:24 Outpatient [facility] [id number] Eyad Conrad 2022-12-10 11:54:29 2022-12-10 11:54:29 Outpatient [facility] [id number] Eyad Conrad 2022-12-01 08:12:56 2022-12-01 08:12:56 Outpatient [facility] [id number] Eyad Conrad 2022-09-17 09:25:24 2022-09-17 09:25:24 Outpatient [facility] [id number] Eyad Boss [place] 2022-06-10 09:17:18 2022-06-10 09:17:18 Outpatient [facility] [id number] Eyad Conrad 2022-02-16 08:35:46 2022-02-16 08:35:46 Outpatient [facility] [id number] Eyad Conrad 2022-02-12 10:32:05 2022-02-12 10:32:05 Outpatient [facility] [id number] Eyad Boss [place] 2022-02-09 08:23:36 2022-02-09 08:23:36 Outpatient [facility] [id number] Eyad Conrad 2022-02-09 00:00:00 2022-02-09 00:00:00 Outpatient Visit [id number] 2021-11-12 00:00:00 2021-11-12 00:00:00 Outpatient Visit [id number] Results Test Description Test Time Test Comments Results Resul t Comments Source Ethanol 2023-06-04 06:06:20 ALCOHOL<10mg/dL0 06/04/2023 12:06 [facility] [id number] Toxic>100 Depression of [employer]ST[employer] 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 The reference range was not used to interpret this result as normal/abnormal. GRAN MAT (NEUT) % (test code = 770-8) 46.2 % IMM GRAN % (test code = 1600467265) 0.20 % LYMPH % (test code = 736-9) 34.3 % MONO % (test code = 5905-5) 7.2 % EOS % (test code = 713-8) 10.6 % BASO % (test code = 706-2) 1.5 % GRAN MAT x10^3(ANC) (test code = 3113459718) 3.79 10*3/uL 1.99-6.95 IMM GRAN x10^3 (test code = 7166868268) 0.00-0.06 LYMPH x10^3 (test code = 731-0) 2.82 10*3/uL 1.09-3.23 MONO x10^3 (test code = 742-7) 0.59 10*3/uL 0.36-1.02 EOS x10^3 (test code = 711-2) 0.87 10*3/uL 0.06-0.53 H BASO x10^3 (test code = 704-7) 0.12 10*3/uL 0.01-0.09 H Lab Interpretation (test code = 64652-5) [facility]normal [facility] Fecal, [id number] 00:00:00* Test Item Value Reference Range Interpretation Comme nts Occult Blood, Fecal, [place] (camron t code = 82003-8) Negative Eyad ConradROBERT[place] W/AUTO DIFF WITH [id number] 14:03:44* Test Item Value Reference Range Interpretation [...] 0.00-0.10 ABS NUCLEATED RBCS (test code = 20575) 0.00 K/UL 0.00-0.11 UNLESS OTHER RAMOS INDICATED, ALL TESTING PERFORMED AT [facility] [address] [place] [address] CHILD CARE GIVER: SIVA MCCRARY M.D. CLIA NUMBER [id number] [facility] [place]. [id number] CBC W/AUTO [id number] 00:00:00* Test Item Value Reference Range Interpretation [...] ABS NUCLEATED RBCS (test cod e = 70583) 0.00 K/UL [id number] 05:26:13* Test Item Value Reference Range Interpretation Comme nts VITAMIN B-12 (test code = 2840) 511 PG/ML 200-950 UNLESS OTHERWISE INDICATED, ALL TESTING PERFORMED AT [facility] [address] [place] [address] CHILD CARE GIVER: SIVA MCCRARY M.D. CLIA NUMBER [id number] [facility] [place]. [id number] LIPID [id number] 04:46:42* Test Item Value Reference Range Interpretation [...] SPECIMENS. FOR MOREINFORMATION, SEE CLIENT ANNOUNCEMENT AT [email or web address] RISK RATIO LDL/HDL (test code = 2237) 1.62 RATIO <3.55 COMPREHENSIVE METABOLIC [id number] 04:46:42* Test Item Value Reference Range Interpretation Comme nts GLUCOSE (test code = 2216) 136 MG/DL 70-99 H BUN (test code = 2207) 12 MG/DL 6-20 CREATININE (test code = 2213) 0.85 MG/DL 0.80-1.40 eGFR (2020 CKD-EPI) (test code = 66945) 100 ML/MIN/1.73 >60 CALC BUN/CREAT (test code [...] code = 2218) 15 U/L 5-50 HEMOGLOBIN [id number] 02:47:17* Test Item Value Reference Range Interpretation Comme nts HEMOGLOBIN A1c (test code = 61800) 6.8 % 4.2-5.6 H [employer] [employer] [facility] [employer] GUIDELINES FOR HGB A1C: [...] CONSIDER ALTERNATE TESTING OR LABORATORY CONSULTATION. HEMOGLOBIN [id number] 00:00:00* Test Item Value Reference Range Interpretation Comme [facility] HEMOGLOBIN A1c (test code = 64094) 6.8 % Eyad Boss AustinLIPID [id number] 00:00:00* Test Item Value Reference Range Interpretation Comme nts CHOLESTEROL (test code = 2210) 151 MG/DL TRIGLYCERIDES (test code = 2232) 69 MG/DL HDL CHOLESTEROL (test code = 2220) 52 MG/DL CALC LDL CHOL (test code = 2237) 84 MG/DL RISK RATIO LDL/HDL (test cod e = 2238) 1.62 RATIO Eyad ConradCOMPREHENSIVE METABOLIC [id number] 00:00:00* Test Item Value Reference Range Interpretation Comme nts GLUCOSE (test code = 2217) 136 MG/DL BUN (test code = 2208) 12 MG/DL CREATININE (test code = 2214) 0.85 MG/DL eGFR (2020 CKD-EPI) (test code = 14086) 100 ML/MIN/1.73 CALC BUN/CREAT (test code = [...] code = 2219) 15 U/L Eyad Stephens [id number] 00:00:00* Test Item Value Reference Range Interpretation Commjuan alberto dominguez VITAMIN B-12 (test code = 2840) 511 PG/ML Eyad CalderonPES SIMPLEX AB, [id number] 13:50:57* Test Item Value Reference Range Interpretation Comme nts HERPES SIMPLEX AB, IgM (test code = 34672) 0.34 INDEX SEE BELOW INTERPRETATION U NITS RANGE ----- ----- NEGATIVE INDEX <=0.89 EQUIVOCAL INDEX 0.90-1.09 POSITIVE INDEX >=1.10 HERPES SIMPLEX 1/2 AB, IgG [id number] 06:48:26* Test Item Value Reference Range Interpretation Comme nts HERPES SIMPLEX 1 AB, IgG (test code = 70777) 101.000 INDEX SEE BELOW H INTERPRETATION U NITS RANGE ----- ----- NON-REACTIVE INDEX <1.000 REACTIVE INDEX >=1.000 HERPES SIMPLEX 2 AB, IgG (test code = 10732) 0.074 INDEX SEE BELOW INTERPRETATION U NITS RANGE ----- ----- NON-REACTIVE INDEX <1.000 REACTIVE INDEX >=1.000 UNLESS OTHERWISE INDICATED, ALL TESTING PERFORMED AT [facility] [address] [place] [address] CHILD CARE GIVER: SIVA MCCRARY M.D. CLIA NUMBER [id number] [facility] [place]. [id number] HERPES SIMPLEX [id number] 00:00:00* Test Item Value Reference Range Interpretation Comme nts HERPES SIMPLEX AB, IgM (test code = 36194) 0.34 INDEX Eyad ConradHERPES SIMPLEX 1/2 [id number] 00:00:00* Test Item Value Reference Range Interpretation Comme nts HERPES SIMPLEX 1 AB, IgG (te st code = 92808) 101.000 INDEX HERPES SIMPLEX 2 AB, IgG (te st code = 23329) 0.074 INDEX Eyad AcevesSilvano, [id number] 09:46:33* Test Item Value Reference Range Interpretation Comme nts PSA, TOTAL (test code = 2606) 1.54 NG/ML See_Comment NOTE: Methodolog y is Dorita Ella Electrochemiluminescence Immunoassay traceable to WHO reference standard 96/760. UNLESS OTHERWISE INDICATED, ALL TESTING PERFORMED AT [facility] [address] [place] [id number] CHILD CARE GIVER: SIVA MCCRARY M.D. [place] NUMBER [id number] [facility] [place]. [id number] [Automated message] The system which generated this result transmitted reference range: <=4.00. The reference range was not used to interpret this result as normal/abnormal. COMPREHENSIVE METABOLIC [id number] 06:14:06* Test Item Value Reference Range Interpretation Comme nts GLUCOSE (test code = 2217) 127 MG/DL 70-99 H BUN (test code = 2207) 22 MG/DL 6-20 H CREATININE (test code = 2214) 1.12 MG/DL 0.80-1.40 eGFR (2020 CKD-EPI) (test code = 97515) 76 ML/MIN/1.73 >60 CALC BUN/CREAT (test code [...] normal/abnormal. ALKALINE PHOSPHATASE (test code = 2203) 74 U/L 40-123 AST (test code = 2218) 17 U/L 9-50 ALT (test code = 2219) 22 U/L 5-50 LIPID [id number] 06:14:06* Test Item Value Reference Range Interpretation [...] SPECIMENS. FOR MOREINFORMATION, SEE CLIENT ANNOUNCEMENT AT [email or web address] RISK RATIO LDL/HDL (test code = 2238) 1.61 RATIO <3.55 HEMOGLOBIN [id number] 02:39:27* Test Item Value Reference Range Interpretation Comme nts HEMOGLOBIN A1c (test code = 11915) 6.2 % 4.2-5.6 H [employer] GUIDELINES FOR HGB A1C: [...] ALTERNATE TESTING OR LABORATORY CONSULTATION. COMPREHENSIVE METABOLIC [id number] 00:00:00* Test Item Value Reference Range Interpretation Comme nts GLUCOSE (test code = 2217) 127 MG/DL BUN (test code = 2208) 22 MG/DL CREATININE (test code = 2214) 1.12 MG/DL eGFR (2020 CKD-EPI) (test co de = 01331) 76 ML/MIN/1.73 CALC BUN/CREAT (test code = [...] code = 2219) 22 U/L Eyad ConradLIPID [id number] 00:00:00* Test Item Value Reference Range Interpretation Comme nts CHOLESTEROL (test code = 2210) 176 MG/DL TRIGLYCERIDES (test code = 2232) 79 MG/DL HDL CHOLESTEROL (test code = 2220) 61 MG/DL CALC LDL CHOL (test code = 2237) 98 MG/DL RISK RATIO LDL/HDL (test cod e = 2238) 1.61 RATIO Eyad ConradHEMOGLOBIN [id number] 00:00:00* Test Item Value Reference Range Interpretation Comme alberto HEMOGLOBIN A1c (test code = 25308) 6.2 % Eyad ConradPSA, [id number] 00:00:00* Test Item Value Reference Range Interpretation Comme alberto PSA, TOTAL (test code = 2606) 1.54 NG/ML Eyad ConradCOMPREHENSIVE METABOLIC [id number] 05:48:28* Test Item Value Reference Range Interpretation Comme nts GLUCOSE (test code = 2217) 120 MG/DL 70-99 H BUN (test code = 2208) 18 MG/DL 6-20 CREATININE (test code = 2214) 0.94 MG/DL 0.80-1.40 eGFR (2020 CKD-EPI) (test code = 19131) 94 ML/MIN/1.73 >60 CALC BUN/CREAT (test code [...] code = 2218) 19 U/L 5-50 LIPID [id number] 05:48:28* Test Item Value Reference Range Interpretation Comme nts CHOLESTEROL (test code = 2210) 169 MG/DL <200 TRIGLYCERIDES (test code = [...] SPECIMENS. FOR MOREINFORMATION, SEE CLIENT ANNOUNCEMENT AT [email or web address] RISK RATIO LDL/HDL (test code = 2238) 1.92 RATIO <3.55 HEMOGLOBIN [id number] 04:51:08* Test Item Value Reference Range Interpretation Comme nts HEMOGLOBIN A1c (test code = 72715) 6.5 % 4.2-5.6 H [employer] GUIDELINES FOR HGB A1C: [...] ETC.). CONSIDER ALTERNATE TESTING OR LABORATORY CONSULTATION. [facility] has important pathology staff changes effective 05/26/2022. New pathology staff will provide uninterrupted, excellent patient care and clinical consultation. See URL: [email or web address]. UNLESS OTHERWISE INDICATED, ALL TESTING PERFORMED AT [facility] [address] [place] [id number] CHILD CARE GIVER: SIVA MCCRARY M.D. CLIA NUMBER [id number] [facility] [place]. [id number] COMPREHENSIVE METABOLIC [id number] 00:00:00* Test Item Value Reference Range Interpretation Comme nts GLUCOSE (test code = 2217) 120 MG/DL BUN (test code = 2208) 18 MG/DL CREATININE (test code = 2214) 0.94 MG/DL eGFR (2020 CKD-EPI) (test co de = 61961) 94 ML/MIN/1.73 CALC BUN/CREAT (test code = [...] (test code = 2219) 19 U/L Eyad Boss AustinLIPID [id number] 00:00:00* Test Item Value Reference Range Interpretation Comme nts CHOLESTEROL (test code = 2210) 169 MG/DL TRIGLYCERIDES (test code = 2232) 56 MG/DL HDL CHOLESTEROL (test code = 2220) 53 MG/DL CALC LDL CHOL (test code = 2237) 102 MG/DL RISK RATIO LDL/HDL (test cod e = 2238) 1.92 RATIO Eyad Boss AustinHEMOGLOBIN [id number] 00:00:00* Test Item Value Reference Range Interpretation Comme nts HEMOGLOBIN A1c (test code = 83592) 6.5 % Eyad Boss AustinLIPID [id number] 00:00:00* Test Item Value Reference Range Interpretation Comme nts CHOLESTEROL (test code = 2210) 150 MG/DL TRIGLYCERIDES (test code = 2232) 74 MG/DL HDL CHOLESTEROL (test code = 2220) 57 MG/DL CALC LDL CHOL (test code = 2237) 78 MG/DL RISK RATIO LDL/HDL (test cod e = 2238) 1.37 RATIO Eyad Boss AustinHEMOGLOBIN [id number] 00:00:00* Test Item Value Reference Range Interpretation Comme nts HEMOGLOBIN A1c (test code = 27337) 6.5 % Eyad Boss AustinHEMOGLOBIN [id number] 03:54:42* Test Item Value Reference Range Interpretation Comme nts HEMOGLOBIN A1c (test code = 90718) 6.5 % 4.2-5.6 H [employer] GUIDELINES FOR HGB A1C: [...] CONSULTATION. UNLESS OTHERWISE INDICATED, [facility] [address] [place] [id number] CHILD CARE GIVER: DENY MCKEON M.D. CLIA NUMBER [id number] [facility] [place]. [id number] COMPREHENSIVE METABOLIC [id number] 03:41:22* Test Item Value Reference Range Interpretation [...] code = 2218) 24 U/L 5-50 LIPID [id number] 03:41:22* Test Item Value Reference Range Interpretation [...] SPECIMENS. FOR MOREINFORMATION, SEE CLIENT ANNOUNCEMENT AT [email or web address] RISK RATIO LDL/HDL (test code = 223) 1.28 RATIO <3.55 COMPREHENSIVE METABOLIC [id number] 00:00:00* Test Item Value Reference Range Interpretation Comme nts GLUCOSE (test code = 2217) 109 MG/DL BUN (test code = 2208) 20 MG/DL CREATININE (test code = 2214) 1.15 MG/DL eGFR (2020 CKD-EPI) (test co de = 25090) 74 ML/MIN/1.73 CALC BUN/CREAT (test code = [...] = 2219) 24 U/L Eyad Boss AustinLIPID [id number] 00:00:00* Test Item Value Reference Range Interpretation Comme nts CHOLESTEROL (test code = 2210) 135 MG/DL TRIGLYCERIDES (test code = 2232) 55 MG/DL HDL CHOLESTEROL (test code = 2220) 53 MG/DL CALC LDL CHOL (test code = 2237) 68 MG/DL RISK RATIO LDL/HDL (test cod e = 2238) 1.28 RATIO Eyad ConradHEMOGLOBIN [id number] 00:00:00* Test Item Value Reference Range Interpretation Comme nts HEMOGLOBIN A1c (test code = 89628) 6.5 % Eyad Boss AustinLIPID [id number] 00:00:00* Test Item Value Reference Range Interpretation Comme nts CHOLESTEROL (test code = 2210) 135 MG/DL TRIGLYCERIDES (test code = 2232) 55 MG/DL HDL CHOLESTEROL (test code = 2220) 53 MG/DL CALC LDL CHOL (test code = 2237) 68 MG/DL RISK RATIO LDL/HDL (test cod e = 2238) 1.28 RATIO LIPID [id number] 00:00:00* Test Item Value Reference Range Interpretation Comme nts CHOLESTEROL (test code = 2210) 135 MG/DL TRIGLYCERIDES (test code = 2232) 55 MG/DL HDL CHOLESTEROL (test code = 2220) 53 MG/DL CALC LDL CHOL (test code = 2237) 68 MG/DL RISK RATIO LDL/HDL (test cod e = 2238) 1.28 RATIO HEMOGLOBIN [id number] 00:00:00* Test Item Value Reference Range Interpretation Comme nts HEMOGLOBIN A1c (test code = 79896) 6.5 % HEMOGLOBIN [id number] 00:00:00* Test Item Value Reference Range Interpretation Comme nts HEMOGLOBIN A1c (test code = 44657) 6.5 % HEMOGLOBIN [id number] 00:00:00* Test Item Value Reference Range Interpretation Comme nts HEMOGLOBIN A1c (test code = 75760) 6.5 % COMPREHENSIVE METABOLIC [id number] 00:00:00* Test Item Value Reference Range Interpretation Comme nts GLUCOSE (test code = 2217) 109 MG/DL BUN (test code = 2208) 20 MG/DL CREATININE (test code = 2214) 1.15 MG/DL eGFR (2020 CKD-EPI) (test co de = 08434) 74 ML/MIN/1.73 CALC BUN/CREAT (test code = [...] code = 2219) 24 U/L COMPREHENSIVE METABOLIC [id number] 00:00:00* Test Item Value Reference Range Interpretation Comme nts GLUCOSE (test code = 2217) 109 MG/DL BUN (test code = 2208) 20 MG/DL CREATININE (test code = 2214) 1.15 MG/DL eGFR (2020 CKD-EPI) (test co de = 10330) 74 ML/MIN/1.73 CALC BUN/CREAT (test code = [...] (test code = 2219) 24 U/L LIPID [id number] 00:00:00* Test Item Value Reference Range Interpretation Comme nts CHOLESTEROL (test code = 2210) 135 MG/DL TRIGLYCERIDES (test code = 2232) 55 MG/DL HDL CHOLESTEROL (test code = 2220) 53 MG/DL CALC LDL CHOL (test code = 2237) 68 MG/DL RISK RATIO LDL/HDL (test cod e = 2238) 1.28 RATIO LIPID [id number] 00:00:00* Test Item Value Reference Range Interpretation Comme nts CHOLESTEROL (test code = 2210) 135 MG/DL TRIGLYCERIDES (test code = 2232) 55 MG/DL HDL CHOLESTEROL (test code = 2220) 53 MG/DL CALC LDL CHOL (test code = 2237) 68 MG/DL RISK RATIO LDL/HDL (test cod e = 2238) 1.28 RATIO HEMOGLOBIN [id number] 00:00:00* Test Item Value Reference Range Interpretation Comme nts HEMOGLOBIN A1c (test code = 11418) 6.5 % HEMOGLOBIN [id number] 00:00:00* Test Item Value Reference Range Interpretation Comme nts HEMOGLOBIN A1c (test code = 45165) 6.5 % HEMOGLOBIN [id number] 00:00:00* Test Item Value Reference Range Interpretation Comme nts HEMOGLOBIN A1c (test code = 71543) 6.5 % COMPREHENSIVE METABOLIC [id number] 00:00:00* Test Item Value Reference Range Interpretation Comme nts GLUCOSE (test code = 2217) 109 MG/DL BUN (test code = 2208) 20 MG/DL CREATININE (test code = 2214) 1.15 MG/DL eGFR (2020 CKD-EPI) (test co de = 70189) 74 ML/MIN/1.73 CALC BUN/CREAT (test code = [...] code = 2219) 24 U/L COMPREHENSIVE METABOLIC [id number] 00:00:00* Test Item Value Reference Range Interpretation Comme nts GLUCOSE (test code = 2217) 109 MG/DL BUN (test code = 2208) 20 MG/DL CREATININE (test code = 2214) 1.15 MG/DL eGFR (2020 CKD-EPI) (test co de = 83715) 74 ML/MIN/1.73 CALC BUN/CREAT (test code = [...] code = 2219) 24 U/L COMPREHENSIVE METABOLIC [id number] 00:00:00* Test Item Value Reference Range Interpretation Comme nts GLUCOSE (test code = 2217) 121 MG/DL BUN (test code = 2208) 12 MG/DL CREATININE (test code = 2214) 1.05 MG/DL eGFR AMER. (test cod e = 37552) 91 ML/MIN/1.73 eGFR NON- AMER. (test code = 01082) 78 ML/MIN/1.73 CALC BUN/CREAT (test code = [...] (test code = 2219) 23 U/L Eyad F AustinLIPID [id number] 00:00:00* Test Item Value Reference Range Interpretation [...] Comme nts HEMOGLOBIN A1c (test code = 69399) 6.2 % Eyad Boss AustinLIPID [id number] 00:00:00* Test Item Value Reference Range Interpretation Comme nts CHOLESTEROL (test code = 2210) 207 MG/DL TRIGLYCERIDES (test code = 2232) 59 MG/DL HDL CHOLESTEROL (test code = 2220) 70 MG/DL CALC LDL CHOL (test code = 2237) 122 MG/DL RISK RATIO LDL/HDL (test cod e = 2238) 1.74 RATIO LIPID [id number] 00:00:00* Test Item Value Reference Range Interpretation [...] Comme nts HEMOGLOBIN A1c (test code = 81327) 6.2 % HEMOGLOBIN A1c [ADDED]2021-02-18 00:00:00* Test Item Value Reference Range Interpretation Comme nts HEMOGLOBIN A1c (test code = 48435) 6.2 % HEMOGLOBIN A1c [ADDED]2021-02-18 00:00:00* Test Item Value Reference Range Interpretation Comme nts HEMOGLOBIN A1c (test code = 73917) 6.2 % COMPREHENSIVE METABOLIC [id number] 00:00:00* Test Item Value Reference Range Interpretation Comme nts GLUCOSE (test code = 2217) 121 MG/DL BUN (test code = 2208) 12 MG/DL CREATININE (test code = 2214) 1.05 MG/DL eGFR AMER. (test cod e = 36711) 91 ML/MIN/1.73 eGFR NON- AMER. (test code = 15824) 78 ML/MIN/1.73 CALC BUN/CREAT (test code = [...] code = 2219) 23 U/L COMPREHENSIVE METABOLIC [id number] 00:00:00* Test Item Value Reference Range Interpretation Comme nts GLUCOSE (test code = 2217) 121 MG/DL BUN (test code = 2208) 12 MG/DL CREATININE (test code = 2214) 1.05 MG/DL eGFR AMER. (test cod e = 54438) 91 ML/MIN/1.73 eGFR NON- AMER. (test code = 83388) 78 ML/MIN/1.73 CALC BUN/CREAT (test code = [...] (test code = 2219) 23 U/L LIPID [id number] 00:00:00* Test Item Value Reference Range Interpretation Comme nts CHOLESTEROL (test code = 2210) 207 MG/DL TRIGLYCERIDES (test code = 2232) 59 MG/DL HDL CHOLESTEROL (test code = 2220) 70 MG/DL CALC LDL CHOL (test code = 2237) 122 MG/DL RISK RATIO LDL/HDL (test cod e = 2238) 1.74 RATIO LIPID [id number] 00:00:00* Test Item Value Reference Range Interpretation [...] Comme nts HEMOGLOBIN A1c (test code = 07161) 6.2 % HEMOGLOBIN A1c [ADDED]2021-02-18 00:00:00* Test Item Value Reference Range Interpretation Comme nts HEMOGLOBIN A1c (test code = 72143) 6.2 % HEMOGLOBIN A1c [ADDED]2021-02-18 00:00:00* Test Item Value Reference Range Interpretation Comme nts HEMOGLOBIN A1c (test code = 78401) 6.2 % COMPREHENSIVE METABOLIC [id number] 00:00:00* Test Item Value Reference Range Interpretation Comme nts GLUCOSE (test code = 2217) 121 MG/DL BUN (test code = 2208) 12 MG/DL CREATININE (test code = 2214) 1.05 MG/DL eGFR AMER. (test cod e = 54238) 91 ML/MIN/1.73 eGFR NON- AMER. (test code = 66757) 78 ML/MIN/1.73 CALC BUN/CREAT (test code = [...] code = 2219) 23 U/L COMPREHENSIVE METABOLIC [id number] 00:00:00* Test Item Value Reference Range Interpretation Comme nts GLUCOSE (test code = 2217) 121 MG/DL BUN (test code = 2208) 12 MG/DL CREATININE (test code = 2214) 1.05 MG/DL eGFR AMER. (test cod e = 93607) 91 ML/MIN/1.73 eGFR NON- AMER. (test code = 66294) 78 ML/MIN/1.73 CALC BUN/CREAT (test code = [...] (test code = 2219) 23 U/L HEMOGLOBIN [id number] 00:00:00* Test Item Value Reference Range Interpretation Comme nts HEMOGLOBIN A1c (test code = 71669) 6.2 % Eyad Boss AustinLIPID [id number] 00:00:00* Test Item Value Reference Range Interpretation Comme nts CHOLESTEROL (test code = 2210) 139 MG/DL TRIGLYCERIDES (test code = 2232) 62 MG/DL HDL CHOLESTEROL (test code = 2220) 59 MG/DL CALC LDL CHOL (test code = 2237) 66 MG/DL RISK RATIO LDL/HDL (test cod e = 2238) 1.12 RATIO Eyad F AustinCOMPREHENSIVE METABOLIC [id number] 00:00:00* Test Item Value Reference Range Interpretation Comme nts GLUCOSE (test code = 2217) 115 MG/DL BUN (test code = 2208) 10 MG/DL CREATININE (test code = 2214) 0.81 MG/DL eGFR AMER. (test cod e = 73640) 115 ML/MIN/1.73 eGFR NON- AMER. (test code = 32394) 99 ML/MIN/1.73 CALC BUN/CREAT (test code = [...] = 2219) 15 U/L Eyad Boss AustinHEMOGLOBIN [id number] 00:00:00* Test Item Value Reference Range Interpretation Comme nts HEMOGLOBIN A1c (test code = 31572) 6.2 % LIPID [id number] 00:00:00* Test Item Value Reference Range Interpretation Comme nts CHOLESTEROL (test code = 2210) 139 MG/DL TRIGLYCERIDES (test code = 2232) 62 MG/DL HDL CHOLESTEROL (test code = 2220) 59 MG/DL CALC LDL CHOL (test code = 2237) 66 MG/DL RISK RATIO LDL/HDL (test cod e = 2238) 1.12 RATIO LIPID [id number] 00:00:00* Test Item Value Reference Range Interpretation Comme nts CHOLESTEROL (test code = 2210) 139 MG/DL TRIGLYCERIDES (test code = 2232) 62 MG/DL HDL CHOLESTEROL (test code = 2220) 59 MG/DL CALC LDL CHOL (test code = 2237) 66 MG/DL RISK RATIO LDL/HDL (test cod e = 2238) 1.12 RATIO COMPREHENSIVE METABOLIC [id number] 00:00:00* Test Item Value Reference Range Interpretation Comme nts GLUCOSE (test code = 2217) 115 MG/DL BUN (test code = 2208) 10 MG/DL CREATININE (test code = 2214) 0.81 MG/DL eGFR AMER. (test cod e = 78829) 115 ML/MIN/1.73 eGFR NON- AMER. (test code = 17700) 99 ML/MIN/1.73 CALC BUN/CREAT (test code = [...] code = 2219) 15 U/L COMPREHENSIVE METABOLIC [id number] 00:00:00* Test Item Value Reference Range Interpretation Comme nts GLUCOSE (test code = 2217) 115 MG/DL BUN (test code = 2208) 10 MG/DL CREATININE (test code = 2214) 0.81 MG/DL eGFR AMER. (test cod e = 14025) 115 ML/MIN/1.73 eGFR NON- AMER. (test code = 41217) 99 ML/MIN/1.73 CALC BUN/CREAT (test code = [...] (test code = 2219) 15 U/L HEMOGLOBIN [id number] 00:00:00* Test Item Value Reference Range Interpretation Comme nts HEMOGLOBIN A1c (test code = 96935) 6.2 % HEMOGLOBIN [id number] 00:00:00* Test Item Value Reference Range Interpretation Comme nts HEMOGLOBIN A1c (test code = 16406) 6.2 % HEMOGLOBIN [id number] 00:00:00* Test Item Value Reference Range Interpretation Comme nts HEMOGLOBIN A1c (test code = 16637) 6.2 % LIPID [id number] 00:00:00* Test Item Value Reference Range Interpretation Comme nts CHOLESTEROL (test code = 2210) 139 MG/DL TRIGLYCERIDES (test code = 2232) 62 MG/DL HDL CHOLESTEROL (test code = 2220) 59 MG/DL CALC LDL CHOL (test code = 2237) 66 MG/DL RISK RATIO LDL/HDL (test cod e = 2238) 1.12 RATIO LIPID [id number] 00:00:00* Test Item Value Reference Range Interpretation Comme nts CHOLESTEROL (test code = 2210) 139 MG/DL TRIGLYCERIDES (test code = 2232) 62 MG/DL HDL CHOLESTEROL (test code = 2220) 59 MG/DL CALC LDL CHOL (test code = 2237) 66 MG/DL RISK RATIO LDL/HDL (test cod e = 2238) 1.12 RATIO COMPREHENSIVE METABOLIC [id number] 00:00:00* Test Item Value Reference Range Interpretation Comme nts GLUCOSE (test code = 2217) 115 MG/DL BUN (test code = 2208) 10 MG/DL CREATININE (test code = 2214) 0.81 MG/DL eGFR AMER. (test cod e = 11083) 115 ML/MIN/1.73 eGFR NON- AMER. (test code = 64211) 99 ML/MIN/1.73 CALC BUN/CREAT (test code = [...] code = 2219) 15 U/L COMPREHENSIVE METABOLIC [id number] 00:00:00* Test Item Value Reference Range Interpretation Comme nts GLUCOSE (test code = 2217) 115 MG/DL BUN (test code = 2208) 10 MG/DL CREATININE (test code = 2214) 0.81 MG/DL eGFR AMER. (test cod e = 30254) 115 ML/MIN/1.73 eGFR NON- AMER. (test code = 89584) 99 ML/MIN/1.73 CALC BUN/CREAT (test code = [...] (test code = 2219) 15 U/L HEMOGLOBIN [id number] 00:00:00* Test Item Value Reference Range Interpretation Comme nts HEMOGLOBIN A1c (test code = 39410) 6.2 % HEMOGLOBIN [id number] 00:00:00* Test Item Value Reference Range Interpretation Comme nts HEMOGLOBIN A1c (test code = 99165) 6.2 % LIPID [id number] 00:00:00* Test Item Value Reference Range Interpretation Comme nts CHOLESTEROL (test code = 2210) 181 MG/DL TRIGLYCERIDES (test code = 2232) 101 MG/DL HDL CHOLESTEROL (test code = 2220) 57 MG/DL CALC LDL CHOL (test code = 2237) 105 MG/DL RISK RATIO LDL/HDL (test cod e = 2238) 1.84 RATIO Eyad Boss HoustonCOMPREHENSIVE METABOLIC [id number] 00:00:00* Test Item Value Reference Range Interpretation Comme nts GLUCOSE (test code = 2217) 132 MG/DL BUN (test code = 2208) 16 MG/DL CREATININE (test code = 2214) 1.14 MG/DL eGFR AMER. (test cod e = 60057) 83 ML/MIN/1.73 eGFR NON- AMER. (test code = 13260) 71 ML/MIN/1.73 CALC BUN/CREAT (test code = [...] 13 U/L Eyad F HoustonMICROALBUMIN/CREATININE, RANDOM AND [id number] 00:00:00* Test Item Value Reference Range Interpretation Comme nts CREATININE, URINE, CONC. (te st code = 2072) 217.6 MG/DL ALBUMIN, URINE, RANDOM (test code = 54263) 23.6 MG/DL CALC ALBUMIN/CREAT, RND (camron t code = 87635) 108 MG/G Eyad ConradHEMOGLOBIN [id number] 00:00:00* Test Item Value Reference Range Interpretation Comme nts HEMOGLOBIN A1c (test code = 56992) 7.0 % Eyad ConradLIPID [id number] 00:00:00* Test Item Value Reference Range Interpretation Comme nts CHOLESTEROL (test code = 2210) 181 MG/DL TRIGLYCERIDES (test code = 2232) 101 MG/DL HDL CHOLESTEROL (test code = 2220) 57 MG/DL CALC LDL CHOL (test code = 2237) 105 MG/DL RISK RATIO LDL/HDL (test cod e = 2238) 1.84 RATIO LIPID [id number] 00:00:00* Test Item Value Reference Range Interpretation Comme nts CHOLESTEROL (test code = 2210) 181 MG/DL TRIGLYCERIDES (test code = 2232) 101 MG/DL HDL CHOLESTEROL (test code = 2220) 57 MG/DL CALC LDL CHOL (test code = 2237) 105 MG/DL RISK RATIO LDL/HDL (test cod e = 2238) 1.84 RATIO COMPREHENSIVE METABOLIC [id number] 00:00:00* Test Item Value Reference Range Interpretation Comme nts GLUCOSE (test code = 2217) 132 MG/DL BUN (test code = 2208) 16 MG/DL CREATININE (test code = 2214) 1.14 MG/DL eGFR AMER. (test cod e = 94261) 83 ML/MIN/1.73 eGFR NON- AMER. (test code = 09305) 71 ML/MIN/1.73 CALC BUN/CREAT (test code = [...] code = 2219) 13 U/L COMPREHENSIVE METABOLIC [id number] 00:00:00* Test Item Value Reference Range Interpretation Comme nts GLUCOSE (test code = 2217) 132 MG/DL BUN (test code = 2208) 16 MG/DL CREATININE (test code = 2214) 1.14 MG/DL eGFR AMER. (test cod e = 86323) 83 ML/MIN/1.73 eGFR NON- AMER. (test code = 42403) 71 ML/MIN/1.73 CALC BUN/CREAT (test code = [...] = 2219) 13 U/L MICROALBUMIN/CREATININE, RANDOM AND [id number] 00:00:00* Test Item Value Reference Range Interpretation Comme nts CREATININE, URINE, CONC. (te st code = 2072) 217.6 MG/DL ALBUMIN, URINE, RANDOM (test code = 01842) 23.6 MG/DL CALC ALBUMIN/CREAT, RND (camron t code = 27318) 108 MG/G MICROALBUMIN/CREATININE, RANDOM AND [id number] 00:00:00* Test Item Value Reference Range Interpretation Comme nts CREATININE, URINE, CONC. (te st code = 2072) 217.6 MG/DL ALBUMIN, URINE, RANDOM (test code = 85621) 23.6 MG/DL CALC ALBUMIN/CREAT, RND (camron t code = 97115) 108 MG/G HEMOGLOBIN [id number] 00:00:00* Test Item Value Reference Range Interpretation Comme nts HEMOGLOBIN A1c (test code = 63271) 7.0 % HEMOGLOBIN [id number] 00:00:00* Test Item Value Reference Range Interpretation Comme nts HEMOGLOBIN A1c (test code = 53597) 7.0 % HEMOGLOBIN [id number] 00:00:00* Test Item Value Reference Range Interpretation Comme nts HEMOGLOBIN A1c (test code = 09852) 7.0 % LIPID [id number] 00:00:00* Test Item Value Reference Range Interpretation Comme nts CHOLESTEROL (test code = 2210) 181 MG/DL TRIGLYCERIDES (test code = 2232) 101 MG/DL HDL CHOLESTEROL (test code = 2220) 57 MG/DL CALC LDL CHOL (test code = 2237) 105 MG/DL RISK RATIO LDL/HDL (test cod e = 2238) 1.84 RATIO LIPID [id number] 00:00:00* Test Item Value Reference Range Interpretation Comme nts CHOLESTEROL (test code = 2210) 181 MG/DL TRIGLYCERIDES (test code = 2232) 101 MG/DL HDL CHOLESTEROL (test code = 2220) 57 MG/DL CALC LDL CHOL (test code = 2237) 105 MG/DL RISK RATIO LDL/HDL (test cod e = 2238) 1.84 RATIO COMPREHENSIVE METABOLIC [id number] 00:00:00* Test Item Value Reference Range Interpretation Comme nts GLUCOSE (test code = 2217) 132 MG/DL BUN (test code = 2208) 16 MG/DL CREATININE (test code = 2214) 1.14 MG/DL eGFR AMER. (test cod e = 78667) 83 ML/MIN/1.73 eGFR NON- AMER. (test code = 23685) 71 ML/MIN/1.73 CALC BUN/CREAT (test code = [...] code = 2219) 13 U/L COMPREHENSIVE METABOLIC [id number] 00:00:00* Test Item Value Reference Range Interpretation Comme nts GLUCOSE (test code = 2217) 132 MG/DL BUN (test code = 2208) 16 MG/DL CREATININE (test code = 2214) 1.14 MG/DL eGFR AMER. (test cod e = 51804) 83 ML/MIN/1.73 eGFR NON- AMER. (test code = 75775) 71 ML/MIN/1.73 CALC BUN/CREAT (test code = [...] = 2219) 13 U/L MICROALBUMIN/CREATININE, RANDOM AND [id number] 00:00:00* Test Item Value Reference Range Interpretation Comme nts CREATININE, URINE, CONC. (te st code = 207) 217.6 MG/DL ALBUMIN, URINE, RANDOM (test code = 49612) 23.6 MG/DL CALC ALBUMIN/CREAT, RND (camron t code = 82908) 108 MG/G MICROALBUMIN/CREATININE, RANDOM AND [id number] 00:00:00* Test Item Value Reference Range Interpretation Comme nts CREATININE, URINE, CONC. (te st code = 2072) 217.6 MG/DL ALBUMIN, URINE, RANDOM (test code = 31707) 23.6 MG/DL CALC ALBUMIN/CREAT, RND (camron t code = 71091) 108 MG/G HEMOGLOBIN [id number] 00:00:00* Test Item Value Reference Range Interpretation Comme nts HEMOGLOBIN A1c (test code = 61879) 7.0 % HEMOGLOBIN [id number] 00:00:00* Test Item Value Reference Range Interpretation Comme nts HEMOGLOBIN A1c (test code = 16662) 7.0 % HEMOGLOBIN [id number] 00:00:00* Test Item Value Reference Range Interpretation Comme nts HEMOGLOBIN A1c (test code = 28744) 7.0 % LIPID [id number] 00:00:00* Test Item Value Reference Range Interpretation Comme nts CHOLESTEROL (test code = 2210) 193 MG/DL TRIGLYCERIDES (test code = 2232) 102 MG/DL HDL CHOLESTEROL (test code = 2220) 60 MG/DL CALC LDL CHOL (test code = 2237) 113 MG/DL RISK RATIO LDL/HDL (test cod e = 2238) 1.88 RATIO Eyad Boss AustinHEMOGLOBIN [id number] 00:00:00* Test Item Value Reference Range Interpretation Comme nts HEMOGLOBIN A1c (test code = 16796) 6.3 % Eyad Boss AustinCOMPREHENSIVE METABOLIC [id number] 00:00:00* Test Item Value Reference Range Interpretation Comme nts GLUCOSE (test code = 2217) 133 MG/DL BUN (test code = 2208) 9 MG/DL CREATININE (test code = 2214) 0.93 MG/DL eGFR AMER. (test cod e = 07638) 107 ML/MIN/1.73 eGFR NON- AMER. (test code = 20340) 92 ML/MIN/1.73 CALC BUN/CREAT (test code = [...] (test code = 2219) 22 U/L Eyad ConradCOMPREHENSIVE METABOLIC [id number] 00:00:00* Test Item Value Reference Range Interpretation Comme nts GLUCOSE (test code = 2217) 133 MG/DL BUN (test code = 2208) 9 MG/DL CREATININE (test code = 2214) 0.93 MG/DL eGFR AMER. (test cod e = 75593) 107 ML/MIN/1.73 eGFR NON- AMER. (test code = 70756) 92 ML/MIN/1.73 CALC BUN/CREAT (test code = [...] (test code = 2219) 22 U/L LIPID [id number] 00:00:00* Test Item Value Reference Range Interpretation Comme nts CHOLESTEROL (test code = 2210) 193 MG/DL TRIGLYCERIDES (test code = 2232) 102 MG/DL HDL CHOLESTEROL (test code = 2220) 60 MG/DL CALC LDL CHOL (test code = 2237) 113 MG/DL RISK RATIO LDL/HDL (test cod e = 2238) 1.88 RATIO LIPID [id number] 00:00:00* Test Item Value Reference Range Interpretation Comme nts CHOLESTEROL (test code = 2210) 193 MG/DL TRIGLYCERIDES (test code = 2232) 102 MG/DL HDL CHOLESTEROL (test code = 2220) 60 MG/DL CALC LDL CHOL (test code = 2237) 113 MG/DL RISK RATIO LDL/HDL (test cod e = 2238) 1.88 RATIO HEMOGLOBIN [id number] 00:00:00* Test Item Value Reference Range Interpretation Comme nts HEMOGLOBIN A1c (test code = 96663) 6.3 % HEMOGLOBIN [id number] 00:00:00* Test Item Value Reference Range Interpretation Comme nts HEMOGLOBIN A1c (test code = 61412) 6.3 % HEMOGLOBIN [id number] 00:00:00* Test Item Value Reference Range Interpretation Comme nts HEMOGLOBIN A1c (test code = 73766) 6.3 % COMPREHENSIVE METABOLIC [id number] 00:00:00* Test Item Value Reference Range Interpretation Comme nts GLUCOSE (test code = 2217) 133 MG/DL BUN (test code = 2208) 9 MG/DL CREATININE (test code = 2214) 0.93 MG/DL eGFR AMER. (test cod e = 96025) 107 ML/MIN/1.73 eGFR NON- AMER. (test code = 34330) 92 ML/MIN/1.73 CALC BUN/CREAT (test code = [...] code = 2219) 22 U/L COMPREHENSIVE METABOLIC [id number] 00:00:00* Test Item Value Reference Range Interpretation Comme nts GLUCOSE (test code = 2217) 133 MG/DL BUN (test code = 2208) 9 MG/DL CREATININE (test code = 2214) 0.93 MG/DL eGFR AMER. (test cod e = 70969) 107 ML/MIN/1.73 eGFR NON- AMER. (test code = 85709) 92 ML/MIN/1.73 CALC BUN/CREAT (test code = [...] (test code = 2219) 22 U/L LIPID [id number] 00:00:00* Test Item Value Reference Range Interpretation Comme nts CHOLESTEROL (test code = 2210) 193 MG/DL TRIGLYCERIDES (test code = 2232) 102 MG/DL HDL CHOLESTEROL (test code = 2220) 60 MG/DL CALC LDL CHOL (test code = 2237) 113 MG/DL RISK RATIO LDL/HDL (test cod e = 2238) 1.88 RATIO LIPID [id number] 00:00:00* Test Item Value Reference Range Interpretation Comme nts CHOLESTEROL (test code = 2210) 193 MG/DL TRIGLYCERIDES (test code = 2232) 102 MG/DL HDL CHOLESTEROL (test code = 2220) 60 MG/DL CALC LDL CHOL (test code = 2237) 113 MG/DL RISK RATIO LDL/HDL (test cod e = 2238) 1.88 RATIO HEMOGLOBIN [id number] 00:00:00* Test Item Value Reference Range Interpretation Comme nts HEMOGLOBIN A1c (test code = 36832) 6.3 % HEMOGLOBIN [id number] 00:00:00* Test Item Value Reference Range Interpretation Comme nts HEMOGLOBIN A1c (test code = 50340) 6.3 % HEMOGLOBIN [id number] 00:00:00* Test Item Value Reference Range Interpretation Comme nts HEMOGLOBIN A1c (test code = 81358) 6.3 % COMPREHENSIVE METABOLIC [id number] 00:00:00* Test Item Value Reference Range Interpretation Comme nts GLUCOSE (test code = 2217) 133 MG/DL BUN (test code = 2208) 9 MG/DL CREATININE (test code = 2214) 0.93 MG/DL eGFR AMER. (test cod e = 78980) 107 ML/MIN/1.73 eGFR NON- AMER. (test code = 71579) 92 ML/MIN/1.73 CALC BUN/CREAT (test code = [...] (test code = 2219) 22 U/L HEMOGLOBIN [id number] 00:00:00* Test Item Value Reference Range Interpretation Comme nts HEMOGLOBIN A1c (test code = 08885) 5.6 % Eyad Grissom W/AUTO [id number] 00:00:00* Test Item Value Reference Range Interpretation [...] code = 1015) 221 K/UL Eyad ConradLIPID [id number] 00:00:00* Test Item Value Reference Range Interpretation Comme nts CHOLESTEROL (test code = 2210) 173 MG/DL TRIGLYCERIDES (test code = 2232) 88 MG/DL HDL CHOLESTEROL (test code = 2220) 58 MG/DL CALC LDL CHOL (test code = 2237) 97 MG/DL RISK RATIO LDL/HDL (test cod e = 2238) 1.67 RATIO Eyad ConradHEMOGLOBIN [id number] 00:00:00* Test Item Value Reference Range Interpretation Comme nts HEMOGLOBIN A1c (test code = 91884) 5.6 % CBC W/AUTO [id number] 00:00:00* Test Item Value Reference Range Interpretation [...] code = 1015) 221 K/UL CBC W/AUTO [id number] 00:00:00* Test Item Value Reference Range Interpretation [...] code = 1015) 221 K/UL CBC W/AUTO [id number] 00:00:00* Test Item Value Reference Range Interpretation [...] (test code = 1015) 221 K/UL LIPID [id number] 00:00:00* Test Item Value Reference Range Interpretation Comme nts CHOLESTEROL (test code = 2210) 173 MG/DL TRIGLYCERIDES (test code = 2232) 88 MG/DL HDL CHOLESTEROL (test code = 2220) 58 MG/DL CALC LDL CHOL (test code = 2237) 97 MG/DL RISK RATIO LDL/HDL (test cod e = 2238) 1.67 RATIO LIPID [id number] 00:00:00* Test Item Value Reference Range Interpretation Comme nts CHOLESTEROL (test code = 2210) 173 MG/DL TRIGLYCERIDES (test code = 2232) 88 MG/DL HDL CHOLESTEROL (test code = 2220) 58 MG/DL CALC LDL CHOL (test code = 2237) 97 MG/DL RISK RATIO LDL/HDL (test cod e = 2238) 1.67 RATIO HEMOGLOBIN [id number] 00:00:00* Test Item Value Reference Range Interpretation Comme nts HEMOGLOBIN A1c (test code = 19957) 5.6 % HEMOGLOBIN [id number] 00:00:00* Test Item Value Reference Range Interpretation Comme nts HEMOGLOBIN A1c (test code = 90442) 5.6 % HEMOGLOBIN [id number] 00:00:00* Test Item Value Reference Range Interpretation Comme nts HEMOGLOBIN A1c (test code = 63036) 5.6 % CBC W/AUTO [id number] 00:00:00* Test Item Value Reference Range Interpretation [...] code = 1015) 221 K/UL CBC W/AUTO [id number] 00:00:00* Test Item Value Reference Range Interpretation [...] code = 1015) 221 K/UL CBC W/AUTO [id number] 00:00:00* Test Item Value Reference Range Interpretation [...] (test code = 1015) 221 K/UL LIPID [id number] 00:00:00* Test Item Value Reference Range Interpretation Comme nts CHOLESTEROL (test code = 2210) 173 MG/DL TRIGLYCERIDES (test code = 2232) 88 MG/DL HDL CHOLESTEROL (test code = 2220) 58 MG/DL CALC LDL CHOL (test code = 2237) 97 MG/DL RISK RATIO LDL/HDL (test cod e = 2238) 1.67 RATIO LIPID [id number] 00:00:00* Test Item Value Reference Range Interpretation Comme nts CHOLESTEROL (test code = 2210) 173 MG/DL TRIGLYCERIDES (test code = 2232) 88 MG/DL HDL CHOLESTEROL (test code = 2220) 58 MG/DL CALC LDL CHOL (test code = 2237) 97 MG/DL RISK RATIO LDL/HDL (test cod e = 2238) 1.67 RATIO HEMOGLOBIN [id number] 00:00:00* Test Item Value Reference Range Interpretation Comme nts HEMOGLOBIN A1c (test code = 27421) 5.6 % HEMOGLOBIN [id number] 00:00:00* Test Item Value Reference Range Interpretation Comme nts HEMOGLOBIN A1c (test code = 32990) 5.6 % HEMOGLOBIN [id number] 00:00:00* Test Item Value Reference Range Interpretation Comme nts HEMOGLOBIN A1c (test code = 83857) 6.0 % Eyad F AustinHEMOGLOBIN [id number] 00:00:00* Test Item Value Reference Range Interpretation Comme nts HEMOGLOBIN A1c (test code = 69606) 6.0 % HEMOGLOBIN [id number] 00:00:00* Test Item Value Reference Range Interpretation Comme nts HEMOGLOBIN A1c (test code = 12781) 6.0 % HEMOGLOBIN [id number] 00:00:00* Test Item Value Reference Range Interpretation Comme nts HEMOGLOBIN A1c (test code = 56363) 6.0 % HEMOGLOBIN [id number] 00:00:00* Test Item Value Reference Range Interpretation Comme nts HEMOGLOBIN A1c (test code = 69279) 6.0 % HEMOGLOBIN [id number] 00:00:00* Test Item Value Reference Range Interpretation Comme nts HEMOGLOBIN A1c (test code = 96103) 6.0 % HEMOGLOBIN [id number] 00:00:00* Test Item Value Reference Range Interpretation Comme nts HEMOGLOBIN A1c (test code = 29771) 6.0 % COMPREHENSIVE METABOLIC [id number] 00:00:00* Test Item Value Reference Range Interpretation Comme nts GLUCOSE (test code = 2217) 110 MG/DL BUN (test code = 2208) 16 MG/DL CREATININE (test code = 2214) 0.89 MG/DL eGFR AMER. (test cod e = 27394) 112 ML/MIN/1.73 eGFR NON- AMER. (test code = 33120) 96 ML/MIN/1.73 CALC BUN/CREAT (test code = [...] = 2219) 20 U/L Eyad Boss AustinLIPID [id number] 00:00:00* Test Item Value Reference Range Interpretation Comme nts CHOLESTEROL (test code = 2210) 157 MG/DL TRIGLYCERIDES (test code = 2232) 44 MG/DL HDL CHOLESTEROL (test code = 2220) 55 MG/DL CALC LDL CHOL (test code = 2237) 93 MG/DL RISK RATIO LDL/HDL (test cod e = 2238) 1.69 RATIO Eyad F AustinLIPID [id number] 00:00:00* Test Item Value Reference Range Interpretation Comme nts CHOLESTEROL (test code = 2210) 157 MG/DL TRIGLYCERIDES (test code = 2232) 44 MG/DL HDL CHOLESTEROL (test code = 2220) 55 MG/DL CALC LDL CHOL (test code = 2237) 93 MG/DL RISK RATIO LDL/HDL (test cod e = 2238) 1.69 RATIO COMPREHENSIVE METABOLIC [id number] 00:00:00* Test Item Value Reference Range Interpretation Comme nts GLUCOSE (test code = 2217) 110 MG/DL BUN (test code = 2208) 16 MG/DL CREATININE (test code = 2214) 0.89 MG/DL eGFR AMER. (test cod e = 02156) 112 ML/MIN/1.73 eGFR NON- AMER. (test code = 66492) 96 ML/MIN/1.73 CALC BUN/CREAT (test code = [...] code = 2219) 20 U/L COMPREHENSIVE METABOLIC [id number] 00:00:00* Test Item Value Reference Range Interpretation Comme nts GLUCOSE (test code = 2217) 110 MG/DL BUN (test code = 2208) 16 MG/DL CREATININE (test code = 2214) 0.89 MG/DL eGFR AMER. (test cod e = 58634) 112 ML/MIN/1.73 eGFR NON- AMER. (test code = 11314) 96 ML/MIN/1.73 CALC BUN/CREAT (test code = [...] (test code = 2219) 20 U/L LIPID [id number] 00:00:00* Test Item Value Reference Range Interpretation Comme nts CHOLESTEROL (test code = 2210) 157 MG/DL TRIGLYCERIDES (test code = 2232) 44 MG/DL HDL CHOLESTEROL (test code = 2220) 55 MG/DL CALC LDL CHOL (test code = 2237) 93 MG/DL RISK RATIO LDL/HDL (test cod e = 2238) 1.69 RATIO LIPID [id number] 00:00:00* Test Item Value Reference Range Interpretation Comme nts CHOLESTEROL (test code = 2210) 157 MG/DL TRIGLYCERIDES (test code = 2232) 44 MG/DL HDL CHOLESTEROL (test code = 2220) 55 MG/DL CALC LDL CHOL (test code = 2237) 93 MG/DL RISK RATIO LDL/HDL (test cod e = 2238) 1.69 RATIO COMPREHENSIVE METABOLIC [id number] 00:00:00* Test Item Value Reference Range Interpretation Comme nts GLUCOSE (test code = 2217) 110 MG/DL BUN (test code = 2208) 16 MG/DL CREATININE (test code = 2214) 0.89 MG/DL eGFR AMER. (test cod e = 64033) 112 ML/MIN/1.73 eGFR NON- AMER. (test code = 13512) 96 ML/MIN/1.73 CALC BUN/CREAT (test code = [...] code = 2219) 20 U/L COMPREHENSIVE METABOLIC [id number] 00:00:00* Test Item Value Reference Range Interpretation Comme nts GLUCOSE (test code = 2217) 110 MG/DL BUN (test code = 2208) 16 MG/DL CREATININE (test code = 2214) 0.89 MG/DL eGFR AMER. (test cod e = 67710) 112 ML/MIN/1.73 eGFR NON- AMER. (test code = 21127) 96 ML/MIN/1.73 CALC BUN/CREAT (test code = [...] (test code = 2219) 20 U/L LIPID [id number] 00:00:00* Test Item Value Reference Range Interpretation Comme nts CHOLESTEROL (test code = 2210) 157 MG/DL TRIGLYCERIDES (test code = 2232) 44 MG/DL HDL CHOLESTEROL (test code = 2220) 55 MG/DL CALC LDL CHOL (test code = 2237) 93 MG/DL RISK RATIO LDL/HDL (test cod e = 2238) 1.69 RATIO HEPATITIS C REFLEX [id number] 00:00:00* Test Item Value Reference Range Interpretation Comme nts HEPATITIS C ANTIBODY (test c ode = 4675) NON-REACTIVE Eyad ConradPSA, [id number] 00:00:00* Test Item Value Reference Range Interpretation Comme nts PSA, TOTAL (test code = 2606) 0.99 NG/ML Eyad [id number] 00:00:00* Test Item Value Reference Range Interpretation Comme nts TESTOSTERONE (test code = 2830) 444 NG/DL Eyad ConradHIV AB/AG COMBO RFLX [id number] 00:00:00* Test Item Value Reference Range Interpretation Comme nts HIV 1/2 4TH GEN, RFLX CONF ( test code = 3514) NON-REACTIVE Eyad ConradHIV AB/AG COMBO RFLX [id number] 00:00:00* Test Item Value Reference Range Interpretation Comme nts HIV 1/2 4TH GEN, RFLX CONF ( test code = 3514) NON-REACTIVE HEPATITIS C REFLEX [id number] 00:00:00* Test Item Value Reference Range Interpretation Comme nts HEPATITIS C ANTIBODY (test c ode = 4675) NON-REACTIVE HEPATITIS C REFLEX [id number] 00:00:00* Test Item Value Reference Range Interpretation Comme nts HEPATITIS C ANTIBODY (test c ode = 4675) NON-REACTIVE PSA, [id number] 00:00:00* Test Item Value Reference Range Interpretation Comme nts PSA, TOTAL (test code = 2606) 0.99 NG/ML PSA, [id number] 00:00:00* Test Item Value Reference Range Interpretation Comme nts PSA, TOTAL (test code = 2606) 0.99 NG/ML PSA, [id number] 00:00:00* Test Item Value Reference Range Interpretation Comme nts PSA, TOTAL (test code = 2606) 0.99 NG/ML [id number] 00:00:00* Test Item Value Reference Range Interpretation Comme nts TESTOSTERONE (test code = 2830) 444 NG/DL [id number] 00:00:00* Test Item Value Reference Range Interpretation Comme nts TESTOSTERONE (test code = 2830) 444 NG/DL HIV AB/AG COMBO RFLX [id number] 00:00:00* Test Item Value Reference Range Interpretation Comme nts HIV 1/2 4TH GEN, RFLX CONF ( test code = 3514) NON-REACTIVE HIV AB/AG COMBO RFLX [id number] 00:00:00* Test Item Value Reference Range Interpretation Comme nts HIV 1/2 4TH GEN, RFLX CONF ( test code = 3514) NON-REACTIVE HEPATITIS C REFLEX [id number] 00:00:00* Test Item Value Reference Range Interpretation Comme nts HEPATITIS C ANTIBODY (test c ode = 4675) NON-REACTIVE HEPATITIS C REFLEX [id number] 00:00:00* Test Item Value Reference Range Interpretation Comme nts HEPATITIS C ANTIBODY (test c ode = 4675) NON-REACTIVE PSA, [id number] 00:00:00* Test Item Value Reference Range Interpretation Comme nts PSA, TOTAL (test code = 2606) 0.99 NG/ML PSA, [id number] 00:00:00* Test Item Value Reference Range Interpretation Comme nts PSA, TOTAL (test code = 2606) 0.99 NG/ML PSA, [id number] 00:00:00* Test Item Value Reference Range Interpretation Comme nts PSA, TOTAL (test code = 2606) 0.99 NG/ML [id number] 00:00:00* Test Item Value Reference Range Interpretation Comme nts TESTOSTERONE (test code = 2830) 444 NG/DL [id number] 00:00:00* Test Item Value Reference Range Interpretation Comme nts TESTOSTERONE (test code = 2830) 444 NG/DL HIV AB/AG COMBO RFLX [id number] 00:00:00* Test Item Value Reference Range Interpretation Comme nts HIV 1/2 4TH GEN, RFLX CONF ( test code = 3514) NON-REACTIVE CBC W/AUTO [id number] 00:00:00* Test Item Value Reference Range Interpretation [...] code = 1015) 241 K/UL Eyad ConradHEMOGLOBIN [id number] 00:00:00* Test Item Value Reference Range Interpretation Comme nts HEMOGLOBIN A1c (test code = 78132) 5.5 % Eyad ConradCBC W/AUTO [id number] 00:00:00* Test Item Value Reference Range Interpretation [...] code = 1015) 241 K/UL CBC W/AUTO [id number] 00:00:00* Test Item Value Reference Range Interpretation [...] (test code = 1015) 241 K/UL HEMOGLOBIN [id number] 00:00:00* Test Item Value Reference Range Interpretation Comme nts HEMOGLOBIN A1c (test code = 15963) 5.5 % HEMOGLOBIN [id number] 00:00:00* Test Item Value Reference Range Interpretation Comme nts HEMOGLOBIN A1c (test code = 28030) 5.5 % HEMOGLOBIN [id number] 00:00:00* Test Item Value Reference Range Interpretation Comme nts HEMOGLOBIN A1c (test code = 34490) 5.5 % CBC W/AUTO [id number] 00:00:00* Test Item Value Reference Range Interpretation [...] code = 1015) 241 K/UL CBC W/AUTO [id number] 00:00:00* Test Item Value Reference Range Interpretation [...] code = 1015) 241 K/UL CBC W/AUTO [id number] 00:00:00* Test Item Value Reference Range Interpretation [...] (test code = 1015) 241 K/UL HEMOGLOBIN [id number] 00:00:00* Test Item Value Reference Range Interpretation Comme nts HEMOGLOBIN A1c (test code = 01124) 5.5 % HEMOGLOBIN [id number] 00:00:00* Test Item Value Reference Range Interpretation Comme nts HEMOGLOBIN A1c (test code = 74249) 5.5 % HEMOGLOBIN [id number] 00:00:00* Test Item Value Reference Range Interpretation Comme nts HEMOGLOBIN A1c (test code = 39342) 5.5 % CBC W/AUTO [id number] 00:00:00* Test Item Value Reference Range Interpretation [...] code = 1015) 241 K/UL CBC W/AUTO [id number] 00:00:00* Test Item Value Reference Range Interpretation [...] = 1015) TEST NOT PERFORMED K/UL Eyad F AustinHEMOGLOBIN [id number] 00:00:00* Test Item Value Reference Range Interpretation Comme nts HEMOGLOBIN A1c (test code = 38065) TEST NOT PERFORMED % Eyad F AustinCBC W/AUTO [id number] 00:00:00* Test Item Value Reference Range Interpretation [...] 1015) TEST NOT PERFORMED K/UL CBC W/AUTO [id number] 00:00:00* Test Item Value Reference Range Interpretation [...] 1015) TEST NOT PERFORMED K/UL CBC W/AUTO [id number] 00:00:00* Test Item Value Reference Range Interpretation [...] = 1015) TEST NOT PERFORMED K/UL HEMOGLOBIN [id number] 00:00:00* Test Item Value Reference Range Interpretation Comme nts HEMOGLOBIN A1c (test code = 72732) TEST NOT PERFORMED % HEMOGLOBIN [id number] 00:00:00* Test Item Value Reference Range Interpretation Comme nts HEMOGLOBIN A1c (test code = 26185) TEST NOT PERFORMED % HEMOGLOBIN [id number] 00:00:00* Test Item Value Reference Range Interpretation Comme nts HEMOGLOBIN A1c (test code = 11736) TEST NOT PERFORMED % CBC W/AUTO [id number] 00:00:00* Test Item Value Reference Range Interpretation [...] 1015) TEST NOT PERFORMED K/UL CBC W/AUTO [id number] 00:00:00* Test Item Value Reference Range Interpretation [...] 1015) TEST NOT PERFORMED K/UL CBC W/AUTO [id number] 00:00:00* Test Item Value Reference Range Interpretation [...] = 1015) TEST NOT PERFORMED K/UL HEMOGLOBIN [id number] 00:00:00* Test Item Value Reference Range Interpretation Comme nts HEMOGLOBIN A1c (test code = 14176) TEST NOT PERFORMED % HEMOGLOBIN [id number] 00:00:00* Test Item Value Reference Range Interpretation Comme nts HEMOGLOBIN A1c (test code = 54411) TEST NOT PERFORMED % HEMOGLOBIN [id number] 00:00:00* Test Item Value Reference Range Interpretation Comme nts HEMOGLOBIN A1c (test code = 01390) TEST NOT PERFORMED % COMPREHENSIVE METABOLIC [id number] 00:00:00* Test Item Value Reference Range Interpretation Comme nts GLUCOSE (test code = 2217) 129 MG/DL BUN (test code = 2208) 21 MG/DL CREATININE (test code = 2214) 0.96 MG/DL eGFR AMER. (test cod e = 25878) 104 ML/MIN/1.73 eGFR NON- AMER. (test code = 71103) 90 ML/MIN/1.73 CALC BUN/CREAT (test code = [...] = 2219) 21 U/L Eyad Karyn AustinLIPID [id number] 00:00:00* Test Item Value Reference Range Interpretation Comme nts CHOLESTEROL (test code = 2210) 158 MG/DL TRIGLYCERIDES (test code = 2232) 96 MG/DL HDL CHOLESTEROL (test code = 2220) 43 MG/DL CALC LDL CHOL (test code = 2237) 96 MG/DL RISK RATIO LDL/HDL (test cod e = 2238) 2.23 RATIO Eyad [id number] 00:00:00* Test Item Value Reference Range Interpretation Comme nts TSH (test code = 2821) 1.210 UIU/ML Eyad ConradCOMPREHENSIVE METABOLIC [id number] 00:00:00* Test Item Value Reference Range Interpretation Comme nts GLUCOSE (test code = 2217) 129 MG/DL BUN (test code = 2208) 21 MG/DL CREATININE (test code = 2214) 0.96 MG/DL eGFR AMER. (test cod e = 09835) 104 ML/MIN/1.73 eGFR NON- AMER. (test code = 63175) 90 ML/MIN/1.73 CALC BUN/CREAT (test code = [...] (test code = 2219) 21 U/L LIPID [id number] 00:00:00* Test Item Value Reference Range Interpretation Comme nts CHOLESTEROL (test code = 2210) 158 MG/DL TRIGLYCERIDES (test code = 2232) 96 MG/DL HDL CHOLESTEROL (test code = 2220) 43 MG/DL CALC LDL CHOL (test code = 2237) 96 MG/DL RISK RATIO LDL/HDL (test cod e = 2238) 2.23 RATIO LIPID [id number] 00:00:00* Test Item Value Reference Range Interpretation Comme nts CHOLESTEROL (test code = 2210) 158 MG/DL TRIGLYCERIDES (test code = 2232) 96 MG/DL HDL CHOLESTEROL (test code = 2220) 43 MG/DL CALC LDL CHOL (test code = 2237) 96 MG/DL RISK RATIO LDL/HDL (test cod e = 2238) 2.23 RATIO [id number] 00:00:00* Test Item Value Reference Range Interpretation Comme nts TSH (test code = 2821) 1.210 UIU/ML [id number] 00:00:00* Test Item Value Reference Range Interpretation Comme nts TSH (test code = 2821) 1.210 UIU/ML [id number] 00:00:00* Test Item Value Reference Range Interpretation Comme nts TSH (test code = 2821) 1.210 UIU/ML COMPREHENSIVE METABOLIC [id number] 00:00:00* Test Item Value Reference Range Interpretation Comme nts GLUCOSE (test code = 2217) 129 MG/DL BUN (test code = 2208) 21 MG/DL CREATININE (test code = 2214) 0.96 MG/DL eGFR AMER. (test cod e = 51130) 104 ML/MIN/1.73 eGFR NON- AMER. (test code = 66294) 90 ML/MIN/1.73 CALC BUN/CREAT (test code = [...] code = 2219) 21 U/L COMPREHENSIVE METABOLIC [id number] 00:00:00* Test Item Value Reference Range Interpretation Comme nts GLUCOSE (test code = 2217) 129 MG/DL BUN (test code = 2208) 21 MG/DL CREATININE (test code = 2214) 0.96 MG/DL eGFR AMER. (test cod e = 92639) 104 ML/MIN/1.73 eGFR NON- AMER. (test code = 69389) 90 ML/MIN/1.73 CALC BUN/CREAT (test code = [...] (test code = 2219) 21 U/L LIPID [id number] 00:00:00* Test Item Value Reference Range Interpretation Comme nts CHOLESTEROL (test code = 2210) 158 MG/DL TRIGLYCERIDES (test code = 2232) 96 MG/DL HDL CHOLESTEROL (test code = 2220) 43 MG/DL CALC LDL CHOL (test code = 2237) 96 MG/DL RISK RATIO LDL/HDL (test cod e = 2238) 2.23 RATIO LIPID [id number] 00:00:00* Test Item Value Reference Range Interpretation Comme nts CHOLESTEROL (test code = 2210) 158 MG/DL TRIGLYCERIDES (test code = 2232) 96 MG/DL HDL CHOLESTEROL (test code = 2220) 43 MG/DL CALC LDL CHOL (test code = 2237) 96 MG/DL RISK RATIO LDL/HDL (test cod e = 2238) 2.23 RATIO [id number] 00:00:00* Test Item Value Reference Range Interpretation Comme nts TSH (test code = 2821) 1.210 UIU/ML [id number] 00:00:00* Test Item Value Reference Range Interpretation Comme nts TSH (test code = 2821) 1.210 UIU/ML [id number] 00:00:00* Test Item Value Reference Range Interpretation Comme nts TSH (test code = 2821) 1.210 UIU/ML COMPREHENSIVE METABOLIC [id number] 00:00:00* Test Item Value Reference Range Interpretation Comme nts GLUCOSE (test code = 2217) 129 MG/DL BUN (test code = 2208) 21 MG/DL CREATININE (test code = 2214) 0.96 MG/DL eGFR AMER. (test cod e = 19036) 104 ML/MIN/1.73 eGFR NON- AMER. (test code = 12989) 90 ML/MIN/1.73 CALC BUN/CREAT (test code = [...] code = 2219) 21 U/L COMPREHENSIVE METABOLIC [id number] 00:00:00* Test Item Value Reference Range Interpretation Comme nts GLUCOSE (test code = 2217) 119 MG/DL BUN (test code = 2208) 42 MG/DL CREATININE (test code = 2214) 1.24 MG/DL eGFR AMER. (test cod e = 57200) 76 ML/MIN/1.73 eGFR NON- AMER. (test code = 68892) 66 ML/MIN/1.73 CALC BUN/CREAT (test code = [...] (test code = 2219) 29 U/L Eyad Boss KennedyLIPID [id number] 00:00:00* Test Item Value Reference Range Interpretation Comme nts CHOLESTEROL (test code = 2210) 186 MG/DL TRIGLYCERIDES (test code = 2232) 90 MG/DL HDL CHOLESTEROL (test code = 2220) 50 MG/DL CALC LDL CHOL (test code = 2237) 118 MG/DL RISK RATIO LDL/HDL (test cod e = 2238) 2.36 RATIO Eyad ConradCOMPREHENSIVE METABOLIC [id number] 00:00:00* Test Item Value Reference Range Interpretation Comme nts GLUCOSE (test code = 2217) 119 MG/DL BUN (test code = 8) 42 MG/DL CREATININE (test code = 2214) 1.24 MG/DL eGFR AMER. (test cod e = 51124) 76 ML/MIN/1.73 eGFR NON- AMER. (test code = 12344) 66 ML/MIN/1.73 CALC BUN/CREAT (test code = [...] (test code = 2219) 29 U/L LIPID [id number] 00:00:00* Test Item Value Reference Range Interpretation Comme nts CHOLESTEROL (test code = 2210) 186 MG/DL TRIGLYCERIDES (test code = 2232) 90 MG/DL HDL CHOLESTEROL (test code = 2220) 50 MG/DL CALC LDL CHOL (test code = 2237) 118 MG/DL RISK RATIO LDL/HDL (test cod e = 2238) 2.36 RATIO LIPID [id number] 00:00:00* Test Item Value Reference Range Interpretation Comme nts CHOLESTEROL (test code = 2210) 186 MG/DL TRIGLYCERIDES (test code = 2232) 90 MG/DL HDL CHOLESTEROL (test code = 2220) 50 MG/DL CALC LDL CHOL (test code = 2237) 118 MG/DL RISK RATIO LDL/HDL (test cod e = 2238) 2.36 RATIO COMPREHENSIVE METABOLIC [id number] 00:00:00* Test Item Value Reference Range Interpretation Comme nts GLUCOSE (test code = 2217) 119 MG/DL BUN (test code = 2208) 42 MG/DL CREATININE (test code = 2214) 1.24 MG/DL eGFR AMER. (test cod e = 61972) 76 ML/MIN/1.73 eGFR NON- AMER. (test code = 23587) 66 ML/MIN/1.73 CALC BUN/CREAT (test code = [...] code = 2219) 29 U/L COMPREHENSIVE METABOLIC [id number] 00:00:00* Test Item Value Reference Range Interpretation Comme nts GLUCOSE (test code = 2217) 119 MG/DL BUN (test code = 2208) 42 MG/DL CREATININE (test code = 2214) 1.24 MG/DL eGFR AMER. (test cod e = 71766) 76 ML/MIN/1.73 eGFR NON- AMER. (test code = 31730) 66 ML/MIN/1.73 CALC BUN/CREAT (test code = [...] (test code = 2219) 29 U/L LIPID [id number] 00:00:00* Test Item Value Reference Range Interpretation Comme nts CHOLESTEROL (test code = 2210) 186 MG/DL TRIGLYCERIDES (test code = 2232) 90 MG/DL HDL CHOLESTEROL (test code = 2220) 50 MG/DL CALC LDL CHOL (test code = 2237) 118 MG/DL RISK RATIO LDL/HDL (test cod e = 2238) 2.36 RATIO LIPID [id number] 00:00:00* Test Item Value Reference Range Interpretation Comme nts CHOLESTEROL (test code = 2210) 186 MG/DL TRIGLYCERIDES (test code = 2232) 90 MG/DL HDL CHOLESTEROL (test code = 2220) 50 MG/DL CALC LDL CHOL (test code = 2237) 118 MG/DL RISK RATIO LDL/HDL (test cod e = 2238) 2.36 RATIO COMPREHENSIVE METABOLIC [id number] 00:00:00* Test Item Value Reference Range Interpretation Comme nts GLUCOSE (test code = 7) 119 MG/DL BUN (test code = 8) 42 MG/DL CREATININE (test code = 2214) 1.24 MG/DL eGFR AMER. (test cod e = 82295) 76 ML/MIN/1.73 eGFR NON- AMER. (test code = 67186) 66 ML/MIN/1.73 CALC BUN/CREAT (test code = 2235) 34 RATIO SODIUM (test code = 223) 140 MEQ/L POTASSIUM (test code = 2228) 4.7 MEQ/L CHLORIDE (test code = 2215) 99 MEQ/L CARBON DIOXIDE (test code = 2206) 28 MEQ/L CALCIUM (test code = 2209) 9.2 MG/DL PROTEIN, TOTAL (test code = 222) 7.5 G/DL ALBUMIN (test code = 2201) 4.3 G/DL CALC GLOBULIN (test code = 2240) 3.2 G/DL CALC A/G RATIO (test code = 2234) 1.3 RATIO BILIRUBIN, TOTAL (test code = 2207) 0.3 MG/DL ALKALINE PHOSPHATASE (test code = 2204) 78 U/L AST (test code = 2218) 22 U/L ALT (test code = 2219) 29 U/L VITAMIN B 12 AND FOLIC [id number] 00:00:00* Test Item Value Reference Range Interpretation Comme nts VITAMIN B-12 (test code = 2840) 1049 PG/ML FOLIC ACID (test code = 2695) 7.2 UG/L Eyad Boss [id number] 00:00:00* Test Item Value Reference Range Interpretation Comme nts FERRITIN (test code = 2074) 65 NG/ML Eyad ConradIRON BINDING CAPACITY AND IRON AND % [id number] 00:00:00* Test Item Value Reference Range Interpretation Comme nts IRON, SERUM (test code = 2221) 126 UG/DL UNSATURATED IBC (test code = ) 193 UG/DL CALC TOTAL IBC (test code = 2076) 319 UG/DL CALC % IRON SAT (test code = 2078) 39 % Eyad ConradRETICULOCYTE [id number] 00:00:00* Test Item Value Reference Range Interpretation Comme nts RETICULOCYTE COUNT (test code = 1018) 1.2 % Eyad Karyn AustinVITAMIN B 12 AND FOLIC [id number] 00:00:00* Test Item Value Reference Range Interpretation Comme nts VITAMIN B-12 (test code = 2840) 1049 PG/ML FOLIC ACID (test code = 2695) 7.2 UG/L [id number] 00:00:00* Test Item Value Reference Range Interpretation Comme nts FERRITIN (test code = 5) 65 NG/ML [id number] 00:00:00* Test Item Value Reference Range Interpretation Comme nts FERRITIN (test code = 2074) 65 NG/ML IRON BINDING CAPACITY AND IRON AND % [id number] 00:00:00* Test Item Value Reference Range Interpretation Comme nts IRON, SERUM (test code = 2) 126 UG/DL UNSATURATED IBC (test code = 43631) 193 UG/DL CALC TOTAL IBC (test code = 7) 319 UG/DL CALC % IRON SAT (test code = 9) 39 % IRON BINDING CAPACITY AND IRON AND % [id number] 00:00:00* Test Item Value Reference Range Interpretation Comme nts IRON, SERUM (test code = 2) 126 UG/DL UNSATURATED IBC (test code = 35272) 193 UG/DL CALC TOTAL IBC (test code = 7) 319 UG/DL CALC % IRON SAT (test code = 9) 39 % RETICULOCYTE [id number] 00:00:00* Test Item Value Reference Range Interpretation Comme nts RETICULOCYTE COUNT (test code = 1018) 1.2 % RETICULOCYTE [id number] 00:00:00* Test Item Value Reference Range Interpretation Comme nts RETICULOCYTE COUNT (test code = 1018) 1.2 % VITAMIN B 12 AND FOLIC [id number] 00:00:00* Test Item Value Reference Range Interpretation Comme nts VITAMIN B-12 (test code = 2840) 1049 PG/ML FOLIC ACID (test code = 2695) 7.2 UG/L VITAMIN B 12 AND FOLIC [id number] 00:00:00* Test Item Value Reference Range Interpretation Comme nts VITAMIN B-12 (test code = 2840) 1049 PG/ML FOLIC ACID (test code = 2695) 7.2 UG/L [id number] 00:00:00* Test Item Value Reference Range Interpretation Comme nts FERRITIN (test code = 2074) 65 NG/ML [id number] 00:00:00* Test Item Value Reference Range Interpretation Comme nts FERRITIN (test code = 2074) 65 NG/ML IRON BINDING CAPACITY AND IRON AND % [id number] 00:00:00* Test Item Value Reference Range Interpretation Comme nts IRON, SERUM (test code = 2) 126 UG/DL UNSATURATED IBC (test code = 06102) 193 UG/DL CALC TOTAL IBC (test code = 7) 319 UG/DL CALC % IRON SAT (test code = 9) 39 % IRON BINDING CAPACITY AND IRON AND % [id number] 00:00:00* Test Item Value Reference Range Interpretation Comme nts IRON, SERUM (test code = 2221) 126 UG/DL UNSATURATED IBC (test code = 83408) 193 UG/DL CALC TOTAL IBC (test code = 7) 319 UG/DL CALC % IRON SAT (test code = 9) 39 % RETICULOCYTE [id number] 00:00:00* Test Item Value Reference Range Interpretation Comme nts RETICULOCYTE COUNT (test code = 1018) 1.2 % RETICULOCYTE [id number] 00:00:00* Test Item Value Reference Range Interpretation Comme nts RETICULOCYTE COUNT (test code = 1018) 1.2 % VITAMIN B 12 AND FOLIC [id number] 00:00:00* Test Item Value Reference Range Interpretation [...] code = 2821) 0.747 UIU/ML CBC W/AUTO [id number] 00:00:00* Test Item Value Reference Range Interpretation [...] = 1015) 228 K/UL Eyad ConradC W/AUTO [id number] 00:00:00* Test Item Value Reference Range Interpretation [...] code = 1015) 228 K/UL CBC W/AUTO [id number] 00:00:00* Test Item Value Reference Range Interpretation [...] code = 1015) 228 K/UL CBC W/AUTO [id number] 00:00:00* Test Item Value Reference Range Interpretation [...] code = 1015) 228 K/UL CBC W/AUTO [id number] 00:00:00* Test Item Value Reference Range Interpretation [...] code = 1015) 228 K/UL CBC W/AUTO [id number] 00:00:00* Test Item Value Reference Range Interpretation [...] code = 1015) 228 K/UL CBC W/AUTO [id number] 00:00:00* Test Item Value Reference Range Interpretation [...] (test code = 1015) 228 K/UL HEMOGLOBIN [id number] 00:00:00* Test Item Value Reference Range Interpretation Comme nts HEMOGLOBIN A1c (test code = 05284) 5.7 % Eyad F HoustonCOMPREHENSIVE METABOLIC [id number] 00:00:00* Test Item Value Reference Range Interpretation Comme nts GLUCOSE (test code = 2217) 103 MG/DL BUN (test code = 2208) 9 MG/DL CREATININE (test code = 2214) 0.88 MG/DL eGFR AMER. (test cod e = 84436) 114 ML/MIN/1.73 eGFR NON- AMER. (test code = 15160) 99 ML/MIN/1.73 CALC BUN/CREAT (test code = [...] = 2219) 28 U/L Eyad Boss AustinHEMOGLOBIN [id number] 00:00:00* Test Item Value Reference Range Interpretation Comme nts HEMOGLOBIN A1c (test code = 21711) 5.7 % COMPREHENSIVE METABOLIC [id number] 00:00:00* Test Item Value Reference Range Interpretation Comme nts GLUCOSE (test code = 2217) 103 MG/DL BUN (test code = 2208) 9 MG/DL CREATININE (test code = 2214) 0.88 MG/DL eGFR AMER. (test cod e = 42677) 114 ML/MIN/1.73 eGFR NON- AMER. (test code = 58670) 99 ML/MIN/1.73 CALC BUN/CREAT (test code = [...] code = 2219) 28 U/L COMPREHENSIVE METABOLIC [id number] 00:00:00* Test Item Value Reference Range Interpretation Comme nts GLUCOSE (test code = 2217) 103 MG/DL BUN (test code = 2208) 9 MG/DL CREATININE (test code = 2214) 0.88 MG/DL eGFR AMER. (test cod e = 94547) 114 ML/MIN/1.73 eGFR NON- AMER. (test code = 75445) 99 ML/MIN/1.73 CALC BUN/CREAT (test code = [...] (test code = 2219) 28 U/L HEMOGLOBIN [id number] 00:00:00* Test Item Value Reference Range Interpretation Comme nts HEMOGLOBIN A1c (test code = 51788) 5.7 % HEMOGLOBIN [id number] 00:00:00* Test Item Value Reference Range Interpretation Comme nts HEMOGLOBIN A1c (test code = 16298) 5.7 % HEMOGLOBIN [id number] 00:00:00* Test Item Value Reference Range Interpretation Comme nts HEMOGLOBIN A1c (test code = 00902) 5.7 % COMPREHENSIVE METABOLIC [id number] 00:00:00* Test Item Value Reference Range Interpretation Comme nts GLUCOSE (test code = 2217) 103 MG/DL BUN (test code = 2208) 9 MG/DL CREATININE (test code = 2214) 0.88 MG/DL eGFR AMER. (test cod e = 21437) 114 ML/MIN/1.73 eGFR NON- AMER. (test code = 16026) 99 ML/MIN/1.73 CALC BUN/CREAT (test code = [...] code = 2219) 28 U/L COMPREHENSIVE METABOLIC [id number] 00:00:00* Test Item Value Reference Range Interpretation Comme nts GLUCOSE (test code = 2217) 103 MG/DL BUN (test code = 2208) 9 MG/DL CREATININE (test code = 2214) 0.88 MG/DL eGFR AMER. (test cod e = 83807) 114 ML/MIN/1.73 eGFR NON- AMER. (test code = 92802) 99 ML/MIN/1.73 CALC BUN/CREAT (test code = [...] (test code = 2219) 28 U/L HEMOGLOBIN [id number] 00:00:00* Test Item Value Reference Range Interpretation Comme nts HEMOGLOBIN A1c (test code = 35929) 5.7 % HEMOGLOBIN [id number] 00:00:00* Test Item Value Reference Range Interpretation Comme nts HEMOGLOBIN A1c (test code = 44911) 5.7 % COMPREHENSIVE METABOLIC [id number] 00:00:00* Test Item Value Reference Range Interpretation Comme nts GLUCOSE (test code = 2217) 100 MG/DL BUN (test code = 2208) 12 MG/DL CREATININE (test code = 2214) 0.91 MG/DL eGFR AMER. (test cod e = 46969) 112 ML/MIN/1.73 eGFR NON- AMER. (test code = 29557) 97 ML/MIN/1.73 CALC BUN/CREAT (test code = [...] = 2219) 30 U/L Eyad Boss AustinHEMOGLOBIN [id number] 00:00:00* Test Item Value Reference Range Interpretation Comme nts HEMOGLOBIN A1c (test code = 43654) 6.1 % Eyad F AustinCOMPREHENSIVE METABOLIC [id number] 00:00:00* Test Item Value Reference Range Interpretation Comme nts GLUCOSE (test code = 2217) 100 MG/DL BUN (test code = 2208) 12 MG/DL CREATININE (test code = 2214) 0.91 MG/DL eGFR AMER. (test cod e = 39955) 112 ML/MIN/1.73 eGFR NON- AMER. (test code = 81414) 97 ML/MIN/1.73 CALC BUN/CREAT (test code = [...] code = 2219) 30 U/L COMPREHENSIVE METABOLIC [id number] 00:00:00* Test Item Value Reference Range Interpretation Comme nts GLUCOSE (test code = 2217) 100 MG/DL BUN (test code = 2208) 12 MG/DL CREATININE (test code = 2214) 0.91 MG/DL eGFR AMER. (test cod e = 59983) 112 ML/MIN/1.73 eGFR NON- AMER. (test code = 13473) 97 ML/MIN/1.73 CALC BUN/CREAT (test code = [...] (test code = 2219) 30 U/L HEMOGLOBIN [id number] 00:00:00* Test Item Value Reference Range Interpretation Comme nts HEMOGLOBIN A1c (test code = 66649) 6.1 % HEMOGLOBIN [id number] 00:00:00* Test Item Value Reference Range Interpretation Comme nts HEMOGLOBIN A1c (test code = 49873) 6.1 % HEMOGLOBIN [id number] 00:00:00* Test Item Value Reference Range Interpretation Comme nts HEMOGLOBIN A1c (test code = 47282) 6.1 % COMPREHENSIVE METABOLIC [id number] 00:00:00* Test Item Value Reference Range Interpretation Comme nts GLUCOSE (test code = 2217) 100 MG/DL BUN (test code = 2208) 12 MG/DL CREATININE (test code = 2214) 0.91 MG/DL eGFR AMER. (test cod e = 68497) 112 ML/MIN/1.73 eGFR NON- AMER. (test code = 50300) 97 ML/MIN/1.73 CALC BUN/CREAT (test code = [...] code = 2219) 30 U/L COMPREHENSIVE METABOLIC [id number] 00:00:00* Test Item Value Reference Range Interpretation Comme nts GLUCOSE (test code = 2217) 100 MG/DL BUN (test code = 2208) 12 MG/DL CREATININE (test code = 2214) 0.91 MG/DL eGFR AMER. (test cod e = 06135) 112 ML/MIN/1.73 eGFR NON- AMER. (test code = 60827) 97 ML/MIN/1.73 CALC BUN/CREAT (test code = [...] (test code = 2219) 30 U/L HEMOGLOBIN [id number] 00:00:00* Test Item Value Reference Range Interpretation Comme nts HEMOGLOBIN A1c (test code = 39311) 6.1 % HEMOGLOBIN [id number] 00:00:00* Test Item Value Reference Range Interpretation Comme nts HEMOGLOBIN A1c (test code = 52536) 6.1 % HEMOGLOBIN [id number] 00:00:00* Test Item Value Reference Range Interpretation Comme nts HEMOGLOBIN A1c (test code = 79143) 6.1 % COMPREHENSIVE METABOLIC [id number] 00:00:00* Test Item Value Reference Range Interpretation Comme nts GLUCOSE (test code = 2217) 94 MG/DL BUN (test code = 2208) 21 MG/DL CREATININE (test code = 2214) 1.0 MG/DL eGFR AMER. (test cod e = 34674) 95 ML/MIN/1.73 eGFR NON- AMER. (test code = 58236) 79 ML/MIN/1.73 CALCULATED BUN/CREAT (test code = [...] = 2219) 16 U/L Eyad Boss AustinHEMOGLOBIN [id number] 00:00:00* Test Item Value Reference Range Interpretation Comme nts HEMOGLOBIN A1c (test code = 34969) 6.1 % Eyad Boss AustinHEMOGLOBIN [id number] 00:00:00* Test Item Value Reference Range Interpretation Comme nts HEMOGLOBIN A1c (test code = 17244) 6.1 % COMPREHENSIVE METABOLIC [id number] 00:00:00* Test Item Value Reference Range Interpretation Comme nts GLUCOSE (test code = 2217) 94 MG/DL BUN (test code = 2208) 21 MG/DL CREATININE (test code = 2214) 1.0 MG/DL eGFR AMER. (test cod e = 46248) 95 ML/MIN/1.73 eGFR NON- AMER. (test code = 40062) 79 ML/MIN/1.73 CALCULATED BUN/CREAT (test code = [...] code = 2219) 16 U/L COMPREHENSIVE METABOLIC [id number] 00:00:00* Test Item Value Reference Range Interpretation Comme nts GLUCOSE (test code = 2217) 94 MG/DL BUN (test code = 2208) 21 MG/DL CREATININE (test code = 2214) 1.0 MG/DL eGFR AMER. (test cod e = 98843) 95 ML/MIN/1.73 eGFR NON- AMER. (test code = 89688) 79 ML/MIN/1.73 CALCULATED BUN/CREAT (test code = [...] (test code = 2219) 16 U/L HEMOGLOBIN [id number] 00:00:00* Test Item Value Reference Range Interpretation Comme nts HEMOGLOBIN A1c (test code = 48754) 6.1 % HEMOGLOBIN [id number] 00:00:00* Test Item Value Reference Range Interpretation Comme nts HEMOGLOBIN A1c (test code = 87999) 6.1 % HEMOGLOBIN [id number] 00:00:00* Test Item Value Reference Range Interpretation Comme nts HEMOGLOBIN A1c (test code = 81825) 6.1 % COMPREHENSIVE METABOLIC [id number] 00:00:00* Test Item Value Reference Range Interpretation Comme nts GLUCOSE (test code = 2217) 94 MG/DL BUN (test code = 2208) 21 MG/DL CREATININE (test code = 2214) 1.0 MG/DL eGFR AMER. (test cod e = 44043) 95 ML/MIN/1.73 eGFR NON- AMER. (test code = 76565) 79 ML/MIN/1.73 CALCULATED BUN/CREAT (test code = [...] code = 2219) 16 U/L COMPREHENSIVE METABOLIC [id number] 00:00:00* Test Item Value Reference Range Interpretation Comme nts GLUCOSE (test code = 2217) 94 MG/DL BUN (test code = 2208) 21 MG/DL CREATININE (test code = 2214) 1.0 MG/DL eGFR AMER. (test cod e = 12350) 95 ML/MIN/1.73 eGFR NON- AMER. (test code = 98670) 79 ML/MIN/1.73 CALCULATED BUN/CREAT (test code = [...] (test code = 2219) 16 U/L HEMOGLOBIN [id number] 00:00:00* Test Item Value Reference Range Interpretation Comme nts HEMOGLOBIN A1c (test code = 64983) 6.1 % HEMOGLOBIN [id number] 00:00:00* Test Item Value Reference Range Interpretation Comme nts HEMOGLOBIN A1c (test code = 89991) 6.1 % HEMOGLOBIN [id number] 00:00:00* Test Item Value Reference Range Interpretation Comme nts HEMOGLOBIN A1c (test code = 52303) 6.0 % Eyad F HoustonTHYROID II PROFILE (T3U, T4, T7, TSH)2014-09-19 00:00:00* Test Item Value Reference Range Interpretation Comme [facility] T3 UPTAKE (test code = 2817) 28.0 % T4 (THYROXINE) (test code = 2819) 6.8 UG/DL CALCULATED T7 (FTI) (test co de = 2820) 1.90 TSH (test code = 2821) 1.6 UIU/ML Eyad F HoustonCOMPREHENSIVE METABOLIC [id number] 00:00:00* Test Item Value Reference Range Interpretation Comme nts GLUCOSE (test code = 2217) 97 MG/DL BUN (test code = 2208) 28 MG/DL CREATININE (test code = 2214) 1.1 MG/DL eGFR AMER. (test cod e = 34666) 86 ML/MIN/1.73 eGFR NON- AMER. (test code = 53743) 71 ML/MIN/1.73 CALCULATED BUN/CREAT (test code = [...] = 2219) 18 U/L Eyad ConradCBC W/AUTO [id number] 00:00:00* Test Item Value Reference Range Interpretation [...] code = 1015) 293 K/UL Eyad ConradLIPID [id number] 00:00:00* Test Item Value Reference Range Interpretation Comme nts CHOLESTEROL (test code = 2210) 173 MG/DL TRIGLYCERIDES (test code = 2232) 56 MG/DL HDL CHOLESTEROL (test code = 2220) 58 MG/DL CALCULATED LDL CHOL (test co de = 2237) 104 MG/DL RISK RATIO LDL/HDL (test cod e = 2238) 1.79 RATIO Eyad ConradHEMOGLOBIN [id number] 00:00:00* Test Item Value Reference Range Interpretation Comme nts HEMOGLOBIN A1c (test code = 47658) 6.0 % THYROID II PROFILE (T3U, T4, [...] code = 2821) 1.6 UIU/ML COMPREHENSIVE METABOLIC [id number] 00:00:00* Test Item Value Reference Range Interpretation Comme nts GLUCOSE (test code = 2217) 97 MG/DL BUN (test code = 2208) 28 MG/DL CREATININE (test code = 2214) 1.1 MG/DL eGFR AMER. (test cod e = 16346) 86 ML/MIN/1.73 eGFR NON- AMER. (test code = 79607) 71 ML/MIN/1.73 CALCULATED BUN/CREAT (test code = [...] code = 2219) 18 U/L COMPREHENSIVE METABOLIC [id number] 00:00:00* Test Item Value Reference Range Interpretation Comme nts GLUCOSE (test code = 2217) 97 MG/DL BUN (test code = 2208) 28 MG/DL CREATININE (test code = 2214) 1.1 MG/DL eGFR AMER. (test cod e = 59220) 86 ML/MIN/1.73 eGFR NON- AMER. (test code = 90249) 71 ML/MIN/1.73 CALCULATED BUN/CREAT (test code = [...] code = 2219) 18 U/L CBC W/AUTO [id number] 00:00:00* Test Item Value Reference Range Interpretation [...] code = 1015) 293 K/UL CBC W/AUTO [id number] 00:00:00* Test Item Value Reference Range Interpretation [...] code = 1015) 293 K/UL CBC W/AUTO [id number] 00:00:00* Test Item Value Reference Range Interpretation [...] (test code = 1015) 293 K/UL LIPID [id number] 00:00:00* Test Item Value Reference Range Interpretation Comme nts CHOLESTEROL (test code = 2210) 173 MG/DL TRIGLYCERIDES (test code = 2232) 56 MG/DL HDL CHOLESTEROL (test code = 2220) 58 MG/DL CALCULATED LDL CHOL (test co de = 2237) 104 MG/DL RISK RATIO LDL/HDL (test cod e = 2238) 1.79 RATIO LIPID [id number] 00:00:00* Test Item Value Reference Range Interpretation Comme nts CHOLESTEROL (test code = 2210) 173 MG/DL TRIGLYCERIDES (test code = 2232) 56 MG/DL HDL CHOLESTEROL (test code = 2220) 58 MG/DL CALCULATED LDL CHOL (test co de = 2237) 104 MG/DL RISK RATIO LDL/HDL (test cod e = 2238) 1.79 RATIO HEMOGLOBIN [id number] 00:00:00* Test Item Value Reference Range Interpretation Comme nts HEMOGLOBIN A1c (test code = 47412) 6.0 % HEMOGLOBIN [id number] 00:00:00* Test Item Value Reference Range Interpretation Comme nts HEMOGLOBIN A1c (test code = 36499) 6.0 % HEMOGLOBIN [id number] 00:00:00* Test Item Value Reference Range Interpretation Comme nts HEMOGLOBIN A1c (test code = 72918) 6.0 % THYROID II PROFILE (T3U, T4, [...] code = 2821) 1.6 UIU/ML COMPREHENSIVE METABOLIC [id number] 00:00:00* Test Item Value Reference Range Interpretation Comme nts GLUCOSE (test code = 2217) 97 MG/DL BUN (test code = 2208) 28 MG/DL CREATININE (test code = 2214) 1.1 MG/DL eGFR AMER. (test cod e = 20424) 86 ML/MIN/1.73 eGFR NON- AMER. (test code = 12584) 71 ML/MIN/1.73 CALCULATED BUN/CREAT (test code = [...] code = 2219) 18 U/L COMPREHENSIVE METABOLIC [id number] 00:00:00* Test Item Value Reference Range Interpretation Comme nts GLUCOSE (test code = 2217) 97 MG/DL BUN (test code = 2208) 28 MG/DL CREATININE (test code = 2214) 1.1 MG/DL eGFR AMER. (test cod e = 99453) 86 ML/MIN/1.73 eGFR NON- AMER. (test code = 65367) 71 ML/MIN/1.73 CALCULATED BUN/CREAT (test code = [...] code = 2219) 18 U/L CBC W/AUTO [id number] 00:00:00* Test Item Value Reference Range Interpretation [...] code = 1015) 293 K/UL CBC W/AUTO [id number] 00:00:00* Test Item Value Reference Range Interpretation [...] code = 1015) 293 K/UL CBC W/AUTO [id number] 00:00:00* Test Item Value Reference Range Interpretation [...] (test code = 1015) 293 K/UL LIPID [id number] 00:00:00* Test Item Value Reference Range Interpretation Comme nts CHOLESTEROL (test code = 2210) 173 MG/DL TRIGLYCERIDES (test code = 2232) 56 MG/DL HDL CHOLESTEROL (test code = 2220) 58 MG/DL CALCULATED LDL CHOL (test co de = 2237) 104 MG/DL RISK RATIO LDL/HDL (test cod e = 2238) 1.79 RATIO LIPID [id number] 00:00:00* Test Item Value Reference Range Interpretation Comme nts CHOLESTEROL (test code = 2210) 173 MG/DL TRIGLYCERIDES (test code = 2232) 56 MG/DL HDL CHOLESTEROL (test code = 2220) 58 MG/DL CALCULATED LDL CHOL (test co de = 2237) 104 MG/DL RISK RATIO LDL/HDL (test cod e = 2238) 1.79 RATIO HEMOGLOBIN [id number] 00:00:00* Test Item Value Reference Range Interpretation Comme nts HEMOGLOBIN A1c (test code = 77469) 6.0 % HEMOGLOBIN [id number] 00:00:00* Test Item Value Reference Range Interpretation Comme nts HEMOGLOBIN A1c (test code = 52614) 6.0 % Notes Date/Time Note Provider Source 2023-07-28 00:00:00 3cdC+Sgn1wZypR3jbg8BU/i2mrtOJ87g8vK [id number]/L1b6356-0 02T00:00:00+ +-------- ----+| Plan Activity | Plan Date |+ + +| hctz 12.5 mg to BID AND continue amlodipine 10 mg qd | 2015-01-22 || losartan ??? | || stop LISINOPRIL/HCTZ /12.5 MG QD | || | || Eat [...] he was living with | || his cpawoxo-zm-oqy who had TB. | || Advised patient [...] pt did blood | || work in [place] | || pt states that medication helps [...] || refer to [facility] | |+ + [phone] Plan of TreatmentLNCARE PLANTXTSFA|[id number] for patient ezlpDvrpocdXjodisryrATSIy01 Section NarrativeNARRATIVEFormatted C-CDA narrative textSFAStliliake Mccurdy [facility]T00:00:00 Eyad Mccurdy [facility] 2023-06-04 01:29:16 9124-70-69E23:29:16 Pt given printed and verbal discharge instructions [...] w/d, pt leaving in no apparent distress, 8[address]36-9Raozdwmhv department AinvZE8008-56-28Q47:30:36[facility] NoteTXT1.2.840.151724.1.13.104.2.7. 2.700474|[id number] for patient wtme51279-1VcvdICLTFTIBOXCShhmnenok C-CDA narrative [id number] R Shehadeh RN[address] [id number] 9DBCCRXQOURXWJERCTUFDNL0480-98-72G6 1:30:361.2.840.512696.1.72.3.15|1.2 .840.115712.1.13.104.2.7.2.727879_2 [id number] Pippa Parra RN [facility] 2023-06-03 22:33:49 5643-63-56L79:33:49 Patient ambulatory to ED c/o abd and mouth pain. Patient states the abd pain is not present right now but his lips are "hot" and "tongue is red." Patient is taking new medication but doesn't know the name of it. This is his third time here. [address]1764-6Uddiqwwac department Triage yysoQV7734-11-15C14:40:10[facility] Triage noteTXT1.2.840.486548.1.13.104.2.7. 2.016423|[id number] for patient uhxp59079-3Tfyuevctr department NoteLNNARRATIVEFormatted C-CDA narrative [id number]-Tfhqc McInnis RNUT[address] Wv[id number] 4ALDYXCGMRWMBJZSTZKSCCC9143-46-06M5 2:40:101.2.840.827680.1.72.3.15|1.2 .840.975493.1.13.104.2.7.2.727879_2 [id number] Yan Mims RN [facility] 2023-06-03 22:27:00 2993-41-99G98:27:00 [facility] Emergency Department NotePatient Name: Zeke Legih of : 1965 58 year old maleTreatment Room: [facility] Record Number: [id number] Care Physician: DEANDRE JonesPatient Escorted by: Family [5]Mode of Arrival: Personal means [1]EMS Treatment Prior to ED Arrival:CARD 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 METABOLIC PANEL (67152) - AbnormalNA 138 135 - 145 mmol/LK [...] 45 (*) 13 - 40 U/LeGFR 92.2 mL/min/1.27w0MBUUL DRUG (IMMUNOASSAY) - COMPREHENSIVE DRUG SCREEN - NormalAMPHET Negative NegativeBARB U Negative NegativeBENZO U Negative NegativeCocaine Metabolite Negative NegativeMETHADONE Negative NegativeOPIATES Negative NegativePCP Negative NegativeTHC Negative NegativeETHANOLALCOHOL <10 mg/dLTHYROID STIMULATING HORMONEEKG:If EKG completed, see Procedure Note.Orders and Treatments:Orders Placed This EncounterProcedures Cbc with Diff Comp. Metabolic Panel (56265) Urine Drug (Immunoassay) - Comprehensive Drug Screen Ethanol Thyroid Stimulating HormoneNo orders of the defined types were placed in this encounter.First Provider Eval:ED EventsNoneED COURSEDiagnosis/Impression as of 06/04/23 0111Abdominal pain, unspecified abdominal locationBurning mouth syndromeProcedures:ProceduresMDM:Me dical Decision MakingAmount and/or Complexity of Data [...] fileFollow-up: PCPElectronically signed by:Samuel Donato MD06/04/23 0106 44565-2Gdgdbrywi Emergency department RalmUD2112-60-39N77:06:46Physician Emergency department NoteTXT1.2.840.041928.1.13.104.2.7. 2.700638|[id number] for patient qzqr14979-0Hvduxxhpn department NoteLNNARRATIVEFormatted C-CDA narrative textUT[address] Li[id number] 3XNWPMAOHXWHNIQNBKFMBXI6799-86-51G3 1:06:461.2.840.460197.1.72.3.15|1.2 .840.829985.1.13.104.2.7.2.727879_2 [id number] [facility] 2023-05-31 19:33:39 8185-48-42G18:33:39 Pt discharged with diagnosis of mouth pain. Printed and verbal instructions reviewed with and given to pt. Prescriptions given x 0. Pt verbalized understanding of teaching and recommended follow-up. Denies questions or concerns at this time. Pt ambulatory at discharge. Appears in no apparent distress. No ataxia noted. 94368-9Ddhaiuahn department LmwuTW5324-19-36K09:34:02[facility] department NoteTXT1.2.840.664656.1.13.104.2.7. 2.239580|[id number] for patient tzmf07679-3ObywBFOJWDZOGIMDeshjjbrz C-CDA narrative [id number] Al RN[address]Si[id number] 5DOQCUSAUNRASQLFGMRSKNA5304-30-17L7 9:34:021.2.840.990145.1.72.3.15|1.2 .840.085917.1.13.104.2.7.2.727879_2 [id number] Aniya Al RN [facility] 2023-05-31 17:21:16 6127-40-65D28:21:16 Patient states: "I feel fire on my mouth since 1 month now. I was seen already for the same thing a week ago, prescribed with antibiotics but it's not helping." 63627-9Nozvjxqdc department Triage hgqgUF0472-37-42K94:23:12[facility] department Triage noteTXT1.2.840.095143.1.13.104.2.7. 2.701713|[id number] for patient vyns30223-2Dzggkgrle department NoteLNNARRATIVEFormatted C-CDA narrative [id number] C Laguerre RNUT[address] Ng[id number] 4YOGASAZJHTUIAOQTKHQPSO8047-85-30M5 7:23:121.2.840.513277.1.72.3.15|1.2 .840.321332.1.13.104.2.7.2.727879_2 [id number] Anabella Laguerre RN [facility] 2023-05-21 11:01:55 5150-16-29C48:01:55 Pt given discharge instructions on heartburn. Given prescription X 1 for protonix. Pt advised to follow up with pcp. Pt left ER ambulatory with steady gait. No signs of distress. 40924-6Tlstxeebu department SnizEP3972-80-40K91:02:33[facility] NoteTXT1.2.840.418744.1.13.104.2.7. 2.368483|[id number] for patient xatr71403-1FuylWIEGAZIICGCTznbmbhvg C-CDA narrative text[address] StreetFh[id number] 8QRZABMWHIIUFQPINIYKRSZ2712-38-06K9 1:02:331.2.840.081564.1.72.3.15|1.2 .840.017389.1.13.104.2.7.2.727879_2 [id number] [facility] 2023-05-21 10:32:14 7241-43-66E78:32:14 Patient states: "My tongue is very hot and my lips are hot. My stomach hurts. [place] went [place] and she gave me a lot of papers but she didn't find anything"Reports symptoms for 10 days. Worse today. 71528-9Jyqxbymrr department Triage kwynLM1718-41-19N54:34:28Emergency department Triage noteTXT1.2.840.041920.1.13.104.2.7. 2.411292|[id number] for patient xpiu05529-5Rznlosskj department NoteLNNARRATIVEFormatted C-CDA narrative [id number] M Cruz RN[address] Tj[id number] 1RXJROUBRHXOHQVBXSLMAWC4127-76-19G3 0:34:281.2.840.479424.1.72.3.15|1.2 .840.770962.1.13.104.2.7.2.727879_2 [id number] Morena Ibanez RN [facility]
[2023-09-14] MEDS ORDERED: AMOX/K CLAV 875 MG TAB ONE (07:45)
[2023-09-14] MEDS ORDERED: HYDROCODONE/APAP 7.5/325 MG TAB ONE (07:45)
[2023-09-14] MEDS ORDERED: IBUPROFEN 200 MG TAB PO ONE (07:45)
[2023-09-14] MEDS ORDERED: VALACYCLOVIR 500 MG TAB ONE (07:46)
[2023-09-14 08:29] VITALS: BP 165/91; TEMP 98.7; O2SAT 98
--- NOTE | 2023-09-14 15:03 | ER ---
Nurse's Notes [facility] Name: Zeke Weinstein Age: 58 yrs Sex: Male : 1965 Arrival Date: 09/14/2023 Time: 07:09 Bed 7 Private MD: Diagnosis: Dental caries, unspecified;Encounter for screening for dental disorders Presentation: 09/13 07:28 Chief complaint: Patient states: "I have sores on my tongue that are very painful. I rs5 was diagnosed with herpes 1 2 months ago and I was prescribed a medication for it. It helped a little but it didn't really get rid of it ". Coronavirus screen: At this time, the client does not indicate any symptoms associated with coronavirus-19. Ebola Screen: No symptoms or risks identified at this time. Initial Sepsis Screen: Does the patient meet any 2 criteria? No. Patient's initial sepsis screen is negative. Does the patient have a suspected source of infection? No. Patient's initial sepsis screen is negative. Risk Assessment: Do you want to hurt yourself or someone else? Patient reports no desire to harm self or others. Onset of symptoms was September 14, 2023. 07:28 Method Of Arrival: Ambulatory rs5 07:28 Acuity: CHARISSA 4 rs5 Triage Assessment: 07:30 General: Appears in no apparent distress. uncomfortable, Behavior is calm, cooperative. rs5 Pain: Complains of pain in tongue Pain currently is 8 out of 10 on a pain scale. Quality of pain is described as aching, Is continuous. Historical: - Allergies: 07:30 No Known Allergies; rs5 - PMHx: 07:30 diabetes mellitus; Hypertensive disorder; rs5 - PSHx: 07:30 None; rs5 - Immunization history:: Adult Immunizations up to date. - Infectious Disease History:: Denies. - Social history:: Smoking status: Patient denies any tobacco usage or history of. - Family history:: not pertinent. Screenin:31 [facility] ED Fall Risk Assessment (Adult) History of falling in the last 3 months, rs5 including since admission No falls in past 3 months (0 pts) Confusion or Disorientation No (0 pts) Intoxicated or Sedated No (0 pts) Impaired Gait No (0 pts) Mobility Assist Device Used No (0 pt) Altered Elimination No (0 pt) Score/Fall Risk Level 0 - 2 = Low Risk Oriented to surroundings, Maintained a safe environment. Abuse screen: Denies threats or abuse. Nutritional screening: No deficits noted. Tuberculosis screening: No symptoms or risk factors identified. Assessment: 07:20 General: Appears in no apparent distress. uncomfortable, Behavior is calm, cooperative. rs5 Pain: Complains of pain in tongue Pain currently is 8 out of 10 on a pain scale. Quality of pain is described as aching, Is continuous. Neuro: Level of Consciousness is awake, alert, obeys commands. Cardiovascular: Patient's skin is warm and dry. Respiratory: Respiratory effort is even, unlabored, Respiratory pattern is regular, symmetrical. GI: Abdomen is round non-distended. : No signs and/or symptoms were reported regarding the genitourinary system. EENT: redness and swelling noted to tongue. Derm: Skin is pink, warm \\T\\ dry. 08:19 Reassessment: Patient and/or family updated on plan of care and expected duration. Pain rs5 level reassessed. Patient is alert, oriented x 3, equal unlabored respirations, skin warm/dry/pink. Patient states feeling better. Patient states symptoms have improved. Vital Signs: 07:28 BP 201 / 81; Pulse 66; Resp 17; Temp 98.7(O); Pulse Ox 98% on R/A; Weight 68.04 kg; rs5 Height 5 ft. 6 in. ; 07:52 BP 165 / 91; Pulse 70; Pulse Ox 98% on R/A; ap3 08:17 BP 160 / 88; Pulse 77; Resp 17; Pulse Ox 99% on R/A; rs5 07:28 Body Mass Index 24.21 (68.04 kg, 167.64 cm) rs5 ED Course: 07:11 Patient arrived in ED. rg4 07:15 Luis Carlos Kennedy MD is Attending Physician. genoveva 07:21 No provider procedures requiring assistance completed. rs5 07:23 Adam Valdez, GIULIANO is Primary Nurse. rs5 07:30 Triage completed. rs5 07:31 Patient has correct armband on for positive identification. Bed in low position. Call rs5 light in reach. Side rails up X2. 08:17 Patient did not have IV access during this emergency room visit. rs5 Administered Medications: 07:52 Drug: Amoxicillin-Clavulanate PO 875 mg PO once Route: PO; ap3 08:18 Follow up: Response: No adverse reaction rs5 07:52 Drug: Valtrex PO 1000 mg PO once Route: PO; ap3 08:17 Follow up: Response: No adverse reaction rs5 07:52 Drug: Hydrocodone-Acetaminophen PO (7.5 mg-325 mg) 1 tabs PO once Route: PO; ap3 08:20 Follow up: Response: No adverse reaction; Pain is decreased rs5 07:52 Drug: Ibuprofen PO 600 mg PO once Route: PO; ap3 08:18 Follow up: Response: No adverse reaction rs5 Medication: 08:17 VIS not applicable for this client. rs5 Outcome: 08:06 Discharge ordered by . genoveva 08:17 Discharged to home ambulatory, rs5 08:17 Condition: stable 08:17 Discharge instructions given to patient, family, Instructed on discharge instructions, follow up and referral plans. medication usage, Demonstrated understanding of instructions, follow-up care, medications, Prescriptions given X 1, 08:20 Patient left the ED. rs5 Signatures: Luis Carlos Kennedy MD MD cha Garcia, Rubi rg4 Pippa Ryan RN RN ap3 Adam Valdez RN RN rs5 Corrections: (The following items were deleted from the chart) 14:14 07:20 Pain: Complains of pain in tongue Pain currently is 5 out of 10 on a pain scale. rs5 Quality of pain is described as aching, Is continuous, rs5
--- NOTE | 2023-09-14 15:03 | EDPHYS ---
Physician Documentation [facility] Name: Zeke Weinstein Age: 58 yrs Sex: Male : 1965 Arrival Date: 09/14/2023 Time: 07:09 Bed 7 Private MD: KALIE Physician Luis Carlos Kennedy HPI: 09/13 08:02 This 58 yrs old Male presents to ER via Ambulatory with complaints of Mouth genoveva Problem. 08:02 The patient presents with pain, redness. The problem is located in the left aspect of genoveva posterior pharynx and tongue. The problem is located in the . Onset: The symptoms/episode began/occurred 2 day(s) ago. Duration: The symptoms are continuous, and are steadily getting worse. Modifying factors: The symptoms are alleviated by nothing, the symptoms are aggravated by chewing. Associated signs and symptoms: Pertinent positives: pain. Severity of symptoms: At their worst the symptoms were mild, moderate, in the emergency department the symptoms are unchanged. The patient has not experienced similar symptoms in the past. Historical: - Allergies: 07:30 No Known Allergies; rs5 - PMHx: 07:30 diabetes mellitus; Hypertensive disorder; rs5 - PSHx: 07:30 None; rs5 - Immunization history:: Adult Immunizations up to date. - Infectious Disease History:: Denies. - Social history:: Smoking status: Patient denies any tobacco usage or history of. - Family history:: not pertinent. ROS: 08:02 Constitutional: Negative for fever, chills, and weight loss, Eyes: Negative for injury, genoveva pain, redness, and discharge, Neck: Negative for injury, pain, and swelling, Cardiovascular: Negative for chest pain, palpitations, and edema, Respiratory: Negative for shortness of breath, cough, wheezing, and pleuritic chest pain, Abdomen/GI: Negative for abdominal pain, nausea, vomiting, diarrhea, and constipation, Back: Negative for injury and pain, : Negative for injury, bleeding, discharge, and swelling, MS/Extremity: Negative for injury and deformity, Skin: Negative for injury, rash, and discoloration, Neuro: Negative for headache, weakness, numbness, tingling, and seizure, Psych: Negative for depression, anxiety, suicide ideation, homicidal ideation, and hallucinations, Allergy/Immunology: Negative for hives, rash, and allergies, Endocrine: Negative for neck swelling, polydipsia, polyuria, polyphagia, and marked weight changes, Hematologic/Lymphatic: Negative for swollen nodes, abnormal bleeding, and unusual bruising, 08:02 ENT: Positive for dental pain, sore throat, Exam: 08:02 Constitutional: This is a well developed, well nourished patient who is awake, alert, genoveva and in no acute distress. Head/Face: Normocephalic, atraumatic. Eyes: Pupils equal round and reactive to light, extra-ocular motions intact. Lids and lashes normal. Conjunctiva and sclera are non-icteric and not injected. Cornea within normal limits. Periorbital areas with no swelling, redness, or edema. Neck: Trachea midline, no thyromegaly or masses palpated, and no cervical lymphadenopathy. Supple, full range of motion without nuchal rigidity, or vertebral point tenderness. No Meningismus. Chest/axilla: Normal chest wall appearance and motion. Nontender with no deformity. No lesions are appreciated. Cardiovascular: Regular rate and rhythm with a normal S1 and S2. No gallops, murmurs, or rubs. Normal PMI, no JVD. No pulse deficits. Respiratory: Lungs have equal breath sounds bilaterally, clear to auscultation and percussion. No rales, rhonchi or wheezes noted. No increased work of breathing, no retractions or nasal flaring. Abdomen/GI: Soft, non-tender, with normal bowel sounds. No distension or tympany. No guarding or rebound. No evidence of tenderness throughout. Back: No spinal tenderness. No costovertebral tenderness. Full range of motion. Skin: Warm, dry with normal turgor. Normal color with no rashes, no lesions, and no evidence of cellulitis. MS/ Extremity: Pulses equal, no cyanosis. Neurovascular intact. Full, normal range of motion. Neuro: Awake and alert, GCS 15, oriented to person, place, time, and situation. Cranial nerves II-XII grossly intact. Motor strength 5/5 in all extremities. Sensory grossly intact. Cerebellar exam normal. Normal gait. Psych: Awake, alert, with orientation to person, place and time. Behavior, mood, and affect are within normal limits. 08:02 ENT: Mouth: Lips: normal, moist, Oral mucosa: normal, pink and intact, moist, Gums: normal with healthy appearance, Tongue: is moist, tender, abscess, is not appreciated, drooling, is not appreciated, Posterior pharynx: is normal, no acute changes, Airway: normal, no evidence of obstruction, Voice: is normal, Vital Signs: 07:28 BP 201 / 81; Pulse 66; Resp 17; Temp 98.7(O); Pulse Ox 98% on R/A; Weight 68.04 kg; rs5 Height 5 ft. 6 in. ; 07:52 BP 165 / 91; Pulse 70; Pulse Ox 98% on R/A; ap3 08:17 BP 160 / 88; Pulse 77; Resp 17; Pulse Ox 99% on R/A; rs5 07:28 Body Mass Index 24.21 (68.04 kg, 167.64 cm) rs5 MDM: 07:15 Patient medically screened. genoveva 08:04 Differential diagnosis: dental caries, gingivitis, dental abscess, gingivostomatitis. genoveva Data reviewed: vital signs, nurses notes. Consideration of Admission/Observation Escalation of care including admission/observation considered. I considered the following discharge prescriptions or medication management in the emergency department Medications were administered in the Emergency Department. See MAR. Test considered but Not performed: Labs: no cbc , no comp met. Historians other than the Patient: pt well informed. Care significantly affected by the following chronic conditions: Diabetes, Hypertension. Administered Medications: 07:52 Drug: Amoxicillin-Clavulanate PO 875 mg PO once Route: PO; ap3 08:18 Follow up: Response: No adverse reaction rs5 07:52 Drug: Valtrex PO 1000 mg PO once Route: PO; ap3 08:17 Follow up: Response: No adverse reaction rs5 07:52 Drug: Hydrocodone-Acetaminophen PO (7.5 mg-325 mg) 1 tabs PO once Route: PO; ap3 08:20 Follow up: Response: No adverse reaction; Pain is decreased rs5 07:52 Drug: Ibuprofen PO 600 mg PO once Route: PO; ap3 08:18 Follow up: Response: No adverse reaction rs5 Disposition Summary: 09/14/23 08:06 Discharge Ordered Notes: Location: Home genoveva Problem: new genoveva Symptoms: have improved genoveva Condition: Stable genoveva Diagnosis - Dental caries, unspecified genoveva - Encounter for screening for dental disorders genoveva Followup: genoveva - With: Private Physician - When: 2 - 3 days - Reason: Recheck today's complaints, Continuance of care, Re-evaluation by your physician Discharge Instructions: - Discharge Summary Sheet genoveva - Dental Caries, Adult genoveva - Dental Pain genoveva - Dental Pain, [facility] - Diet and Dental Disease [facility] Forms: - Medication Reconciliation Form genoveva - Antibiotic Education genoveva - Prescription Opioid Use genoveva - Patient Portal Instructions genoveva - Leadership Thank You Letter [facility] Prescriptions: - Valtrex 1 gram Oral tablet - take 1 tablet ORAL route 3 times per day; 21 tablet; Refills: 0, Product [facility] Selection Permitted - Amoxicillin 500 mg Oral Capsule - take 1 capsule ORAL route every 8 hours for 10 days; 30 tablet; Refills: 0, [facility] Product Selection Permitted - Motrin IB 200 mg Oral tablet - take 2 tablet ORAL route every 6 hours As needed as needed with food; 30 genoveva tablet; Refills: 0, Product Selection Permitted Signatures: Luis Carlos Kennedy MD MD cha Prokisch, Amanda RN RN ap3 Adam Valdez RN RN rs5
== END 2023-09-14 08:20 | disposition home or self-care (01) ==
LOC: ER 07:09
DX: K02.9 Dental caries, unspecified (principal)

== ENCOUNTER 2023-09-15 01:04 | Emergency (ER) | payer OTHER ==
--- OUTSIDE RECORDS SUMMARY | 2023-09-15 01:17 | XMS REPORT | Continuity of Care Document ---
Author Name Unknown Address [address] [facility] [address] [place] [address] [facility] thconnect Address [address] [facility]. [address] [place] [address] Care Team Providers Care Complaint Clerk Name Role Phone DEANDRE JONES Primary Care Physician Unavailab Samuel Dillon MD Attending Clinician [phone] SAMUEL DONATO Attending Clinician Unavailable Vanesa MOY Attending Clinician Unavailable Vanesa Thornton Attending Clinician [phone] JEZ LINN Attending Clinician Unavailable Jez Linn PA-C Attending Clinician [phone] Payers Payer Name Policy Type Policy Number Effective Date Expirati on Date Source Allergies, Adverse Reactions, Alerts Allergy Name Allergy Type Status Severity Reaction(s) Onset Date Inactive Date Treating Clinician Comments Source NO KNOWN ALLERGIE S Drug Class Active [facility] Social History Social Habit Start Date Stop Date Quantity Comments Source Sexual orientation [facility] Sex Assigned At 1965 00:00:00 1965 00:00:00 [facility] Smoking Status Start Date Stop Date Source Tobacco smoking consumption unknown [facility] Medications Ordered Medication Name Filled Medication Name Start Date Stop Date Current Medication? Ordering Clinician Indication Dosage Frequency Signature (SIG) Comments Components Source acetaminoph en 500 mg tablet 07-27 00:00: 00 Yes 1mg Eyad Conrad Oravig 50 mg buccal tablet 07-27 00:00: 00 Yes 1mg Eyad Conrad TAKE 1 TABLET BY MOUTH EVERY 12 HOURS FOR 5 DAYS 3-29 00:00: 00 Yes Eyad Conrad TAKE 1 TABLET BY MOUTH EVERY 8 HOURS NEEDED FOR PAIN 3-21 00:00: 00 Yes Eyad Conrad TAKE 2 CAPSULES BY MOUTH NOW THEN ONE CAPSULE EVERY 8 HOURS FOR 7 DAYS 3-18 00:00: 00 Yes Eyad Conrad pantoprazol e 40 mg tablet,sarah beth yed release 3-12 00:00: 00 Yes 1mg Eyad Conrad famotidine 40 mg tablet -12 00:00: 00 Yes 1mg Eyad Conrad gabapentin 100 mg capsule 12 00:00: 00 Yes 1mg Eyad Conrad pantoprazol e (PROTONIX) 40 mg EC tablet -09 00:00: 00 Yes [id number] 40mg Take 1 tablet by mouth daily. [facility] TAKE 1 TABLET BY MOUTH ONCE DAILY FOR 30 DAYS - 00:00: 00 Yes Eyad Conrad pantoprazol e 40 mg EC tablet 05-21 00:00: 00 06-20 04:59 :00 No [id number] 40mg Take 1 tablet by mouth daily for 30 days. [facility] TAKE 1 TABLET DAILY. 05-16 00:00: 00 07-27 00:00 :00 No 10 Eyad Conrad TAKE 1 TABLET DAILY. 05-04 00:00: 00 Yes 500 Eyad Conrad TAKE 1 TABLET DAILY. 05-04 00:00: 00 Yes 10 Eyad Conrad TAKE 1 TABLET DAILY. 05-04 00:00: 00 07-27 00:00 :00 No 100 Eyad Conrad TAKE 1 TABLET DAILY DIRECTED. 05-04 00:00: 00 07-27 00:00 :00 No 20 Eyad Conrad 5 ML SWISH AND SWALLOW FOUR TIMES DAILY 05-04 00:00: 00 07-27 00:00 :00 No [id number] Eyad Conrad TAKE 1 TABLET DAILY. 2024-0 2-07 00:00: 00 07-27 00:00 :00 No 125 Eyad Karny Conrad TAKE 1 TABLET DAILY. 2-07 00:00: 00 07-27 00:00 :00 No 200 Eyadke Conrad TAKE 1 TABLET DAILY. 2-07 00:00: 00 07-27 00:00 :00 No 25 Eyad Karyn Conrad TAKE 1 TABLET TWICE DAILY. 1-24 00:00: 00 07-27 00:00 :00 No 500 Eyad F [place] RINSE MOUTH WITH 15ML (1 CAPFUL) FOR 30 SECONDS AM AND PM AFTER TOOTHBRUSHI NG. EXPECTORATE AFTER RINSING, DO NOT SWALLOW 1-23 00:00: 00 07-27 00:00 :00 No 12 Eyad Karyn Conrad TAKE 1 TABLET DAILY. -18 00:00: 00 Yes 25 Eyadke Conrad TAKE 1 TABLET DAILY. 18 00:00: 00 Yes 125 Eyadke Conrad TAKE 1 TABLET DAILY. 9-06 00:00: 00 07-27 00:00 :00 No 500 Eyad Karyn Conrad TAKE 1 TABLET DAILY. 9-06 00:00: 00 07-27 00:00 :00 No 125 Eyad Karyn Conrad TAKE 1 TABLET DAILY. 9-06 00:00: 00 07-27 00:00 :00 No 25 Eyad Karyn Conrad INSTILL 1 DROP INTO BOTH EYES TWICE DAILY NEEDED AT 6-8 HOUR INTERVALS. 9-06 00:00: 00 07-27 00:00 :00 No 1 Eyad Karyn Conrad TAKE 1 TABLET DAILY. 3-16 00:00: 00 07-27 00:00 :00 No 500 Eyad Karyn Conrad TAKE 1 TABLET DAILY. 3-16 00:00: 00 07-27 00:00 :00 No 10 Eyad Karyn Conrad TAKE 1 TABLET DAILY. 3-16 00:00: 00 07-27 00:00 :00 No [id number] Eyad Karyn Conrad TAKE 1 TABLET DAILY. 3-16 00:00: 00 07-27 00:00 :00 No 10 Eyad Conrad TAKE 1 TABLET DAILY. 2021-03 2 00:00: 00 07-27 00:00 :00 No [id number] Eyad Conrad amlodipine 10 mg tablet 0 18 00:00: 00 Yes 1mg Eyad Conrad metformin 500 mg tablet 0 18 00:00: 00 Yes 1mg Eyad Conrad atorvastati n 10 mg tablet 0 18 00:00: 00 Yes 1mg Eyad Conrad Dose Unknown 0 08-12 00:00: 00 Yes Eyad Conrad Dose Unknown 0 08-12 00:00: 00 Yes Eyad Conrad Dose Unknown 0 08-12 00:00: 00 Yes Eyad Conrad amlodipine 10 mg tablet 0 08-12 00:00: 00 No 1mg metformin 500 mg tablet 0 08-12 00:00: 00 No 1mg atorvastati n 10 mg tablet 0 08-12 00:00: 00 No 1mg Dose Unknown 0 08-12 00:00: 00 No Dose Unknown 0 08-12 00:00: 00 No Dose Unknown 0 18 00:00: 00 No amlodipine 10 mg tablet 0 18 00:00: 00 No 1mg metformin 500 mg tablet 0 18 00:00: 00 No 1mg atorvastati n 10 mg tablet 0 18 00:00: 00 No 1mg Dose Unknown 0 18 00:00: 00 No Dose Unknown 0 18 00:00: 00 No Dose Unknown 0 18 00:00: 00 No lisinopril 2.5 mg tablet 0 05-20 00:00: 00 Yes 1mg Eyad Conrad lisinopril 2.5 mg tablet 0 05-20 00:00: 00 No 1mg lisinopril 2.5 mg tablet 0 05-20 00:00: 00 No 1mg Dose Unknown 2020-03 00:00: 00 Yes Eyad Conrad amlodipine 10 [...] tablet 2 00:00: 00 Yes 1mg Eyad Karyn [place] Dose Unknown 2-08 00:00: 00 Yes Eyad Conrad rosuvastati n 20 mg tablet 2-08 00:00: 00 No 1mg Dose Unknown 2-08 00:00: 00 No rosuvastati n 20 mg tablet 2-08 00:00: 00 No 1mg lisinopril 2.5 mg tablet 2-08 00:00: 00 No 1mg metformin 500 mg tablet 2- 00:00: 00 Yes 1mg Eyad Conrad Dose Unknown 2-03 00:00: 00 Yes Eyad Conrad amlodipine 10 mg tablet 2-03 00:00: 00 Yes 1mg Eyad Conrad metformin 500 mg tablet 2-03 00:00: 00 No 1mg Dose Unknown 2- 00:00: 00 No amlodipine 10 mg tablet 2-03 00:00: 00 No 1mg metformin 500 mg tablet 2-03 00:00: 00 No 1mg hydrochloro thiazide 12.5 mg tablet 2-03 00:00: 00 No 1mg amlodipine 10 mg tablet 2021-0 2-03 00:00: 00 No 1mg amlodipine 10 mg [...] 1mg Eyad Conrad amlodipine 10 mg tablet 2020-0 4-17 00:00: 00 No 1mg hydrochloro thiazide 12.5 mg tablet 0 4-17 00:00: 00 No 1mg amlodipine 10 mg tablet 0 17 00:00: 00 No 1mg hydrochloro thiazide 12.5 mg tablet 0 4-17 00:00: 00 No 1mg amlodipine 10 mg tablet 0 - 00:00: 00 Yes 1mg Eyad Conrad hydrochloro thiazide 12.5 mg tablet 0 - 00:00: 00 Yes 1mg Eyad Conrad amlodipine 10 mg tablet 0 4- 00:00: 00 No 1mg hydrochloro thiazide 12.5 mg tablet 0 4- 00:00: 00 No 1mg amlodipine 10 mg tablet 0 - 00:00: 00 No 1mg hydrochloro thiazide 12.5 [...] lisinopril 20 mg-hydrochl orothiazide 12.5 mg tablet 2018-03- 00:00: 00 Yes 1mg Eyad Conrad lisinopril 20 mg-hydrochl orothiazide 12.5 mg tablet 2018-03- 00:00: 00 No 1mg lisinopril 20 mg-hydrochl orothiazide 12.5 mg tablet 2018-03- 00:00: 00 No 1mg lisinopril 20 mg-hydrochl orothiazide 12.5 mg tablet 11-14 00:00: 00 Yes 1mg Eyad Conrad lisinopril 20 mg-hydrochl orothiazide 12.5 mg tablet 11-14 00:00: 00 No 1mg lisinopril 20 mg-hydrochl orothiazide 12.5 mg tablet 11-14 00:00: 00 No 1mg lisinopril 40 mg tablet 2 00:00: 00 Yes 1mg Eyad Conrad hydrochloro thiazide 12.5 mg tablet 05-02 00:00: 00 Yes 1mg Eyad Conrad lisinopril 40 mg tablet 05-02 00:00: 00 No 1mg hydrochloro thiazide 12.5 mg tablet 05-02 00:00: 00 No 1mg lisinopril 40 mg tablet 05-02 00:00: 00 No 1mg hydrochloro thiazide 12.5 mg tablet 05-02 00:00: 00 No 1mg lisinopril 20 mg-hydrochl [...] Canine Kidney, preservative-free, quadrivalent Influenza, injectable, [place] Canine Kidney, preservative-free, quadrivalent 2022-12-10 00:00:00 Completed Eyad Conrad SARS-COV-2 COVID-19 PFIZER VACCINE Unknown Completed [facility] TD, NOS Unknown Completed [facility] SARS-COV-2 COVID-19 PFIZER VACCINE Unknown Completed [facility] SARS-COV-2 COVID-19 PFIZER VACCINE Unknown Completed [facility] TD, NOS Unknown Completed [facility] SARS-COV-2 COVID-19 PFIZER VACCINE Unknown Completed [facility] SARS-COV-2 COVID-19 PFIZER VACCINE Unknown Completed [facility] TD, NOS Unknown Completed [facility] SARS-COV-2 COVID-19 PFIZER VACCINE Unknown Completed [facility] Vital Signs Vital Name Observation Time Observation Value Comments Ara french Systolic blood pressure 2023-06-04 07:24:00 157 mm[Hg] General acute hospital Diastolic blood pressure 2023-06-04 07:24:00 82 mm[Hg] General acute hospital Heart rate 2023-06-04 07:24:00 72 /min Unive [facility] Body temperature 2023-06-04 07:24:00 36.89 Sherri [facility] Respiratory rate 2023-06-04 07:24:00 18 /min [facility] Oxygen saturation in Arterial blood by Pulse oximetry 2023-06-04 07:24:00 97 /min General acute hospital Body height 2023-06-04 04:37:00 167.6 cm [facility] Body weight 2023-06-04 04:37:00 73.074 kg [facility] BMI 2023-06-04 04:37:00 26.00 kg/m2 [facility] Systolic blood pressure 2023-05-31 23:23:00 190 mm[Hg] General acute hospital Diastolic blood pressure 2023-05-31 23:23:00 100 mm[Hg] General acute hospital Heart rate 2023-05-31 23:23:00 86 /min Unive [facility] Body temperature 2023-05-31 23:23:00 36.61 Sherri [facility] Respiratory rate 2023-05-31 23:23:00 19 /min [facility] Body height 2023-05-31 23:23:00 167.6 cm [facility] Body weight 2023-05-31 23:23:00 69.854 kg [facility] BMI 2023-05-31 23:23:00 24.86 kg/m2 [facility] Oxygen saturation in Arterial blood by Pulse oximetry 2023-05-31 23:23:00 100 /min [facility] acute hospital Systolic blood pressure 2023-05-21 16:35:00 175 mm[Hg] General acute hospital Diastolic blood pressure 2023-05-21 16:35:00 81 mm[Hg] General acute hospital Heart rate 2023-05-21 16:35:00 85 /min [facility] Body temperature 2023-05-21 16:35:00 36.61 Sherri [facility] Respiratory rate 2023-05-21 16:35:00 16 /min [facility] Body height 2023-05-21 16:35:00 167.6 cm [facility] Body weight 2023-05-21 16:35:00 70.761 kg [facility] BMI 2023-05-21 16:35:00 25.18 kg/m2 [facility] Oxygen saturation in Arterial blood by Pulse oximetry 2023-05-21 16:35:00 97 /min [facility] acute hospital BP Systolic 2023-07-28 09:06:00 161 mm[Hg] Step hen F [place] BP Diastolic 2023-07-28 09:06:00 80 mm[Hg] Devin phen Karyn Conrad Weight Measured 2023-07-28 09:06:00 154.80 pounds Eyad Conrad Height Measured 2023-07-28 09:06:00 65.00 inches Eyad Boss [place] Body Temperature 2023-07-28 09:06:00 97.30 degrees Eyad F [place] Heart Rate 2023-07-28 09:06:00 63.00 /min Merari en F [place] Respiratory Rate 2023-07-28 09:06:00 18.00 /min Eyad F [place] BP Systolic 2023-06-07 09:07:00 172 mm[Hg] Step hen F [place] BP Diastolic 2023-06-07 09:07:00 87 mm[Hg] Devin phen F [place] Weight Measured 2023-06-07 09:07:00 155.20 pounds Eyadke Conrad Height Measured 2023-06-07 09:07:00 65.00 inches Eyad Karyn Conrad Body Temperature 2023-06-07 09:07:00 98.80 degrees [...] [place] Respiratory Rate 2023-04-19 14:10:00 Eyad F [place] BP Systolic 2022-12-01 08:14:00 171 mm[Hg] Step [...] Weight Measured 2022-03-02 08:22:00 150.80 pounds Eyad F [place] Height Measured 2022-03-02 08:22:00 65.00 inches Eyad F [place] Body Temperature 2022-03-02 08:22:00 97.80 degrees Eyad F [place] Heart Rate 2022-03-02 08:22:00 67.00 /min Merari en F [place] Respiratory Rate 2022-03-02 08:22:00 24.00 /min Eyad F [place] BP Systolic 2022-02-16 08:41:00 171 mm[Hg] Step hen F [place] BP Diastolic 2022-02-16 08:41:00 75 mm[Hg] Devin rodriguez F [place] Weight Measured 2022-02-16 08:41:00 154.20 pounds Eayd F [place] Height Measured 2022-02-16 08:41:00 65.00 inches Eyad F [place] Body Temperature 2022-02-16 08:41:00 97.60 degrees Eyad F [place] Heart Rate 2022-02-16 08:41:00 63.00 /min Merari en F [place] Respiratory Rate 2022-02-16 08:41:00 25.00 /min Eyadke Conrad BP Systolic 2022-02-09 08:24:00 151 mm[Hg] [...] Date / Time Performed Performing Clinician Source [id number] Ultrasound, Abdominal, Real Time With Image Documentation; Complete 2023-06-09 00:00:00 Eyad Conrad COMP. METABOLIC PANEL (23687) 2023-06-04 05:13:00 Sameul Donato [facility] ETHANOL 2023-06-04 05:13:00 [facility] (IM[facility]UNOASSAY[facility] - COMPREHENSIVE DRUG SCREEN 2023-06-04 05:13:00 Samuel Donato [facility] CBC WITH DIFF 2023-06-04 05:13:00 Samuel Donato [facility] CONSENT/REFUSAL FOR DIAGNOSIS AND TREATMENT 2023-06-04 04:27:24 Doctor Unassigned, [place] [facility] ASSIGNMENT OF BENEFITS 2023-06-01 00:26:23 Docto r Unassigned, [place] [facility] CONSENT/REFUSAL FOR DIAGNOSIS AND TREATMENT 2023-05-31 23:10:49 Doctor Unassigned, [place] [facility] ASSIGNMENT OF BENEFITS 2023-05-21 17:01:51 Docto r Unassigned, [place] [facility] CONSENT/REFUSAL FOR DIAGNOSIS AND TREATMENT 2023-05-21 16:29:51 Doctor Unassigned, [place] [facility] [address]28 Ecg Routine Ecg W/least 12 Lds W/i r 2016-04-28 00:00:00 Eyad Conrad Plan of Care Planned Activity Planned Date Details Comments Source Goal Plan of Care Note [code = 68191-4] Goal Plan of Care Note [code = 76286-7] Goal Plan of Care Note [code = 56430-6] Goal Plan of Care Note [code = 36735-4] Goal Plan of Care Note [code = 79414-3] Goal Plan of Care Note [code = 81534-8] Goal Plan of Care Note [code = 78949-0] Goal Plan of Care Note [code = 41506-8] Goal Plan of Care Note [code = 57098-3] Goal Plan of Care Note [code = 41742-5] Goal Plan of Care Note [code = 98236-2] Goal Plan of Care Note [code = 96111-5] Goal Plan of Care Note [code = 78857-9] Goal Plan of Care Note [code = 79361-6] Goal Plan of Care Note [code = 77522-2] Goal Plan of Care Note [code = 19157-1] Goal Plan of Care Note [code = 76011-8] Goal Plan of Care Note [code = 92261-7] Goal Plan of Care Note [code = 61068-9] Goal Plan of Care Note [code = 69305-4] Goal Plan of Care Note [code = 07885-4] Goal Plan of Care Note [code = 02630-7] Goal Plan of Care Note [code = 29298-7] Goal Plan of Care Note [code = 42403-3] Goal Plan of Care Note [code = 97437-8] Goal Plan of Care Note [code = 71704-1] Goal Plan of Care Note [code = 69928-9] Goal Plan of Care Note [code = 01029-5] Goal Plan of Care Note [code = 86521-5] Goal Plan of Care Note [code = 73276-1] Goal Plan of Care Note [code = 13288-7] Goal Plan of Care Note [code = 41471-9] Goal Plan of Care Note [code = 50381-5] Goal Plan of Care Note [code = 44167-6] Goal Plan of Care Note [code = 94872-0] Goal Plan of Care Note [code = 14891-4] Goal Plan of Care Note [code = 48545-1] Goal Plan of Care Note [code = 66827-3] Goal Plan of Care Note [code = 06865-7] Goal Plan of Care Note [code = 36387-5] Goal Plan of Care Note [code = 48336-2] Goal Plan of Care Note [code = 29117-7] Goal Plan of Care Note [code = 53865-0] Goal Plan of Care Note [code = 79803-0] Encounters Start Date/Time End Date/Time Encounter Type Admission Type Attending [facility] Facility Care Department Encounter ID Source 2023-07-28 09:03:39 2023-07-28 09:03:39 Outpatient POPEYE NYE [id number] Eyad Conrad 2023-07-28 00:00:00 2023-07-28 00:00:[address] [facility] [id number] Eyad Conrad 2023-06-14 16:16:59 2023-06-14 16:16:59 Outpatient SFA SFA [id number] Eyad Conrad 2023-06-09 10:33:48 2023-06-09 10:33:48 Outpatient [facility] [id number] Eyad Conrad 2023-06-07 08:58:09 2023-06-07 08:58:09 Outpatient [facility] [id number] Eyad Conrad 2023-06-03 22:44:00 2023-06-04 01:31:00 Emergency Samuel Donato [facility] [id number] [id number] [facility] 2023-06-03 22:44:00 2023-06-04 01:31:00 Emergency X SAMUEL DONATO [facility] ERT [id number] [facility] 2023-05-31 17:24:00 2023-05-31 19:34:00 Emergency X FARZANEH Vanesa [facility] ERT [id number] [facility] 2023-05-31 17:24:00 2023-05-31 19:34:00 Emergency Farzaneh, Vanesa Zuleyka [facility] [id number] 350.1.13.10 [id number] [id number] [facility] 2023-05-26 08:34:48 2023-05-26 08:34:48 Outpatient [facility] [id number] Eyad Conrad 2023-05-21 10:37:00 2023-05-21 11:12:00 Emergency X JEZ LINN [facility] ERT [id number] [facility] 2023-05-21 10:37:00 2023-05-21 11:12:00 Emergency Jez Linn [facility] [id number] [id number] [id number] [id number] [facility] 2023-05-16 08:24:25 2023-05-16 08:24:25 Outpatient SFA SFA [id number] Eyad Conrad 2023-05-10 13:40:06 2023-05-10 13:40:06 Outpatient SFA SFA [id number] Eyad Conrad 2023-05-05 08:27:35 2023-05-05 08:27:35 Outpatient SFA SFA [id number] Eyad Conrad 2023-05-04 08:10:10 2023-05-04 08:10:10 Outpatient SFA SFA [id number] Eyad Conrad 2023-04-27 09:55:09 2023-04-27 09:55:09 Outpatient SFA SFA [id number] Eyad Conrad 2023-04-19 14:10:10 2023-04-19 14:10:10 Outpatient SFA SFA [id number] Eyad Conrad 2022-12-13 08:54:24 2022-12-13 08:54:24 Outpatient SFA SFA [id number] Eyad Conrad 2022-12-10 11:54:29 2022-12-10 11:54:29 Outpatient SFA SFA [id number] Eyad Boss [place] 2022-12-01 08:12:56 2022-12-01 08:12:56 Outpatient SFA SFA [id number] Eyad Boss [place] 2022-09-17 09:25:24 2022-09-17 09:25:24 Outpatient SFA SFA [id number] Eyad Boss [place] 2022-06-10 09:17:18 2022-06-10 09:17:18 Outpatient SFA SFA [id number] Eyad Boss [place] 2022-02-16 08:35:46 2022-02-16 08:35:46 Outpatient SFA SFA [id number] Eyad Conrad 2022-02-12 10:32:05 2022-02-12 10:32:05 Outpatient SFA SFA [id number] Eyad Boss [place] 2022-02-09 08:23:36 2022-02-09 08:23:36 Outpatient SFA SFA [id number] Eyad Boss [place] 2022-02-09 00:00:00 2022-02-09 00:00:00 Outpatient Visit [id number] 2021-11-12 00:00:00 2021-11-12 00:00:00 Outpatient Visit [id number] Results Test Description Test Time Test Comments Results Resul t Comments Source Ethanol 2023-06-04 06:06:20 ALCOHOL<10mg/dL0 06/04/2023 12:[facility] Onamejuu22-730 Toxic>100 Depression of FACTORY ASSEMBLER>400 [facility] [id number] 05:41:45* Test Item Value Reference Range Interpretation [...] 33.8 g/dL 31.2-35.0 RDW-SD (test code = 36834-2) 42.0 fL 38.5-51.6 RDW-CV (test code = 788-0) 13.3 % 12.1-15.4 PLT (test code = 777-3) 272 150-328 MPV (test code = 50605-2) 11.2 fL 9.8-13.0 NRBC/100 WBC (test code = 2342495633) 0.0 0.0-10.0 NRBC x10^3 (test code = 3963991215) See_Comment [Automated messa ge] The system which generated this result transmitted reference range: 10*3/?L. The reference range was not used to interpret this result as normal/abnormal. GRAN MAT (NEUT) % (test code = 770-8) 46.2 % IMM GRAN % (test code = 1567507064) 0.20 % LYMPH % (test code = 736-9) 34.3 % MONO % (test code = 5905-5) 7.2 % EOS % (test code = 713-8) 10.6 % BASO % (test code = 706-2) 1.5 % GRAN MAT x10^3(ANC) (test code = 4600646070) 3.79 10*3/uL 1.99-6.95 IMM GRAN x10^3 (test code = 4194971634) 0.00-0.06 LYMPH x10^3 (test code = 731-0) 2.82 10*3/uL 1.09-3.23 MONO x10^3 (test code = 742-7) 0.59 10*3/uL 0.36-1.02 EOS x10^3 (test code = 711-2) 0.87 10*3/uL 0.06-0.53 H BASO x10^3 (test code = 704-7) 0.12 10*3/uL 0.01-0.09 H Lab Interpretation (test code = 65291-8) Abnormal [facility] [id number] 00:00:00* Test Item Value Reference Range Interpretation Comme nts Occult Blood, [place], [place] (camron t code = 17245-7) Negative Eyad Boss [facility] W/AUTO DIFF WITH [id number] 14:03:44* Test Item Value Reference Range Interpretation [...] 0.00-0.10 ABS NUCLEATED RBCS (test code = 45675) 0.00 K/UL 0.00-0.11 UNLESS OTHER RAMOS INDICATED, ALL TESTING PERFORMED AT [facility] [address] [place] [id number] LITHOPRESS OPERATOR: SIVA MCCRARY M.D. CLIA NUMBER [id number] [facility] [id number] CBC W/AUTO [id number] 00:00:00* Test Item Value Reference Range Interpretation [...] ABS NUCLEATED RBCS (test cod e = 11842) 0.00 K/UL Eyad ConradVITAMIN [id number] 05:26:13* Test Item Value Reference Range Interpretation Comme nts VITAMIN B-12 (test code = 2840) 511 PG/ML 200-950 UNLESS OTHERWISE INDICATED, ALL TESTING PERFORMED AT [facility] [address] [place] [address] LITHOPRESS OPERATOR: SIVA MCCRARY M.D. CLIA NUMBER [id number] [facility] [place] [id number] LIPID [id number] 04:46:42* Test Item Value Reference Range Interpretation [...] SPECIMENS. FOR MOREINFORMATION, SEE CLIENT ANNOUNCEMENT AT [email or web address] RISK RATIO LDL/HDL (test code = 2237) 1.62 RATIO <3.55 COMPREHENSIVE METABOLIC [id number] 04:46:42* Test Item Value Reference Range Interpretation Comme nts GLUCOSE (test code = 2216) 136 MG/DL 70-99 H BUN (test code = 2207) 12 MG/DL 6-20 CREATININE (test code = 2213) 0.85 MG/DL 0.80-1.40 eGFR (2020 CKD-EPI) (test code = 66961) 100 ML/MIN/1.73 >60 CALC BUN/CREAT (test code [...] code = 2218) 15 U/L 5-50 HEMOGLOBIN [id number] 02:47:17* Test Item Value Reference Range Interpretation Comme nts HEMOGLOBIN A1c (test code = 59392) 6.8 % 4.2-5.6 H [employer] GUIDELINES FOR HGB A1C: [...] CONSIDER ALTERNATE TESTING OR LABORATORY CONSULTATION. HEMOGLOBIN [id number] 00:00:00* Test Item Value Reference Range Interpretation Comme [facility] HEMOGLOBIN A1c (test code = 58231) 6.8 % Eyad ConradLIPID [id number] 00:00:00* Test Item Value Reference Range Interpretation Comme nts CHOLESTEROL (test code = 2210) 151 MG/DL TRIGLYCERIDES (test code = 2232) 69 MG/DL HDL CHOLESTEROL (test code = 2220) 52 MG/DL CALC LDL CHOL (test code = 2237) 84 MG/DL RISK RATIO LDL/HDL (test cod e = 2238) 1.62 RATIO Eyad Boss [place]COMPREHENSIVE METABOLIC [id number] 00:00:00* Test Item Value Reference Range Interpretation Comme nts GLUCOSE (test code = 2217) 136 MG/DL BUN (test code = 2208) 12 MG/DL CREATININE (test code = 2214) 0.85 MG/DL eGFR (2020 CKD-EPI) (test code = 89118) 100 ML/MIN/1.73 CALC BUN/CREAT (test code = [...] code = 2219) 15 U/L Eyad Boss HoustonVITAMIN [id number] 00:00:00* Test Item Value Reference Range Interpretation Comme nts VITAMIN B-12 (test code = 2840) 511 PG/ML Eyad CalderonPES SIMPLEX AB, [id number] 13:50:57* Test Item Value Reference Range Interpretation Comme nts HERPES SIMPLEX AB, IgM (test code = 12631) 0.34 INDEX SEE BELOW INTERPRETATION U NITS RANGE ----- ----- NEGATIVE INDEX <=0.89 EQUIVOCAL INDEX 0.90-1.09 POSITIVE INDEX >=1.10 HERPES SIMPLEX 1/2 AB, IgG [id number] 06:48:26* Test Item Value Reference Range Interpretation Comme nts HERPES SIMPLEX 1 AB, IgG (test code = 75091) 101.000 INDEX SEE BELOW H INTERPRETATION U NITS RANGE ----- ----- NON-REACTIVE INDEX <1.000 REACTIVE INDEX >=1.000 HERPES SIMPLEX 2 AB, IgG (test code = 21992) 0.074 INDEX SEE BELOW INTERPRETATION U NITS RANGE ----- ----- NON-REACTIVE INDEX <1.000 REACTIVE INDEX >=1.000 UNLESS OTHERWISE INDICATED, ALL TESTING PERFORMED AT [facility] [address] [place] [address] LITHOPRESS OPERATOR: SIVA MCCRARY M.D. CLIA NUMBER [id number] [facility]. [id number] HERPES SIMPLEX [id number] 00:00:00* Test Item Value Reference Range Interpretation Comme nts HERPES SIMPLEX AB, IgM (test code = 01619) 0.34 INDEX Eyad ConradHERPES SIMPLEX 1/2 [id number] 00:00:00* Test Item Value Reference Range Interpretation Comme nts HERPES SIMPLEX 1 AB, IgG (te st code = 14026) 101.000 INDEX HERPES SIMPLEX 2 AB, IgG (te st code = 19421) 0.074 INDEX Eyad ConradPSA, [id number] 09:46:33* Test Item Value Reference Range Interpretation Comme nts PSA, TOTAL (test code = 2606) 1.54 NG/ML See_Comment NOTE: Methodolog y is Dorita Ella Electrochemiluminescence Immunoassay traceable to WHO reference standard 96/760. UNLESS OTHERWISE INDICATED, ALL TESTING PERFORMED AT [facility] [address] [place] [id number] LITHOPRESS OPERATOR: SIVA MCCRARY M.D. CLIA NUMBER [id number] [place]. [id number] [Automated message] The system which generated this result transmitted reference range: <=4.00. The reference range was not used to interpret this result as normal/abnormal. COMPREHENSIVE METABOLIC [id number] 06:14:06* Test Item Value Reference Range Interpretation Comme nts GLUCOSE (test code = 7) 127 MG/DL 70-99 H BUN (test code = 2207) 22 MG/DL 6-20 H CREATININE (test code = 2214) 1.12 MG/DL 0.80-1.40 eGFR (2020 CKD-EPI) (test code = 32341) 76 ML/MIN/1.73 >60 CALC BUN/CREAT (test code [...] as normal/abnormal. ALKALINE PHOSPHATASE (test code = 4) 74 U/L 40-123 AST (test code = 2218) 17 U/L 9-50 ALT (test code = 2219) 22 U/L 5-50 LIPID [id number] 06:14:06* Test Item Value Reference Range Interpretation [...] SPECIMENS. FOR MOREINFORMATION, SEE CLIENT ANNOUNCEMENT AT [email or web address] RISK RATIO LDL/HDL (test code = 2238) 1.61 RATIO <3.55 HEMOGLOBIN [id number] 02:39:27* Test Item Value Reference Range Interpretation Comme nts HEMOGLOBIN A1c (test code = 26696) 6.2 % 4.2-5.6 H [employer] GUIDELINES FOR HGB A1C: [...] ALTERNATE TESTING OR LABORATORY CONSULTATION. COMPREHENSIVE METABOLIC [id number] 00:00:00* Test Item Value Reference Range Interpretation Comme nts GLUCOSE (test code = 2217) 127 MG/DL BUN (test code = 2208) 22 MG/DL CREATININE (test code = 2214) 1.12 MG/DL eGFR (2020 CKD-EPI) (test co de = 32361) 76 ML/MIN/1.73 CALC BUN/CREAT (test code = [...] code = 2219) 22 U/L Eyad ConradLIPID [id number] 00:00:00* Test Item Value Reference Range Interpretation Comme nts CHOLESTEROL (test code = 2210) 176 MG/DL TRIGLYCERIDES (test code = 2232) 79 MG/DL HDL CHOLESTEROL (test code = 2220) 61 MG/DL CALC LDL CHOL (test code = 2237) 98 MG/DL RISK RATIO LDL/HDL (test cod e = 2238) 1.61 RATIO Eyad ConradHEMOGLOBIN [id number] 00:00:00* Test Item Value Reference Range Interpretation Comme alberto HEMOGLOBIN A1c (test code = 71193) 6.2 % Eyad ConradPSA, [id number] 00:00:00* Test Item Value Reference Range Interpretation Comme alberto PSA, TOTAL (test code = 2606) 1.54 NG/ML Eyad ConradCOMPREHENSIVE METABOLIC [id number] 05:48:28* Test Item Value Reference Range Interpretation Comme nts GLUCOSE (test code = 2217) 120 MG/DL 70-99 H BUN (test code = 220) 18 MG/DL 6-20 CREATININE (test code = 2214) 0.94 MG/DL 0.80-1.40 eGFR (2020 CKD-EPI) (test code = 05661) 94 ML/MIN/1.73 >60 CALC BUN/CREAT (test code = 2235) 19 RATIO 6-28 SODIUM (test code = 2231) 138 MEQ/L 133-146 POTASSIUM (test code = 2228) 4.8 MEQ/L 3.5-5.4 CHLORIDE (test code = 2215) 102 MEQ/L 95-107 CARBON DIOXIDE (test code = 2206) 22 MEQ/L 19-31 CALCIUM (test code = 2208) 9.3 MG/DL 8.5-10.5 PROTEIN, TOTAL (test code = 2228) 7.7 G/DL 6.1-8.3 ALBUMIN (test code = 1) 4.6 G/DL 3.5-5.2 CALC GLOBULIN (test code = 2240) 3.1 G/DL 1.9-3.7 CALC A/G RATIO (test code = 2233) 1.5 RATIO 1.0-2.6 BILIRUBIN, TOTAL (test code = 2206) 0.2 MG/DL See_Comment [Automated me ssage] The system which generated this result transmitted reference range: <=1.2. The reference range was not used to interpret this result as normal/abnormal. ALKALINE PHOSPHATASE (test code = 2203) 64 U/L 40-123 AST (test code = 2218) 18 U/L 9-50 ALT (test code = 2218) 19 U/L 5-50 LIPID [id number] 05:48:28* Test Item Value Reference Range Interpretation [...] SPECIMENS. FOR MOREINFORMATION, SEE CLIENT ANNOUNCEMENT AT [email or web address] RISK RATIO LDL/HDL (test code = 2238) 1.92 RATIO <3.55 HEMOGLOBIN [id number] 04:51:08* Test Item Value Reference Range Interpretation Comme nts HEMOGLOBIN A1c (test code = 47949) 6.5 % 4.2-5.6 H [employer] GUIDELINES FOR HGB A1C: [...] ETC.). CONSIDER ALTERNATE TESTING OR LABORATORY CONSULTATION. [facility] has important pathology staff changes effective 05/26/2022. New pathology staff will provide uninterrupted, excellent patient care and clinical consultation. See URL: [email or web address]. UNLESS OTHERWISE INDICATED, ALL TESTING PERFORMED AT [facility] [address] [place] [address] LITHOPRESS OPERATOR: SIVA MCCRARY M.D. CLIA NUMBER [id number] [facility] [place]. [id number] COMPREHENSIVE METABOLIC [id number] 00:00:00* Test Item Value Reference Range Interpretation Comme nts GLUCOSE (test code = 2217) 120 MG/DL BUN (test code = 2208) 18 MG/DL CREATININE (test code = 2214) 0.94 MG/DL eGFR (2020 CKD-EPI) (test co de = 51417) 94 ML/MIN/1.73 CALC BUN/CREAT (test code = [...] code = 2219) 19 U/L Eyad ConradLIPID [id number] 00:00:00* Test Item Value Reference Range Interpretation Comme nts CHOLESTEROL (test code = 2210) 169 MG/DL TRIGLYCERIDES (test code = 2232) 56 MG/DL HDL CHOLESTEROL (test code = 2220) 53 MG/DL CALC LDL CHOL (test code = 2237) 102 MG/DL RISK RATIO LDL/HDL (test cod e = 2238) 1.92 RATIO Eyad ConradHEMOGLOBIN [id number] 00:00:00* Test Item Value Reference Range Interpretation Comme nts HEMOGLOBIN A1c (test code = 44515) 6.5 % Eyad Boss AustinLIPID [id number] 00:00:00* Test Item Value Reference Range Interpretation Comme nts CHOLESTEROL (test code = 2210) 150 MG/DL TRIGLYCERIDES (test code = 2232) 74 MG/DL HDL CHOLESTEROL (test code = 2220) 57 MG/DL CALC LDL CHOL (test code = 2237) 78 MG/DL RISK RATIO LDL/HDL (test cod e = 2238) 1.37 RATIO Eyad Boss AustinHEMOGLOBIN [id number] 00:00:00* Test Item Value Reference Range Interpretation Comme nts HEMOGLOBIN A1c (test code = 21672) 6.5 % Eyad Boss AustinHEMOGLOBIN [id number] 03:54:42* Test Item Value Reference Range Interpretation Comme nts HEMOGLOBIN A1c (test code = 58208) 6.5 % 4.2-5.6 H [employer] GUIDELINES FOR HGB A1C: [...] CONSULTATION. UNLESS OTHERWISE INDICATED, ALL [facility] [address] [place] [address] LITHOPRESS OPERATOR: DENY MCKEON M.D. CLIA NUMBER [id number] [facility] [place]. [id number] COMPREHENSIVE METABOLIC [id number] 03:41:22* Test Item Value Reference Range Interpretation Comme nts GLUCOSE (test code = 2217) 109 MG/DL 70-99 H BUN (test code = 2208) 20 MG/DL 6-20 CREATININE (test code = 2214) 1.15 MG/DL 0.80-1.40 eGFR (2020 CKD-EPI) (test code = 64656) 74 ML/MIN/1.73 >60 CALC BUN/CREAT (test code [...] code = 2218) 24 U/L 5-50 LIPID [id number] 03:41:22* Test Item Value Reference Range Interpretation [...] SPECIMENS. FOR MOREINFORMATION, SEE CLIENT ANNOUNCEMENT AT [email or web address] RISK RATIO LDL/HDL (test code = 223) 1.28 RATIO <3.55 COMPREHENSIVE METABOLIC [id number] 00:00:00* Test Item Value Reference Range Interpretation Comme nts GLUCOSE (test code = 2217) 109 MG/DL BUN (test code = 2208) 20 MG/DL CREATININE (test code = 2214) 1.15 MG/DL eGFR (2020 CKD-EPI) (test co de = 45132) 74 ML/MIN/1.73 CALC BUN/CREAT (test code = [...] = 2219) 24 U/L Eyad Boss AustinLIPID [id number] 00:00:00* Test Item Value Reference Range Interpretation Comme nts CHOLESTEROL (test code = 2210) 135 MG/DL TRIGLYCERIDES (test code = 2232) 55 MG/DL HDL CHOLESTEROL (test code = 2220) 53 MG/DL CALC LDL CHOL (test code = 2237) 68 MG/DL RISK RATIO LDL/HDL (test cod e = 2238) 1.28 RATIO Eyad Boss AustinHEMOGLOBIN [id number] 00:00:00* Test Item Value Reference Range Interpretation Comme nts HEMOGLOBIN A1c (test code = 05400) 6.5 % Eyad Boss AustinLIPID [id number] 00:00:00* Test Item Value Reference Range Interpretation Comme nts CHOLESTEROL (test code = 2210) 135 MG/DL TRIGLYCERIDES (test code = 2232) 55 MG/DL HDL CHOLESTEROL (test code = 2220) 53 MG/DL CALC LDL CHOL (test code = 2237) 68 MG/DL RISK RATIO LDL/HDL (test cod e = 2238) 1.28 RATIO LIPID [id number] 00:00:00* Test Item Value Reference Range Interpretation Comme nts CHOLESTEROL (test code = 2210) 135 MG/DL TRIGLYCERIDES (test code = 2232) 55 MG/DL HDL CHOLESTEROL (test code = 2220) 53 MG/DL CALC LDL CHOL (test code = 2237) 68 MG/DL RISK RATIO LDL/HDL (test cod e = 2238) 1.28 RATIO HEMOGLOBIN [id number] 00:00:00* Test Item Value Reference Range Interpretation Comme nts HEMOGLOBIN A1c (test code = 90046) 6.5 % HEMOGLOBIN [id number] 00:00:00* Test Item Value Reference Range Interpretation Comme nts HEMOGLOBIN A1c (test code = 67518) 6.5 % HEMOGLOBIN [id number] 00:00:00* Test Item Value Reference Range Interpretation Comme nts HEMOGLOBIN A1c (test code = 01466) 6.5 % COMPREHENSIVE METABOLIC [id number] 00:00:00* Test Item Value Reference Range Interpretation Comme nts GLUCOSE (test code = 2216) 109 MG/DL BUN (test code = 2208) 20 MG/DL CREATININE (test code = 2214) 1.15 MG/DL eGFR (2020 CKD-EPI) (test co de = 50849) 74 ML/MIN/1.73 CALC BUN/CREAT (test code = [...] code = 2219) 24 U/L COMPREHENSIVE METABOLIC [id number] 00:00:00* Test Item Value Reference Range Interpretation Comme nts GLUCOSE (test code = 2217) 109 MG/DL BUN (test code = 2208) 20 MG/DL CREATININE (test code = 2214) 1.15 MG/DL eGFR (2020 CKD-EPI) (test co de = 18116) 74 ML/MIN/1.73 CALC BUN/CREAT (test code = [...] (test code = 2219) 24 U/L LIPID [id number] 00:00:00* Test Item Value Reference Range Interpretation Comme nts CHOLESTEROL (test code = 2210) 135 MG/DL TRIGLYCERIDES (test code = 2232) 55 MG/DL HDL CHOLESTEROL (test code = 2220) 53 MG/DL CALC LDL CHOL (test code = 2237) 68 MG/DL RISK RATIO LDL/HDL (test cod e = 2238) 1.28 RATIO LIPID [id number] 00:00:00* Test Item Value Reference Range Interpretation Comme nts CHOLESTEROL (test code = 2210) 135 MG/DL TRIGLYCERIDES (test code = 2232) 55 MG/DL HDL CHOLESTEROL (test code = 2220) 53 MG/DL CALC LDL CHOL (test code = 2237) 68 MG/DL RISK RATIO LDL/HDL (test cod e = 2238) 1.28 RATIO HEMOGLOBIN [id number] 00:00:00* Test Item Value Reference Range Interpretation Comme nts HEMOGLOBIN A1c (test code = 74572) 6.5 % HEMOGLOBIN [id number] 00:00:00* Test Item Value Reference Range Interpretation Comme nts HEMOGLOBIN A1c (test code = 35251) 6.5 % HEMOGLOBIN [id number] 00:00:00* Test Item Value Reference Range Interpretation Comme nts HEMOGLOBIN A1c (test code = 77224) 6.5 % COMPREHENSIVE METABOLIC [id number] 00:00:00* Test Item Value Reference Range Interpretation Comme nts GLUCOSE (test code = 2217) 109 MG/DL BUN (test code = 2208) 20 MG/DL CREATININE (test code = 2214) 1.15 MG/DL eGFR (2020 CKD-EPI) (test co de = 63035) 74 ML/MIN/1.73 CALC BUN/CREAT (test code = [...] code = 2219) 24 U/L COMPREHENSIVE METABOLIC [id number] 00:00:00* Test Item Value Reference Range Interpretation Comme nts GLUCOSE (test code = 2217) 109 MG/DL BUN (test code = 2208) 20 MG/DL CREATININE (test code = 2214) 1.15 MG/DL eGFR (2020 CKD-EPI) (test co de = 88709) 74 ML/MIN/1.73 CALC BUN/CREAT (test code = [...] code = 2219) 24 U/L COMPREHENSIVE METABOLIC [id number] 00:00:00* Test Item Value Reference Range Interpretation Comme nts GLUCOSE (test code = 2217) 121 MG/DL BUN (test code = 2208) 12 MG/DL CREATININE (test code = 2214) 1.05 MG/DL eGFR AMER. (test cod e = 07464) 91 ML/MIN/1.73 eGFR NON- AMER. (test code = 05558) 78 ML/MIN/1.73 CALC BUN/CREAT (test code = [...] = 2219) 23 U/L Eyad Boss AustinLIPID [id number] 00:00:00* Test Item Value Reference Range Interpretation Comme nts CHOLESTEROL (test code = 2210) 207 MG/DL TRIGLYCERIDES (test code = 2232) 59 MG/DL HDL CHOLESTEROL (test code = 2220) 70 MG/DL CALC LDL CHOL (test code = 2237) 122 MG/DL RISK RATIO LDL/HDL (test cod e = 2238) 1.74 RATIO Eyad Boss AustinHEMOGLOBIN A1c [ADDED]2021-02-18 00:00:00* Test Item Value Reference Range Interpretation Comme nts HEMOGLOBIN A1c (test code = 90049) 6.2 % Eyad Boss AustinLIPID [id number] 00:00:00* Test Item Value Reference Range Interpretation Comme nts CHOLESTEROL (test code = 2210) 207 MG/DL TRIGLYCERIDES (test code = 2232) 59 MG/DL HDL CHOLESTEROL (test code = 2220) 70 MG/DL CALC LDL CHOL (test code = 2237) 122 MG/DL RISK RATIO LDL/HDL (test cod e = 2238) 1.74 RATIO LIPID [id number] 00:00:00* Test Item Value Reference Range Interpretation [...] Comme nts HEMOGLOBIN A1c (test code = 04083) 6.2 % HEMOGLOBIN A1c [ADDED]2021-02-18 00:00:00* Test Item Value Reference Range Interpretation Comme nts HEMOGLOBIN A1c (test code = 53524) 6.2 % HEMOGLOBIN A1c [ADDED]2021-02-18 00:00:00* Test Item Value Reference Range Interpretation Comme nts HEMOGLOBIN A1c (test code = 25512) 6.2 % COMPREHENSIVE METABOLIC [id number] 00:00:00* Test Item Value Reference Range Interpretation Comme nts GLUCOSE (test code = 2217) 121 MG/DL BUN (test code = 2208) 12 MG/DL CREATININE (test code = 2214) 1.05 MG/DL eGFR AMER. (test cod e = 70359) 91 ML/MIN/1.73 eGFR NON- AMER. (test code = 30989) 78 ML/MIN/1.73 CALC BUN/CREAT (test code = [...] code = 2219) 23 U/L COMPREHENSIVE METABOLIC [id number] 00:00:00* Test Item Value Reference Range Interpretation Comme nts GLUCOSE (test code = 2217) 121 MG/DL BUN (test code = 2208) 12 MG/DL CREATININE (test code = 2214) 1.05 MG/DL eGFR AMER. (test cod e = 89341) 91 ML/MIN/1.73 eGFR NON- AMER. (test code = 40033) 78 ML/MIN/1.73 CALC BUN/CREAT (test code = [...] (test code = 2219) 23 U/L LIPID [id number] 00:00:00* Test Item Value Reference Range Interpretation Comme nts CHOLESTEROL (test code = 2210) 207 MG/DL TRIGLYCERIDES (test code = 2232) 59 MG/DL HDL CHOLESTEROL (test code = 2220) 70 MG/DL CALC LDL CHOL (test code = 2237) 122 MG/DL RISK RATIO LDL/HDL (test cod e = 2238) 1.74 RATIO LIPID [id number] 00:00:00* Test Item Value Reference Range Interpretation [...] Comme nts HEMOGLOBIN A1c (test code = 61512) 6.2 % HEMOGLOBIN A1c [ADDED]2021-02-18 00:00:00* Test Item Value Reference Range Interpretation Comme nts HEMOGLOBIN A1c (test code = 24446) 6.2 % HEMOGLOBIN A1c [ADDED]2021-02-18 00:00:00* Test Item Value Reference Range Interpretation Comme nts HEMOGLOBIN A1c (test code = 27571) 6.2 % COMPREHENSIVE METABOLIC [id number] 00:00:00* Test Item Value Reference Range Interpretation Comme nts GLUCOSE (test code = 2217) 121 MG/DL BUN (test code = 2208) 12 MG/DL CREATININE (test code = 2214) 1.05 MG/DL eGFR AMER. (test cod e = 72740) 91 ML/MIN/1.73 eGFR NON- AMER. (test code = 66872) 78 ML/MIN/1.73 CALC BUN/CREAT (test code = [...] code = 2219) 23 U/L COMPREHENSIVE METABOLIC [id number] 00:00:00* Test Item Value Reference Range Interpretation Comme nts GLUCOSE (test code = 2217) 121 MG/DL BUN (test code = 2208) 12 MG/DL CREATININE (test code = 2214) 1.05 MG/DL eGFR AMER. (test cod e = 62534) 91 ML/MIN/1.73 eGFR NON- AMER. (test code = 52725) 78 ML/MIN/1.73 CALC BUN/CREAT (test code = [...] (test code = 2219) 23 U/L HEMOGLOBIN [id number] 00:00:00* Test Item Value Reference Range Interpretation Comme nts HEMOGLOBIN A1c (test code = 94886) 6.2 % Eyad Boss AustinLIPID [id number] 00:00:00* Test Item Value Reference Range Interpretation Comme nts CHOLESTEROL (test code = 2210) 139 MG/DL TRIGLYCERIDES (test code = 2232) 62 MG/DL HDL CHOLESTEROL (test code = 2220) 59 MG/DL CALC LDL CHOL (test code = 2237) 66 MG/DL RISK RATIO LDL/HDL (test cod e = 2238) 1.12 RATIO Eyad ConradCOMPREHENSIVE METABOLIC [id number] 00:00:00* Test Item Value Reference Range Interpretation Comme nts GLUCOSE (test code = 2217) 115 MG/DL BUN (test code = 2208) 10 MG/DL CREATININE (test code = 2214) 0.81 MG/DL eGFR AMER. (test cod e = 28870) 115 ML/MIN/1.73 eGFR NON- AMER. (test code = 32787) 99 ML/MIN/1.73 CALC BUN/CREAT (test code = 2235) 12 RATIO SODIUM (test code = 2231) 139 MEQ/L POTASSIUM (test code = 2228) 3.9 MEQ/L CHLORIDE (test code = 2215) 100 MEQ/L CARBON DIOXIDE (test code = 2206) 27 MEQ/L CALCIUM (test code = 2209) 9.3 MG/DL PROTEIN, TOTAL (test code = 222) 7.6 G/DL ALBUMIN (test code = 2201) 4.6 G/DL CALC GLOBULIN (test code = 2240) 3.0 G/DL CALC A/G RATIO (test code = 2234) 1.5 RATIO BILIRUBIN, TOTAL (test code = 2207) 0.3 MG/DL ALKALINE PHOSPHATASE (test code = 2204) 85 U/L AST (test code = 2218) 20 U/L ALT (test code = 2219) 15 U/L Eyad Boss AustinHEMOGLOBIN [id number] 00:00:00* Test Item Value Reference Range Interpretation Comme nts HEMOGLOBIN A1c (test code = 42252) 6.2 % LIPID [id number] 00:00:00* Test Item Value Reference Range Interpretation Comme nts CHOLESTEROL (test code = 2210) 139 MG/DL TRIGLYCERIDES (test code = 2232) 62 MG/DL HDL CHOLESTEROL (test code = 2220) 59 MG/DL CALC LDL CHOL (test code = 2237) 66 MG/DL RISK RATIO LDL/HDL (test cod e = 2238) 1.12 RATIO LIPID [id number] 00:00:00* Test Item Value Reference Range Interpretation Comme nts CHOLESTEROL (test code = 2210) 139 MG/DL TRIGLYCERIDES (test code = 2232) 62 MG/DL HDL CHOLESTEROL (test code = 2220) 59 MG/DL CALC LDL CHOL (test code = 2237) 66 MG/DL RISK RATIO LDL/HDL (test cod e = 2238) 1.12 RATIO COMPREHENSIVE METABOLIC [id number] 00:00:00* Test Item Value Reference Range Interpretation Comme nts GLUCOSE (test code = 2217) 115 MG/DL BUN (test code = 2208) 10 MG/DL CREATININE (test code = 2214) 0.81 MG/DL eGFR AMER. (test cod e = 87879) 115 ML/MIN/1.73 eGFR NON- AMER. (test code = 36641) 99 ML/MIN/1.73 CALC BUN/CREAT (test code = [...] code = 2219) 15 U/L COMPREHENSIVE METABOLIC [id number] 00:00:00* Test Item Value Reference Range Interpretation Comme nts GLUCOSE (test code = 2217) 115 MG/DL BUN (test code = 2208) 10 MG/DL CREATININE (test code = 2214) 0.81 MG/DL eGFR AMER. (test cod e = 56030) 115 ML/MIN/1.73 eGFR NON- AMER. (test code = 76594) 99 ML/MIN/1.73 CALC BUN/CREAT (test code = [...] (test code = 2219) 15 U/L HEMOGLOBIN [id number] 00:00:00* Test Item Value Reference Range Interpretation Comme nts HEMOGLOBIN A1c (test code = 26286) 6.2 % HEMOGLOBIN [id number] 00:00:00* Test Item Value Reference Range Interpretation Comme nts HEMOGLOBIN A1c (test code = 38868) 6.2 % HEMOGLOBIN [id number] 00:00:00* Test Item Value Reference Range Interpretation Comme nts HEMOGLOBIN A1c (test code = 67542) 6.2 % LIPID [id number] 00:00:00* Test Item Value Reference Range Interpretation Comme nts CHOLESTEROL (test code = 2210) 139 MG/DL TRIGLYCERIDES (test code = 2232) 62 MG/DL HDL CHOLESTEROL (test code = 2220) 59 MG/DL CALC LDL CHOL (test code = 2237) 66 MG/DL RISK RATIO LDL/HDL (test cod e = 2238) 1.12 RATIO LIPID [id number] 00:00:00* Test Item Value Reference Range Interpretation Comme nts CHOLESTEROL (test code = 2210) 139 MG/DL TRIGLYCERIDES (test code = 2232) 62 MG/DL HDL CHOLESTEROL (test code = 2220) 59 MG/DL CALC LDL CHOL (test code = 2237) 66 MG/DL RISK RATIO LDL/HDL (test cod e = 2238) 1.12 RATIO COMPREHENSIVE METABOLIC [id number] 00:00:00* Test Item Value Reference Range Interpretation Comme nts GLUCOSE (test code = 2217) 115 MG/DL BUN (test code = 2208) 10 MG/DL CREATININE (test code = 2214) 0.81 MG/DL eGFR AMER. (test cod e = 03574) 115 ML/MIN/1.73 eGFR NON- AMER. (test code = 87048) 99 ML/MIN/1.73 CALC BUN/CREAT (test code = [...] code = 2219) 15 U/L COMPREHENSIVE METABOLIC [id number] 00:00:00* Test Item Value Reference Range Interpretation Comme nts GLUCOSE (test code = 2217) 115 MG/DL BUN (test code = 2208) 10 MG/DL CREATININE (test code = 2214) 0.81 MG/DL eGFR AMER. (test cod e = 33497) 115 ML/MIN/1.73 eGFR NON- AMER. (test code = 25955) 99 ML/MIN/1.73 CALC BUN/CREAT (test code = [...] (test code = 2219) 15 U/L HEMOGLOBIN [id number] 00:00:00* Test Item Value Reference Range Interpretation Comme nts HEMOGLOBIN A1c (test code = 42247) 6.2 % HEMOGLOBIN [id number] 00:00:00* Test Item Value Reference Range Interpretation Comme nts HEMOGLOBIN A1c (test code = 09271) 6.2 % LIPID [id number] 00:00:00* Test Item Value Reference Range Interpretation Comme nts CHOLESTEROL (test code = 2210) 181 MG/DL TRIGLYCERIDES (test code = 2232) 101 MG/DL HDL CHOLESTEROL (test code = 2220) 57 MG/DL CALC LDL CHOL (test code = 2237) 105 MG/DL RISK RATIO LDL/HDL (test cod e = 2238) 1.84 RATIO Eyad ConradCOMPREHENSIVE METABOLIC [id number] 00:00:00* Test Item Value Reference Range Interpretation Comme nts GLUCOSE (test code = 2217) 132 MG/DL BUN (test code = 2208) 16 MG/DL CREATININE (test code = 2214) 1.14 MG/DL eGFR AMER. (test cod e = 49511) 83 ML/MIN/1.73 eGFR NON- AMER. (test code = 07579) 71 ML/MIN/1.73 CALC BUN/CREAT (test code = [...] (test code = 2219) 13 U/L Eyad Boss AustinMICROALBUMIN/CREATININE, RANDOM AND [id number] 00:00:00* Test Item Value Reference Range Interpretation Comme nts CREATININE, URINE, CONC. (te st code = 2071) 217.6 MG/DL ALBUMIN, URINE, RANDOM (test code = 38316) 23.6 MG/DL CALC ALBUMIN/CREAT, RND (camron t code = 76065) 108 MG/G Eyad ConradHEMOGLOBIN [id number] 00:00:00* Test Item Value Reference Range Interpretation Comme alberto HEMOGLOBIN A1c (test code = 95313) 7.0 % Eyad ConradLIPID [id number] 00:00:00* Test Item Value Reference Range Interpretation Comme nts CHOLESTEROL (test code = 2210) 181 MG/DL TRIGLYCERIDES (test code = 2232) 101 MG/DL HDL CHOLESTEROL (test code = 2220) 57 MG/DL CALC LDL CHOL (test code = 2237) 105 MG/DL RISK RATIO LDL/HDL (test cod e = 2238) 1.84 RATIO LIPID [id number] 00:00:00* Test Item Value Reference Range Interpretation Comme nts CHOLESTEROL (test code = 2210) 181 MG/DL TRIGLYCERIDES (test code = 2232) 101 MG/DL HDL CHOLESTEROL (test code = 2220) 57 MG/DL CALC LDL CHOL (test code = 2237) 105 MG/DL RISK RATIO LDL/HDL (test cod e = 2238) 1.84 RATIO COMPREHENSIVE METABOLIC [id number] 00:00:00* Test Item Value Reference Range Interpretation Comme nts GLUCOSE (test code = 2217) 132 MG/DL BUN (test code = 2208) 16 MG/DL CREATININE (test code = 2214) 1.14 MG/DL eGFR AMER. (test cod e = 11236) 83 ML/MIN/1.73 eGFR NON- AMER. (test code = 76053) 71 ML/MIN/1.73 CALC BUN/CREAT (test code = [...] code = 2219) 13 U/L COMPREHENSIVE METABOLIC [id number] 00:00:00* Test Item Value Reference Range Interpretation Comme nts GLUCOSE (test code = 2217) 132 MG/DL BUN (test code = 2208) 16 MG/DL CREATININE (test code = 2214) 1.14 MG/DL eGFR AMER. (test cod e = 60545) 83 ML/MIN/1.73 eGFR NON- AMER. (test code = 64422) 71 ML/MIN/1.73 CALC BUN/CREAT (test code = [...] = 2219) 13 U/L MICROALBUMIN/CREATININE, RANDOM AND [id number] 00:00:00* Test Item Value Reference Range Interpretation Comme nts CREATININE, URINE, CONC. (te st code = 2072) 217.6 MG/DL ALBUMIN, URINE, RANDOM (test code = 17304) 23.6 MG/DL CALC ALBUMIN/CREAT, RND (camron t code = 40814) 108 MG/G MICROALBUMIN/CREATININE, RANDOM AND [id number] 00:00:00* Test Item Value Reference Range Interpretation Comme nts CREATININE, URINE, CONC. (te st code = 207) 217.6 MG/DL ALBUMIN, URINE, RANDOM (test code = 22483) 23.6 MG/DL CALC ALBUMIN/CREAT, RND (camron t code = 11473) 108 MG/G HEMOGLOBIN [id number] 00:00:00* Test Item Value Reference Range Interpretation Comme nts HEMOGLOBIN A1c (test code = 38535) 7.0 % HEMOGLOBIN [id number] 00:00:00* Test Item Value Reference Range Interpretation Comme nts HEMOGLOBIN A1c (test code = 07350) 7.0 % HEMOGLOBIN [id number] 00:00:00* Test Item Value Reference Range Interpretation Comme nts HEMOGLOBIN A1c (test code = 13370) 7.0 % LIPID [id number] 00:00:00* Test Item Value Reference Range Interpretation Comme nts CHOLESTEROL (test code = 2210) 181 MG/DL TRIGLYCERIDES (test code = 2232) 101 MG/DL HDL CHOLESTEROL (test code = 2220) 57 MG/DL CALC LDL CHOL (test code = 2237) 105 MG/DL RISK RATIO LDL/HDL (test cod e = 2238) 1.84 RATIO LIPID [id number] 00:00:00* Test Item Value Reference Range Interpretation Comme nts CHOLESTEROL (test code = 2210) 181 MG/DL TRIGLYCERIDES (test code = 2232) 101 MG/DL HDL CHOLESTEROL (test code = 2220) 57 MG/DL CALC LDL CHOL (test code = 2237) 105 MG/DL RISK RATIO LDL/HDL (test cod e = 2238) 1.84 RATIO COMPREHENSIVE METABOLIC [id number] 00:00:00* Test Item Value Reference Range Interpretation Comme nts GLUCOSE (test code = 2217) 132 MG/DL BUN (test code = 2208) 16 MG/DL CREATININE (test code = 2214) 1.14 MG/DL eGFR AMER. (test cod e = 79259) 83 ML/MIN/1.73 eGFR NON- AMER. (test code = 96156) 71 ML/MIN/1.73 CALC BUN/CREAT (test code = [...] code = 2219) 13 U/L COMPREHENSIVE METABOLIC [id number] 00:00:00* Test Item Value Reference Range Interpretation Comme nts GLUCOSE (test code = 2217) 132 MG/DL BUN (test code = 2208) 16 MG/DL CREATININE (test code = 2214) 1.14 MG/DL eGFR AMER. (test cod e = 27394) 83 ML/MIN/1.73 eGFR NON- AMER. (test code = 81081) 71 ML/MIN/1.73 CALC BUN/CREAT (test code = [...] = 2219) 13 U/L MICROALBUMIN/CREATININE, RANDOM AND [id number] 00:00:00* Test Item Value Reference Range Interpretation Comme nts CREATININE, URINE, CONC. (te st code = 2072) 217.6 MG/DL ALBUMIN, URINE, RANDOM (test code = 78157) 23.6 MG/DL CALC ALBUMIN/CREAT, RND (camron t code = 15323) 108 MG/G MICROALBUMIN/CREATININE, RANDOM AND [id number] 00:00:00* Test Item Value Reference Range Interpretation Comme nts CREATININE, URINE, CONC. (te st code = 2072) 217.6 MG/DL ALBUMIN, URINE, RANDOM (test code = 96146) 23.6 MG/DL CALC ALBUMIN/CREAT, RND (camron t code = 78810) 108 MG/G HEMOGLOBIN [id number] 00:00:00* Test Item Value Reference Range Interpretation Comme nts HEMOGLOBIN A1c (test code = 66566) 7.0 % HEMOGLOBIN [id number] 00:00:00* Test Item Value Reference Range Interpretation Comme nts HEMOGLOBIN A1c (test code = 45523) 7.0 % HEMOGLOBIN [id number] 00:00:00* Test Item Value Reference Range Interpretation Comme nts HEMOGLOBIN A1c (test code = 21800) 7.0 % LIPID [id number] 00:00:00* Test Item Value Reference Range Interpretation Comme nts CHOLESTEROL (test code = 2210) 193 MG/DL TRIGLYCERIDES (test code = 2232) 102 MG/DL HDL CHOLESTEROL (test code = 2220) 60 MG/DL CALC LDL CHOL (test code = 2237) 113 MG/DL RISK RATIO LDL/HDL (test cod e = 2238) 1.88 RATIO Eyad Boss AustinHEMOGLOBIN [id number] 00:00:00* Test Item Value Reference Range Interpretation Comme nts HEMOGLOBIN A1c (test code = 40983) 6.3 % Eyad Boss HoustonCOMPREHENSIVE METABOLIC [id number] 00:00:00* Test Item Value Reference Range Interpretation Comme nts GLUCOSE (test code = 2217) 133 MG/DL BUN (test code = 2208) 9 MG/DL CREATININE (test code = 2214) 0.93 MG/DL eGFR AMER. (test cod e = 32284) 107 ML/MIN/1.73 eGFR NON- AMER. (test code = 61395) 92 ML/MIN/1.73 CALC BUN/CREAT (test code = [...] = 2219) 22 U/L Eyad ConradCOMPREHENSIVE METABOLIC [id number] 00:00:00* Test Item Value Reference Range Interpretation Comme nts GLUCOSE (test code = 2217) 133 MG/DL BUN (test code = 2208) 9 MG/DL CREATININE (test code = 2214) 0.93 MG/DL eGFR AMER. (test cod e = 68718) 107 ML/MIN/1.73 eGFR NON- AMER. (test code = 65995) 92 ML/MIN/1.73 CALC BUN/CREAT (test code = [...] (test code = 2219) 22 U/L LIPID [id number] 00:00:00* Test Item Value Reference Range Interpretation Comme nts CHOLESTEROL (test code = 2210) 193 MG/DL TRIGLYCERIDES (test code = 2232) 102 MG/DL HDL CHOLESTEROL (test code = 2220) 60 MG/DL CALC LDL CHOL (test code = 2237) 113 MG/DL RISK RATIO LDL/HDL (test cod e = 2238) 1.88 RATIO LIPID [id number] 00:00:00* Test Item Value Reference Range Interpretation Comme nts CHOLESTEROL (test code = 2210) 193 MG/DL TRIGLYCERIDES (test code = 2232) 102 MG/DL HDL CHOLESTEROL (test code = 2220) 60 MG/DL CALC LDL CHOL (test code = 2237) 113 MG/DL RISK RATIO LDL/HDL (test cod e = 2238) 1.88 RATIO HEMOGLOBIN [id number] 00:00:00* Test Item Value Reference Range Interpretation Comme nts HEMOGLOBIN A1c (test code = 97364) 6.3 % HEMOGLOBIN [id number] 00:00:00* Test Item Value Reference Range Interpretation Comme nts HEMOGLOBIN A1c (test code = 25239) 6.3 % HEMOGLOBIN [id number] 00:00:00* Test Item Value Reference Range Interpretation Comme nts HEMOGLOBIN A1c (test code = 22114) 6.3 % COMPREHENSIVE METABOLIC [id number] 00:00:00* Test Item Value Reference Range Interpretation Comme nts GLUCOSE (test code = 2217) 133 MG/DL BUN (test code = 8) 9 MG/DL CREATININE (test code = 2214) 0.93 MG/DL eGFR AMER. (test cod e = 95972) 107 ML/MIN/1.73 eGFR NON- AMER. (test code = 02425) 92 ML/MIN/1.73 CALC BUN/CREAT (test code = [...] code = 2219) 22 U/L COMPREHENSIVE METABOLIC [id number] 00:00:00* Test Item Value Reference Range Interpretation Comme nts GLUCOSE (test code = 2217) 133 MG/DL BUN (test code = 2208) 9 MG/DL CREATININE (test code = 2214) 0.93 MG/DL eGFR AMER. (test cod e = 13103) 107 ML/MIN/1.73 eGFR NON- AMER. (test code = 49411) 92 ML/MIN/1.73 CALC BUN/CREAT (test code = [...] (test code = 2219) 22 U/L LIPID [id number] 00:00:00* Test Item Value Reference Range Interpretation Comme nts CHOLESTEROL (test code = 2210) 193 MG/DL TRIGLYCERIDES (test code = 2232) 102 MG/DL HDL CHOLESTEROL (test code = 2220) 60 MG/DL CALC LDL CHOL (test code = 2237) 113 MG/DL RISK RATIO LDL/HDL (test cod e = 2238) 1.88 RATIO LIPID [id number] 00:00:00* Test Item Value Reference Range Interpretation Comme nts CHOLESTEROL (test code = 2210) 193 MG/DL TRIGLYCERIDES (test code = 2232) 102 MG/DL HDL CHOLESTEROL (test code = 2220) 60 MG/DL CALC LDL CHOL (test code = 2237) 113 MG/DL RISK RATIO LDL/HDL (test cod e = 2238) 1.88 RATIO HEMOGLOBIN [id number] 00:00:00* Test Item Value Reference Range Interpretation Comme nts HEMOGLOBIN A1c (test code = 53702) 6.3 % HEMOGLOBIN [id number] 00:00:00* Test Item Value Reference Range Interpretation Comme nts HEMOGLOBIN A1c (test code = 31998) 6.3 % HEMOGLOBIN [id number] 00:00:00* Test Item Value Reference Range Interpretation Comme nts HEMOGLOBIN A1c (test code = 98445) 6.3 % COMPREHENSIVE METABOLIC [id number] 00:00:00* Test Item Value Reference Range Interpretation Comme nts GLUCOSE (test code = 2217) 133 MG/DL BUN (test code = 2208) 9 MG/DL CREATININE (test code = 2214) 0.93 MG/DL eGFR AMER. (test cod e = 13038) 107 ML/MIN/1.73 eGFR NON- AMER. (test code = 67639) 92 ML/MIN/1.73 CALC BUN/CREAT (test code = [...] (test code = 2219) 22 U/L HEMOGLOBIN [id number] 00:00:00* Test Item Value Reference Range Interpretation Comme nts HEMOGLOBIN A1c (test code = 40988) 5.6 % Eyad F HoustonCBC W/AUTO [id number] 00:00:00* Test Item Value Reference Range Interpretation [...] (test code = 1015) 221 K/UL Eyad Boss AustinLIPID [id number] 00:00:00* Test Item Value Reference Range Interpretation Comme nts CHOLESTEROL (test code = 2210) 173 MG/DL TRIGLYCERIDES (test code = 2232) 88 MG/DL HDL CHOLESTEROL (test code = 2220) 58 MG/DL CALC LDL CHOL (test code = 2237) 97 MG/DL RISK RATIO LDL/HDL (test cod e = 2238) 1.67 RATIO Eyad Boss AustinHEMOGLOBIN [id number] 00:00:00* Test Item Value Reference Range Interpretation Comme nts HEMOGLOBIN A1c (test code = 11078) 5.6 % CBC W/AUTO [id number] 00:00:00* Test Item Value Reference Range Interpretation [...] code = 1015) 221 K/UL CBC W/AUTO [id number] 00:00:00* Test Item Value Reference Range Interpretation [...] code = 1015) 221 K/UL CBC W/AUTO [id number] 00:00:00* Test Item Value Reference Range Interpretation [...] (test code = 1015) 221 K/UL LIPID [id number] 00:00:00* Test Item Value Reference Range Interpretation Comme nts CHOLESTEROL (test code = 2210) 173 MG/DL TRIGLYCERIDES (test code = 2232) 88 MG/DL HDL CHOLESTEROL (test code = 2220) 58 MG/DL CALC LDL CHOL (test code = 2237) 97 MG/DL RISK RATIO LDL/HDL (test cod e = 2238) 1.67 RATIO LIPID [id number] 00:00:00* Test Item Value Reference Range Interpretation Comme nts CHOLESTEROL (test code = 2210) 173 MG/DL TRIGLYCERIDES (test code = 2232) 88 MG/DL HDL CHOLESTEROL (test code = 2220) 58 MG/DL CALC LDL CHOL (test code = 2237) 97 MG/DL RISK RATIO LDL/HDL (test cod e = 2238) 1.67 RATIO HEMOGLOBIN [id number] 00:00:00* Test Item Value Reference Range Interpretation Comme nts HEMOGLOBIN A1c (test code = 38449) 5.6 % HEMOGLOBIN [id number] 00:00:00* Test Item Value Reference Range Interpretation Comme nts HEMOGLOBIN A1c (test code = 78486) 5.6 % HEMOGLOBIN [id number] 00:00:00* Test Item Value Reference Range Interpretation Comme nts HEMOGLOBIN A1c (test code = 28096) 5.6 % CBC W/AUTO [id number] 00:00:00* Test Item Value Reference Range Interpretation [...] code = 1015) 221 K/UL CBC W/AUTO [id number] 00:00:00* Test Item Value Reference Range Interpretation [...] code = 1015) 221 K/UL CBC W/AUTO [id number] 00:00:00* Test Item Value Reference Range Interpretation [...] (test code = 1015) 221 K/UL LIPID [id number] 00:00:00* Test Item Value Reference Range Interpretation Comme nts CHOLESTEROL (test code = 2210) 173 MG/DL TRIGLYCERIDES (test code = 2232) 88 MG/DL HDL CHOLESTEROL (test code = 2220) 58 MG/DL CALC LDL CHOL (test code = 2237) 97 MG/DL RISK RATIO LDL/HDL (test cod e = 2238) 1.67 RATIO LIPID [id number] 00:00:00* Test Item Value Reference Range Interpretation Comme nts CHOLESTEROL (test code = 2210) 173 MG/DL TRIGLYCERIDES (test code = 2232) 88 MG/DL HDL CHOLESTEROL (test code = 2220) 58 MG/DL CALC LDL CHOL (test code = 2237) 97 MG/DL RISK RATIO LDL/HDL (test cod e = 2238) 1.67 RATIO HEMOGLOBIN [id number] 00:00:00* Test Item Value Reference Range Interpretation Comme nts HEMOGLOBIN A1c (test code = 06496) 5.6 % HEMOGLOBIN [id number] 00:00:00* Test Item Value Reference Range Interpretation Comme nts HEMOGLOBIN A1c (test code = 76119) 5.6 % HEMOGLOBIN [id number] 00:00:00* Test Item Value Reference Range Interpretation Comme nts HEMOGLOBIN A1c (test code = 08051) 6.0 % Eyad F AustinHEMOGLOBIN [id number] 00:00:00* Test Item Value Reference Range Interpretation Comme nts HEMOGLOBIN A1c (test code = 31935) 6.0 % HEMOGLOBIN [id number] 00:00:00* Test Item Value Reference Range Interpretation Comme nts HEMOGLOBIN A1c (test code = 04815) 6.0 % HEMOGLOBIN [id number] 00:00:00* Test Item Value Reference Range Interpretation Comme nts HEMOGLOBIN A1c (test code = 79977) 6.0 % HEMOGLOBIN [id number] 00:00:00* Test Item Value Reference Range Interpretation Comme nts HEMOGLOBIN A1c (test code = 59759) 6.0 % HEMOGLOBIN [id number] 00:00:00* Test Item Value Reference Range Interpretation Comme nts HEMOGLOBIN A1c (test code = 65900) 6.0 % HEMOGLOBIN [id number] 00:00:00* Test Item Value Reference Range Interpretation Comme nts HEMOGLOBIN A1c (test code = 79690) 6.0 % COMPREHENSIVE METABOLIC [id number] 00:00:00* Test Item Value Reference Range Interpretation Comme nts GLUCOSE (test code = 2217) 110 MG/DL BUN (test code = 2208) 16 MG/DL CREATININE (test code = 2214) 0.89 MG/DL eGFR AMER. (test cod e = 99382) 112 ML/MIN/1.73 eGFR NON- AMER. (test code = 84753) 96 ML/MIN/1.73 CALC BUN/CREAT (test code = [...] = 2219) 20 U/L Eyad Boss AustinLIPID [id number] 00:00:00* Test Item Value Reference Range Interpretation Comme nts CHOLESTEROL (test code = 2210) 157 MG/DL TRIGLYCERIDES (test code = 2232) 44 MG/DL HDL CHOLESTEROL (test code = 2220) 55 MG/DL CALC LDL CHOL (test code = 2237) 93 MG/DL RISK RATIO LDL/HDL (test cod e = 2238) 1.69 RATIO Eyad F AustinLIPID [id number] 00:00:00* Test Item Value Reference Range Interpretation Comme nts CHOLESTEROL (test code = 2210) 157 MG/DL TRIGLYCERIDES (test code = 2232) 44 MG/DL HDL CHOLESTEROL (test code = 2220) 55 MG/DL CALC LDL CHOL (test code = 2237) 93 MG/DL RISK RATIO LDL/HDL (test cod e = 2238) 1.69 RATIO COMPREHENSIVE METABOLIC [id number] 00:00:00* Test Item Value Reference Range Interpretation Comme nts GLUCOSE (test code = 2217) 110 MG/DL BUN (test code = 2208) 16 MG/DL CREATININE (test code = 2214) 0.89 MG/DL eGFR AMER. (test cod e = 20038) 112 ML/MIN/1.73 eGFR NON- AMER. (test code = 53372) 96 ML/MIN/1.73 CALC BUN/CREAT (test code = [...] code = 2219) 20 U/L COMPREHENSIVE METABOLIC [id number] 00:00:00* Test Item Value Reference Range Interpretation Comme nts GLUCOSE (test code = 2217) 110 MG/DL BUN (test code = 2208) 16 MG/DL CREATININE (test code = 2214) 0.89 MG/DL eGFR AMER. (test cod e = 93249) 112 ML/MIN/1.73 eGFR NON- AMER. (test code = 27961) 96 ML/MIN/1.73 CALC BUN/CREAT (test code = [...] (test code = 2219) 20 U/L LIPID [id number] 00:00:00* Test Item Value Reference Range Interpretation Comme nts CHOLESTEROL (test code = 2210) 157 MG/DL TRIGLYCERIDES (test code = 2232) 44 MG/DL HDL CHOLESTEROL (test code = 2220) 55 MG/DL CALC LDL CHOL (test code = 2237) 93 MG/DL RISK RATIO LDL/HDL (test cod e = 2238) 1.69 RATIO LIPID [id number] 00:00:00* Test Item Value Reference Range Interpretation Comme nts CHOLESTEROL (test code = 2210) 157 MG/DL TRIGLYCERIDES (test code = 2232) 44 MG/DL HDL CHOLESTEROL (test code = 2220) 55 MG/DL CALC LDL CHOL (test code = 2237) 93 MG/DL RISK RATIO LDL/HDL (test cod e = 2238) 1.69 RATIO COMPREHENSIVE METABOLIC [id number] 00:00:00* Test Item Value Reference Range Interpretation Comme nts GLUCOSE (test code = 2217) 110 MG/DL BUN (test code = 2208) 16 MG/DL CREATININE (test code = 2214) 0.89 MG/DL eGFR AMER. (test cod e = 84245) 112 ML/MIN/1.73 eGFR NON- AMER. (test code = 50160) 96 ML/MIN/1.73 CALC BUN/CREAT (test code = [...] code = 2219) 20 U/L COMPREHENSIVE METABOLIC [id number] 00:00:00* Test Item Value Reference Range Interpretation Comme nts GLUCOSE (test code = 2217) 110 MG/DL BUN (test code = 2208) 16 MG/DL CREATININE (test code = 2214) 0.89 MG/DL eGFR AMER. (test cod e = 23326) 112 ML/MIN/1.73 eGFR NON- AMER. (test code = 56441) 96 ML/MIN/1.73 CALC BUN/CREAT (test code = [...] (test code = 2219) 20 U/L LIPID [id number] 00:00:00* Test Item Value Reference Range Interpretation Comme nts CHOLESTEROL (test code = 2210) 157 MG/DL TRIGLYCERIDES (test code = 2232) 44 MG/DL HDL CHOLESTEROL (test code = 2220) 55 MG/DL CALC LDL CHOL (test code = 2237) 93 MG/DL RISK RATIO LDL/HDL (test cod e = 2238) 1.69 RATIO HEPATITIS C REFLEX [id number] 00:00:00* Test Item Value Reference Range Interpretation Comme nts HEPATITIS C ANTIBODY (test c ode = 4675) NON-REACTIVE Eyad ConradPSA, [id number] 00:00:00* Test Item Value Reference Range Interpretation Comme nts PSA, TOTAL (test code = 2606) 0.99 NG/ML Eyad [id number] 00:00:00* Test Item Value Reference Range Interpretation Comme nts TESTOSTERONE (test code = 2830) 444 NG/DL Eyad ConradHIV AB/AG COMBO RFLX [id number] 00:00:00* Test Item Value Reference Range Interpretation Comme nts HIV 1/2 4TH GEN, RFLX CONF ( test code = 3514) NON-REACTIVE Eyad ConradHIV AB/AG COMBO RFLX [id number] 00:00:00* Test Item Value Reference Range Interpretation Comme nts HIV 1/2 4TH GEN, RFLX CONF ( test code = 3514) NON-REACTIVE HEPATITIS C REFLEX [id number] 00:00:00* Test Item Value Reference Range Interpretation Comme nts HEPATITIS C ANTIBODY (test c ode = 4675) NON-REACTIVE HEPATITIS C REFLEX [id number] 00:00:00* Test Item Value Reference Range Interpretation Comme nts HEPATITIS C ANTIBODY (test c ode = 4675) NON-REACTIVE PSA, [id number] 00:00:00* Test Item Value Reference Range Interpretation Comme nts PSA, TOTAL (test code = 2606) 0.99 NG/ML PSA, [id number] 00:00:00* Test Item Value Reference Range Interpretation Comme nts PSA, TOTAL (test code = 2606) 0.99 NG/ML PSA, [id number] 00:00:00* Test Item Value Reference Range Interpretation Comme nts PSA, TOTAL (test code = 2606) 0.99 NG/ML [id number] 00:00:00* Test Item Value Reference Range Interpretation Comme nts TESTOSTERONE (test code = 2830) 444 NG/DL [id number] 00:00:00* Test Item Value Reference Range Interpretation Comme nts TESTOSTERONE (test code = 2830) 444 NG/DL HIV AB/AG COMBO RFLX [id number] 00:00:00* Test Item Value Reference Range Interpretation Comme nts HIV 1/2 4TH GEN, RFLX CONF ( test code = 3514) NON-REACTIVE HIV AB/AG COMBO RFLX [id number] 00:00:00* Test Item Value Reference Range Interpretation Comme nts HIV 1/2 4TH GEN, RFLX CONF ( test code = 3514) NON-REACTIVE HEPATITIS C REFLEX [id number] 00:00:00* Test Item Value Reference Range Interpretation Comme nts HEPATITIS C ANTIBODY (test c ode = 4675) NON-REACTIVE HEPATITIS C REFLEX [id number] 00:00:00* Test Item Value Reference Range Interpretation Comme nts HEPATITIS C ANTIBODY (test c ode = 4675) NON-REACTIVE PSA, [id number] 00:00:00* Test Item Value Reference Range Interpretation Comme nts PSA, TOTAL (test code = 2606) 0.99 NG/ML PSA, [id number] 00:00:00* Test Item Value Reference Range Interpretation Comme nts PSA, TOTAL (test code = 2606) 0.99 NG/ML PSA, [id number] 00:00:00* Test Item Value Reference Range Interpretation Comme nts PSA, TOTAL (test code = 2606) 0.99 NG/ML [id number] 00:00:00* Test Item Value Reference Range Interpretation Comme nts TESTOSTERONE (test code = 2830) 444 NG/DL [id number] 00:00:00* Test Item Value Reference Range Interpretation Comme nts TESTOSTERONE (test code = 2830) 444 NG/DL HIV AB/AG COMBO RFLX [id number] 00:00:00* Test Item Value Reference Range Interpretation Comme nts HIV 1/2 4TH GEN, RFLX CONF ( test code = 3514) NON-REACTIVE CBC W/AUTO [id number] 00:00:00* Test Item Value Reference Range Interpretation [...] code = 1015) 241 K/UL Eyad ConradHEMOGLOBIN [id number] 00:00:00* Test Item Value Reference Range Interpretation Comme nts HEMOGLOBIN A1c (test code = 38722) 5.5 % Eyad ConradCBC W/AUTO [id number] 00:00:00* Test Item Value Reference Range Interpretation [...] code = 1015) 241 K/UL CBC W/AUTO [id number] 00:00:00* Test Item Value Reference Range Interpretation [...] (test code = 1015) 241 K/UL HEMOGLOBIN [id number] 00:00:00* Test Item Value Reference Range Interpretation Comme nts HEMOGLOBIN A1c (test code = 13577) 5.5 % HEMOGLOBIN [id number] 00:00:00* Test Item Value Reference Range Interpretation Comme nts HEMOGLOBIN A1c (test code = 44062) 5.5 % HEMOGLOBIN [id number] 00:00:00* Test Item Value Reference Range Interpretation Comme nts HEMOGLOBIN A1c (test code = 60604) 5.5 % CBC W/AUTO [id number] 00:00:00* Test Item Value Reference Range Interpretation [...] code = 1015) 241 K/UL CBC W/AUTO [id number] 00:00:00* Test Item Value Reference Range Interpretation [...] code = 1015) 241 K/UL CBC W/AUTO [id number] 00:00:00* Test Item Value Reference Range Interpretation [...] (test code = 1015) 241 K/UL HEMOGLOBIN [id number] 00:00:00* Test Item Value Reference Range Interpretation Comme nts HEMOGLOBIN A1c (test code = 20008) 5.5 % HEMOGLOBIN [id number] 00:00:00* Test Item Value Reference Range Interpretation Comme nts HEMOGLOBIN A1c (test code = 42029) 5.5 % HEMOGLOBIN [id number] 00:00:00* Test Item Value Reference Range Interpretation Comme nts HEMOGLOBIN A1c (test code = 21502) 5.5 % CBC W/AUTO [id number] 00:00:00* Test Item Value Reference Range Interpretation [...] code = 1015) 241 K/UL CBC W/AUTO [id number] 00:00:00* Test Item Value Reference Range Interpretation [...] TEST NOT PERFORMED K/UL Eyad F AustinHEMOGLOBIN [id number] 00:00:00* Test Item Value Reference Range Interpretation Comme nts HEMOGLOBIN A1c (test code = 19680) TEST NOT PERFORMED % Eyad F AustinCBC W/AUTO [id number] 00:00:00* Test Item Value Reference Range Interpretation [...] 1015) TEST NOT PERFORMED K/UL CBC W/AUTO [id number] 00:00:00* Test Item Value Reference Range Interpretation [...] 1015) TEST NOT PERFORMED K/UL CBC W/AUTO [id number] 00:00:00* Test Item Value Reference Range Interpretation [...] = 1015) TEST NOT PERFORMED K/UL HEMOGLOBIN [id number] 00:00:00* Test Item Value Reference Range Interpretation Comme nts HEMOGLOBIN A1c (test code = 54601) TEST NOT PERFORMED % HEMOGLOBIN [id number] 00:00:00* Test Item Value Reference Range Interpretation Comme nts HEMOGLOBIN A1c (test code = 09542) TEST NOT PERFORMED % HEMOGLOBIN [id number] 00:00:00* Test Item Value Reference Range Interpretation Comme nts HEMOGLOBIN A1c (test code = 93472) TEST NOT PERFORMED % CBC W/AUTO [id number] 00:00:00* Test Item Value Reference Range Interpretation [...] 1015) TEST NOT PERFORMED K/UL CBC W/AUTO [id number] 00:00:00* Test Item Value Reference Range Interpretation [...] 1015) TEST NOT PERFORMED K/UL CBC W/AUTO [id number] 00:00:00* Test Item Value Reference Range Interpretation [...] = 1015) TEST NOT PERFORMED K/UL HEMOGLOBIN [id number] 00:00:00* Test Item Value Reference Range Interpretation Comme nts HEMOGLOBIN A1c (test code = 21143) TEST NOT PERFORMED % HEMOGLOBIN [id number] 00:00:00* Test Item Value Reference Range Interpretation Comme nts HEMOGLOBIN A1c (test code = 94013) TEST NOT PERFORMED % HEMOGLOBIN [id number] 00:00:00* Test Item Value Reference Range Interpretation Comme nts HEMOGLOBIN A1c (test code = 22326) TEST NOT PERFORMED % COMPREHENSIVE METABOLIC [id number] 00:00:00* Test Item Value Reference Range Interpretation Comme nts GLUCOSE (test code = 2217) 129 MG/DL BUN (test code = 2208) 21 MG/DL CREATININE (test code = 2214) 0.96 MG/DL eGFR AMER. (test cod e = 13459) 104 ML/MIN/1.73 eGFR NON- AMER. (test code = 09082) 90 ML/MIN/1.73 CALC BUN/CREAT (test code = [...] (test code = 2219) 21 U/L Eyad F AustinLIPID [id number] 00:00:00* Test Item Value Reference Range Interpretation Comme nts CHOLESTEROL (test code = 2210) 158 MG/DL TRIGLYCERIDES (test code = 2232) 96 MG/DL HDL CHOLESTEROL (test code = 2220) 43 MG/DL CALC LDL CHOL (test code = 2237) 96 MG/DL RISK RATIO LDL/HDL (test cod e = 2238) 2.23 RATIO Eyad [id number] 00:00:00* Test Item Value Reference Range Interpretation Comme nts TSH (test code = 2821) 1.210 UIU/ML Eyad ConradCOMPREHENSIVE METABOLIC [id number] 00:00:00* Test Item Value Reference Range Interpretation Comme nts GLUCOSE (test code = 2217) 129 MG/DL BUN (test code = 2208) 21 MG/DL CREATININE (test code = 2214) 0.96 MG/DL eGFR AMER. (test cod e = 25931) 104 ML/MIN/1.73 eGFR NON- AMER. (test code = 92565) 90 ML/MIN/1.73 CALC BUN/CREAT (test code = [...] (test code = 2219) 21 U/L LIPID [id number] 00:00:00* Test Item Value Reference Range Interpretation Comme nts CHOLESTEROL (test code = 2210) 158 MG/DL TRIGLYCERIDES (test code = 2232) 96 MG/DL HDL CHOLESTEROL (test code = 2220) 43 MG/DL CALC LDL CHOL (test code = 2237) 96 MG/DL RISK RATIO LDL/HDL (test cod e = 2238) 2.23 RATIO LIPID [id number] 00:00:00* Test Item Value Reference Range Interpretation Comme nts CHOLESTEROL (test code = 2210) 158 MG/DL TRIGLYCERIDES (test code = 2232) 96 MG/DL HDL CHOLESTEROL (test code = 2220) 43 MG/DL CALC LDL CHOL (test code = 2237) 96 MG/DL RISK RATIO LDL/HDL (test cod e = 2238) 2.23 RATIO [id number] 00:00:00* Test Item Value Reference Range Interpretation Comme nts TSH (test code = 2821) 1.210 UIU/ML [id number] 00:00:00* Test Item Value Reference Range Interpretation Comme nts TSH (test code = 2821) 1.210 UIU/ML [id number] 00:00:00* Test Item Value Reference Range Interpretation Comme nts TSH (test code = 2821) 1.210 UIU/ML COMPREHENSIVE METABOLIC [id number] 00:00:00* Test Item Value Reference Range Interpretation Comme nts GLUCOSE (test code = 2217) 129 MG/DL BUN (test code = 2208) 21 MG/DL CREATININE (test code = 2214) 0.96 MG/DL eGFR AMER. (test cod e = 91991) 104 ML/MIN/1.73 eGFR NON- AMER. (test code = 94583) 90 ML/MIN/1.73 CALC BUN/CREAT (test code = [...] code = 2219) 21 U/L COMPREHENSIVE METABOLIC [id number] 00:00:00* Test Item Value Reference Range Interpretation Comme nts GLUCOSE (test code = 2217) 129 MG/DL BUN (test code = 2208) 21 MG/DL CREATININE (test code = 2214) 0.96 MG/DL eGFR AMER. (test cod e = 85330) 104 ML/MIN/1.73 eGFR NON- AMER. (test code = 10395) 90 ML/MIN/1.73 CALC BUN/CREAT (test code = [...] (test code = 2219) 21 U/L LIPID [id number] 00:00:00* Test Item Value Reference Range Interpretation Comme nts CHOLESTEROL (test code = 2210) 158 MG/DL TRIGLYCERIDES (test code = 2232) 96 MG/DL HDL CHOLESTEROL (test code = 2220) 43 MG/DL CALC LDL CHOL (test code = 2237) 96 MG/DL RISK RATIO LDL/HDL (test cod e = 2238) 2.23 RATIO LIPID [id number] 00:00:00* Test Item Value Reference Range Interpretation Comme nts CHOLESTEROL (test code = 2210) 158 MG/DL TRIGLYCERIDES (test code = 2232) 96 MG/DL HDL CHOLESTEROL (test code = 2220) 43 MG/DL CALC LDL CHOL (test code = 2237) 96 MG/DL RISK RATIO LDL/HDL (test cod e = 2238) 2.23 RATIO [id number] 00:00:00* Test Item Value Reference Range Interpretation Comme nts TSH (test code = 2821) 1.210 UIU/ML [id number] 00:00:00* Test Item Value Reference Range Interpretation Comme nts TSH (test code = 2821) 1.210 UIU/ML [id number] 00:00:00* Test Item Value Reference Range Interpretation Comme nts TSH (test code = 2821) 1.210 UIU/ML COMPREHENSIVE METABOLIC [id number] 00:00:00* Test Item Value Reference Range Interpretation Comme nts GLUCOSE (test code = 2217) 129 MG/DL BUN (test code = 2208) 21 MG/DL CREATININE (test code = 2214) 0.96 MG/DL eGFR AMER. (test cod e = 56707) 104 ML/MIN/1.73 eGFR NON- AMER. (test code = 66395) 90 ML/MIN/1.73 CALC BUN/CREAT (test code = [...] code = 2219) 21 U/L COMPREHENSIVE METABOLIC [id number] 00:00:00* Test Item Value Reference Range Interpretation Comme nts GLUCOSE (test code = 2217) 119 MG/DL BUN (test code = 2208) 42 MG/DL CREATININE (test code = 2214) 1.24 MG/DL eGFR AMER. (test cod e = 51105) 76 ML/MIN/1.73 eGFR NON- AMER. (test code = 95694) 66 ML/MIN/1.73 CALC BUN/CREAT (test code = [...] code = 2219) 29 U/L Eyad ConradLIPID [id number] 00:00:00* Test Item Value Reference Range Interpretation Comme nts CHOLESTEROL (test code = 2210) 186 MG/DL TRIGLYCERIDES (test code = 2232) 90 MG/DL HDL CHOLESTEROL (test code = 2220) 50 MG/DL CALC LDL CHOL (test code = 2237) 118 MG/DL RISK RATIO LDL/HDL (test cod e = 2238) 2.36 RATIO Eyad ConradCOMPREHENSIVE METABOLIC [id number] 00:00:00* Test Item Value Reference Range Interpretation Comme nts GLUCOSE (test code = 2217) 119 MG/DL BUN (test code = 2208) 42 MG/DL CREATININE (test code = 2214) 1.24 MG/DL eGFR AMER. (test cod e = 15678) 76 ML/MIN/1.73 eGFR NON- AMER. (test code = 83806) 66 ML/MIN/1.73 CALC BUN/CREAT (test code = [...] (test code = 2219) 29 U/L LIPID [id number] 00:00:00* Test Item Value Reference Range Interpretation Comme nts CHOLESTEROL (test code = 2210) 186 MG/DL TRIGLYCERIDES (test code = 2232) 90 MG/DL HDL CHOLESTEROL (test code = 2220) 50 MG/DL CALC LDL CHOL (test code = 2237) 118 MG/DL RISK RATIO LDL/HDL (test cod e = 2238) 2.36 RATIO LIPID [id number] 00:00:00* Test Item Value Reference Range Interpretation Comme nts CHOLESTEROL (test code = 2210) 186 MG/DL TRIGLYCERIDES (test code = 2232) 90 MG/DL HDL CHOLESTEROL (test code = 2220) 50 MG/DL CALC LDL CHOL (test code = 2237) 118 MG/DL RISK RATIO LDL/HDL (test cod e = 2238) 2.36 RATIO COMPREHENSIVE METABOLIC [id number] 00:00:00* Test Item Value Reference Range Interpretation Comme nts GLUCOSE (test code = 2217) 119 MG/DL BUN (test code = 2208) 42 MG/DL CREATININE (test code = 2214) 1.24 MG/DL eGFR AMER. (test cod e = 52370) 76 ML/MIN/1.73 eGFR NON- AMER. (test code = 08186) 66 ML/MIN/1.73 CALC BUN/CREAT (test code = [...] code = 2219) 29 U/L COMPREHENSIVE METABOLIC [id number] 00:00:00* Test Item Value Reference Range Interpretation Comme nts GLUCOSE (test code = 2217) 119 MG/DL BUN (test code = 2208) 42 MG/DL CREATININE (test code = 2214) 1.24 MG/DL eGFR AMER. (test cod e = 31554) 76 ML/MIN/1.73 eGFR NON- AMER. (test code = 60402) 66 ML/MIN/1.73 CALC BUN/CREAT (test code = [...] (test code = 2219) 29 U/L LIPID [id number] 00:00:00* Test Item Value Reference Range Interpretation Comme nts CHOLESTEROL (test code = 2210) 186 MG/DL TRIGLYCERIDES (test code = 2232) 90 MG/DL HDL CHOLESTEROL (test code = 2220) 50 MG/DL CALC LDL CHOL (test code = 2237) 118 MG/DL RISK RATIO LDL/HDL (test cod e = 2238) 2.36 RATIO LIPID [id number] 00:00:00* Test Item Value Reference Range Interpretation Comme nts CHOLESTEROL (test code = 2210) 186 MG/DL TRIGLYCERIDES (test code = 2232) 90 MG/DL HDL CHOLESTEROL (test code = 2220) 50 MG/DL CALC LDL CHOL (test code = 2237) 118 MG/DL RISK RATIO LDL/HDL (test cod e = 2238) 2.36 RATIO COMPREHENSIVE METABOLIC [id number] 00:00:00* Test Item Value Reference Range Interpretation Comme nts GLUCOSE (test code = 2217) 119 MG/DL BUN (test code = 2208) 42 MG/DL CREATININE (test code = 2214) 1.24 MG/DL eGFR AMER. (test cod e = 94877) 76 ML/MIN/1.73 eGFR NON- AMER. (test code = 89740) 66 ML/MIN/1.73 CALC BUN/CREAT (test code = [...] 29 U/L VITAMIN B 12 AND FOLIC [id number] 00:00:00* Test Item Value Reference Range Interpretation Comme nts VITAMIN B-12 (test code = 2840) 1049 PG/ML FOLIC ACID (test code = 2695) 7.2 UG/L Eyad Boss [id number] 00:00:00* Test Item Value Reference Range Interpretation Comme nts FERRITIN (test code = 2074) 65 NG/ML Eyad Boss AustinIRON BINDING CAPACITY AND IRON AND % [id number] 00:00:00* Test Item Value Reference Range Interpretation Comme nts IRON, SERUM (test code = 2221) 126 UG/DL UNSATURATED IBC (test code = 94581) 193 UG/DL CALC TOTAL IBC (test code = 2076) 319 UG/DL CALC % IRON SAT (test code = 2078) 39 % Eyad ConradRETICULOCYTE [id number] 00:00:00* Test Item Value Reference Range Interpretation Comme nts RETICULOCYTE COUNT (test code = 1018) 1.2 % Eyad F AustinVITAMIN B 12 AND FOLIC [id number] 00:00:00* Test Item Value Reference Range Interpretation Comme nts VITAMIN B-12 (test code = 2840) 1049 PG/ML FOLIC ACID (test code = 2695) 7.2 UG/L [id number] 00:00:00* Test Item Value Reference Range Interpretation Comme nts FERRITIN (test code = 5) 65 NG/ML [id number] 00:00:00* Test Item Value Reference Range Interpretation Comme nts FERRITIN (test code = 2074) 65 NG/ML IRON BINDING CAPACITY AND IRON AND % [id number] 00:00:00* Test Item Value Reference Range Interpretation Comme nts IRON, SERUM (test code = 2) 126 UG/DL UNSATURATED IBC (test code = 19140) 193 UG/DL CALC TOTAL IBC (test code = 2076) 319 UG/DL CALC % IRON SAT (test code = 2078) 39 % IRON BINDING CAPACITY AND IRON AND % [id number] 00:00:00* Test Item Value Reference Range Interpretation Comme nts IRON, SERUM (test code = 2221) 126 UG/DL UNSATURATED IBC (test code = 27561) 193 UG/DL CALC TOTAL IBC (test code = 2076) 319 UG/DL CALC % IRON SAT (test code = 2078) 39 % RETICULOCYTE [id number] 00:00:00* Test Item Value Reference Range Interpretation Comme nts RETICULOCYTE COUNT (test code = 1018) 1.2 % RETICULOCYTE [id number] 00:00:00* Test Item Value Reference Range Interpretation Comme nts RETICULOCYTE COUNT (test code = 1018) 1.2 % VITAMIN B 12 AND FOLIC [id number] 00:00:00* Test Item Value Reference Range Interpretation Comme nts VITAMIN B-12 (test code = 2840) 1049 PG/ML FOLIC ACID (test code = 2695) 7.2 UG/L VITAMIN B 12 AND FOLIC [id number] 00:00:00* Test Item Value Reference Range Interpretation Comme nts VITAMIN B-12 (test code = 2840) 1049 PG/ML FOLIC ACID (test code = 2695) 7.2 UG/L [id number] 00:00:00* Test Item Value Reference Range Interpretation Comme nts FERRITIN (test code = 2074) 65 NG/ML [id number] 00:00:00* Test Item Value Reference Range Interpretation Comme nts FERRITIN (test code = 2074) 65 NG/ML IRON BINDING CAPACITY AND IRON AND % [id number] 00:00:00* Test Item Value Reference Range Interpretation Comme nts IRON, SERUM (test code = 2221) 126 UG/DL UNSATURATED IBC (test code = 84477) 193 UG/DL CALC TOTAL IBC (test code = 7) 319 UG/DL CALC % IRON SAT (test code = 9) 39 % IRON BINDING CAPACITY AND IRON AND % [id number] 00:00:00* Test Item Value Reference Range Interpretation Comme nts IRON, SERUM (test code = 2221) 126 UG/DL UNSATURATED IBC (test code = 89236) 193 UG/DL CALC TOTAL IBC (test code = 2076) 319 UG/DL CALC % IRON SAT (test code = 9) 39 % RETICULOCYTE [id number] 00:00:00* Test Item Value Reference Range Interpretation Comme nts RETICULOCYTE COUNT (test code = 1018) 1.2 % RETICULOCYTE [id number] 00:00:00* Test Item Value Reference Range Interpretation Comme nts RETICULOCYTE COUNT (test code = 1018) 1.2 % VITAMIN B 12 AND FOLIC [id number] 00:00:00* Test Item Value Reference Range Interpretation [...] code = 2821) 0.747 UIU/ML CBC W/AUTO [id number] 00:00:00* Test Item Value Reference Range Interpretation [...] (test code = 1015) 228 K/UL Eyad ConradCBC W/AUTO [id number] 00:00:00* Test Item Value Reference Range Interpretation [...] code = 1015) 228 K/UL CBC W/AUTO [id number] 00:00:00* Test Item Value Reference Range Interpretation [...] code = 1015) 228 K/UL CBC W/AUTO [id number] 00:00:00* Test Item Value Reference Range Interpretation [...] code = 1015) 228 K/UL CBC W/AUTO [id number] 00:00:00* Test Item Value Reference Range Interpretation [...] code = 1015) 228 K/UL CBC W/AUTO [id number] 00:00:00* Test Item Value Reference Range Interpretation [...] code = 1015) 228 K/UL CBC W/AUTO [id number] 00:00:00* Test Item Value Reference Range Interpretation [...] (test code = 1015) 228 K/UL HEMOGLOBIN [id number] 00:00:00* Test Item Value Reference Range Interpretation Comme nts HEMOGLOBIN A1c (test code = 61729) 5.7 % Eyad F AustinCOMPREHENSIVE METABOLIC [id number] 00:00:00* Test Item Value Reference Range Interpretation Comme nts GLUCOSE (test code = 2217) 103 MG/DL BUN (test code = 2208) 9 MG/DL CREATININE (test code = 2214) 0.88 MG/DL eGFR AMER. (test cod e = 95223) 114 ML/MIN/1.73 eGFR NON- AMER. (test code = 35563) 99 ML/MIN/1.73 CALC BUN/CREAT (test code = [...] = 2219) 28 U/L Eyad Boss AustinHEMOGLOBIN [id number] 00:00:00* Test Item Value Reference Range Interpretation Comme nts HEMOGLOBIN A1c (test code = 92160) 5.7 % COMPREHENSIVE METABOLIC [id number] 00:00:00* Test Item Value Reference Range Interpretation Comme nts GLUCOSE (test code = 2216) 103 MG/DL BUN (test code = 2208) 9 MG/DL CREATININE (test code = 2214) 0.88 MG/DL eGFR AMER. (test cod e = 82305) 114 ML/MIN/1.73 eGFR NON- AMER. (test code = 23851) 99 ML/MIN/1.73 CALC BUN/CREAT (test code = [...] code = 2219) 28 U/L COMPREHENSIVE METABOLIC [id number] 00:00:00* Test Item Value Reference Range Interpretation Comme nts GLUCOSE (test code = 2217) 103 MG/DL BUN (test code = 8) 9 MG/DL CREATININE (test code = 2214) 0.88 MG/DL eGFR AMER. (test cod e = 86207) 114 ML/MIN/1.73 eGFR NON- AMER. (test code = 35656) 99 ML/MIN/1.73 CALC BUN/CREAT (test code = 2235) 10 RATIO SODIUM (test code = 2231) 140 MEQ/L POTASSIUM (test code = 2228) 4.7 MEQ/L CHLORIDE (test code = 2215) 104 MEQ/L CARBON DIOXIDE (test code = 2206) 27 MEQ/L CALCIUM (test code = 2209) 9.1 MG/DL PROTEIN, TOTAL (test code = 222) 7.1 G/DL ALBUMIN (test code = 2201) 4.4 G/DL CALC GLOBULIN (test code = 2240) 2.7 G/DL CALC A/G RATIO (test code = 2234) 1.6 RATIO BILIRUBIN, TOTAL (test code = 2206) 0.2 MG/DL ALKALINE PHOSPHATASE (test code = 4) 64 U/L AST (test code = 2218) 25 U/L ALT (test code = 2219) 28 U/L HEMOGLOBIN [id number] 00:00:00* Test Item Value Reference Range Interpretation Comme nts HEMOGLOBIN A1c (test code = 56785) 5.7 % HEMOGLOBIN [id number] 00:00:00* Test Item Value Reference Range Interpretation Comme nts HEMOGLOBIN A1c (test code = 95905) 5.7 % HEMOGLOBIN [id number] 00:00:00* Test Item Value Reference Range Interpretation Comme nts HEMOGLOBIN A1c (test code = 00880) 5.7 % COMPREHENSIVE METABOLIC [id number] 00:00:00* Test Item Value Reference Range Interpretation Comme nts GLUCOSE (test code = 7) 103 MG/DL BUN (test code = 8) 9 MG/DL CREATININE (test code = 2214) 0.88 MG/DL eGFR AMER. (test cod e = 76967) 114 ML/MIN/1.73 eGFR NON- AMER. (test code = 44276) 99 ML/MIN/1.73 CALC BUN/CREAT (test code = [...] code = 2219) 28 U/L COMPREHENSIVE METABOLIC [id number] 00:00:00* Test Item Value Reference Range Interpretation Comme nts GLUCOSE (test code = 2217) 103 MG/DL BUN (test code = 2208) 9 MG/DL CREATININE (test code = 2214) 0.88 MG/DL eGFR AMER. (test cod e = 00418) 114 ML/MIN/1.73 eGFR NON- AMER. (test code = 61213) 99 ML/MIN/1.73 CALC BUN/CREAT (test code = [...] (test code = 2219) 28 U/L HEMOGLOBIN [id number] 00:00:00* Test Item Value Reference Range Interpretation Comme nts HEMOGLOBIN A1c (test code = 10297) 5.7 % HEMOGLOBIN [id number] 00:00:00* Test Item Value Reference Range Interpretation Comme nts HEMOGLOBIN A1c (test code = 08245) 5.7 % COMPREHENSIVE METABOLIC [id number] 00:00:00* Test Item Value Reference Range Interpretation Comme nts GLUCOSE (test code = 2217) 100 MG/DL BUN (test code = 2208) 12 MG/DL CREATININE (test code = 2214) 0.91 MG/DL eGFR AMER. (test cod e = 13673) 112 ML/MIN/1.73 eGFR NON- AMER. (test code = 37086) 97 ML/MIN/1.73 CALC BUN/CREAT (test code = [...] = 2219) 30 U/L Eyad Boss AustinHEMOGLOBIN [id number] 00:00:00* Test Item Value Reference Range Interpretation Comme nts HEMOGLOBIN A1c (test code = 13323) 6.1 % Eyad Boss AustinCOMPREHENSIVE METABOLIC [id number] 00:00:00* Test Item Value Reference Range Interpretation Comme nts GLUCOSE (test code = 2217) 100 MG/DL BUN (test code = 2208) 12 MG/DL CREATININE (test code = 2214) 0.91 MG/DL eGFR AMER. (test cod e = 92408) 112 ML/MIN/1.73 eGFR NON- AMER. (test code = 07991) 97 ML/MIN/1.73 CALC BUN/CREAT (test code = [...] code = 2219) 30 U/L COMPREHENSIVE METABOLIC [id number] 00:00:00* Test Item Value Reference Range Interpretation Comme nts GLUCOSE (test code = 2217) 100 MG/DL BUN (test code = 2208) 12 MG/DL CREATININE (test code = 2214) 0.91 MG/DL eGFR AMER. (test cod e = 82987) 112 ML/MIN/1.73 eGFR NON- AMER. (test code = 78985) 97 ML/MIN/1.73 CALC BUN/CREAT (test code = [...] (test code = 2219) 30 U/L HEMOGLOBIN [id number] 00:00:00* Test Item Value Reference Range Interpretation Comme nts HEMOGLOBIN A1c (test code = 52562) 6.1 % HEMOGLOBIN [id number] 00:00:00* Test Item Value Reference Range Interpretation Comme nts HEMOGLOBIN A1c (test code = 99734) 6.1 % HEMOGLOBIN [id number] 00:00:00* Test Item Value Reference Range Interpretation Comme nts HEMOGLOBIN A1c (test code = 07412) 6.1 % COMPREHENSIVE METABOLIC [id number] 00:00:00* Test Item Value Reference Range Interpretation Comme nts GLUCOSE (test code = 2217) 100 MG/DL BUN (test code = 2208) 12 MG/DL CREATININE (test code = 2214) 0.91 MG/DL eGFR AMER. (test cod e = 18549) 112 ML/MIN/1.73 eGFR NON- AMER. (test code = 78468) 97 ML/MIN/1.73 CALC BUN/CREAT (test code = [...] code = 2219) 30 U/L COMPREHENSIVE METABOLIC [id number] 00:00:00* Test Item Value Reference Range Interpretation Comme nts GLUCOSE (test code = 2217) 100 MG/DL BUN (test code = 2208) 12 MG/DL CREATININE (test code = 2214) 0.91 MG/DL eGFR AMER. (test cod e = 92457) 112 ML/MIN/1.73 eGFR NON- AMER. (test code = 28963) 97 ML/MIN/1.73 CALC BUN/CREAT (test code = [...] (test code = 2219) 30 U/L HEMOGLOBIN [id number] 00:00:00* Test Item Value Reference Range Interpretation Comme nts HEMOGLOBIN A1c (test code = 70244) 6.1 % HEMOGLOBIN [id number] 00:00:00* Test Item Value Reference Range Interpretation Comme nts HEMOGLOBIN A1c (test code = 61336) 6.1 % HEMOGLOBIN [id number] 00:00:00* Test Item Value Reference Range Interpretation Comme nts HEMOGLOBIN A1c (test code = 55187) 6.1 % COMPREHENSIVE METABOLIC [id number] 00:00:00* Test Item Value Reference Range Interpretation Comme nts GLUCOSE (test code = 2217) 94 MG/DL BUN (test code = 8) 21 MG/DL CREATININE (test code = 2214) 1.0 MG/DL eGFR AMER. (test cod e = 37816) 95 ML/MIN/1.73 eGFR NON- AMER. (test code = 19282) 79 ML/MIN/1.73 CALCULATED BUN/CREAT (test code = [...] = 2219) 16 U/L Eyad Boss AustinHEMOGLOBIN [id number] 00:00:00* Test Item Value Reference Range Interpretation Comme nts HEMOGLOBIN A1c (test code = 17027) 6.1 % Eyad Boss AustinHEMOGLOBIN [id number] 00:00:00* Test Item Value Reference Range Interpretation Comme nts HEMOGLOBIN A1c (test code = 59511) 6.1 % COMPREHENSIVE METABOLIC [id number] 00:00:00* Test Item Value Reference Range Interpretation Comme nts GLUCOSE (test code = 2217) 94 MG/DL BUN (test code = 2208) 21 MG/DL CREATININE (test code = 2214) 1.0 MG/DL eGFR AMER. (test cod e = 02328) 95 ML/MIN/1.73 eGFR NON- AMER. (test code = 91309) 79 ML/MIN/1.73 CALCULATED BUN/CREAT (test code = [...] code = 2219) 16 U/L COMPREHENSIVE METABOLIC [id number] 00:00:00* Test Item Value Reference Range Interpretation Comme nts GLUCOSE (test code = 2217) 94 MG/DL BUN (test code = 2208) 21 MG/DL CREATININE (test code = 2214) 1.0 MG/DL eGFR AMER. (test cod e = 61618) 95 ML/MIN/1.73 eGFR NON- AMER. (test code = 05752) 79 ML/MIN/1.73 CALCULATED BUN/CREAT (test code = [...] (test code = 2219) 16 U/L HEMOGLOBIN [id number] 00:00:00* Test Item Value Reference Range Interpretation Comme nts HEMOGLOBIN A1c (test code = 35053) 6.1 % HEMOGLOBIN [id number] 00:00:00* Test Item Value Reference Range Interpretation Comme nts HEMOGLOBIN A1c (test code = 99995) 6.1 % HEMOGLOBIN [id number] 00:00:00* Test Item Value Reference Range Interpretation Comme nts HEMOGLOBIN A1c (test code = 16701) 6.1 % COMPREHENSIVE METABOLIC [id number] 00:00:00* Test Item Value Reference Range Interpretation Comme nts GLUCOSE (test code = 2217) 94 MG/DL BUN (test code = 2208) 21 MG/DL CREATININE (test code = 2214) 1.0 MG/DL eGFR AMER. (test cod e = 83607) 95 ML/MIN/1.73 eGFR NON- AMER. (test code = 31528) 79 ML/MIN/1.73 CALCULATED BUN/CREAT (test code = [...] code = 2219) 16 U/L COMPREHENSIVE METABOLIC [id number] 00:00:00* Test Item Value Reference Range Interpretation Comme nts GLUCOSE (test code = 2217) 94 MG/DL BUN (test code = 2208) 21 MG/DL CREATININE (test code = 2214) 1.0 MG/DL eGFR AMER. (test cod e = 57782) 95 ML/MIN/1.73 eGFR NON- AMER. (test code = 34155) 79 ML/MIN/1.73 CALCULATED BUN/CREAT (test code = [...] (test code = 2219) 16 U/L HEMOGLOBIN [id number] 00:00:00* Test Item Value Reference Range Interpretation Comme nts HEMOGLOBIN A1c (test code = 13691) 6.1 % HEMOGLOBIN [id number] 00:00:00* Test Item Value Reference Range Interpretation Comme nts HEMOGLOBIN A1c (test code = 76056) 6.1 % HEMOGLOBIN [id number] 00:00:00* Test Item Value Reference Range Interpretation Comme nts HEMOGLOBIN A1c (test code = 84521) 6.0 % Eyad Boss HoustonTHYROID II PROFILE (T3U, T4, T7, [id number] 00:00:00* Test Item Value Reference Range Interpretation Comme nts T3 UPTAKE (test code = 2817) 28.0 % T4 (THYROXINE) (test code = 2819) 6.8 UG/DL CALCULATED T7 (FTI) (test co de = 2820) 1.90 TSH (test code = 2821) 1.6 UIU/ML Eyad F HoustonCOMPREHENSIVE METABOLIC [id number] 00:00:00* Test Item Value Reference Range Interpretation Comme nts GLUCOSE (test code = 2217) 97 MG/DL BUN (test code = 2208) 28 MG/DL CREATININE (test code = 2214) 1.1 MG/DL eGFR AMER. (test cod e = 16967) 86 ML/MIN/1.73 eGFR NON- AMER. (test code = 80595) 71 ML/MIN/1.73 CALCULATED BUN/CREAT (test code = [...] = 2219) 18 U/L Eyad ConradCBC W/AUTO [id number] 00:00:00* Test Item Value Reference Range Interpretation [...] code = 1015) 293 K/UL Eyad ConradLIPID [id number] 00:00:00* Test Item Value Reference Range Interpretation Comme nts CHOLESTEROL (test code = 2210) 173 MG/DL TRIGLYCERIDES (test code = 2232) 56 MG/DL HDL CHOLESTEROL (test code = 2220) 58 MG/DL CALCULATED LDL CHOL (test co de = 2237) 104 MG/DL RISK RATIO LDL/HDL (test cod e = 2238) 1.79 RATIO Eyad ConradHEMOGLOBIN [id number] 00:00:00* Test Item Value Reference Range Interpretation Comme nts HEMOGLOBIN A1c (test code = 50178) 6.0 % THYROID II PROFILE (T3U, T4, [...] code = 2821) 1.6 UIU/ML COMPREHENSIVE METABOLIC [id number] 00:00:00* Test Item Value Reference Range Interpretation Comme nts GLUCOSE (test code = 2217) 97 MG/DL BUN (test code = 2208) 28 MG/DL CREATININE (test code = 2214) 1.1 MG/DL eGFR AMER. (test cod e = 26580) 86 ML/MIN/1.73 eGFR NON- AMER. (test code = 52435) 71 ML/MIN/1.73 CALCULATED BUN/CREAT (test code = [...] code = 2219) 18 U/L COMPREHENSIVE METABOLIC [id number] 00:00:00* Test Item Value Reference Range Interpretation Comme nts GLUCOSE (test code = 2217) 97 MG/DL BUN (test code = 2208) 28 MG/DL CREATININE (test code = 2214) 1.1 MG/DL eGFR AMER. (test cod e = 00902) 86 ML/MIN/1.73 eGFR NON- AMER. (test code = 73379) 71 ML/MIN/1.73 CALCULATED BUN/CREAT (test code = [...] code = 2219) 18 U/L CBC W/AUTO [id number] 00:00:00* Test Item Value Reference Range Interpretation [...] code = 1015) 293 K/UL CBC W/AUTO [id number] 00:00:00* Test Item Value Reference Range Interpretation [...] code = 1015) 293 K/UL CBC W/AUTO [id number] 00:00:00* Test Item Value Reference Range Interpretation [...] (test code = 1015) 293 K/UL LIPID [id number] 00:00:00* Test Item Value Reference Range Interpretation Comme nts CHOLESTEROL (test code = 2210) 173 MG/DL TRIGLYCERIDES (test code = 2232) 56 MG/DL HDL CHOLESTEROL (test code = 2220) 58 MG/DL CALCULATED LDL CHOL (test co de = 2237) 104 MG/DL RISK RATIO LDL/HDL (test cod e = 2238) 1.79 RATIO LIPID [id number] 00:00:00* Test Item Value Reference Range Interpretation Comme nts CHOLESTEROL (test code = 2210) 173 MG/DL TRIGLYCERIDES (test code = 2232) 56 MG/DL HDL CHOLESTEROL (test code = 2220) 58 MG/DL CALCULATED LDL CHOL (test co de = 2237) 104 MG/DL RISK RATIO LDL/HDL (test cod e = 2238) 1.79 RATIO HEMOGLOBIN [id number] 00:00:00* Test Item Value Reference Range Interpretation Comme nts HEMOGLOBIN A1c (test code = 96404) 6.0 % HEMOGLOBIN [id number] 00:00:00* Test Item Value Reference Range Interpretation Comme nts HEMOGLOBIN A1c (test code = 14222) 6.0 % HEMOGLOBIN [id number] 00:00:00* Test Item Value Reference Range Interpretation Comme nts HEMOGLOBIN A1c (test code = 95869) 6.0 % THYROID II PROFILE (T3U, T4, [...] code = 2821) 1.6 UIU/ML COMPREHENSIVE METABOLIC [id number] 00:00:00* Test Item Value Reference Range Interpretation Comme nts GLUCOSE (test code = 2217) 97 MG/DL BUN (test code = 2208) 28 MG/DL CREATININE (test code = 2214) 1.1 MG/DL eGFR AMER. (test cod e = 50610) 86 ML/MIN/1.73 eGFR NON- AMER. (test code = 01953) 71 ML/MIN/1.73 CALCULATED BUN/CREAT (test code = [...] code = 2219) 18 U/L COMPREHENSIVE METABOLIC [id number] 00:00:00* Test Item Value Reference Range Interpretation Comme nts GLUCOSE (test code = 2217) 97 MG/DL BUN (test code = 2208) 28 MG/DL CREATININE (test code = 2214) 1.1 MG/DL eGFR AMER. (test cod e = 89113) 86 ML/MIN/1.73 eGFR NON- AMER. (test code = 33958) 71 ML/MIN/1.73 CALCULATED BUN/CREAT (test code = [...] code = 2219) 18 U/L CBC W/AUTO [id number] 00:00:00* Test Item Value Reference Range Interpretation [...] code = 1015) 293 K/UL CBC W/AUTO [id number] 00:00:00* Test Item Value Reference Range Interpretation [...] code = 1015) 293 K/UL CBC W/AUTO [id number] 00:00:00* Test Item Value Reference Range Interpretation [...] (test code = 1015) 293 K/UL LIPID [id number] 00:00:00* Test Item Value Reference Range Interpretation Comme nts CHOLESTEROL (test code = 2210) 173 MG/DL TRIGLYCERIDES (test code = 2232) 56 MG/DL HDL CHOLESTEROL (test code = 2220) 58 MG/DL CALCULATED LDL CHOL (test co de = 2237) 104 MG/DL RISK RATIO LDL/HDL (test cod e = 2238) 1.79 RATIO LIPID [id number] 00:00:00* Test Item Value Reference Range Interpretation Comme nts CHOLESTEROL (test code = 2210) 173 MG/DL TRIGLYCERIDES (test code = 2232) 56 MG/DL HDL CHOLESTEROL (test code = 2220) 58 MG/DL CALCULATED LDL CHOL (test co de = 2237) 104 MG/DL RISK RATIO LDL/HDL (test cod e = 2238) 1.79 RATIO HEMOGLOBIN [id number] 00:00:00* Test Item Value Reference Range Interpretation Comme nts HEMOGLOBIN A1c (test code = 16459) 6.0 % HEMOGLOBIN [id number] 00:00:00* Test Item Value Reference Range Interpretation Comme nts HEMOGLOBIN A1c (test code = 89556) 6.0 % Notes Date/Time Note Provider Source 2023-07-28 00:00:00 [id number] 02T00:00:00+ +-------- ----+| Plan Activity | Plan [...] he was living with | || his vnoggdb-wh-pxc who had TB. | || Advised patient [...] pt did blood | || work in [place] | || pt states that medication helps for the burning lips and tongue | |+ + +| resolved | 2023-04-19 || acetaminophen take as directed | || paracetamol tablets 500mg and a cream called daktarin miconazol pt did blood | || work in [place] | || pt states that medication helps [...] || refer to [facility] | |+ + +87223-3 Plan of TreatmentLNCARE PLANTXTS|[id number]|2.16.840.1.1 00675.10.20.22.2.10AVAvailable for patient xaedXssblwzFeoglijudDJZVo53 Section NarrativeNARRATIVEFormatted C-CDA narrative textSFAStliliake BossPaladin Healthcare2024-05-02T00:00:00 Eyad [facility] 2023-06-04 01:29:16 3120-46-11R02:29:16 Pt given printed and verbal discharge instructions [...] w/d, pt leaving in no apparent distress, 19337-1Ltysuwuin department DxanBE7508-29-17W97:30:36[facility] department NoteTXT1.2.840.180529.1.13.104.2.7. 2.672420|[id number] for patient vlzw40565-3KbjrODDJCHRGGCLEqhlzbbox C-CDA narrative [id number] R Shehadeh [id number] 4JHFGWCSHFVAZACPTZRGKSW5939-45-70T9 1:30:361.2.840.451576.1.72.3.15|1.2 .840.800538.1.13.104.2.7.2.727879_2 [id number] Pippa Parra RN [facility] 2023-06-03 22:33:49 5429-47-66E59:33:49 Patient ambulatory to ED c/o abd and mouth pain. Patient states the abd pain is not present right now but his lips are "hot" and "tongue is red." Patient is taking new medication but doesn't know the name of it. This is his third time here. 83203-2Zjldmqrja department Triage oxbxLN2483-90-88J49:40:10[facility] Triage noteTXT1.2.840.170291.1.13.104.2.7. 2.658015|[id number] for patient npoo42245-2Zdjontccz department NoteLNNARRATIVEFormatted C-CDA narrative [id number]-Udrvl McInnis RN[id number] 7YFUCWDYUUKDMNAWBNRZCJM0682-33-78O7 2:40:101.2.840.262684.1.72.3.15|1.2 .840.767663.1.13.104.2.7.2.727879_2 [id number] Yan Mims RN [facility] - Health 2023-06-03 22:27:00 8397-03-29X99:27:00 [facility] Emergency Department NotePatient Name: Zeke Leigh of : 1965 58 year old maleTreatment Room: [facility] Record Number: [id number] Care Physician: EDANDRE JonesPatient Escorted by: Family [5]Mode of Arrival: Personal means [1]EMS Treatment Prior to ED Arrival:POISON INFORMATION SPECIALIST treatment: NoneTravel and Exposure Screening:SymptomsDoes patient have [...] (*) 0.01 - 0.09 10*3/uLCOMP. METABOLIC PANEL (30594) - AbnormalNA 138 135 - 145 mmol/LK [...] 45 (*) 13 - 40 U/LeGFR 92.2 mL/min/1.50n1EBQQD DRUG (IMMUNOASSAY) - COMPREHENSIVE DRUG SCREEN - NormalAMPHET Negative NegativeBARB U Negative NegativeBENZO U Negative NegativeCocaine Metabolite Negative NegativeMETHADONE Negative NegativeOPIATES Negative NegativePCP Negative NegativeTHC Negative NegativeETHANOLALCOHOL <10 mg/dLTHYROID STIMULATING HORMONEEKG:If EKG completed, see Procedure Note.Orders and Treatments:Orders Placed This EncounterProcedures Cbc with Diff Comp. Metabolic Panel (93994) Urine Drug (Immunoassay) - Comprehensive Drug Screen [...] fileFollow-up: PCPElectronically signed by:Samuel Donato MD06/04/23 0106 61013-1Ilzbgzent Emergency department WujzNI4950-81-34L07:06:46Physician Emergency department NoteTXT1.2.840.731186.1.13.104.2.7. 2.878296|[id number] for patient qcbr58896-2Eowubcovm department NoteLNNARRATIVEFormatted C-CDA narrative text[address] Qj[id number] 2ISTCXCCSOIIETIIJDPQITX9883-12-17P7 1:06:461.2.840.360368.1.72.3.15|1.2 .840.616881.1.13.104.2.7.2.727879_2 [id number] [facility] 2023-05-31 19:33:39 0503-90-32I35:33:39 Pt discharged with diagnosis of mouth pain. Printed and verbal instructions reviewed with and given to pt. Prescriptions given x 0. Pt verbalized understanding of teaching and recommended follow-up. Denies questions or concerns at this time. Pt ambulatory at discharge. Appears in no apparent distress. No ataxia noted. 81780-5Hpmhtnoff department TlrvQQ9110-49-22L85:34:02[facility] department NoteTXT1.2.840.885304.1.13.104.2.7. 2.649715|[id number] for patient whsh14250-5ZcmjWDBIUJPWCDZErgsbpkop C-CDA narrative [id number] R Goodrich [id number] 0QJZQZLFFNVKZLEQMQRIKET5559-85-69G3 9:34:021.2.840.957666.1.72.3.15|1.2 .840.483627.1.13.104.2.7.2.727879_2 [id number] Aniya Al RN [facility] 2023-05-31 17:21:16 7517-93-65Z07:21:16 Patient states: "I feel fire on my mouth since 1 month now. I was seen already for the same thing a week ago, prescribed with antibiotics but it's not helping." 63997-6Pkmxdbdir department Triage mtuvPM1929-76-44K58:23:12[facility] department Triage noteTXT1.2.840.901093.1.13.104.2.7. 2.433173|[id number] for patient rwce27626-6Gsohhdqba department NoteLNNARRATIVEFormatted C-CDA narrative [id number] C Heredia RNUT[address] Jd[id number] 9JICNCVOOTOKMCACXMOOXBU8260-00-40Q5 7:23:121.2.840.745710.1.72.3.15|1.2 .840.265802.1.13.104.2.7.2.727879_2 [id number] Anabella C Carlotta NOBLES [facility] 2023-05-21 11:01:55 5701-37-55I90:01:55 Pt given discharge instructions on heartburn. Given prescription X 1 for protonix. Pt advised to follow up with pcp. Pt left ER ambulatory with steady gait. No signs of distress. 59034-1Yuyduzndi department AwdcOZ2585-18-59H49:02:33[facility] department NoteTXT1.2.840.714310.1.13.104.2.7. 2.032189|[id number] for patient nmkd47355-6CjxwBAAUOJCBXAZHcmbtchzr C-CDA narrative text[id number] 3KMUAGCWGJRMGMNOLLMBQDM8962-92-13B9 1:02:331.2.840.586622.1.72.3.15|1.2 .840.505536.1.13.104.2.7.2.727879_2 [id number] [facility] 2023-05-21 10:32:14 3543-52-90G69:32:14 Patient states: "My tongue is very hot and my lips are hot. My stomach hurts. [place] went [place] and she gave me a lot of papers but she didn't find anything"Reports symptoms for 10 days. Worse today. 65510-3Tcnrfeodb department Triage xsrjTB0778-96-48Q94:34:28[facility] Triage noteTXT1.2.840.851702.1.13.104.2.7. 2.536037|[id number] for patient jlej61925-2Jkvtthpjn department NoteLNNARRATIVEFormatted C-CDA narrative [id number] M Cruz RN[address] Zw[id number] 9UBDXUEOBAYFXOXTXLXEEZU3789-49-05M1 0:34:281.2.840.557636.1.72.3.15|1.2 .840.802512.1.13.104.2.7.2.727879_2 [id number] Morena Ibanez RN [facility]
[2023-09-15] MEDS ORDERED: predniSONE 20 MG TAB ONE (01:46)
[2023-09-15] MEDS ORDERED: ACYCLOVIR 400 MG TABLET ONE (01:46)
[2023-09-15] MEDS ORDERED: PROMETHAZINE 25 MG TABLET ONE (01:46)
[2023-09-15] MEDS ORDERED: KETOROLAC 30 MG/ML INJ ONE (01:47)
[2023-09-15] MEDS ORDERED: HYDROCODONE/APAP 10/325 TAB ONE (01:47)
[2023-09-15 02:17] LABS: Anion Gap 6.9 mEq/L (5.0-15.0); Potassium 3.9 mEq/L (3.5-5.1)
--- NOTE | 2023-09-15 04:38 | ER ---
Nurse's Notes [facility] Name: Zeke Weinstein Age: 58 yrs Sex: Male : 1965 Arrival Date: 09/15/2023 Time: 01:04 Bed 15 Private MD: Diagnosis: Oral pain , Oral Ulcers, herpetic gingivostomatitis Presentation: 09/14 01:21 Chief complaint: Patient states: pain to lips, tongue and mouth. Coronavirus screen: lg3 Client denies travel out of the [place] in the last 14 days. At this time, the client does not indicate any symptoms associated with coronavirus-19. Ebola Screen: No symptoms or risks identified at this time. Initial Sepsis Screen: Does the patient meet any 2 criteria? No. Patient's initial sepsis screen is negative. Does the patient have a suspected source of infection? No. Patient's initial sepsis screen is negative. Risk Assessment: Do you want to hurt yourself or someone else? Patient reports no desire to harm self or others. Onset of symptoms is unknown. 01:21 Method Of Arrival: Ambulatory lg3 01:21 Acuity: CHARISSA 4 lg3 Triage Assessment: 01:22 General: Appears in no apparent distress. comfortable, Behavior is calm, cooperative. lg3 Pain: Complains of pain in mouth. EENT: Oral mucosa is moist. Dentures present. Neuro: No deficits noted. Hall Agitation-Sedation Scale (RASS): 0 - Alert and Calm Level of Consciousness is awake, alert, obeys commands, Oriented to person, place, time, situation. Cardiovascular: No deficits noted. Denies chest pain, shortness of breath, Capillary refill < 3 seconds Clubbing of nail beds is absent JVD is absent Patient's skin is warm and dry. Respiratory: No deficits noted. Airway is patent Respiratory effort is even, unlabored, Respiratory pattern is regular, symmetrical. GI: No deficits noted. No signs and/or symptoms were reported involving the gastrointestinal system. : No deficits noted. No signs and/or symptoms were reported regarding the genitourinary system. Derm: No deficits noted. No signs and/or symptoms reported regarding the dermatologic system. Skin is intact, is healthy with good turgor, Skin is dry, Skin is normal, Skin temperature is warm. Musculoskeletal: No deficits noted. No signs and/or symptoms reported regarding the musculoskeletal system. Circulation, motion, and sensation intact. Range of motion: intact in all extremities. Historical: - Allergies: : No Known Allergies; lg3 - Home Meds: : Valtrex Oral [Active]; lg3 - PMHx: : diabetes mellitus; Hypertensive disorder; Herpes simplex; lg3 - PSHx: : None; lg3 - Immunization history:: Adult Immunizations up to date. - Infectious Disease History:: Denies. - Social history:: Smoking status: Patient denies any tobacco usage or history of. Patient uses alcohol, occasionally. - Family history:: not pertinent. Screenin:14 [facility] ED Fall Risk Assessment (Adult) History of falling in the last 3 months, ha1 including since admission No falls in past 3 months (0 pts) Confusion or Disorientation No (0 pts) Intoxicated or Sedated No (0 pts) Impaired Gait No (0 pts) Mobility Assist Device Used No (0 pt) Altered Elimination No (0 pt) Score/Fall Risk Level 0 - 2 = Low Risk Oriented to surroundings, Maintained a safe environment, Educated pt \T\ family on fall prevention, incl call for assistance when getting out of bed, Hourly rounding (assess needs \T\ fall precautionary measures) done. Abuse screen: Denies threats or abuse. Denies injuries from another. Nutritional screening: No deficits noted. Tuberculosis screening: No symptoms or risk factors identified. Assessment: 01:10 General: Appears uncomfortable, Behavior is cooperative. Pain: Complains of pain in ha1 mouth Pain does not radiate. Pain currently is 9 out of 10 on a pain scale. Quality of pain is described as burning. Neuro: Level of Consciousness is awake, alert, obeys commands, Oriented to person, place, time, situation. Cardiovascular: Capillary refill < 3 seconds Patient's skin is warm and dry. Respiratory: Airway is patent Respiratory effort is even, unlabored, Respiratory pattern is regular, symmetrical. GI: No signs and/or symptoms were reported involving the gastrointestinal system. EENT: Lesions noted. on the tongue . Derm: Skin is pink, warm \T\ dry. Musculoskeletal: Circulation, motion, and sensation intact. Range of motion: intact in all extremities. 02:17 Reassessment: Patient and/or family updated on plan of care and expected duration. Pain ha1 level reassessed. Patient is alert, oriented x 3, equal unlabored respirations, skin warm/dry/pink. 03:15 Reassessment: Patient and/or family updated on plan of care and expected duration. Pain ha1 level reassessed. Patient is alert, oriented x 3, equal unlabored respirations, skin warm/dry/pink. pain 5/10 Patient states symptoms have improved. 04:10 Reassessment: Patient and/or family updated on plan of care and expected duration. Pain rg5 level reassessed. Patient is alert, oriented x 3, equal unlabored respirations, skin warm/dry/pink. 05:02 Reassessment: Patient and/or family updated on plan of care and expected duration. Pain rg5 level reassessed. Patient is alert, oriented x 3, equal unlabored respirations, skin warm/dry/pink. Vital Signs: 01:21 BP 193 / 89; Pulse 68; Resp 17 S; Temp 97.7(TE); Pulse Ox 100% on R/A; Weight 72.57 kg lg3 (R); Height 5 ft. 6 in. (R); 02:00 BP 153 / 88; Pulse 58; Resp 17 S; Pulse Ox 99% on R/A; ha1 03:00 BP 135 / 78; Pulse 59; Resp 16 S; Pulse Ox 99% on R/A; ha1 03:50 BP 132 / 74; Pulse 58; Resp 17 S; Pulse Ox 97% on R/A; rg5 04:15 BP 128 / 73; Pulse 55; Resp 18 S; Pulse Ox 97% on R/A; rg5 01:21 Body Mass Index 25.82 (72.57 kg, 167.64 cm) lg3 [place] Coma Score: 04:41 Eye Response: spontaneous(4). Motor Response: obeys commands(6). Verbal Response: sp4 oriented(5). Total: 15. ED Course: 01:06 Patient arrived in ED. jj6 01:09 Jose Sanon MD is Attending Physician. sp4 01:10 Patient has correct armband on for positive identification. Bed in low position. Call ha1 light in reach. Side rails up X 1. 01:22 Triage completed. lg3 01:22 Arm band placed on left wrist. lg3 01:35 Seth, Calista, RN is Primary Nurse. ha1 02:13 BMP Sent. ha1 02:15 No provider procedures requiring assistance completed. ha1 05:05 Provided Education on: follow ups . rg5 05:05 Patient did not have IV access during this emergency room visit. rg5 Administered Medications: 01:55 Drug: predniSONE PO 60 mg PO once Route: PO; ha1 01:55 Drug: [place] PO 10 mg-325 mg 1 tabs PO once Route: PO; ha1 01:55 Drug: Ketorolac IM 60 mg IM once Route: IM; Site: right ventrogluteal; ha1 01:55 Drug: Acyclovir PO 800 mg PO once Route: PO; ha1 01:55 Drug: Promethazine PO 25 mg PO once Route: PO; ha1 Medication: 03:47 VIS not applicable for this client. ha1 Outcome: 04:38 Discharge ordered by . sp4 05:04 Discharged to home ambulatory, rg5 05:04 Condition: stable 05:04 Discharge instructions given to patient, Instructed on discharge instructions, follow up and referral plans. medication usage, Demonstrated understanding of instructions, follow-up care, medications, Prescriptions given X 3, 05:05 Patient left the ED. rg5 Signatures: Helga Pisano RN RN lg3 Heide Davis jj6 Calista Seth RN RN ha1 Jose Sanon MD MD sp4 Matthew Lozano RN RN rg5 Corrections: (The following items were deleted from the chart) 01:24 01:22 Home Meds: Unable to obtain; lg3 lg3
--- NOTE | 2023-09-15 04:38 | EDPHYS ---
Physician Documentation [facility] Name: Zeke Weinstein Age: 58 yrs Sex: Male : 1965 Arrival Date: 09/15/2023 Time: 01:04 Bed 15 Private MD: ED Physician Jose Sanon HPI: 09/14 01:09 This 58 yrs old Male presents to ER via Unassigned with complaints of sp4 SORES-MOUTH/LIPS. 04:41 58-year-old male presents with worsening oral pain and report of oral ulcers. Patient sp4 was here for the same complaint on 09/13/2023 and was prescribed Valtrex and amoxicillin. Patient states that Valtrex is causing worsening pain in the mouth. Historical: - Allergies: :22 No Known Allergies; lg3 - Home Meds: :22 Valtrex Oral [Active]; lg3 - PMHx: 01:22 diabetes mellitus; Hypertensive disorder; Herpes simplex; lg3 - PSHx: 01:22 None; lg3 - Immunization history:: Adult Immunizations up to date. - Infectious Disease History:: Denies. - Social history:: Smoking status: Patient denies any tobacco usage or history of. Patient uses alcohol, occasionally. - Family history:: not pertinent. ROS: 04:41 Constitutional: Negative for fever, chills, and weight loss, ENT: Positive oral ulcers sp4 and oral pain. 04:41 All other systems are negative, Exam: 04:41 Constitutional: This is a well developed, well nourished patient who is awake, alert, sp4 and in no acute distress. Head/Face: Normocephalic, atraumatic. Eyes: Pupils equal round and reactive to light, extra-ocular motions intact. Lids and lashes normal. Conjunctiva and sclera are not injected. Cornea within normal limits. Periorbital areas with no swelling, redness, or edema. ENT: Nares patent. No nasal discharge, no septal abnormalities noted. Tympanic membranes are normal and external auditory canals are clear. Oropharynx with no redness, swelling, or masses, exudates, or evidence of obstruction, uvula midline. Mucous membranes moist. Neck: Trachea midline, no thyromegaly or masses palpated, and no cervical lymphadenopathy. Supple, full range of motion without nuchal rigidity, or vertebral point tenderness. Chest/axilla: Normal chest wall appearance and motion. Nontender with no deformity. No lesions are appreciated. Cardiovascular: Regular rate and rhythm with a normal S1 and S2. No gallops, murmurs, or rubs. Normal PMI, no JVD. No pulse deficits. Respiratory: Lungs have equal breath sounds bilaterally, clear to auscultation and percussion. No rales, rhonchi or wheezes noted. No increased work of breathing, no retractions or nasal flaring. Abdomen/GI: Soft, with normal bowel sounds. No distension or tympany. No guarding or rebound. No evidence of tenderness throughout. Back: No spinal tenderness. No costovertebral tenderness. Skin: Warm, dry with normal turgor. Normal color with no rashes, no lesions, and no evidence of cellulitis. MS/ Extremity: Pulses equal, no cyanosis. Neurovascular intact. Full, normal range of motion. Neuro: Awake and alert, GCS 15, oriented to person, place, time, and situation. Cranial nerves II-XII grossly intact. Motor strength 5/5 in all extremities. Sensory grossly intact. Psych: Awake, alert, with orientation to person, place and time. Behavior, mood, and affect are within normal limits Vital Signs: 01:21 BP 193 / 89; Pulse 68; Resp 17 S; Temp 97.7(TE); Pulse Ox 100% on R/A; Weight 72.57 kg lg3 (R); Height 5 ft. 6 in. (R); 02:00 BP 153 / 88; Pulse 58; Resp 17 S; Pulse Ox 99% on R/A; ha1 03:00 BP 135 / 78; Pulse 59; Resp 16 S; Pulse Ox 99% on R/A; ha1 03:50 BP 132 / 74; Pulse 58; Resp 17 S; Pulse Ox 97% on R/A; rg5 04:15 BP 128 / 73; Pulse 55; Resp 18 S; Pulse Ox 97% on R/A; rg5 01:21 Body Mass Index 25.82 (72.57 kg, 167.64 cm) lg3 [place] Coma Score: 04:41 Eye Response: spontaneous(4). Motor Response: obeys commands(6). Verbal Response: sp4 oriented(5). Total: 15. MDM: 01:20 Patient medically screened. sp4 04:41 Differential Diagnosis Herpes ulcers, gingivostomatitis, gingivitis, periodontal sp4 disease.. Data reviewed: vital signs, nurses notes, old medical records, lab test result(s). ED course: Patient will be switched from Valtrex to acyclovir . Will prescribe extended course 3 times a day for 21 days. Otherwise tramadol and Benadryl as needed for oral sore soreness . 09/14 01:19 Order name: [facility]; Complete Time: 04:32 sp4 Administered Medications: 01:55 Drug: predniSONE PO 60 mg PO once Route: PO; ha1 01:55 Drug: [place] PO 10 mg-325 mg 1 tabs PO once Route: PO; ha1 01:55 Drug: Ketorolac IM 60 mg IM once Route: IM; Site: right ventrogluteal; ha1 01:55 Drug: Acyclovir PO 800 mg PO once Route: PO; ha1 01:55 Drug: Promethazine PO 25 mg PO once Route: PO; ha1 Disposition Summary: 09/15/23 04:38 Discharge Ordered Notes: Location: Home sp4 Problem: new sp4 Symptoms: have improved sp4 Condition: Stable sp4 Diagnosis - Oral pain , Oral Ulcers, herpetic gingivostomatitis sp4 Followup: sp4 - With: Private Physician - When: 7 - 10 days - Reason: Recheck today's complaints Discharge Instructions: - Discharge Summary Sheet sp4 - Gingivitis, Avup-ef-Igys sp4 Forms: - Prescription Opioid Use sp4 Prescriptions: - diphenhydramine HCl 25 mg Oral capsule - take 1 capsule ORAL route every 6 hours PRN oral pain; 60 capsule; Refills: 0, sp4 Product Selection Permitted - Tramadol 50 mg Oral tablet - take 1 tablet ORAL route every 8 hours as needed; 20 tablet; Refills: 0, sp4 Product Selection Permitted - Acyclovir 800 mg Oral tablet - take 1 tablet ORAL route every 8 hours for 21 days; 63 tablet; Refills: 0, sp4 Product Selection Permitted Signatures: Dispatcher [employer] EDMS Helga Pisano RN RN lg3 Calista Seth RN RN ha1 Jose Sanon MD MD sp4 Corrections: (The following items were deleted from the chart) 01:22 Home Meds: Unable to obtain; lg3 lg3
[2023-09-15 05:14] VITALS: TEMP 97.7
[2023-09-15 05:30] VITALS: BP 128/73; O2SAT 97
== END 2023-09-15 05:05 | disposition home or self-care (01) ==
LOC: ER 01:04
DX: B00.2 Herpesviral gingivostomatitis and pharyngotonsillitis (principal); E11.9 Type 2 diabetes mellitus without complications; I10 Essential (primary) hypertension
CPT/HCPCS: 80048; 36415; 96372; 99284; Q0169; J7512

== ENCOUNTER 2023-09-29 04:27 | Emergency (ER) | payer OTHER ==
--- OUTSIDE RECORDS SUMMARY | 2023-09-29 04:37 | XMS REPORT | Continuity of Care Document ---
Author Name Unknown Address [address] [facility] [place] [address] [facility] thconnect Address [address] [facility] [place] [address] Care Team Providers Care House Superintendent Name Role Phone ROMEDEANDRE Primary Care Physician Unavailab SAMUEL Singh Attending Clinician Unavailable Samuel Donato MD Attending Clinician [phone] Vanesa Thornton Attending Clinician [phone] Vanesa MOY Attending Clinician Unavailable JEZ LINN Attending Clinician Unavailable Jez Linn PA-C Attending Clinician [phone] Payers Payer Name Policy Type Policy Number Effective Date Expirati on Date Source MEDICAID ALIEN PENDING PENDING 2023 00:00:00 Allergies, Adverse Reactions, Alerts Allergy Name Allergy Type Status Severity Reaction(s) Onset Date Inactive Date Treating Clinician Comments Source NO KNOWN ALLERGIE S Drug Class Active [facility] Social History Social Habit Start Date Stop Date Quantity Comments Source Sexual orientation [facility] Sex Assigned At 1965 00:00:00 1965 00:00:00 [facility] Smoking Status Start Date Stop Date Source Tobacco smoking consumption unknown [facility] Medications Ordered Medication Name Filled Medication [...] mg EC tablet -09 00:00: 00 Yes [id number] 40mg Take 1 tablet by mouth daily. [facility] TAKE 1 TABLET BY MOUTH ONCE DAILY FOR 30 DAYS - 00:00: 00 Yes Eyad Conrad pantoprazol e 40 mg EC tablet 24 00:00: 00 06-20 04:59 :00 No [id number] 40mg Take 1 tablet by mouth daily for 30 days. [facility] TAKE 1 TABLET DAILY. 05-16 00:00: [...] 05-04 00:00: 00 07-27 00:00 :00 No [id number] Eyad Conrad TAKE 1 TABLET DAILY. 2-07 [...] -16 00:00: 00 07-27 00:00 :00 No [id number] Eyadke Conrad TAKE 1 TABLET DAILY. 0 3-16 00:00: 00 07-27 00:00 :00 No 10 Eyad Conrad TAKE 1 TABLET DAILY. 2021-03 2-06 00:00: 00 07-27 00:00 :00 No [id number] Eyad Conrad amlodipine 10 mg tablet 0 [...] Date Status Comments Source Influenza, injectable, [facility] [place] [facility]ney, preservative-free, quadrivalent Influenza, injectable, [facility] [place] Canine Kidney, preservative-free, quadrivalent 2022-12-10 00:00:00 Completed Eyad Conrad TD, NOS Unknown Completed [facility] SARS-COV-2 COVID-19 PFIZER VACCINE Unknown Completed [facility] SARS-COV-2 COVID-19 PFIZER VACCINE Unknown Completed [facility] TD, NOS Unknown Completed [facility] SARS-COV-2 COVID-19 PFIZER VACCINE Unknown Completed [facility] SARS-COV-2 COVID-19 PFIZER VACCINE Unknown Completed [facility] TD, NOS Unknown Completed [facility] SARS-COV-2 COVID-19 PFIZER VACCINE Unknown Completed [facility] SARS-COV-2 COVID-19 PFIZER VACCINE Unknown Completed [facility] Vital Signs Vital Name Observation Time Observation Value Sonia french Systolic blood pressure 2023-06-04 07:24:00 157 mm[Hg] [facility] Diastolic blood pressure 2023-06-04 07:24:00 82 mm[Hg] [facility] Heart rate 2023-06-04 07:24:00 72 /min [facility] Body temperature 2023-06-04 07:24:00 36.89 Sherri [facility] Respiratory rate 2023-06-04 07:24:00 18 /min [facility] Oxygen saturation in Arterial blood by Pulse oximetry 2023-06-04 07:24:00 97 /min [facility] Body height 2023-06-04 04:37:00 167.6 cm [facility] Body weight 2023-06-04 04:37:00 73.074 kg [facility] BMI 2023-06-04 04:37:00 26.00 kg/m2 [facility] Systolic blood pressure 2023-05-31 23:23:00 190 mm[Hg] [facility] Diastolic blood pressure 2023-05-31 23:23:00 100 mm[Hg] [facility] Heart rate 2023-05-31 23:23:00 86 /min [facility] Body temperature 2023-05-31 23:23:00 36.61 Sherri [facility] Respiratory rate 2023-05-31 23:23:00 19 /min [facility] Body height 2023-05-31 23:23:00 167.6 cm [facility] Body weight 2023-05-31 23:23:00 69.854 kg [facility] BMI 2023-05-31 23:23:00 24.86 kg/m2 [facility] Oxygen saturation in Arterial blood by Pulse oximetry 2023-05-31 23:23:00 100 /min [facility] Systolic blood pressure 2023-05-21 16:35:00 175 mm[Hg] [facility] Diastolic blood pressure 2023-05-21 16:35:00 81 mm[Hg] [facility] Heart rate 2023-05-21 16:35:00 85 /min [facility] Body temperature 2023-05-21 16:35:00 36.61 Sherri [facility] Respiratory rate 2023-05-21 16:35:00 16 /min [facility] Body height 2023-05-21 16:35:00 167.6 cm [facility] Body weight 2023-05-21 16:35:00 70.761 kg [facility] BMI 2023-05-21 16:35:00 25.18 kg/m2 [facility] Oxygen saturation in Arterial blood by Pulse oximetry 2023-05-21 16:35:00 97 /min [facility] BP Systolic 2023-07-28 09:06:00 161 mm[Hg] Step hen [facility] [place] BP Diastolic 2023-07-28 09:06:00 80 mm[Hg] Devin phen Karyn Conrad Weight Measured 2023-07-28 09:06:00 154.80 pounds Eyad Conrad Height Measured 2023-07-28 09:06:00 65.00 inches Eyad Boss [place] Body Temperature 2023-07-28 09:06:00 97.30 degrees Eyad [...] Date / Time Performed Performing Clinician Source [address] Ultrasound, Abdominal, Real Time With Image Documentation; Complete 2023-06-09 00:00:00 Eyad Conrad COMP. METABOLIC PANEL (43046) 2023-06-04 05:13:00 Samuel Donato [facility] ETHANOL 2023-06-04 05:13:00 Samuel Donato [facility] URINE DRUG (IMMUNOASSAY) - COMPREHENSIVE DRUG SCREEN 2023-06-04 05:13:00 Samuel Donato [facility] CBC WITH DIFF 2023-06-04 05:13:00 Samuel Donato [facility] CONSENT/REFUSAL FOR DIAGNOSIS AND TREATMENT 2023-06-04 04:27:24 Doctor Unassigned, Dol[place] [facility] ASSIGNMENT OF BENEFITS 2023-06-01 00:26:23 Docto r Unassigned, [place] [facility] CONSENT/REFUSAL FOR DIAGNOSIS AND TREATMENT 2023-05-31 23:10:49 Doctor Unassigned, [place] [facility] ASSIGNMENT OF BENEFITS 2023-05-21 17:01:51 Docto r Unassigned, [place]liver [facility] CONSENT/REFUSAL FOR DIAGNOSIS AND TREATMENT 2023-05-21 16:29:51 Doctor Unassigned, [place]liver [facility] 18216 Ecg Routine Ecg W/least 12 Lds W/i r 2016-04-28 00:00:00 Eyad Conrad Plan of Care Planned Activity Planned Date Details Comments Source Goal Plan of Care Note [code = 51256-0] Goal Plan of Care Note [code = 69256-9] Goal Plan of Care Note [code = 96296-8] Goal Plan of Care Note [code = 34716-2] Goal Plan of Care Note [code = 32246-2] Goal Plan of Care Note [code = 94614-4] Goal Plan of Care Note [code = 32005-3] Goal Plan of Care Note [code = 16376-3] Goal Plan of Care Note [code = 37982-0] Goal Plan of Care Note [code = 77643-3] Goal Plan of Care Note [code = 59608-9] Goal Plan of Care Note [code = 77809-7] Goal Plan of Care Note [code = 38937-7] Goal Plan of Care Note [code = 63967-6] Goal Plan of Care Note [code = 61629-7] Goal Plan of Care Note [code = 06761-3] Goal Plan of Care Note [code = 48441-1] Goal Plan of Care Note [code = 61718-2] Goal Plan of Care Note [code = 49501-0] Goal Plan of Care Note [code = 80461-5] Goal Plan of Care Note [code = 18515-6] Goal Plan of Care Note [code = 58538-3] Goal Plan of Care Note [code = 23288-1] Goal Plan of Care Note [code = 75196-0] Goal Plan of Care Note [code = 17655-0] Goal Plan of Care Note [code = 25689-4] Goal Plan of Care Note [code = 78169-2] Goal Plan of Care Note [code = 57904-9] Goal Plan of Care Note [code = 96561-7] Goal Plan of Care Note [code = 75552-2] Goal Plan of Care Note [code = 92586-4] Goal Plan of Care Note [code = 69289-1] Goal Plan of Care Note [code = 97750-7] Goal Plan of Care Note [code = 92789-8] Goal Plan of Care Note [code = 41857-3] Goal Plan of Care Note [code = 48770-7] Goal Plan of Care Note [code = 36223-6] Goal Plan of Care Note [code = 24697-9] Goal Plan of Care Note [code = 74878-7] Goal Plan of Care Note [code = 35464-3] Goal Plan of Care Note [code = 29456-8] Goal Plan of Care Note [code = 30794-1] Goal Plan of Care Note [code = 00021-0] Goal Plan of Care Note [code = 19346-4] Encounters Start Date/Time End Date/Time Encounter Type Admission Type Attending [facility] Care Facility Care Department Encounter ID Source 2023-07-28 09:03:39 2023-07-28 09:03:39 Outpatient [facility] [id number] Eyad Conrad 2023-07-28 00:00:00 2023-07-28 00:00:00 Outpatient Visit [facility] [id number] Eyad Conrad 2023-06-14 16:16:59 2023-06-14 16:16:59 Outpatient [facility] [id number] Eyad Conrad 2023-06-09 10:33:48 2023-06-09 10:33:48 Outpatient [facility] [id number] Eyad Conrad 2023-06-07 08:58:09 2023-06-07 08:58:09 Outpatient [facility] [id number] Eyad Conrad 2023-06-03 22:44:00 2023-06-04 01:31:00 Emergency X JOSH SAMUEL [facility] ERT [id number] [facility] 2023-06-03 22:44:00 2023-06-04 01:31:00 Emergency Samuel Donato [facility] [id number] [facility] 2023-05-31 17:24:00 2023-05-31 19:34:00 Emergency Farzaneh Vanesa Zuleyka [facility] [id number] [id number] [id number] [id number] [facility] 2023-05-31 17:24:00 2023-05-31 19:34:00 Emergency X FARZANEH Vanesa [facility] ERT [id number] [facility] 2023-05-26 08:34:48 2023-05-26 08:34:48 Outpatient [facility] [id number] Eyad Conrad 2023-05-21 10:37:00 2023-05-21 11:12:00 Emergency X JEZ LINN [facility] ERT [id number] [facility] 2023-05-21 10:37:00 2023-05-21 11:12:00 Emergency Jez Linn [facility] 1.2.840.114 [id number] 4.2.7.2.686 [id number] [facility] 2023-05-16 08:24:25 2023-05-16 08:24:25 Outpatient [facility] [id number] Eyad Conrad 2023-05-10 13:40:06 2023-05-10 13:40:06 Outpatient [facility] [id number] Eyad Conrad 2023-05-05 08:27:35 2023-05-05 08:27:35 Outpatient [facility] [id number] Eyad Conrad 2023-05-04 08:10:10 2023-05-04 08:10:10 Outpatient [facility] [id number] Eyad Conrad 2023-04-27 09:55:09 2023-04-27 09:55:09 Outpatient [facility] [id number] Eyad Conrad 2023-04-19 14:10:10 2023-04-19 14:10:10 Outpatient [facility] [id number] Eyad Conrad 2022-12-13 08:54:24 2022-12-13 08:54:24 Outpatient [facility] [id number] Eyad Conrad 2022-12-10 11:54:29 2022-12-10 11:54:29 Outpatient [facility] [id number] Eyad Conrad 2022-12-01 08:12:56 2022-12-01 08:12:56 Outpatient [facility] [id number] Eyad Conrad 2022-09-17 09:25:24 2022-09-17 09:25:24 Outpatient [facility] [id number] Eyad Boss [place] 2022-06-10 09:17:18 2022-06-10 09:17:18 Outpatient [facility] [id number] Eyad Conrad 2022-02-16 08:35:46 2022-02-16 08:35:46 Outpatient [facility] [id number] Eyad Conrad 2022-02-12 10:32:05 2022-02-12 10:32:05 Outpatient [facility] [id number] Eyad Boss [place] 2022-02-09 08:23:36 2022-02-09 08:23:36 Outpatient [facility] [id number] Eyad Conrad 2022-02-09 00:00:00 2022-02-09 00:00:00 Outpatient Visit [id number] 2021-11-12 00:00:00 2021-11-12 00:00:00 Outpatient Visit [id number] Results Test Description Test Time Test Comments Results Resul t Comments Source Ethanol 2023-06-04 06:06:20 ALCOHOL<10mg/dL0 06/04/2023 12:06 [facility] Pfynestc32-384 Toxic>100 Depression of MILL SUPERVISOR>400 [facility] [id number] 05:41:45* Test Item Value Reference Range Interpretation [...] 33.8 g/dL 31.2-35.0 RDW-SD (test code = 92713-3) 42.0 fL 38.5-51.6 RDW-CV (test code = 788-0) 13.3 % 12.1-15.4 PLT (test code = 777-3) 272 150-328 MPV (test code = 61223-5) 11.2 fL 9.8-13.0 NRBC/100 WBC (test code = 8976147678) 0.0 0.0-10.0 NRBC x10^3 (test code = 2400253306) See_Comment [Automated messa ge] The system which generated this result transmitted reference range: 10*3/?L. The reference range was not used to interpret this result as normal/abnormal. GRAN MAT (NEUT) % (test code = 770-8) 46.2 % IMM GRAN % (test code = 0757679415) 0.20 % LYMPH % (test code = 736-9) 34.3 % MONO % (test code = 5905-5) 7.2 % EOS % (test code = 713-8) 10.6 % BASO % (test code = 706-2) 1.5 % GRAN MAT x10^3(ANC) (test code = 9901239431) 3.79 10*3/uL 1.99-6.95 IMM GRAN x10^3 (test code = 0199965702) 0.00-0.06 LYMPH x10^3 (test code = 731-0) 2.82 10*3/uL 1.09-3.23 MONO x10^3 (test code = 742-7) 0.59 10*3/uL 0.36-1.02 EOS x10^3 (test code = 711-2) 0.87 10*3/uL 0.06-0.53 H BASO x10^3 (test code = 704-7) 0.12 10*3/uL 0.01-0.09 H Lab Interpretation (test code = 33883-7) [facility] F[facility], [id number] 00:00:00* Test Item Value Reference Range Interpretation Comme nts Occult Blood, Fecal, IA (camron t code = 98081-5) Negative [facility] WITH [id number] 14:03:44* Test Item Value Reference Range Interpretation [...] 0.00-0.10 ABS NUCLEATED RBCS (test code = 44094) 0.00 K/UL 0.00-0.11 UNLESS OTHER RAMOS INDICATED, ALL TESTING PERFORMED AT [facility] [address] [place] [address] BULK DRIVER: SIVA MCCRARY M.D. CLIA NUMBER [id number] [facility] [place]. [id number] CBC W/AUTO [id number] 00:00:00* Test Item Value Reference Range Interpretation [...] ABS NUCLEATED RBCS (test cod e = 60286) 0.00 K/UL [id number] 05:26:13* Test Item Value Reference Range Interpretation Comme nts VITAMIN B-12 (test code = 2840) 511 PG/ML 200-950 UNLESS OTHERWISE INDICATED, ALL TESTING PERFORMED AT [facility] [address] [place] [address] BULK DRIVER: SIVA MCCRARY M.D. CLIA NUMBER [id number] [facility] [place]. [id number] LIPID [id number] 04:46:42* Test Item Value Reference Range Interpretation [...] SPECIMENS. FOR MOREINFORMATION, SEE CLIENT ANNOUNCEMENT AT [email or web address] /CalcLDL-C RISK RATIO LDL/HDL (test code = 2237) 1.62 RATIO <3.55 COMPREHENSIVE METABOLIC [id number] 04:46:42* Test Item Value Reference Range Interpretation Comme nts GLUCOSE (test code = 2216) 136 MG/DL 70-99 H BUN (test code = 2207) 12 MG/DL 6-20 CREATININE (test code = 2213) 0.85 MG/DL 0.80-1.40 eGFR (2020 CKD-EPI) (test code = 59440) 100 ML/MIN/1.73 >60 CALC BUN/CREAT (test code [...] code = 2218) 15 U/L 5-50 HEMOGLOBIN [id number] 02:47:17* Test Item Value Reference Range Interpretation Comme nts HEMOGLOBIN A1c (test code = 37675) 6.8 % 4.2-5.6 H [employer] GUIDELINES FOR HGB A1C: [...] CONSIDER ALTERNATE TESTING OR LABORATORY CONSULTATION. HEMOGLOBIN [id number] 00:00:00* Test Item Value Reference Range Interpretation Comme [facility] HEMOGLOBIN A1c (test code = 04834) 6.8 % Eyad Boss AustinLIPID [id number] 00:00:00* Test Item Value Reference Range Interpretation Comme nts CHOLESTEROL (test code = 2210) 151 MG/DL TRIGLYCERIDES (test code = 2232) 69 MG/DL HDL CHOLESTEROL (test code = 2220) 52 MG/DL CALC LDL CHOL (test code = 2237) 84 MG/DL RISK RATIO LDL/HDL (test cod e = 2238) 1.62 RATIO Eyad ConradCOMPREHENSIVE METABOLIC [id number] 00:00:00* Test Item Value Reference Range Interpretation Comme nts GLUCOSE (test code = 2217) 136 MG/DL BUN (test code = 2208) 12 MG/DL CREATININE (test code = 2214) 0.85 MG/DL eGFR (2020 CKD-EPI) (test code = 12948) 100 ML/MIN/1.73 CALC BUN/CREAT (test code = [...] code = 2219) 15 U/L Eyad Stephens [id number] 00:00:00* Test Item Value Reference Range Interpretation Commjuan alberto dominguez VITAMIN B-12 (test code = 2840) 511 PG/ML Eyad CalderonPES SIMPLEX AB, [id number] 13:50:57* Test Item Value Reference Range Interpretation Comme nts HERPES SIMPLEX AB, IgM (test code = 77206) 0.34 INDEX SEE BELOW INTERPRETATION U NITS RANGE ----- ----- NEGATIVE INDEX <=0.89 EQUIVOCAL INDEX 0.90-1.09 POSITIVE INDEX >=1.10 HERPES SIMPLEX 1/2 AB, IgG [id number] 06:48:26* Test Item Value Reference Range Interpretation Comme nts HERPES SIMPLEX 1 AB, IgG (test code = 74585) 101.000 INDEX SEE BELOW H INTERPRETATION U NITS RANGE ----- ----- NON-REACTIVE INDEX <1.000 REACTIVE INDEX >=1.000 HERPES SIMPLEX 2 AB, IgG (test code = 73487) 0.074 INDEX SEE BELOW INTERPRETATION UNITS RANGE ----- ----- NON-REACTIVE INDEX <1.000 REACTIVE INDEX >=1.000 UNLESS OTHERWISE INDICATED, ALL TESTING PERFORMED AT [facility] [address] [place] [address] BULK DRIVER: SIVA MCCRARY M.D. CLIA NUMBER [id number] [facility] [place]. [id number] HERPES SIMPLEX [id number] 00:00:00* Test Item Value Reference Range Interpretation Comme nts HERPES SIMPLEX AB, IgM (test code = 46910) 0.34 INDEX Eyad ConradHERPES SIMPLEX 1/2 [id number] 00:00:00* Test Item Value Reference Range Interpretation Comme nts HERPES SIMPLEX 1 AB, IgG (te st code = 31871) 101.000 INDEX HERPES SIMPLEX 2 AB, IgG (te st code = 80773) 0.074 INDEX Eyad ConradDARCY, [id number] 09:46:33* Test Item Value Reference Range Interpretation Comme nts PSA, TOTAL (test code = 2606) 1.54 NG/ML See_Comment NOTE: Methodolog y is Dorita Ella Electrochemiluminescence Immunoassay traceable to WHO reference standard 96/760. UNLESS OTHERWISE INDICATED, ALL TESTING PERFORMED AT [facility] [address] [place] [address] BULK DRIVER: SIVA MCCRARY M.D. [place] NUMBER [id number] [place] [id number] [Automated message] The system which generated this result transmitted reference range: <=4.00. The reference range was not used to interpret this result as normal/abnormal. COMPREHENSIVE METABOLIC [id number] 06:14:06* Test Item Value Reference Range Interpretation Comme nts GLUCOSE (test code = 2217) 127 MG/DL 70-99 H BUN (test code = 8) 22 MG/DL 6-20 H CREATININE (test code = 2214) 1.12 MG/DL 0.80-1.40 eGFR (2020 CKD-EPI) (test code = 85199) 76 ML/MIN/1.73 >60 CALC BUN/CREAT (test code [...] code = 2219) 22 U/L 5-50 LIPID [id number] 06:14:06* Test Item Value Reference Range Interpretation [...] SPECIMENS. FOR MOREINFORMATION, SEE CLIENT ANNOUNCEMENT AT [email or web address] /CalcLDL-C RISK RATIO LDL/HDL (test code = 2238) 1.61 RATIO <3.55 HEMOGLOBIN [id number] 02:39:27* Test Item Value Reference Range Interpretation Comme nts HEMOGLOBIN A1c (test code = 86891) 6.2 % 4.2-5.6 H [employer] GUIDELINES FOR HGB A1C: [...] ALTERNATE TESTING OR LABORATORY CONSULTATION. COMPREHENSIVE METABOLIC [id number] 00:00:00* Test Item Value Reference Range Interpretation Comme nts GLUCOSE (test code = 2217) 127 MG/DL BUN (test code = 2208) 22 MG/DL CREATININE (test code = 2214) 1.12 MG/DL eGFR (2020 CKD-EPI) (test co de = 62678) 76 ML/MIN/1.73 CALC BUN/CREAT (test code = [...] code = 2219) 22 U/L Eyad ConradLIPID [id number] 00:00:00* Test Item Value Reference Range Interpretation Comme nts CHOLESTEROL (test code = 2210) 176 MG/DL TRIGLYCERIDES (test code = 2232) 79 MG/DL HDL CHOLESTEROL (test code = 2220) 61 MG/DL CALC LDL CHOL (test code = 2237) 98 MG/DL RISK RATIO LDL/HDL (test cod e = 2238) 1.61 RATIO Eyad ConradHEMOGLOBIN [id number] 00:00:00* Test Item Value Reference Range Interpretation Comme alberto HEMOGLOBIN A1c (test code = 71494) 6.2 % Eyad ConradPSA, [id number] 00:00:00* Test Item Value Reference Range Interpretation Comme alberto PSA, TOTAL (test code = 2606) 1.54 NG/ML Eyad ConradCOMPREHENSIVE METABOLIC [id number] 05:48:28* Test Item Value Reference Range Interpretation Comme nts GLUCOSE (test code = 2217) 120 MG/DL 70-99 H BUN (test code = 2208) 18 MG/DL 6-20 CREATININE (test code = 2214) 0.94 MG/DL 0.80-1.40 eGFR (2020 CKD-EPI) (test code = 72646) 94 ML/MIN/1.73 >60 CALC BUN/CREAT (test code [...] code = 2218) 19 U/L 5-50 LIPID [id number] 05:48:28* Test Item Value Reference Range Interpretation [...] SPECIMENS. FOR MOREINFORMATION, SEE CLIENT ANNOUNCEMENT AT [email or web address] /CalcLDL-C RISK RATIO LDL/HDL (test code = 8) 1.92 RATIO <3.55 HEMOGLOBIN [id number] 04:51:08* Test Item Value Reference Range Interpretation Comme nts HEMOGLOBIN A1c (test code = 92599) 6.5 % 4.2-5.6 H [employer] GUIDELINES FOR HGB A1C: [...] ETC.). CONSIDER ALTERNATE TESTING OR LABORATORY CONSULTATION. [facility] has important pathology staff changes effective 05/26/2022. New pathology staff will provide uninterrupted, excellent patient care and clinical consultation. See URL: [email or web address]. UNLESS OTHERWISE INDICATED, ALL TESTING PERFORMED AT [facility] [address] [place] [address] BULK DRIVER: SIVA MCCRARY M.D. CLIA NUMBER [id number] [facility] [place]. [id number] COMPREHENSIVE METABOLIC [id number] 00:00:00* Test Item Value Reference Range Interpretation Comme nts GLUCOSE (test code = 2217) 120 MG/DL BUN (test code = 2208) 18 MG/DL CREATININE (test code = 2214) 0.94 MG/DL eGFR (2020 CKD-EPI) (test co de = 47154) 94 ML/MIN/1.73 CALC BUN/CREAT (test code = [...] code = 2219) 19 U/L Eyad ConradLIPID [id number] 00:00:00* Test Item Value Reference Range Interpretation Comme nts CHOLESTEROL (test code = 2210) 169 MG/DL TRIGLYCERIDES (test code = 2232) 56 MG/DL HDL CHOLESTEROL (test code = 2220) 53 MG/DL CALC LDL CHOL (test code = 2237) 102 MG/DL RISK RATIO LDL/HDL (test cod e = 2238) 1.92 RATIO Eyad Boss AustinHEMOGLOBIN [id number] 00:00:00* Test Item Value Reference Range Interpretation Comme nts HEMOGLOBIN A1c (test code = 00919) 6.5 % Eyad Boss AustinLIPID [id number] 00:00:00* Test Item Value Reference Range Interpretation Comme nts CHOLESTEROL (test code = 2210) 150 MG/DL TRIGLYCERIDES (test code = 2232) 74 MG/DL HDL CHOLESTEROL (test code = 2220) 57 MG/DL CALC LDL CHOL (test code = 2237) 78 MG/DL RISK RATIO LDL/HDL (test cod e = 2238) 1.37 RATIO Eyad Boss AustinHEMOGLOBIN [id number] 00:00:00* Test Item Value Reference Range Interpretation Comme nts HEMOGLOBIN A1c (test code = 64977) 6.5 % Eyad Boss AustinHEMOGLOBIN [id number] 03:54:42* Test Item Value Reference Range Interpretation Comme nts HEMOGLOBIN A1c (test code = 86786) 6.5 % 4.2-5.6 H [employer] GUIDELINES FOR HGB A1C: [...] CONSULTATION. UNLESS OTHERWISE INDICATED, ALL TESTING PERFORMED [facility] [address] [place] [id number] BULK DRIVER: DENY MCKEON M.D. CLIA NUMBER [id number] [facility] [place]. [id number] COMPREHENSIVE METABOLIC [id number] 03:41:22* Test Item Value Reference Range Interpretation [...] code = 2218) 24 U/L 5-50 LIPID [id number] 03:41:22* Test Item Value Reference Range Interpretation [...] SPECIMENS. FOR MOREINFORMATION, SEE CLIENT ANNOUNCEMENT AT [email or web address] [email or web address] RATIO LDL/HDL (test code = 2237) 1.28 RATIO <3.55 COMPREHENSIVE METABOLIC [id number] 00:00:00* Test Item Value Reference Range Interpretation Comme nts GLUCOSE (test code = 2217) 109 MG/DL BUN (test code = 2208) 20 MG/DL CREATININE (test code = 2214) 1.15 MG/DL eGFR (2020 CKD-EPI) (test co de = 37437) 74 ML/MIN/1.73 CALC BUN/CREAT (test code = [...] = 2219) 24 U/L Eyad Boss AustinLIPID [id number] 00:00:00* Test Item Value Reference Range Interpretation Comme nts CHOLESTEROL (test code = 2210) 135 MG/DL TRIGLYCERIDES (test code = 2232) 55 MG/DL HDL CHOLESTEROL (test code = 2220) 53 MG/DL CALC LDL CHOL (test code = 2237) 68 MG/DL RISK RATIO LDL/HDL (test cod e = 2238) 1.28 RATIO Eyad ConradHEMOGLOBIN [id number] 00:00:00* Test Item Value Reference Range Interpretation Comme nts HEMOGLOBIN A1c (test code = 94369) 6.5 % Eyad Boss AustinLIPID [id number] 00:00:00* Test Item Value Reference Range Interpretation Comme nts CHOLESTEROL (test code = 2210) 135 MG/DL TRIGLYCERIDES (test code = 2232) 55 MG/DL HDL CHOLESTEROL (test code = 2220) 53 MG/DL CALC LDL CHOL (test code = 2237) 68 MG/DL RISK RATIO LDL/HDL (test cod e = 2238) 1.28 RATIO LIPID [id number] 00:00:00* Test Item Value Reference Range Interpretation Comme nts CHOLESTEROL (test code = 2210) 135 MG/DL TRIGLYCERIDES (test code = 2232) 55 MG/DL HDL CHOLESTEROL (test code = 2220) 53 MG/DL CALC LDL CHOL (test code = 2237) 68 MG/DL RISK RATIO LDL/HDL (test cod e = 2238) 1.28 RATIO HEMOGLOBIN [id number] 00:00:00* Test Item Value Reference Range Interpretation Comme nts HEMOGLOBIN A1c (test code = 31951) 6.5 % HEMOGLOBIN [id number] 00:00:00* Test Item Value Reference Range Interpretation Comme nts HEMOGLOBIN A1c (test code = 90387) 6.5 % HEMOGLOBIN [id number] 00:00:00* Test Item Value Reference Range Interpretation Comme nts HEMOGLOBIN A1c (test code = 79416) 6.5 % COMPREHENSIVE METABOLIC [id number] 00:00:00* Test Item Value Reference Range Interpretation Comme nts GLUCOSE (test code = 2217) 109 MG/DL BUN (test code = 2208) 20 MG/DL CREATININE (test code = 2214) 1.15 MG/DL eGFR (2020 CKD-EPI) (test co de = 79697) 74 ML/MIN/1.73 CALC BUN/CREAT (test code = [...] code = 2219) 24 U/L COMPREHENSIVE METABOLIC [id number] 00:00:00* Test Item Value Reference Range Interpretation Comme nts GLUCOSE (test code = 2217) 109 MG/DL BUN (test code = 2208) 20 MG/DL CREATININE (test code = 2214) 1.15 MG/DL eGFR (2020 CKD-EPI) (test co de = 02363) 74 ML/MIN/1.73 CALC BUN/CREAT (test code = [...] (test code = 2219) 24 U/L LIPID [id number] 00:00:00* Test Item Value Reference Range Interpretation Comme nts CHOLESTEROL (test code = 2210) 135 MG/DL TRIGLYCERIDES (test code = 2232) 55 MG/DL HDL CHOLESTEROL (test code = 2220) 53 MG/DL CALC LDL CHOL (test code = 2237) 68 MG/DL RISK RATIO LDL/HDL (test cod e = 2238) 1.28 RATIO LIPID [id number] 00:00:00* Test Item Value Reference Range Interpretation Comme nts CHOLESTEROL (test code = 2210) 135 MG/DL TRIGLYCERIDES (test code = 2232) 55 MG/DL HDL CHOLESTEROL (test code = 2220) 53 MG/DL CALC LDL CHOL (test code = 2237) 68 MG/DL RISK RATIO LDL/HDL (test cod e = 2238) 1.28 RATIO HEMOGLOBIN [id number] 00:00:00* Test Item Value Reference Range Interpretation Comme nts HEMOGLOBIN A1c (test code = 83025) 6.5 % HEMOGLOBIN [id number] 00:00:00* Test Item Value Reference Range Interpretation Comme nts HEMOGLOBIN A1c (test code = 66369) 6.5 % HEMOGLOBIN [id number] 00:00:00* Test Item Value Reference Range Interpretation Comme nts HEMOGLOBIN A1c (test code = 03727) 6.5 % COMPREHENSIVE METABOLIC [id number] 00:00:00* Test Item Value Reference Range Interpretation Comme nts GLUCOSE (test code = 2217) 109 MG/DL BUN (test code = 2208) 20 MG/DL CREATININE (test code = 2214) 1.15 MG/DL eGFR (2020 CKD-EPI) (test co de = 05313) 74 ML/MIN/1.73 CALC BUN/CREAT (test code = [...] code = 2219) 24 U/L COMPREHENSIVE METABOLIC [id number] 00:00:00* Test Item Value Reference Range Interpretation Comme nts GLUCOSE (test code = 2217) 109 MG/DL BUN (test code = 2208) 20 MG/DL CREATININE (test code = 2214) 1.15 MG/DL eGFR (2020 CKD-EPI) (test co de = 73448) 74 ML/MIN/1.73 CALC BUN/CREAT (test code = [...] code = 2219) 24 U/L COMPREHENSIVE METABOLIC [id number] 00:00:00* Test Item Value Reference Range Interpretation Comme nts GLUCOSE (test code = 2217) 121 MG/DL BUN (test code = 2208) 12 MG/DL CREATININE (test code = 2214) 1.05 MG/DL eGFR AMER. (test cod e = 79099) 91 ML/MIN/1.73 eGFR NON- AMER. (test code = 69605) 78 ML/MIN/1.73 CALC BUN/CREAT (test code = [...] = 2219) 23 U/L Eyad Boss AustinLIPID [id number] 00:00:00* Test Item Value Reference Range Interpretation [...] Comme nts HEMOGLOBIN A1c (test code = 98129) 6.2 % Eyad Boss AustinLIPID [id number] 00:00:00* Test Item Value Reference Range Interpretation Comme nts CHOLESTEROL (test code = 2210) 207 MG/DL TRIGLYCERIDES (test code = 2232) 59 MG/DL HDL CHOLESTEROL (test code = 2220) 70 MG/DL CALC LDL CHOL (test code = 2237) 122 MG/DL RISK RATIO LDL/HDL (test cod e = 2238) 1.74 RATIO LIPID [id number] 00:00:00* Test Item Value Reference Range Interpretation [...] Comme nts HEMOGLOBIN A1c (test code = 79740) 6.2 % HEMOGLOBIN A1c [ADDED]2021-02-18 00:00:00* Test Item Value Reference Range Interpretation Comme nts HEMOGLOBIN A1c (test code = 73998) 6.2 % HEMOGLOBIN A1c [ADDED]2021-02-18 00:00:00* Test Item Value Reference Range Interpretation Comme nts HEMOGLOBIN A1c (test code = 81158) 6.2 % COMPREHENSIVE METABOLIC [id number] 00:00:00* Test Item Value Reference Range Interpretation Comme nts GLUCOSE (test code = 2217) 121 MG/DL BUN (test code = 2208) 12 MG/DL CREATININE (test code = 2214) 1.05 MG/DL eGFR AMER. (test cod e = 52064) 91 ML/MIN/1.73 eGFR NON- AMER. (test code = 34184) 78 ML/MIN/1.73 CALC BUN/CREAT (test code = [...] code = 2219) 23 U/L COMPREHENSIVE METABOLIC [id number] 00:00:00* Test Item Value Reference Range Interpretation Comme nts GLUCOSE (test code = 2217) 121 MG/DL BUN (test code = 2208) 12 MG/DL CREATININE (test code = 2214) 1.05 MG/DL eGFR AMER. (test cod e = 86327) 91 ML/MIN/1.73 eGFR NON- AMER. (test code = 41793) 78 ML/MIN/1.73 CALC BUN/CREAT (test code = [...] (test code = 2219) 23 U/L LIPID [id number] 00:00:00* Test Item Value Reference Range Interpretation Comme nts CHOLESTEROL (test code = 2210) 207 MG/DL TRIGLYCERIDES (test code = 2232) 59 MG/DL HDL CHOLESTEROL (test code = 2220) 70 MG/DL CALC LDL CHOL (test code = 2237) 122 MG/DL RISK RATIO LDL/HDL (test cod e = 2238) 1.74 RATIO LIPID [id number] 00:00:00* Test Item Value Reference Range Interpretation [...] Comme nts HEMOGLOBIN A1c (test code = 12680) 6.2 % HEMOGLOBIN A1c [ADDED]2021-02-18 00:00:00* Test Item Value Reference Range Interpretation Comme nts HEMOGLOBIN A1c (test code = 71980) 6.2 % HEMOGLOBIN A1c [ADDED]2021-02-18 00:00:00* Test Item Value Reference Range Interpretation Comme nts HEMOGLOBIN A1c (test code = 74202) 6.2 % COMPREHENSIVE METABOLIC [id number] 00:00:00* Test Item Value Reference Range Interpretation Comme nts GLUCOSE (test code = 2217) 121 MG/DL BUN (test code = 2208) 12 MG/DL CREATININE (test code = 2214) 1.05 MG/DL eGFR AMER. (test cod e = 76972) 91 ML/MIN/1.73 eGFR NON- AMER. (test code = 50645) 78 ML/MIN/1.73 CALC BUN/CREAT (test code = [...] code = 2219) 23 U/L COMPREHENSIVE METABOLIC [id number] 00:00:00* Test Item Value Reference Range Interpretation Comme nts GLUCOSE (test code = 2217) 121 MG/DL BUN (test code = 2208) 12 MG/DL CREATININE (test code = 2214) 1.05 MG/DL eGFR AMER. (test cod e = 00840) 91 ML/MIN/1.73 eGFR NON- AMER. (test code = 46665) 78 ML/MIN/1.73 CALC BUN/CREAT (test code = [...] (test code = 2219) 23 U/L HEMOGLOBIN [id number] 00:00:00* Test Item Value Reference Range Interpretation Comme nts HEMOGLOBIN A1c (test code = 94080) 6.2 % Eyad Boss AustinLIPID [id number] 00:00:00* Test Item Value Reference Range Interpretation Comme nts CHOLESTEROL (test code = 2210) 139 MG/DL TRIGLYCERIDES (test code = 2232) 62 MG/DL HDL CHOLESTEROL (test code = 2220) 59 MG/DL CALC LDL CHOL (test code = 2237) 66 MG/DL RISK RATIO LDL/HDL (test cod e = 2238) 1.12 RATIO Eyad Boss [place]PREHENSIVE METABOL[place] [id number] 00:00:00* Test Item Value Reference Range Interpretation Comme nts GLUCOSE (test code = 2217) 115 MG/DL BUN (test code = 2208) 10 MG/DL CREATININE (test code = 2214) 0.81 MG/DL eGFR AMER. (test cod e = 00774) 115 ML/MIN/1.73 eGFR NON- AMER. (test code = 68452) 99 ML/MIN/1.73 CALC BUN/CREAT (test code = [...] = 2219) 15 U/L Eyad Boss AustinHEMOGLOBIN [id number] 00:00:00* Test Item Value Reference Range Interpretation Comme nts HEMOGLOBIN A1c (test code = 62038) 6.2 % LIPID [id number] 00:00:00* Test Item Value Reference Range Interpretation Comme nts CHOLESTEROL (test code = 2210) 139 MG/DL TRIGLYCERIDES (test code = 2232) 62 MG/DL HDL CHOLESTEROL (test code = 2220) 59 MG/DL CALC LDL CHOL (test code = 2237) 66 MG/DL RISK RATIO LDL/HDL (test cod e = 2238) 1.12 RATIO LIPID [id number] 00:00:00* Test Item Value Reference Range Interpretation Comme nts CHOLESTEROL (test code = 2210) 139 MG/DL TRIGLYCERIDES (test code = 2232) 62 MG/DL HDL CHOLESTEROL (test code = 2220) 59 MG/DL CALC LDL CHOL (test code = 2237) 66 MG/DL RISK RATIO LDL/HDL (test cod e = 2238) 1.12 RATIO COMPREHENSIVE METABOLIC [id number] 00:00:00* Test Item Value Reference Range Interpretation Comme nts GLUCOSE (test code = 2217) 115 MG/DL BUN (test code = 2208) 10 MG/DL CREATININE (test code = 2214) 0.81 MG/DL eGFR AMER. (test cod e = 27007) 115 ML/MIN/1.73 eGFR NON- AMER. (test code = 63444) 99 ML/MIN/1.73 CALC BUN/CREAT (test code = [...] code = 2219) 15 U/L COMPREHENSIVE METABOLIC [id number] 00:00:00* Test Item Value Reference Range Interpretation Comme nts GLUCOSE (test code = 2217) 115 MG/DL BUN (test code = 2208) 10 MG/DL CREATININE (test code = 2214) 0.81 MG/DL eGFR AMER. (test cod e = 73010) 115 ML/MIN/1.73 eGFR NON- AMER. (test code = 10761) 99 ML/MIN/1.73 CALC BUN/CREAT (test code = [...] (test code = 2219) 15 U/L HEMOGLOBIN [id number] 00:00:00* Test Item Value Reference Range Interpretation Comme nts HEMOGLOBIN A1c (test code = 06091) 6.2 % HEMOGLOBIN [id number] 00:00:00* Test Item Value Reference Range Interpretation Comme nts HEMOGLOBIN A1c (test code = 12533) 6.2 % HEMOGLOBIN [id number] 00:00:00* Test Item Value Reference Range Interpretation Comme nts HEMOGLOBIN A1c (test code = 25294) 6.2 % LIPID [id number] 00:00:00* Test Item Value Reference Range Interpretation Comme nts CHOLESTEROL (test code = 2210) 139 MG/DL TRIGLYCERIDES (test code = 2232) 62 MG/DL HDL CHOLESTEROL (test code = 2220) 59 MG/DL CALC LDL CHOL (test code = 2237) 66 MG/DL RISK RATIO LDL/HDL (test cod e = 2238) 1.12 RATIO LIPID [id number] 00:00:00* Test Item Value Reference Range Interpretation Comme nts CHOLESTEROL (test code = 2210) 139 MG/DL TRIGLYCERIDES (test code = 2232) 62 MG/DL HDL CHOLESTEROL (test code = 2220) 59 MG/DL CALC LDL CHOL (test code = 2237) 66 MG/DL RISK RATIO LDL/HDL (test cod e = 2238) 1.12 RATIO COMPREHENSIVE METABOLIC [id number] 00:00:00* Test Item Value Reference Range Interpretation Comme nts GLUCOSE (test code = 2217) 115 MG/DL BUN (test code = 2208) 10 MG/DL CREATININE (test code = 2214) 0.81 MG/DL eGFR AMER. (test cod e = 45683) 115 ML/MIN/1.73 eGFR NON- AMER. (test code = 96982) 99 ML/MIN/1.73 CALC BUN/CREAT (test code = [...] code = 2219) 15 U/L COMPREHENSIVE METABOLIC [id number] 00:00:00* Test Item Value Reference Range Interpretation Comme nts GLUCOSE (test code = 2217) 115 MG/DL BUN (test code = 2208) 10 MG/DL CREATININE (test code = 2214) 0.81 MG/DL eGFR AMER. (test cod e = 44192) 115 ML/MIN/1.73 eGFR NON- AMER. (test code = 10366) 99 ML/MIN/1.73 CALC BUN/CREAT (test code = [...] (test code = 2219) 15 U/L HEMOGLOBIN [id number] 00:00:00* Test Item Value Reference Range Interpretation Comme nts HEMOGLOBIN A1c (test code = 66618) 6.2 % HEMOGLOBIN [id number] 00:00:00* Test Item Value Reference Range Interpretation Comme nts HEMOGLOBIN A1c (test code = 71038) 6.2 % LIPID [id number] 00:00:00* Test Item Value Reference Range Interpretation Comme nts CHOLESTEROL (test code = 2210) 181 MG/DL TRIGLYCERIDES (test code = 2232) 101 MG/DL HDL CHOLESTEROL (test code = 2220) 57 MG/DL CALC LDL CHOL (test code = 2237) 105 MG/DL RISK RATIO LDL/HDL (test cod e = 2238) 1.84 RATIO Eyad Boss [place]COMPREHENSIVE METABOLIC [id number] 00:00:00* Test Item Value Reference Range Interpretation Comme nts GLUCOSE (test code = 2217) 132 MG/DL BUN (test code = 2208) 16 MG/DL CREATININE (test code = 2214) 1.14 MG/DL eGFR AMER. (test cod e = 98368) 83 ML/MIN/1.73 eGFR NON- AMER. (test code = 61804) 71 ML/MIN/1.73 CALC BUN/CREAT (test code = [...] code = 2219) 13 U/L Eyad Boss HoustonMICROALBUMIN/CREATININE, RANDOM AND [id number] 00:00:00* Test Item Value Reference Range Interpretation Comme nts CREATININE, URINE, CONC. (te st code = 2072) 217.6 MG/DL ALBUMIN, URINE, RANDOM (test code = 17333) 23.6 MG/DL CALC ALBUMIN/CREAT, RND (camron t code = 66153) 108 MG/G Eyad ConradHEMOGLOBIN [id number] 00:00:00* Test Item Value Reference Range Interpretation Comme nts HEMOGLOBIN A1c (test code = 61729) 7.0 % Eyad Boss AustinLIPID [id number] 00:00:00* Test Item Value Reference Range Interpretation Comme nts CHOLESTEROL (test code = 2210) 181 MG/DL TRIGLYCERIDES (test code = 2232) 101 MG/DL HDL CHOLESTEROL (test code = 2220) 57 MG/DL CALC LDL CHOL (test code = 2237) 105 MG/DL RISK RATIO LDL/HDL (test cod e = 2238) 1.84 RATIO LIPID [id number] 00:00:00* Test Item Value Reference Range Interpretation Comme nts CHOLESTEROL (test code = 2210) 181 MG/DL TRIGLYCERIDES (test code = 2232) 101 MG/DL HDL CHOLESTEROL (test code = 2220) 57 MG/DL CALC LDL CHOL (test code = 2237) 105 MG/DL RISK RATIO LDL/HDL (test cod e = 2238) 1.84 RATIO COMPREHENSIVE METABOLIC [id number] 00:00:00* Test Item Value Reference Range Interpretation Comme nts GLUCOSE (test code = 2217) 132 MG/DL BUN (test code = 2208) 16 MG/DL CREATININE (test code = 2214) 1.14 MG/DL eGFR AMER. (test cod e = 61432) 83 ML/MIN/1.73 eGFR NON- AMER. (test code = 83833) 71 ML/MIN/1.73 CALC BUN/CREAT (test code = [...] code = 2219) 13 U/L COMPREHENSIVE METABOLIC [id number] 00:00:00* Test Item Value Reference Range Interpretation Comme nts GLUCOSE (test code = 2217) 132 MG/DL BUN (test code = 2208) 16 MG/DL CREATININE (test code = 2214) 1.14 MG/DL eGFR AMER. (test cod e = 55632) 83 ML/MIN/1.73 eGFR NON- AMER. (test code = 38556) 71 ML/MIN/1.73 CALC BUN/CREAT (test code = [...] = 2219) 13 U/L MICROALBUMIN/CREATININE, RANDOM AND [id number] 00:00:00* Test Item Value Reference Range Interpretation Comme nts CREATININE, URINE, CONC. (te st code = 2072) 217.6 MG/DL ALBUMIN, URINE, RANDOM (test code = 46310) 23.6 MG/DL CALC ALBUMIN/CREAT, RND (camron t code = 24040) 108 MG/G MICROALBUMIN/CREATININE, RANDOM AND [id number] 00:00:00* Test Item Value Reference Range Interpretation Comme nts CREATININE, URINE, CONC. (te st code = 2072) 217.6 MG/DL ALBUMIN, URINE, RANDOM (test code = 07569) 23.6 MG/DL CALC ALBUMIN/CREAT, RND (camron t code = 33509) 108 MG/G HEMOGLOBIN [id number] 00:00:00* Test Item Value Reference Range Interpretation Comme nts HEMOGLOBIN A1c (test code = 72439) 7.0 % HEMOGLOBIN [id number] 00:00:00* Test Item Value Reference Range Interpretation Comme nts HEMOGLOBIN A1c (test code = 79584) 7.0 % HEMOGLOBIN [id number] 00:00:00* Test Item Value Reference Range Interpretation Comme nts HEMOGLOBIN A1c (test code = 47925) 7.0 % LIPID [id number] 00:00:00* Test Item Value Reference Range Interpretation Comme nts CHOLESTEROL (test code = 2210) 181 MG/DL TRIGLYCERIDES (test code = 2232) 101 MG/DL HDL CHOLESTEROL (test code = 2220) 57 MG/DL CALC LDL CHOL (test code = 2237) 105 MG/DL RISK RATIO LDL/HDL (test cod e = 2238) 1.84 RATIO LIPID [id number] 00:00:00* Test Item Value Reference Range Interpretation Comme nts CHOLESTEROL (test code = 2210) 181 MG/DL TRIGLYCERIDES (test code = 2232) 101 MG/DL HDL CHOLESTEROL (test code = 2220) 57 MG/DL CALC LDL CHOL (test code = 2237) 105 MG/DL RISK RATIO LDL/HDL (test cod e = 2238) 1.84 RATIO COMPREHENSIVE METABOLIC [id number] 00:00:00* Test Item Value Reference Range Interpretation Comme nts GLUCOSE (test code = 2217) 132 MG/DL BUN (test code = 2208) 16 MG/DL CREATININE (test code = 2214) 1.14 MG/DL eGFR AMER. (test cod e = 34553) 83 ML/MIN/1.73 eGFR NON- AMER. (test code = 39964) 71 ML/MIN/1.73 CALC BUN/CREAT (test code = [...] code = 2219) 13 U/L COMPREHENSIVE METABOLIC [id number] 00:00:00* Test Item Value Reference Range Interpretation Comme nts GLUCOSE (test code = 2217) 132 MG/DL BUN (test code = 2208) 16 MG/DL CREATININE (test code = 2214) 1.14 MG/DL eGFR AMER. (test cod e = 19752) 83 ML/MIN/1.73 eGFR NON- AMER. (test code = 00273) 71 ML/MIN/1.73 CALC BUN/CREAT (test code = [...] = 2219) 13 U/L MICROALBUMIN/CREATININE, RANDOM AND [id number] 00:00:00* Test Item Value Reference Range Interpretation Comme nts CREATININE, URINE, CONC. (te st code = 207) 217.6 MG/DL ALBUMIN, URINE, RANDOM (test code = 94786) 23.6 MG/DL CALC ALBUMIN/CREAT, RND (camron t code = 03875) 108 MG/G MICROALBUMIN/CREATININE, RANDOM AND [id number] 00:00:00* Test Item Value Reference Range Interpretation Comme nts CREATININE, URINE, CONC. (te st code = 2072) 217.6 MG/DL ALBUMIN, URINE, RANDOM (test code = 30475) 23.6 MG/DL CALC ALBUMIN/CREAT, RND (camron t code = 91977) 108 MG/G HEMOGLOBIN [id number] 00:00:00* Test Item Value Reference Range Interpretation Comme nts HEMOGLOBIN A1c (test code = 12866) 7.0 % HEMOGLOBIN [id number] 00:00:00* Test Item Value Reference Range Interpretation Comme nts HEMOGLOBIN A1c (test code = 74440) 7.0 % HEMOGLOBIN [id number] 00:00:00* Test Item Value Reference Range Interpretation Comme nts HEMOGLOBIN A1c (test code = 51493) 7.0 % LIPID [id number] 00:00:00* Test Item Value Reference Range Interpretation Comme nts CHOLESTEROL (test code = 2210) 193 MG/DL TRIGLYCERIDES (test code = 2232) 102 MG/DL HDL CHOLESTEROL (test code = 2220) 60 MG/DL CALC LDL CHOL (test code = 2237) 113 MG/DL RISK RATIO LDL/HDL (test cod e = 2238) 1.88 RATIO Eyad Boss AustinHEMOGLOBIN [id number] 00:00:00* Test Item Value Reference Range Interpretation Comme nts HEMOGLOBIN A1c (test code = 02463) 6.3 % Eyad F AustinCOMPREHENSIVE METABOLIC [id number] 00:00:00* Test Item Value Reference Range Interpretation Comme nts GLUCOSE (test code = 2217) 133 MG/DL BUN (test code = 2208) 9 MG/DL CREATININE (test code = 2214) 0.93 MG/DL eGFR AMER. (test cod e = 18187) 107 ML/MIN/1.73 eGFR NON- AMER. (test code = 18544) 92 ML/MIN/1.73 CALC BUN/CREAT (test code = [...] = 2219) 22 U/L Eyad ConradCOMPREHENSIVE METABOLIC [id number] 00:00:00* Test Item Value Reference Range Interpretation Comme nts GLUCOSE (test code = 2217) 133 MG/DL BUN (test code = 2208) 9 MG/DL CREATININE (test code = 2214) 0.93 MG/DL eGFR AMER. (test cod e = 16290) 107 ML/MIN/1.73 eGFR NON- AMER. (test code = 66031) 92 ML/MIN/1.73 CALC BUN/CREAT (test code = [...] (test code = 2219) 22 U/L LIPID [id number] 00:00:00* Test Item Value Reference Range Interpretation Comme nts CHOLESTEROL (test code = 2210) 193 MG/DL TRIGLYCERIDES (test code = 2232) 102 MG/DL HDL CHOLESTEROL (test code = 2220) 60 MG/DL CALC LDL CHOL (test code = 2237) 113 MG/DL RISK RATIO LDL/HDL (test cod e = 2238) 1.88 RATIO LIPID [id number] 00:00:00* Test Item Value Reference Range Interpretation Comme nts CHOLESTEROL (test code = 2210) 193 MG/DL TRIGLYCERIDES (test code = 2232) 102 MG/DL HDL CHOLESTEROL (test code = 2220) 60 MG/DL CALC LDL CHOL (test code = 2237) 113 MG/DL RISK RATIO LDL/HDL (test cod e = 2238) 1.88 RATIO HEMOGLOBIN [id number] 00:00:00* Test Item Value Reference Range Interpretation Comme nts HEMOGLOBIN A1c (test code = 42392) 6.3 % HEMOGLOBIN [id number] 00:00:00* Test Item Value Reference Range Interpretation Comme nts HEMOGLOBIN A1c (test code = 11598) 6.3 % HEMOGLOBIN [id number] 00:00:00* Test Item Value Reference Range Interpretation Comme nts HEMOGLOBIN A1c (test code = 25708) 6.3 % COMPREHENSIVE METABOLIC [id number] 00:00:00* Test Item Value Reference Range Interpretation Comme nts GLUCOSE (test code = 2217) 133 MG/DL BUN (test code = 2208) 9 MG/DL CREATININE (test code = 2214) 0.93 MG/DL eGFR AMER. (test cod e = 27334) 107 ML/MIN/1.73 eGFR NON- AMER. (test code = 15272) 92 ML/MIN/1.73 CALC BUN/CREAT (test code = [...] code = 2219) 22 U/L COMPREHENSIVE METABOLIC [id number] 00:00:00* Test Item Value Reference Range Interpretation Comme nts GLUCOSE (test code = 2217) 133 MG/DL BUN (test code = 2208) 9 MG/DL CREATININE (test code = 2214) 0.93 MG/DL eGFR AMER. (test cod e = 03556) 107 ML/MIN/1.73 eGFR NON- AMER. (test code = 40332) 92 ML/MIN/1.73 CALC BUN/CREAT (test code = [...] (test code = 2219) 22 U/L LIPID [id number] 00:00:00* Test Item Value Reference Range Interpretation Comme nts CHOLESTEROL (test code = 2210) 193 MG/DL TRIGLYCERIDES (test code = 2232) 102 MG/DL HDL CHOLESTEROL (test code = 2220) 60 MG/DL CALC LDL CHOL (test code = 2237) 113 MG/DL RISK RATIO LDL/HDL (test cod e = 2238) 1.88 RATIO LIPID [id number] 00:00:00* Test Item Value Reference Range Interpretation Comme nts CHOLESTEROL (test code = 2210) 193 MG/DL TRIGLYCERIDES (test code = 2232) 102 MG/DL HDL CHOLESTEROL (test code = 2220) 60 MG/DL CALC LDL CHOL (test code = 2237) 113 MG/DL RISK RATIO LDL/HDL (test cod e = 2238) 1.88 RATIO HEMOGLOBIN [id number] 00:00:00* Test Item Value Reference Range Interpretation Comme nts HEMOGLOBIN A1c (test code = 16987) 6.3 % HEMOGLOBIN [id number] 00:00:00* Test Item Value Reference Range Interpretation Comme nts HEMOGLOBIN A1c (test code = 81229) 6.3 % HEMOGLOBIN [id number] 00:00:00* Test Item Value Reference Range Interpretation Comme nts HEMOGLOBIN A1c (test code = 09363) 6.3 % COMPREHENSIVE METABOLIC [id number] 00:00:00* Test Item Value Reference Range Interpretation Comme nts GLUCOSE (test code = 2217) 133 MG/DL BUN (test code = 2208) 9 MG/DL CREATININE (test code = 2214) 0.93 MG/DL eGFR AMER. (test cod e = 18105) 107 ML/MIN/1.73 eGFR NON- AMER. (test code = 76565) 92 ML/MIN/1.73 CALC BUN/CREAT (test code = [...] (test code = 2219) 22 U/L HEMOGLOBIN [id number] 00:00:00* Test Item Value Reference Range Interpretation Comme nts HEMOGLOBIN A1c (test code = 31713) 5.6 % Eyad Grissom W/AUTO [id number] 00:00:00* Test Item Value Reference Range Interpretation [...] = 1015) 221 K/UL Eyad Boss AustinLIPID [id number] 00:00:00* Test Item Value Reference Range Interpretation Comme nts CHOLESTEROL (test code = 2210) 173 MG/DL TRIGLYCERIDES (test code = 2232) 88 MG/DL HDL CHOLESTEROL (test code = 2220) 58 MG/DL CALC LDL CHOL (test code = 2237) 97 MG/DL RISK RATIO LDL/HDL (test cod e = 2238) 1.67 RATIO Eyad Boss AustinHEMOGLOBIN [id number] 00:00:00* Test Item Value Reference Range Interpretation Comme nts HEMOGLOBIN A1c (test code = 03835) 5.6 % CBC W/AUTO [id number] 00:00:00* Test Item Value Reference Range Interpretation [...] code = 1015) 221 K/UL CBC W/AUTO [id number] 00:00:00* Test Item Value Reference Range Interpretation [...] code = 1015) 221 K/UL CBC W/AUTO [id number] 00:00:00* Test Item Value Reference Range Interpretation [...] (test code = 1015) 221 K/UL LIPID [id number] 00:00:00* Test Item Value Reference Range Interpretation Comme nts CHOLESTEROL (test code = 2210) 173 MG/DL TRIGLYCERIDES (test code = 2232) 88 MG/DL HDL CHOLESTEROL (test code = 2220) 58 MG/DL CALC LDL CHOL (test code = 2237) 97 MG/DL RISK RATIO LDL/HDL (test cod e = 2238) 1.67 RATIO LIPID [id number] 00:00:00* Test Item Value Reference Range Interpretation Comme nts CHOLESTEROL (test code = 2210) 173 MG/DL TRIGLYCERIDES (test code = 2232) 88 MG/DL HDL CHOLESTEROL (test code = 2220) 58 MG/DL CALC LDL CHOL (test code = 2237) 97 MG/DL RISK RATIO LDL/HDL (test cod e = 2238) 1.67 RATIO HEMOGLOBIN [id number] 00:00:00* Test Item Value Reference Range Interpretation Comme nts HEMOGLOBIN A1c (test code = 96329) 5.6 % HEMOGLOBIN [id number] 00:00:00* Test Item Value Reference Range Interpretation Comme nts HEMOGLOBIN A1c (test code = 87056) 5.6 % HEMOGLOBIN [id number] 00:00:00* Test Item Value Reference Range Interpretation Comme nts HEMOGLOBIN A1c (test code = 19313) 5.6 % CBC W/AUTO [id number] 00:00:00* Test Item Value Reference Range Interpretation [...] code = 1015) 221 K/UL CBC W/AUTO [id number] 00:00:00* Test Item Value Reference Range Interpretation [...] code = 1015) 221 K/UL CBC W/AUTO [id number] 00:00:00* Test Item Value Reference Range Interpretation [...] (test code = 1015) 221 K/UL LIPID [id number] 00:00:00* Test Item Value Reference Range Interpretation Comme nts CHOLESTEROL (test code = 2210) 173 MG/DL TRIGLYCERIDES (test code = 2232) 88 MG/DL HDL CHOLESTEROL (test code = 2220) 58 MG/DL CALC LDL CHOL (test code = 2237) 97 MG/DL RISK RATIO LDL/HDL (test cod e = 2238) 1.67 RATIO LIPID [id number] 00:00:00* Test Item Value Reference Range Interpretation Comme nts CHOLESTEROL (test code = 2210) 173 MG/DL TRIGLYCERIDES (test code = 2232) 88 MG/DL HDL CHOLESTEROL (test code = 2220) 58 MG/DL CALC LDL CHOL (test code = 2237) 97 MG/DL RISK RATIO LDL/HDL (test cod e = 2238) 1.67 RATIO HEMOGLOBIN [id number] 00:00:00* Test Item Value Reference Range Interpretation Comme nts HEMOGLOBIN A1c (test code = 43497) 5.6 % HEMOGLOBIN [id number] 00:00:00* Test Item Value Reference Range Interpretation Comme nts HEMOGLOBIN A1c (test code = 47512) 5.6 % HEMOGLOBIN [id number] 00:00:00* Test Item Value Reference Range Interpretation Comme nts HEMOGLOBIN A1c (test code = 08556) 6.0 % Eyad F AustinHEMOGLOBIN [id number] 00:00:00* Test Item Value Reference Range Interpretation Comme nts HEMOGLOBIN A1c (test code = 59830) 6.0 % HEMOGLOBIN [id number] 00:00:00* Test Item Value Reference Range Interpretation Comme nts HEMOGLOBIN A1c (test code = 87692) 6.0 % HEMOGLOBIN [id number] 00:00:00* Test Item Value Reference Range Interpretation Comme nts HEMOGLOBIN A1c (test code = 08206) 6.0 % HEMOGLOBIN [id number] 00:00:00* Test Item Value Reference Range Interpretation Comme nts HEMOGLOBIN A1c (test code = 90855) 6.0 % HEMOGLOBIN [id number] 00:00:00* Test Item Value Reference Range Interpretation Comme nts HEMOGLOBIN A1c (test code = 35341) 6.0 % HEMOGLOBIN [id number] 00:00:00* Test Item Value Reference Range Interpretation Comme nts HEMOGLOBIN A1c (test code = 97228) 6.0 % COMPREHENSIVE METABOLIC [id number] 00:00:00* Test Item Value Reference Range Interpretation Comme nts GLUCOSE (test code = 2217) 110 MG/DL BUN (test code = 2208) 16 MG/DL CREATININE (test code = 2214) 0.89 MG/DL eGFR AMER. (test cod e = 18785) 112 ML/MIN/1.73 eGFR NON- AMER. (test code = 33168) 96 ML/MIN/1.73 CALC BUN/CREAT (test code = [...] = 2219) 20 U/L Eyad Boss AustinLIPID [id number] 00:00:00* Test Item Value Reference Range Interpretation Comme nts CHOLESTEROL (test code = 2210) 157 MG/DL TRIGLYCERIDES (test code = 2232) 44 MG/DL HDL CHOLESTEROL (test code = 2220) 55 MG/DL CALC LDL CHOL (test code = 2237) 93 MG/DL RISK RATIO LDL/HDL (test cod e = 2238) 1.69 RATIO Eyad F AustinLIPID [id number] 00:00:00* Test Item Value Reference Range Interpretation Comme nts CHOLESTEROL (test code = 2210) 157 MG/DL TRIGLYCERIDES (test code = 2232) 44 MG/DL HDL CHOLESTEROL (test code = 2220) 55 MG/DL CALC LDL CHOL (test code = 2237) 93 MG/DL RISK RATIO LDL/HDL (test cod e = 2238) 1.69 RATIO COMPREHENSIVE METABOLIC [id number] 00:00:00* Test Item Value Reference Range Interpretation Comme nts GLUCOSE (test code = 2217) 110 MG/DL BUN (test code = 2208) 16 MG/DL CREATININE (test code = 2214) 0.89 MG/DL eGFR AMER. (test cod e = 53207) 112 ML/MIN/1.73 eGFR NON- AMER. (test code = 08837) 96 ML/MIN/1.73 CALC BUN/CREAT (test code = [...] code = 2219) 20 U/L COMPREHENSIVE METABOLIC [id number] 00:00:00* Test Item Value Reference Range Interpretation Comme nts GLUCOSE (test code = 2217) 110 MG/DL BUN (test code = 2208) 16 MG/DL CREATININE (test code = 2214) 0.89 MG/DL eGFR AMER. (test cod e = 25249) 112 ML/MIN/1.73 eGFR NON- AMER. (test code = 47949) 96 ML/MIN/1.73 CALC BUN/CREAT (test code = [...] (test code = 2219) 20 U/L LIPID [id number] 00:00:00* Test Item Value Reference Range Interpretation Comme nts CHOLESTEROL (test code = 2210) 157 MG/DL TRIGLYCERIDES (test code = 2232) 44 MG/DL HDL CHOLESTEROL (test code = 2220) 55 MG/DL CALC LDL CHOL (test code = 2237) 93 MG/DL RISK RATIO LDL/HDL (test cod e = 2238) 1.69 RATIO LIPID [id number] 00:00:00* Test Item Value Reference Range Interpretation Comme nts CHOLESTEROL (test code = 2210) 157 MG/DL TRIGLYCERIDES (test code = 2232) 44 MG/DL HDL CHOLESTEROL (test code = 2220) 55 MG/DL CALC LDL CHOL (test code = 2237) 93 MG/DL RISK RATIO LDL/HDL (test cod e = 2238) 1.69 RATIO COMPREHENSIVE METABOLIC [id number] 00:00:00* Test Item Value Reference Range Interpretation Comme nts GLUCOSE (test code = 2217) 110 MG/DL BUN (test code = 2208) 16 MG/DL CREATININE (test code = 2214) 0.89 MG/DL eGFR AMER. (test cod e = 74217) 112 ML/MIN/1.73 eGFR NON- AMER. (test code = 55597) 96 ML/MIN/1.73 CALC BUN/CREAT (test code = [...] code = 2219) 20 U/L COMPREHENSIVE METABOLIC [id number] 00:00:00* Test Item Value Reference Range Interpretation Comme nts GLUCOSE (test code = 2217) 110 MG/DL BUN (test code = 2208) 16 MG/DL CREATININE (test code = 2214) 0.89 MG/DL eGFR AMER. (test cod e = 20601) 112 ML/MIN/1.73 eGFR NON- AMER. (test code = 13123) 96 ML/MIN/1.73 CALC BUN/CREAT (test code = [...] (test code = 2219) 20 U/L LIPID [id number] 00:00:00* Test Item Value Reference Range Interpretation Comme nts CHOLESTEROL (test code = 2210) 157 MG/DL TRIGLYCERIDES (test code = 2232) 44 MG/DL HDL CHOLESTEROL (test code = 2220) 55 MG/DL CALC LDL CHOL (test code = 2237) 93 MG/DL RISK RATIO LDL/HDL (test cod e = 2238) 1.69 RATIO HEPATITIS C REFLEX [id number] 00:00:00* Test Item Value Reference Range Interpretation Comme nts HEPATITIS C ANTIBODY (test c ode = 4675) NON-REACTIVE Eyad ConradPSA, [id number] 00:00:00* Test Item Value Reference Range Interpretation Comme nts PSA, TOTAL (test code = 2606) 0.99 NG/ML Eyad [id number] 00:00:00* Test Item Value Reference Range Interpretation Comme nts TESTOSTERONE (test code = 2830) 444 NG/DL Eyad ConradHIV AB/AG COMBO RFLX [id number] 00:00:00* Test Item Value Reference Range Interpretation Comme nts HIV 1/2 4TH GEN, RFLX CONF ( test code = 3514) NON-REACTIVE Eyad ConradHIV AB/AG COMBO RFLX [id number] 00:00:00* Test Item Value Reference Range Interpretation Comme nts HIV 1/2 4TH GEN, RFLX CONF ( test code = 3514) NON-REACTIVE HEPATITIS C REFLEX [id number] 00:00:00* Test Item Value Reference Range Interpretation Comme nts HEPATITIS C ANTIBODY (test c ode = 4675) NON-REACTIVE HEPATITIS C REFLEX [id number] 00:00:00* Test Item Value Reference Range Interpretation Comme nts HEPATITIS C ANTIBODY (test c ode = 4675) NON-REACTIVE PSA, [id number] 00:00:00* Test Item Value Reference Range Interpretation Comme nts PSA, TOTAL (test code = 2606) 0.99 NG/ML PSA, [id number] 00:00:00* Test Item Value Reference Range Interpretation Comme nts PSA, TOTAL (test code = 2606) 0.99 NG/ML PSA, [id number] 00:00:00* Test Item Value Reference Range Interpretation Comme nts PSA, TOTAL (test code = 2606) 0.99 NG/ML [id number] 00:00:00* Test Item Value Reference Range Interpretation Comme nts TESTOSTERONE (test code = 2830) 444 NG/DL [id number] 00:00:00* Test Item Value Reference Range Interpretation Comme nts TESTOSTERONE (test code = 2830) 444 NG/DL HIV AB/AG COMBO RFLX [id number] 00:00:00* Test Item Value Reference Range Interpretation Comme nts HIV 1/2 4TH GEN, RFLX CONF ( test code = 3514) NON-REACTIVE HIV AB/AG COMBO RFLX [id number] 00:00:00* Test Item Value Reference Range Interpretation Comme nts HIV 1/2 4TH GEN, RFLX CONF ( test code = 3514) NON-REACTIVE HEPATITIS C REFLEX [id number] 00:00:00* Test Item Value Reference Range Interpretation Comme nts HEPATITIS C ANTIBODY (test c ode = 4675) NON-REACTIVE HEPATITIS C REFLEX [id number] 00:00:00* Test Item Value Reference Range Interpretation Comme nts HEPATITIS C ANTIBODY (test c ode = 4675) NON-REACTIVE PSA, [id number] 00:00:00* Test Item Value Reference Range Interpretation Comme nts PSA, TOTAL (test code = 2606) 0.99 NG/ML PSA, [id number] 00:00:00* Test Item Value Reference Range Interpretation Comme nts PSA, TOTAL (test code = 2606) 0.99 NG/ML PSA, [id number] 00:00:00* Test Item Value Reference Range Interpretation Comme nts PSA, TOTAL (test code = 2606) 0.99 NG/ML [id number] 00:00:00* Test Item Value Reference Range Interpretation Comme nts TESTOSTERONE (test code = 2830) 444 NG/DL [id number] 00:00:00* Test Item Value Reference Range Interpretation Comme nts TESTOSTERONE (test code = 2830) 444 NG/DL HIV AB/AG COMBO RFLX [id number] 00:00:00* Test Item Value Reference Range Interpretation Comme nts HIV 1/2 4TH GEN, RFLX CONF ( test code = 3514) NON-REACTIVE CBC W/AUTO [id number] 00:00:00* Test Item Value Reference Range Interpretation [...] code = 1015) 241 K/UL Eyad ConradHEMOGLOBIN [id number] 00:00:00* Test Item Value Reference Range Interpretation Comme nts HEMOGLOBIN A1c (test code = 19896) 5.5 % Eyad ConradCBC W/AUTO [id number] 00:00:00* Test Item Value Reference Range Interpretation [...] code = 1015) 241 K/UL CBC W/AUTO [id number] 00:00:00* Test Item Value Reference Range Interpretation [...] (test code = 1015) 241 K/UL HEMOGLOBIN [id number] 00:00:00* Test Item Value Reference Range Interpretation Comme nts HEMOGLOBIN A1c (test code = 35945) 5.5 % HEMOGLOBIN [id number] 00:00:00* Test Item Value Reference Range Interpretation Comme nts HEMOGLOBIN A1c (test code = 97508) 5.5 % HEMOGLOBIN [id number] 00:00:00* Test Item Value Reference Range Interpretation Comme nts HEMOGLOBIN A1c (test code = 26174) 5.5 % CBC W/AUTO [id number] 00:00:00* Test Item Value Reference Range Interpretation [...] code = 1015) 241 K/UL CBC W/AUTO [id number] 00:00:00* Test Item Value Reference Range Interpretation [...] code = 1015) 241 K/UL CBC W/AUTO [id number] 00:00:00* Test Item Value Reference Range Interpretation [...] (test code = 1015) 241 K/UL HEMOGLOBIN [id number] 00:00:00* Test Item Value Reference Range Interpretation Comme nts HEMOGLOBIN A1c (test code = 77326) 5.5 % HEMOGLOBIN [id number] 00:00:00* Test Item Value Reference Range Interpretation Comme nts HEMOGLOBIN A1c (test code = 28438) 5.5 % HEMOGLOBIN [id number] 00:00:00* Test Item Value Reference Range Interpretation Comme nts HEMOGLOBIN A1c (test code = 28962) 5.5 % CBC W/AUTO [id number] 00:00:00* Test Item Value Reference Range Interpretation [...] code = 1015) 241 K/UL CBC W/AUTO [id number] 00:00:00* Test Item Value Reference Range Interpretation [...] TEST NOT PERFORMED K/UL Eyad F AustinHEMOGLOBIN [id number] 00:00:00* Test Item Value Reference Range Interpretation Comme nts HEMOGLOBIN A1c (test code = 34499) TEST NOT PERFORMED % Eyad F AustinCBC W/AUTO [id number] 00:00:00* Test Item Value Reference Range Interpretation [...] 1015) TEST NOT PERFORMED K/UL CBC W/AUTO [id number] 00:00:00* Test Item Value Reference Range Interpretation [...] 1015) TEST NOT PERFORMED K/UL CBC W/AUTO [id number] 00:00:00* Test Item Value Reference Range Interpretation [...] = 1015) TEST NOT PERFORMED K/UL HEMOGLOBIN [id number] 00:00:00* Test Item Value Reference Range Interpretation Comme nts HEMOGLOBIN A1c (test code = 47100) TEST NOT PERFORMED % HEMOGLOBIN [id number] 00:00:00* Test Item Value Reference Range Interpretation Comme nts HEMOGLOBIN A1c (test code = 51508) TEST NOT PERFORMED % HEMOGLOBIN [id number] 00:00:00* Test Item Value Reference Range Interpretation Comme nts HEMOGLOBIN A1c (test code = 94113) TEST NOT PERFORMED % CBC W/AUTO [id number] 00:00:00* Test Item Value Reference Range Interpretation [...] 1015) TEST NOT PERFORMED K/UL CBC W/AUTO [id number] 00:00:00* Test Item Value Reference Range Interpretation [...] 1015) TEST NOT PERFORMED K/UL CBC W/AUTO [id number] 00:00:00* Test Item Value Reference Range Interpretation [...] = 1015) TEST NOT PERFORMED K/UL HEMOGLOBIN [id number] 00:00:00* Test Item Value Reference Range Interpretation Comme nts HEMOGLOBIN A1c (test code = 00668) TEST NOT PERFORMED % HEMOGLOBIN [id number] 00:00:00* Test Item Value Reference Range Interpretation Comme nts HEMOGLOBIN A1c (test code = 29022) TEST NOT PERFORMED % HEMOGLOBIN [id number] 00:00:00* Test Item Value Reference Range Interpretation Comme nts HEMOGLOBIN A1c (test code = 82161) TEST NOT PERFORMED % COMPREHENSIVE METABOLIC [id number] 00:00:00* Test Item Value Reference Range Interpretation Comme nts GLUCOSE (test code = 2217) 129 MG/DL BUN (test code = 2208) 21 MG/DL CREATININE (test code = 2214) 0.96 MG/DL eGFR AMER. (test cod e = 06136) 104 ML/MIN/1.73 eGFR NON- AMER. (test code = 61052) 90 ML/MIN/1.73 CALC BUN/CREAT (test code = [...] = 2219) 21 U/L Eyad F AustinLIPID [id number] 00:00:00* Test Item Value Reference Range Interpretation Comme nts CHOLESTEROL (test code = 2210) 158 MG/DL TRIGLYCERIDES (test code = 2232) 96 MG/DL HDL CHOLESTEROL (test code = 2220) 43 MG/DL CALC LDL CHOL (test code = 2237) 96 MG/DL RISK RATIO LDL/HDL (test cod e = 2238) 2.23 RATIO Eyad [id number] 00:00:00* Test Item Value Reference Range Interpretation Comme nts TSH (test code = 2821) 1.210 UIU/ML Eyad ConradCOMPREHENSIVE METABOLIC [id number] 00:00:00* Test Item Value Reference Range Interpretation Comme nts GLUCOSE (test code = 2217) 129 MG/DL BUN (test code = 2208) 21 MG/DL CREATININE (test code = 2214) 0.96 MG/DL eGFR AMER. (test cod e = 77641) 104 ML/MIN/1.73 eGFR NON- AMER. (test code = 59690) 90 ML/MIN/1.73 CALC BUN/CREAT (test code = [...] (test code = 2219) 21 U/L LIPID [id number] 00:00:00* Test Item Value Reference Range Interpretation Comme nts CHOLESTEROL (test code = 2210) 158 MG/DL TRIGLYCERIDES (test code = 2232) 96 MG/DL HDL CHOLESTEROL (test code = 2220) 43 MG/DL CALC LDL CHOL (test code = 2237) 96 MG/DL RISK RATIO LDL/HDL (test cod e = 2238) 2.23 RATIO LIPID [id number] 00:00:00* Test Item Value Reference Range Interpretation Comme nts CHOLESTEROL (test code = 2210) 158 MG/DL TRIGLYCERIDES (test code = 2232) 96 MG/DL HDL CHOLESTEROL (test code = 2220) 43 MG/DL CALC LDL CHOL (test code = 2237) 96 MG/DL RISK RATIO LDL/HDL (test cod e = 2238) 2.23 RATIO [id number] 00:00:00* Test Item Value Reference Range Interpretation Comme nts TSH (test code = 2821) 1.210 UIU/ML [id number] 00:00:00* Test Item Value Reference Range Interpretation Comme nts TSH (test code = 2821) 1.210 UIU/ML [id number] 00:00:00* Test Item Value Reference Range Interpretation Comme nts TSH (test code = 2821) 1.210 UIU/ML COMPREHENSIVE METABOLIC [id number] 00:00:00* Test Item Value Reference Range Interpretation Comme nts GLUCOSE (test code = 2217) 129 MG/DL BUN (test code = 2208) 21 MG/DL CREATININE (test code = 2214) 0.96 MG/DL eGFR AMER. (test cod e = 20623) 104 ML/MIN/1.73 eGFR NON- AMER. (test code = 79326) 90 ML/MIN/1.73 CALC BUN/CREAT (test code = [...] code = 2219) 21 U/L COMPREHENSIVE METABOLIC [id number] 00:00:00* Test Item Value Reference Range Interpretation Comme nts GLUCOSE (test code = 2217) 129 MG/DL BUN (test code = 2208) 21 MG/DL CREATININE (test code = 2214) 0.96 MG/DL eGFR AMER. (test cod e = 39057) 104 ML/MIN/1.73 eGFR NON- AMER. (test code = 49780) 90 ML/MIN/1.73 CALC BUN/CREAT (test code = [...] (test code = 2219) 21 U/L LIPID [id number] 00:00:00* Test Item Value Reference Range Interpretation Comme nts CHOLESTEROL (test code = 2210) 158 MG/DL TRIGLYCERIDES (test code = 2232) 96 MG/DL HDL CHOLESTEROL (test code = 2220) 43 MG/DL CALC LDL CHOL (test code = 2237) 96 MG/DL RISK RATIO LDL/HDL (test cod e = 2238) 2.23 RATIO LIPID [id number] 00:00:00* Test Item Value Reference Range Interpretation Comme nts CHOLESTEROL (test code = 2210) 158 MG/DL TRIGLYCERIDES (test code = 2232) 96 MG/DL HDL CHOLESTEROL (test code = 2220) 43 MG/DL CALC LDL CHOL (test code = 2237) 96 MG/DL RISK RATIO LDL/HDL (test cod e = 2238) 2.23 RATIO [id number] 00:00:00* Test Item Value Reference Range Interpretation Comme nts TSH (test code = 2821) 1.210 UIU/ML [id number] 00:00:00* Test Item Value Reference Range Interpretation Comme nts TSH (test code = 2821) 1.210 UIU/ML [id number] 00:00:00* Test Item Value Reference Range Interpretation Comme nts TSH (test code = 2821) 1.210 UIU/ML COMPREHENSIVE METABOLIC [id number] 00:00:00* Test Item Value Reference Range Interpretation Comme nts GLUCOSE (test code = 2217) 129 MG/DL BUN (test code = 2208) 21 MG/DL CREATININE (test code = 2214) 0.96 MG/DL eGFR AMER. (test cod e = 71005) 104 ML/MIN/1.73 eGFR NON- AMER. (test code = 43103) 90 ML/MIN/1.73 CALC BUN/CREAT (test code = [...] code = 2219) 21 U/L COMPREHENSIVE METABOLIC [id number] 00:00:00* Test Item Value Reference Range Interpretation Comme nts GLUCOSE (test code = 2217) 119 MG/DL BUN (test code = 2208) 42 MG/DL CREATININE (test code = 2214) 1.24 MG/DL eGFR AMER. (test cod e = 85971) 76 ML/MIN/1.73 eGFR NON- AMER. (test code = 95280) 66 ML/MIN/1.73 CALC BUN/CREAT (test code = [...] code = 2219) 29 U/L Eyad ConradLIPID [id number] 00:00:00* Test Item Value Reference Range Interpretation Comme nts CHOLESTEROL (test code = 2210) 186 MG/DL TRIGLYCERIDES (test code = 2232) 90 MG/DL HDL CHOLESTEROL (test code = 2220) 50 MG/DL CALC LDL CHOL (test code = 2237) 118 MG/DL RISK RATIO LDL/HDL (test cod e = 2238) 2.36 RATIO Eyad ConradCOMPREHENSIVE METABOLIC [id number] 00:00:00* Test Item Value Reference Range Interpretation Comme nts GLUCOSE (test code = 2217) 119 MG/DL BUN (test code = 8) 42 MG/DL CREATININE (test code = 2214) 1.24 MG/DL eGFR AMER. (test cod e = 69611) 76 ML/MIN/1.73 eGFR NON- AMER. (test code = 80573) 66 ML/MIN/1.73 CALC BUN/CREAT (test code = [...] (test code = 2219) 29 U/L LIPID [id number] 00:00:00* Test Item Value Reference Range Interpretation Comme nts CHOLESTEROL (test code = 2210) 186 MG/DL TRIGLYCERIDES (test code = 2232) 90 MG/DL HDL CHOLESTEROL (test code = 2220) 50 MG/DL CALC LDL CHOL (test code = 2237) 118 MG/DL RISK RATIO LDL/HDL (test cod e = 2238) 2.36 RATIO LIPID [id number] 00:00:00* Test Item Value Reference Range Interpretation Comme nts CHOLESTEROL (test code = 2210) 186 MG/DL TRIGLYCERIDES (test code = 2232) 90 MG/DL HDL CHOLESTEROL (test code = 2220) 50 MG/DL CALC LDL CHOL (test code = 2237) 118 MG/DL RISK RATIO LDL/HDL (test cod e = 2238) 2.36 RATIO COMPREHENSIVE METABOLIC [id number] 00:00:00* Test Item Value Reference Range Interpretation Comme nts GLUCOSE (test code = 2217) 119 MG/DL BUN (test code = 2208) 42 MG/DL CREATININE (test code = 2214) 1.24 MG/DL eGFR AMER. (test cod e = 85253) 76 ML/MIN/1.73 eGFR NON- AMER. (test code = 12163) 66 ML/MIN/1.73 CALC BUN/CREAT (test code = [...] code = 2219) 29 U/L COMPREHENSIVE METABOLIC [id number] 00:00:00* Test Item Value Reference Range Interpretation Comme nts GLUCOSE (test code = 2217) 119 MG/DL BUN (test code = 2208) 42 MG/DL CREATININE (test code = 2214) 1.24 MG/DL eGFR AMER. (test cod e = 81362) 76 ML/MIN/1.73 eGFR NON- AMER. (test code = 10742) 66 ML/MIN/1.73 CALC BUN/CREAT (test code = [...] (test code = 2219) 29 U/L LIPID [id number] 00:00:00* Test Item Value Reference Range Interpretation Comme nts CHOLESTEROL (test code = 2210) 186 MG/DL TRIGLYCERIDES (test code = 2232) 90 MG/DL HDL CHOLESTEROL (test code = 2220) 50 MG/DL CALC LDL CHOL (test code = 2237) 118 MG/DL RISK RATIO LDL/HDL (test cod e = 2238) 2.36 RATIO LIPID [id number] 00:00:00* Test Item Value Reference Range Interpretation Comme nts CHOLESTEROL (test code = 2210) 186 MG/DL TRIGLYCERIDES (test code = 2232) 90 MG/DL HDL CHOLESTEROL (test code = 2220) 50 MG/DL CALC LDL CHOL (test code = 2237) 118 MG/DL RISK RATIO LDL/HDL (test cod e = 2238) 2.36 RATIO COMPREHENSIVE METABOLIC [id number] 00:00:00* Test Item Value Reference Range Interpretation Comme nts GLUCOSE (test code = 7) 119 MG/DL BUN (test code = 2207) 42 MG/DL CREATININE (test code = 2214) 1.24 MG/DL eGFR AMER. (test cod e = 28199) 76 ML/MIN/1.73 eGFR NON- AMER. (test code = 19413) 66 ML/MIN/1.73 CALC BUN/CREAT (test code = [...] 29 U/L VITAMIN B 12 AND FOLIC [id number] 00:00:00* Test Item Value Reference Range Interpretation Comme nts VITAMIN B-12 (test code = 2840) 1049 PG/ML FOLIC ACID (test code = 2695) 7.2 UG/L Eyad Boss [id number] 00:00:00* Test Item Value Reference Range Interpretation Comme nts FERRITIN (test code = 2074) 65 NG/ML Eyad F AustinIRON BINDING CAPACITY AND IRON AND % [id number] 00:00:00* Test Item Value Reference Range Interpretation Comme nts IRON, SERUM (test code = 2221) 126 UG/DL UNSATURATED IBC (test code = 88992) 193 UG/DL CALC TOTAL IBC (test code = 2076) 319 UG/DL CALC % IRON SAT (test code = 2078) 39 % Eyad F AustinRETICULOCYTE [id number] 00:00:00* Test Item Value Reference Range Interpretation Comme nts RETICULOCYTE COUNT (test code = 1018) 1.2 % Eyad ConradVITAMIN B 12 AND FOLIC [id number] 00:00:00* Test Item Value Reference Range Interpretation Comme nts VITAMIN B-12 (test code = 2840) 1049 PG/ML FOLIC ACID (test code = 2695) 7.2 UG/L [id number] 00:00:00* Test Item Value Reference Range Interpretation Comme nts FERRITIN (test code = 5) 65 NG/ML [id number] 00:00:00* Test Item Value Reference Range Interpretation Comme nts FERRITIN (test code = 2074) 65 NG/ML IRON BINDING CAPACITY AND IRON AND % [id number] 00:00:00* Test Item Value Reference Range Interpretation Comme nts IRON, SERUM (test code = 2) 126 UG/DL UNSATURATED IBC (test code = 26799) 193 UG/DL CALC TOTAL IBC (test code = 7) 319 UG/DL CALC % IRON SAT (test code = 9) 39 % IRON BINDING CAPACITY AND IRON AND % [id number] 00:00:00* Test Item Value Reference Range Interpretation Comme nts IRON, SERUM (test code = 2) 126 UG/DL UNSATURATED IBC (test code = 74117) 193 UG/DL CALC TOTAL IBC (test code = 7) 319 UG/DL CALC % IRON SAT (test code = 9) 39 % RETICULOCYTE [id number] 00:00:00* Test Item Value Reference Range Interpretation Comme nts RETICULOCYTE COUNT (test code = 1018) 1.2 % RETICULOCYTE [id number] 00:00:00* Test Item Value Reference Range Interpretation Comme nts RETICULOCYTE COUNT (test code = 1018) 1.2 % VITAMIN B 12 AND FOLIC [id number] 00:00:00* Test Item Value Reference Range Interpretation Comme nts VITAMIN B-12 (test code = 2840) 1049 PG/ML FOLIC ACID (test code = 2695) 7.2 UG/L VITAMIN B 12 AND FOLIC [id number] 00:00:00* Test Item Value Reference Range Interpretation Comme nts VITAMIN B-12 (test code = 2840) 1049 PG/ML FOLIC ACID (test code = 2695) 7.2 UG/L [id number] 00:00:00* Test Item Value Reference Range Interpretation Comme nts FERRITIN (test code = 2074) 65 NG/ML [id number] 00:00:00* Test Item Value Reference Range Interpretation Comme nts FERRITIN (test code = 2074) 65 NG/ML IRON BINDING CAPACITY AND IRON AND % [id number] 00:00:00* Test Item Value Reference Range Interpretation Comme nts IRON, SERUM (test code = 2) 126 UG/DL UNSATURATED IBC (test code = 94665) 193 UG/DL CALC TOTAL IBC (test code = 7) 319 UG/DL CALC % IRON SAT (test code = 9) 39 % IRON BINDING CAPACITY AND IRON AND % [id number] 00:00:00* Test Item Value Reference Range Interpretation Comme nts IRON, SERUM (test code = 2221) 126 UG/DL UNSATURATED IBC (test code = 84001) 193 UG/DL CALC TOTAL IBC (test code = 2076) 319 UG/DL CALC % IRON SAT (test code = 9) 39 % RETICULOCYTE [id number] 00:00:00* Test Item Value Reference Range Interpretation Comme nts RETICULOCYTE COUNT (test code = 1018) 1.2 % RETICULOCYTE [id number] 00:00:00* Test Item Value Reference Range Interpretation Comme nts RETICULOCYTE COUNT (test code = 1018) 1.2 % VITAMIN B 12 AND FOLIC [id number] 00:00:00* Test Item Value Reference Range Interpretation [...] code = 2821) 0.747 UIU/ML CBC W/AUTO [id number] 00:00:00* Test Item Value Reference Range Interpretation [...] = 1015) 228 K/UL Eyad ConradC W/AUTO [id number] 00:00:00* Test Item Value Reference Range Interpretation [...] code = 1015) 228 K/UL CBC W/AUTO [id number] 00:00:00* Test Item Value Reference Range Interpretation [...] code = 1015) 228 K/UL CBC W/AUTO [id number] 00:00:00* Test Item Value Reference Range Interpretation [...] code = 1015) 228 K/UL CBC W/AUTO [id number] 00:00:00* Test Item Value Reference Range Interpretation [...] code = 1015) 228 K/UL CBC W/AUTO [id number] 00:00:00* Test Item Value Reference Range Interpretation [...] code = 1015) 228 K/UL CBC W/AUTO [id number] 00:00:00* Test Item Value Reference Range Interpretation [...] (test code = 1015) 228 K/UL HEMOGLOBIN [id number] 00:00:00* Test Item Value Reference Range Interpretation Comme nts HEMOGLOBIN A1c (test code = 29739) 5.7 % Eyad F HoustonCOMPREHENSIVE METABOLIC [id number] 00:00:00* Test Item Value Reference Range Interpretation Comme nts GLUCOSE (test code = 2217) 103 MG/DL BUN (test code = 2208) 9 MG/DL CREATININE (test code = 2214) 0.88 MG/DL eGFR AMER. (test cod e = 84453) 114 ML/MIN/1.73 eGFR NON- AMER. (test code = 65942) 99 ML/MIN/1.73 CALC BUN/CREAT (test code = [...] = 2219) 28 U/L Eyad Boss [place]HEMOGLOBIN [id number] 00:00:00* Test Item Value Reference Range Interpretation Comme nts HEMOGLOBIN A1c (test code = 28996) 5.7 % COMPREHENSIVE METABOLIC [id number] 00:00:00* Test Item Value Reference Range Interpretation Comme nts GLUCOSE (test code = 2217) 103 MG/DL BUN (test code = 2208) 9 MG/DL CREATININE (test code = 2214) 0.88 MG/DL eGFR AMER. (test cod e = 75497) 114 ML/MIN/1.73 eGFR NON- AMER. (test code = 05191) 99 ML/MIN/1.73 CALC BUN/CREAT (test code = [...] code = 2219) 28 U/L COMPREHENSIVE METABOLIC [id number] 00:00:00* Test Item Value Reference Range Interpretation Comme nts GLUCOSE (test code = 2217) 103 MG/DL BUN (test code = 2208) 9 MG/DL CREATININE (test code = 2214) 0.88 MG/DL eGFR AMER. (test cod e = 98936) 114 ML/MIN/1.73 eGFR NON- AMER. (test code = 06807) 99 ML/MIN/1.73 CALC BUN/CREAT (test code = [...] (test code = 2219) 28 U/L HEMOGLOBIN [id number] 00:00:00* Test Item Value Reference Range Interpretation Comme nts HEMOGLOBIN A1c (test code = 38104) 5.7 % HEMOGLOBIN [id number] 00:00:00* Test Item Value Reference Range Interpretation Comme nts HEMOGLOBIN A1c (test code = 99579) 5.7 % HEMOGLOBIN [id number] 00:00:00* Test Item Value Reference Range Interpretation Comme nts HEMOGLOBIN A1c (test code = 83963) 5.7 % COMPREHENSIVE METABOLIC [id number] 00:00:00* Test Item Value Reference Range Interpretation Comme nts GLUCOSE (test code = 2217) 103 MG/DL BUN (test code = 2208) 9 MG/DL CREATININE (test code = 2214) 0.88 MG/DL eGFR AMER. (test cod e = 08222) 114 ML/MIN/1.73 eGFR NON- AMER. (test code = 64774) 99 ML/MIN/1.73 CALC BUN/CREAT (test code = [...] code = 2219) 28 U/L COMPREHENSIVE METABOLIC [id number] 00:00:00* Test Item Value Reference Range Interpretation Comme nts GLUCOSE (test code = 2217) 103 MG/DL BUN (test code = 2208) 9 MG/DL CREATININE (test code = 2214) 0.88 MG/DL eGFR AMER. (test cod e = 89596) 114 ML/MIN/1.73 eGFR NON- AMER. (test code = 94695) 99 ML/MIN/1.73 CALC BUN/CREAT (test code = [...] (test code = 2219) 28 U/L HEMOGLOBIN [id number] 00:00:00* Test Item Value Reference Range Interpretation Comme nts HEMOGLOBIN A1c (test code = 52483) 5.7 % HEMOGLOBIN [id number] 00:00:00* Test Item Value Reference Range Interpretation Comme nts HEMOGLOBIN A1c (test code = 85027) 5.7 % COMPREHENSIVE METABOLIC [id number] 00:00:00* Test Item Value Reference Range Interpretation Comme nts GLUCOSE (test code = 2217) 100 MG/DL BUN (test code = 2208) 12 MG/DL CREATININE (test code = 2214) 0.91 MG/DL eGFR AMER. (test cod e = 31593) 112 ML/MIN/1.73 eGFR NON- AMER. (test code = 61082) 97 ML/MIN/1.73 CALC BUN/CREAT (test code = [...] = 2219) 30 U/L Eyad Boss [place]HEMOGLOBIN [id number] 00:00:00* Test Item Value Reference Range Interpretation Comme nts HEMOGLOBIN A1c (test code = 55522) 6.1 % Eyad F AustinCOMPREHENSIVE METABOLIC [id number] 00:00:00* Test Item Value Reference Range Interpretation Comme nts GLUCOSE (test code = 2217) 100 MG/DL BUN (test code = 2208) 12 MG/DL CREATININE (test code = 2214) 0.91 MG/DL eGFR AMER. (test cod e = 01101) 112 ML/MIN/1.73 eGFR NON- AMER. (test code = 67456) 97 ML/MIN/1.73 CALC BUN/CREAT (test code = [...] code = 2219) 30 U/L COMPREHENSIVE METABOLIC [id number] 00:00:00* Test Item Value Reference Range Interpretation Comme nts GLUCOSE (test code = 2217) 100 MG/DL BUN (test code = 2208) 12 MG/DL CREATININE (test code = 2214) 0.91 MG/DL eGFR AMER. (test cod e = 87763) 112 ML/MIN/1.73 eGFR NON- AMER. (test code = 09440) 97 ML/MIN/1.73 CALC BUN/CREAT (test code = [...] (test code = 2219) 30 U/L HEMOGLOBIN [id number] 00:00:00* Test Item Value Reference Range Interpretation Comme nts HEMOGLOBIN A1c (test code = 04981) 6.1 % HEMOGLOBIN [id number] 00:00:00* Test Item Value Reference Range Interpretation Comme nts HEMOGLOBIN A1c (test code = 55927) 6.1 % HEMOGLOBIN [id number] 00:00:00* Test Item Value Reference Range Interpretation Comme nts HEMOGLOBIN A1c (test code = 92948) 6.1 % COMPREHENSIVE METABOLIC [id number] 00:00:00* Test Item Value Reference Range Interpretation Comme nts GLUCOSE (test code = 2217) 100 MG/DL BUN (test code = 2208) 12 MG/DL CREATININE (test code = 2214) 0.91 MG/DL eGFR AMER. (test cod e = 44671) 112 ML/MIN/1.73 eGFR NON- AMER. (test code = 98095) 97 ML/MIN/1.73 CALC BUN/CREAT (test code = [...] code = 2219) 30 U/L COMPREHENSIVE METABOLIC [id number] 00:00:00* Test Item Value Reference Range Interpretation Comme nts GLUCOSE (test code = 2217) 100 MG/DL BUN (test code = 2208) 12 MG/DL CREATININE (test code = 2214) 0.91 MG/DL eGFR AMER. (test cod e = 44152) 112 ML/MIN/1.73 eGFR NON- AMER. (test code = 90773) 97 ML/MIN/1.73 CALC BUN/CREAT (test code = [...] (test code = 2219) 30 U/L HEMOGLOBIN [id number] 00:00:00* Test Item Value Reference Range Interpretation Comme nts HEMOGLOBIN A1c (test code = 08019) 6.1 % HEMOGLOBIN [id number] 00:00:00* Test Item Value Reference Range Interpretation Comme nts HEMOGLOBIN A1c (test code = 00281) 6.1 % HEMOGLOBIN [id number] 00:00:00* Test Item Value Reference Range Interpretation Comme nts HEMOGLOBIN A1c (test code = 02233) 6.1 % COMPREHENSIVE METABOLIC [id number] 00:00:00* Test Item Value Reference Range Interpretation Comme nts GLUCOSE (test code = 2217) 94 MG/DL BUN (test code = 2208) 21 MG/DL CREATININE (test code = 2214) 1.0 MG/DL eGFR AMER. (test cod e = 88290) 95 ML/MIN/1.73 eGFR NON- AMER. (test code = 98750) 79 ML/MIN/1.73 CALCULATED BUN/CREAT (test code = [...] = 2219) 16 U/L Eyad Boss [place]HEMOGLOBIN [id number] 00:00:00* Test Item Value Reference Range Interpretation Comme [facility] HEMOGLOBIN A1c (test code = 71989) 6.1 % Eyad Boss AustinHEMOGLOBIN [id number] 00:00:00* Test Item Value Reference Range Interpretation Comme [facility] HEMOGLOBIN A1c (test code = 49571) 6.1 % COMPREHENSIVE METABOLIC [id number] 00:00:00* Test Item Value Reference Range Interpretation Comme nts GLUCOSE (test code = 2217) 94 MG/DL BUN (test code = 2208) 21 MG/DL CREATININE (test code = 2214) 1.0 MG/DL eGFR AMER. (test cod e = 75545) 95 ML/MIN/1.73 eGFR NON- AMER. (test code = 98244) 79 ML/MIN/1.73 CALCULATED BUN/CREAT (test code = [...] code = 2219) 16 U/L COMPREHENSIVE METABOLIC [id number] 00:00:00* Test Item Value Reference Range Interpretation Comme nts GLUCOSE (test code = 2217) 94 MG/DL BUN (test code = 2208) 21 MG/DL CREATININE (test code = 2214) 1.0 MG/DL eGFR AMER. (test cod e = 96274) 95 ML/MIN/1.73 eGFR NON- AMER. (test code = 42290) 79 ML/MIN/1.73 CALCULATED BUN/CREAT (test code = [...] (test code = 2219) 16 U/L HEMOGLOBIN [id number] 00:00:00* Test Item Value Reference Range Interpretation Comme nts HEMOGLOBIN A1c (test code = 12911) 6.1 % HEMOGLOBIN [id number] 00:00:00* Test Item Value Reference Range Interpretation Comme nts HEMOGLOBIN A1c (test code = 21015) 6.1 % HEMOGLOBIN [id number] 00:00:00* Test Item Value Reference Range Interpretation Comme nts HEMOGLOBIN A1c (test code = 40290) 6.1 % COMPREHENSIVE METABOLIC [id number] 00:00:00* Test Item Value Reference Range Interpretation Comme nts GLUCOSE (test code = 2217) 94 MG/DL BUN (test code = 2208) 21 MG/DL CREATININE (test code = 2214) 1.0 MG/DL eGFR AMER. (test cod e = 52824) 95 ML/MIN/1.73 eGFR NON- AMER. (test code = 47674) 79 ML/MIN/1.73 CALCULATED BUN/CREAT (test code = [...] code = 2219) 16 U/L COMPREHENSIVE METABOLIC [id number] 00:00:00* Test Item Value Reference Range Interpretation Comme nts GLUCOSE (test code = 2217) 94 MG/DL BUN (test code = 2208) 21 MG/DL CREATININE (test code = 2214) 1.0 MG/DL eGFR AMER. (test cod e = 13824) 95 ML/MIN/1.73 eGFR NON- AMER. (test code = 22071) 79 ML/MIN/1.73 CALCULATED BUN/CREAT (test code = [...] (test code = 2219) 16 U/L HEMOGLOBIN [id number] 00:00:00* Test Item Value Reference Range Interpretation Comme nts HEMOGLOBIN A1c (test code = 88324) 6.1 % HEMOGLOBIN [id number] 00:00:00* Test Item Value Reference Range Interpretation Comme nts HEMOGLOBIN A1c (test code = 71477) 6.1 % HEMOGLOBIN [id number] 00:00:00* Test Item Value Reference Range Interpretation Comme nts HEMOGLOBIN A1c (test code = 01815) 6.0 % Eyad F HoustonTHYROID II PROFILE (T3U, T4, T7, TSH)2014-09-19 00:00:00* Test Item Value Reference Range Interpretation Comme nts T3 UPTAKE (test code = 2817) 28.0 % T4 (THYROXINE) (test code = 2819) 6.8 UG/DL CALCULATED T7 (FTI) (test co de = 2820) 1.90 TSH (test code = 2821) 1.6 UIU/ML Eyad F HoustonCOMPREHENSIVE METABOLIC [id number] 00:00:00* Test Item Value Reference Range Interpretation Comme nts GLUCOSE (test code = 2217) 97 MG/DL BUN (test code = 2208) 28 MG/DL CREATININE (test code = 2214) 1.1 MG/DL eGFR AMER. (test cod e = 50714) 86 ML/MIN/1.73 eGFR NON- AMER. (test code = 60811) 71 ML/MIN/1.73 CALCULATED BUN/CREAT (test code = [...] = 2219) 18 U/L Eyad ConradCBC W/AUTO [id number] 00:00:00* Test Item Value Reference Range Interpretation [...] code = 1015) 293 K/UL Eyad ConradLIPID [id number] 00:00:00* Test Item Value Reference Range Interpretation Comme nts CHOLESTEROL (test code = 2210) 173 MG/DL TRIGLYCERIDES (test code = 2232) 56 MG/DL HDL CHOLESTEROL (test code = 2220) 58 MG/DL CALCULATED LDL CHOL (test co de = 2237) 104 MG/DL RISK RATIO LDL/HDL (test cod e = 2238) 1.79 RATIO Eyad ConradHEMOGLOBIN [id number] 00:00:00* Test Item Value Reference Range Interpretation Comme nts HEMOGLOBIN A1c (test code = 60271) 6.0 % THYROID II PROFILE (T3U, T4, [...] code = 2821) 1.6 UIU/ML COMPREHENSIVE METABOLIC [id number] 00:00:00* Test Item Value Reference Range Interpretation Comme nts GLUCOSE (test code = 2217) 97 MG/DL BUN (test code = 2208) 28 MG/DL CREATININE (test code = 2214) 1.1 MG/DL eGFR AMER. (test cod e = 11092) 86 ML/MIN/1.73 eGFR NON- AMER. (test code = 97877) 71 ML/MIN/1.73 CALCULATED BUN/CREAT (test code = [...] code = 2219) 18 U/L COMPREHENSIVE METABOLIC [id number] 00:00:00* Test Item Value Reference Range Interpretation Comme nts GLUCOSE (test code = 2217) 97 MG/DL BUN (test code = 2208) 28 MG/DL CREATININE (test code = 2214) 1.1 MG/DL eGFR AMER. (test cod e = 97317) 86 ML/MIN/1.73 eGFR NON- AMER. (test code = 72732) 71 ML/MIN/1.73 CALCULATED BUN/CREAT (test code = [...] code = 2219) 18 U/L CBC W/AUTO [id number] 00:00:00* Test Item Value Reference Range Interpretation [...] code = 1015) 293 K/UL CBC W/AUTO [id number] 00:00:00* Test Item Value Reference Range Interpretation [...] code = 1015) 293 K/UL CBC W/AUTO [id number] 00:00:00* Test Item Value Reference Range Interpretation [...] (test code = 1015) 293 K/UL LIPID [id number] 00:00:00* Test Item Value Reference Range Interpretation Comme nts CHOLESTEROL (test code = 2210) 173 MG/DL TRIGLYCERIDES (test code = 2232) 56 MG/DL HDL CHOLESTEROL (test code = 2220) 58 MG/DL CALCULATED LDL CHOL (test co de = 2237) 104 MG/DL RISK RATIO LDL/HDL (test cod e = 2238) 1.79 RATIO LIPID [id number] 00:00:00* Test Item Value Reference Range Interpretation Comme nts CHOLESTEROL (test code = 2210) 173 MG/DL TRIGLYCERIDES (test code = 2232) 56 MG/DL HDL CHOLESTEROL (test code = 2220) 58 MG/DL CALCULATED LDL CHOL (test co de = 2237) 104 MG/DL RISK RATIO LDL/HDL (test cod e = 2238) 1.79 RATIO HEMOGLOBIN [id number] 00:00:00* Test Item Value Reference Range Interpretation Comme nts HEMOGLOBIN A1c (test code = 13371) 6.0 % HEMOGLOBIN [id number] 00:00:00* Test Item Value Reference Range Interpretation Comme nts HEMOGLOBIN A1c (test code = 35091) 6.0 % HEMOGLOBIN [id number] 00:00:00* Test Item Value Reference Range Interpretation Comme nts HEMOGLOBIN A1c (test code = 16738) 6.0 % THYROID II PROFILE (T3U, T4, [...] code = 2821) 1.6 UIU/ML COMPREHENSIVE METABOLIC [id number] 00:00:00* Test Item Value Reference Range Interpretation Comme nts GLUCOSE (test code = 2217) 97 MG/DL BUN (test code = 2208) 28 MG/DL CREATININE (test code = 2214) 1.1 MG/DL eGFR AMER. (test cod e = 34046) 86 ML/MIN/1.73 eGFR NON- AMER. (test code = 35584) 71 ML/MIN/1.73 CALCULATED BUN/CREAT (test code = [...] code = 2219) 18 U/L COMPREHENSIVE METABOLIC [id number] 00:00:00* Test Item Value Reference Range Interpretation Comme nts GLUCOSE (test code = 2217) 97 MG/DL BUN (test code = 2208) 28 MG/DL CREATININE (test code = 2214) 1.1 MG/DL eGFR AMER. (test cod e = 05301) 86 ML/MIN/1.73 eGFR NON- AMER. (test code = 89902) 71 ML/MIN/1.73 CALCULATED BUN/CREAT (test code = [...] code = 2219) 18 U/L CBC W/AUTO [id number] 00:00:00* Test Item Value Reference Range Interpretation [...] code = 1015) 293 K/UL CBC W/AUTO [id number] 00:00:00* Test Item Value Reference Range Interpretation [...] code = 1015) 293 K/UL CBC W/AUTO [id number] 00:00:00* Test Item Value Reference Range Interpretation [...] (test code = 1015) 293 K/UL LIPID [id number] 00:00:00* Test Item Value Reference Range Interpretation Comme nts CHOLESTEROL (test code = 2210) 173 MG/DL TRIGLYCERIDES (test code = 2232) 56 MG/DL HDL CHOLESTEROL (test code = 2220) 58 MG/DL CALCULATED LDL CHOL (test co de = 2237) 104 MG/DL RISK RATIO LDL/HDL (test cod e = 2238) 1.79 RATIO LIPID [id number] 00:00:00* Test Item Value Reference Range Interpretation Comme nts CHOLESTEROL (test code = 2210) 173 MG/DL TRIGLYCERIDES (test code = 2232) 56 MG/DL HDL CHOLESTEROL (test code = 2220) 58 MG/DL CALCULATED LDL CHOL (test co de = 2237) 104 MG/DL RISK RATIO LDL/HDL (test cod e = 2238) 1.79 RATIO HEMOGLOBIN [id number] 00:00:00* Test Item Value Reference Range Interpretation Comme nts HEMOGLOBIN A1c (test code = 26510) 6.0 % HEMOGLOBIN [id number] 00:00:00* Test Item Value Reference Range Interpretation Comme nts HEMOGLOBIN A1c (test code = 04463) 6.0 % Notes Date/Time Note Provider Source 2023-07-28 00:00:00 3cNJ+Cih5tGwhP5wme2YU/x4vbkQW51n5hQ v20Q7JelISdXCZT14OAv3ItV0/K1u6846-3 02T00:00:00+ +-------- ----+| Plan Activity | Plan [...] he was living with | || his lmucqji-fq-kxb who had TB. | || Advised patient [...] pt did blood | || work in [place] | || pt states that medication helps [...] || refer to [facility] | |+ + [phone] Plan of TreatmentLNCARE PLANTXTSFA|SOC-[id number]|2.16.840.1.1 37720.10.20.22.2.10AVAvailable for patient uyzhFmdzuncAukyhmvaeKVIIi08 Section NarrativeNARRATIVEFormatted C-CDA narrative textSFAStliliake BossLisa [facility]T00:00:00 [facility] 01:29:16 4311-58-34B46:29:16 Pt given printed and verbal discharge instructions [...] meds given in ER noted upon dischargePIV hiram'cd, dressing to site, catheter in tact.Awake, alert oriented, resp reg unlabored, skin w/d, pt leaving in no apparent distress, 25877-7Vmgmvwrge department QnvcGV8173-14-41M57:30:36[facility] NoteTXT1.2.840.376046.1.13.104.2.7. 2.875245|[id number] for patient enep54279-7AulmQFPEUUVUQSJVslisnlsg C-CDA narrative [id number] R Shehadeh RN[address] [id number] 0UMFGCKPQDMBUOJQQWDKJKO0217-84-95C1 1:30:361.2.840.387878.1.72.3.15|1.2 .840.642179.1.13.104.2.7.2.727879_2 [id number] Pippa Parra RN [facility] 2023-06-03 22:33:49 2027-00-85U79:33:49 Patient ambulatory to ED c/o abd and mouth pain. Patient states the abd pain is not present right now but his lips are "hot" and "tongue is red." Patient is taking new medication but doesn't know the name of it. This is his third time here. 44315-2Dzaqdlzeg department Triage dhpwXR8547-41-99K74:40:10[facility] Triage noteTXT1.2.840.994305.1.13.104.2.7. 2.363431|[id number] for patient exrv24629-8Pjaabzsfi department NoteLNNARRATIVEFormatted C-CDA narrative [id number]-Otrik McInnis RN[address] StreetFl[id number] 8DZOLRZQDFYYEWMOSILQQFN1750-70-92H4 2:40:101.2.840.922652.1.72.3.15|1.2 .840.014742.1.13.104.2.7.2.727879_2 [id number] Yan Mims RN [facility] 2023-06-03 22:27:00 7074-37-22T62:27:00 [facility] Emergency Department NotePatient Name: Zeke Leigh of : 1965 58 year old maleTreatment Room: [facility] Record Number: [id number] Care Physician: DEANDRE JonesPatient Escorted by: Family [5]Mode of Arrival: Personal means [1]EMS Treatment Prior to ED Arrival:TUBE ROOM CASHIER treatment: NoneTravel and Exposure Screening:SymptomsDoes patient have [...] (*) 0.01 - 0.09 10*3/uLCOMP. METABOLIC PANEL (89461) - AbnormalNA 138 135 - 145 mmol/LK [...] 45 (*) 13 - 40 U/LeGFR 92.2 mL/min/1.05j0HKTRE DRUG (IMMUNOASSAY) - COMPREHENSIVE DRUG SCREEN - NormalAMPHET Negative NegativeBARB U Negative NegativeBENZO U Negative NegativeCocaine Metabolite Negative NegativeMETHADONE Negative NegativeOPIATES Negative NegativePCP Negative NegativeTHC Negative NegativeETHANOLALCOHOL <10 mg/dLTHYROID STIMULATING HORMONEEKG:If EKG completed, see Procedure Note.Orders and Treatments:Orders Placed This EncounterProcedures Cbc with Diff Comp. Metabolic Panel (89828) Urine Drug (Immunoassay) - Comprehensive Drug Screen [...] fileFollow-up: PCPElectronically signed by:Samuel Donato MD06/04/23 0106 24311-9Btbslatig Emergency department BrftDX8693-49-49U28:06:46Physician Emergency department NoteTXT1.2.840.611512.1.13.104.2.7. 2.733339|[id number] for patient jwyk11454-6Iolieobeh department NoteLNNARRATIVEFormatted C-CDA narrative text[address] ZrnsNn[id number] 1RGIBFSYRMEWXYXTFRMPTKT2645-55-73F5 1:06:461.2.840.187820.1.72.3.15|1.2 .840.432782.1.13.104.2.7.2.727879_2 [id number] [facility] 2023-05-31 19:33:39 0935-72-75F02:33:39 Pt discharged with diagnosis of mouth pain. Printed and verbal instructions reviewed with and given to pt. Prescriptions given x 0. Pt verbalized understanding of teaching and recommended follow-up. Denies questions or concerns at this time. Pt ambulatory at discharge. Appears in no apparent distress. No ataxia noted. 88212-4Uyctzkmir department UsksND3647-60-44O31:34:02[facility] department NoteTXT1.2.840.825726.1.13.104.2.7. 2.802666|[id number] for patient pqwa52694-9OlqtHKCBYVHILJLNghdjarcx C-CDA narrative [id number] Al RN[id number] 9PQIYZCCNKUSHKSHJYXXADQ4488-88-53G0 9:34:021.2.840.603599.1.72.3.15|1.2 .840.137844.1.13.104.2.7.2.727879_2 [id number] Aniya Al RN [facility] 2023-05-31 17:21:16 9976-48-09X82:21:16 Patient states: "I feel fire on my mouth since 1 month now. I was seen already for the same thing a week ago, prescribed with antibiotics but it's not helping." 65286-7Jshinpbfr department Triage xxsqGI2268-67-46A74:23:12[facility] department Triage noteTXT1.2.840.934996.1.13.104.2.7. 2.620444|[id number] for patient onhi41245-6Adimjvfwz department NoteLNNARRATIVEFormatted C-CDA narrative [id number] C Heredia RNUT[address] StreetOn[id number] 2WWQJPSFCGCSSZZWAQDXOFQ9671-28-45G7 7:23:121.2.840.624959.1.72.3.15|1.2 .840.479708.1.13.104.2.7.2.727879_2 [id number] Anabella Laguerre RN [facility] 2023-05-21 11:01:55 3609-47-89L26:01:55 Pt given discharge instructions on heartburn. Given prescription X 1 for protonix. Pt advised to follow up with pcp. Pt left ER ambulatory with steady gait. No signs of distress. 72822-5Qdelsihvb department LkliST6421-00-84C45:02:33[facility] NoteTXT1.2.840.593463.1.13.104.2.7. 2.192875|[id number] for patient mgfz13995-1OzyeYZILAAEQMQEYbxlgzgxu C-CDA narrative text[address] StreetLnoxKxqlrhlsoPtqbhpmdwCNMI421003479 2EUQQMCVXBKNVMBDONVTMEZ8759-26-24L4 1:02:331.2.840.891582.1.72.3.15|1.2 .840.074734.1.13.104.2.7.2.727879_2 [id number] [facility] 2023-05-21 10:32:14 0842-97-63M96:32:14 Patient states: "My tongue is very hot and my lips are hot. My stomach hurts. [place] and she gave me a lot of papers but she didn't find anything"Reports symptoms for 10 days. Worse today. 23672-6Jfqrkewha department Triage mxpkTP2876-10-71C97:34:28[facility] Triage noteTXT1.2.840.650079.1.13.104.2.7. 2.863041|[id number] for patient ortk69313-9Bagdzfcav department NoteLNNARRATIVEFormatted C-CDA narrative [id number] M Cruz RN[address] Io[id number] 1VFFIROQJPJDPZSZDNRMHYT3539-03-26K9 0:34:281.2.840.209261.1.72.3.15|1.2 .840.858773.1.13.104.2.7.2.727879_2 [id number] Morena bIanez RN [facility]
--- NOTE | 2023-09-29 05:05 | ER ---
Nurse's Notes [facility] Name: Zeke Weinstein Age: 58 yrs Sex: Male : 1965 Arrival Date: 09/29/2023 Time: 04:27 Bed 15 Private MD: Diagnosis: Herpesviral infection, unspecified Presentation: 09/28 04:58 Chief complaint: Patient states: I was here recently and was diagnosed with herpes of jb4 the mouth. The pain medicine they gave me is not helping. I cannot sleep. Coronavirus screen: At this time, the client does not indicate any symptoms associated with coronavirus-19. Ebola Screen: No symptoms or risks identified at this time. Initial Sepsis Screen: Does the patient meet any 2 criteria? No. Patient's initial sepsis screen is negative. Does the patient have a suspected source of infection? No. Patient's initial sepsis screen is negative. Risk Assessment: Do you want to hurt yourself or someone else? Patient reports no desire to harm self or others. Onset of symptoms was September 29, 2023. Transition of care: patient was not received from another setting of care. 04:58 Method Of Arrival: Ambulatory jb4 04:58 Acuity: CHARISSA 5 jb4 Historical: - Allergies: 05:00 No Known Allergies; jb4 - PMHx: 05:00 diabetes mellitus; Herpes simplex; Hypertensive disorder; jb4 - PSHx: 05:00 None; jb4 - Immunization history:: Adult Immunizations up to date. - Infectious Disease History:: Denies. - Social history:: Smoking status: Patient denies any tobacco usage or history of. Patient uses alcohol, occasionally. - Family history:: not pertinent. Screenin:00 [facility] ED Fall Risk Assessment (Adult) History of falling in the last 3 months, jw7 including since admission No falls in past 3 months (0 pts) Confusion or Disorientation No (0 pts) Intoxicated or Sedated No (0 pts) Impaired Gait No (0 pts) Mobility Assist Device Used No (0 pt) Altered Elimination No (0 pt) Score/Fall Risk Level 0 - 2 = Low Risk Oriented to surroundings, Maintained a safe environment, Educated pt \T\ family on fall prevention, incl call for assistance when getting out of bed. Abuse screen: Denies threats or abuse. Denies injuries from another. Nutritional screening: No deficits noted. Tuberculosis screening: No symptoms or risk factors identified. Assessment: 05:00 General: Appears in no apparent distress. comfortable, Behavior is calm, cooperative, jw7 appropriate for age. Pain: Complains of pain in mouth Pain does not radiate. Pain currently is 5 out of 10 on a pain scale. Quality of pain is described as stinging, Pain began gradually, Is continuous. Neuro: Level of Consciousness is awake, alert, obeys commands, Oriented to person, place, time, situation, Appropriate for age. Cardiovascular: Heart tones S1 S2 present Capillary refill < 3 seconds Clubbing of nail beds is absent JVD is absent Patient's skin is warm and dry. Respiratory: Airway is patent Trachea midline Respiratory effort is even, unlabored, Respiratory pattern is regular, symmetrical. GI: Abdomen is flat, non-distended, Bowel sounds present X 4 quads. Abd is soft and non tender X 4 quads. : No deficits noted. No signs and/or symptoms were reported regarding the genitourinary system. EENT: No deficits noted. No signs and/or symptoms were reported regarding the EENT system. Derm: Skin is intact, is healthy with good turgor, Skin is dry, Skin is normal, Skin temperature is warm. Musculoskeletal: Circulation, motion, and sensation intact. Range of motion: intact in all extremities. Vital Signs: 04:58 BP 189 / 82; Pulse 57; Resp 16; Temp 98.6(O); Pulse Ox 100% on R/A; Weight 72.57 kg; jb4 Height 5 ft. 6 in. ; Pain 9/10; 05:20 BP 167 / 83; Pulse 55; Resp 16 S; Temp 98.6(O); Pulse Ox 100% on R/A; jw7 04:58 Body Mass Index 25.82 (72.57 kg, 167.64 cm) jb4 04:58 Pain Scale: Adult jb4 ED Course: 04:29 Patient arrived in ED. mr 04:59 Connor John MD is Attending Physician. rt 05:00 Triage completed. jb4 05:00 Arm band placed on right wrist. jb4 05:00 Patient has correct armband on for positive identification. Bed in low position. Call jw7 light in reach. Provided Education on: use of call light. 05:21 Waits, Lesley, RN is Primary Nurse. jw7 05:37 No provider procedures requiring assistance completed. Patient did not have IV access jw7 during this emergency room visit. Administered Medications: 05:32 Drug: Ketorolac IM 30 mg IM once Route: IM; Site: right deltoid; jw7 05:32 Follow up: Response: No adverse reaction; Medication administered at discharge. jw7 05:32 Drug: Viscous Lidocaine Mucous Membrane Liquid (4 %) 5 ml Mucous Membrane once Route: jw7 Mucous Membrane; 05:32 Follow up: Response: No adverse reaction; Medication administered at discharge. jw7 Medication: 05:37 VIS not applicable for this client. jw7 Outcome: 05:05 Discharge ordered by MD. rt 05:37 Discharged to home ambulatory, jw7 05:37 Condition: stable 05:37 Discharge instructions given to patient, Instructed on discharge instructions, follow up and referral plans. medication usage, Demonstrated understanding of instructions, follow-up care, medications, Prescriptions given X 1, 05:38 Patient left the ED. jw7 Signatures: Zahra Browning, Reg Reg Charbel Andersen RN RN jb4 Lesley Bhakta, GIULIANO RN jw7 Connor John MD MD rt Corrections: (The following items were deleted from the chart) 05:38 05:20 BP 167 / 83; Pulse 55bpm; Resp 16bpm; Spontaneous; Pulse Ox 100% RA; jw7 jw7
--- NOTE | 2023-09-29 05:05 | EDPHYS ---
Physician Documentation [facility] Name: Zeke Weinstein Age: 58 yrs Sex: Male : 1965 Arrival Date: 09/29/2023 Time: 04:27 Bed 15 Private MD: ED Physician Connor John HPI: 09/28 06:34 This 58 yrs old Male presents to ER via Ambulatory with complaints of Mouth rt Problem. 06:34 Patient with known herpes viral stomatitis presents to the ED with continued pain to rt the lower lip. Patient states that the medicines at home are not improving the symptoms. Denies other acute complaints at this time, symptoms are mild in severity, no other aggravating alleviating factors.. Historical: - Allergies: 05:00 No Known Allergies; jb4 - PMHx: 05:00 diabetes mellitus; Herpes simplex; Hypertensive disorder; jb4 - PSHx: 05:00 None; jb4 - Immunization history:: Adult Immunizations up to date. - Infectious Disease History:: Denies. - Social history:: Smoking status: Patient denies any tobacco usage or history of. Patient uses alcohol, occasionally. - Family history:: not pertinent. ROS: 06:34 Constitutional: Negative for fever, chills, and weight loss, Cardiovascular: Negative rt for chest pain, palpitations, and edema, Respiratory: Negative for shortness of breath, cough, wheezing, and pleuritic chest pain, Abdomen/GI: Negative for abdominal pain, nausea, vomiting, diarrhea, and constipation, Neuro: Negative for headache, weakness, numbness, tingling, and seizure, 06:34 ENT: Positive for Pain to lip, negative for difficulty swallowing, Exam: 06:34 Constitutional: This is a well developed, well nourished patient who is awake, alert, rt and in no acute distress. Head/Face: Normocephalic, atraumatic. Chest/axilla: Normal chest wall appearance and motion. Nontender with no deformity. No lesions are appreciated. Cardiovascular: Regular rate and rhythm with a normal S1 and S2. No gallops, murmurs, or rubs. Normal PMI, no JVD. No pulse deficits. Respiratory: Lungs have equal breath sounds bilaterally, clear to auscultation and percussion. No rales, rhonchi or wheezes noted. No increased work of breathing, no retractions or nasal flaring. Skin: Warm, dry with normal turgor. Normal color with no rashes, no lesions, and no evidence of cellulitis. MS/ Extremity: Pulses equal, no cyanosis. Neurovascular intact. Full, normal range of motion. Neuro: Awake and alert, GCS 15, oriented to person, place, time, and situation. Cranial nerves II-XII grossly intact. Motor strength 5/5 in all extremities. Sensory grossly intact. Cerebellar exam normal. Normal gait. 06:34 ENT: Vesicular lesion noted to the lower lip. Vital Signs: 04:58 BP 189 / 82; Pulse 57; Resp 16; Temp 98.6(O); Pulse Ox 100% on R/A; Weight 72.57 kg; jb4 Height 5 ft. 6 in. ; Pain 9/10; 05:20 BP 167 / 83; Pulse 55; Resp 16 S; Temp 98.6(O); Pulse Ox 100% on R/A; jw7 04:58 Body Mass Index 25.82 (72.57 kg, 167.64 cm) jb4 04:58 Pain Scale: Adult jb4 MDM: 05:01 Patient medically screened. rt 06:34 Differential diagnosis: Herpes stomatitis. Data reviewed: vital signs, nurses notes. I rt considered the following discharge prescriptions or medication management in the emergency department Medications were administered in the Emergency Department. See MAR. Care significantly affected by the following chronic conditions: Diabetes. Counseling: I had a detailed discussion with the patient and/or guardian regarding the historical points, exam findings, and any diagnostic results supporting the discharge/admit diagnosis, the need for outpatient follow up. Administered Medications: 05:32 Drug: Ketorolac IM 30 mg IM once Route: IM; Site: right deltoid; jw7 05:32 Follow up: Response: No adverse reaction; Medication administered at discharge. jw7 05:32 Drug: Viscous Lidocaine Mucous Membrane Liquid (4 %) 5 ml Mucous Membrane once Route: jw7 Mucous Membrane; 05:32 Follow up: Response: No adverse reaction; Medication administered at discharge. jw7 Disposition Summary: 09/29/23 05:05 Discharge Ordered Notes: Location: Home rt Problem: an ongoing problem rt Symptoms: are unchanged rt Condition: Stable rt Diagnosis - Herpesviral infection, unspecified rt Followup: rt - With: Private Physician - When: 2 - 3 days - Reason: Discharge Instructions: - Discharge Summary Sheet rt - Cold Sore rt Forms: - Medication Reconciliation Form rt - Antibiotic Education rt - Prescription Opioid Use rt - Patient Portal Instructions rt - Leadership Thank You Letter rt Prescriptions: - gabapentin 100 mg Oral capsule - take 1 capsule ORAL route 3 times per day; 21 capsule; Refills: 0, Product rt Selection Permitted Signatures: Charbel Andersen RN RN jb4 Lesley Bhakta RN RN jw7 Connor John MD MD rt
[2023-09-29] MEDS ORDERED: LIDOCAINE VISCOUS 2% 10ML ORAL SOLN ONE (05:25)
[2023-09-29] MEDS ORDERED: KETOROLAC 30 MG/ML INJ ONE (05:25)
[2023-09-29 05:43] VITALS: BP 167/83; TEMP 98.6; O2SAT 100
== END 2023-09-29 05:38 | disposition home or self-care (01) ==
LOC: ER 04:27
DX: B00.9 Herpesviral infection, unspecified (principal)
CPT/HCPCS: 96372; 99284